=== PATIENT | male | born 1945 | race Caucasian/White ===

== ENCOUNTER 2020-05-21 10:26 | Outpatient (REF) | payer MEDICARE, OTHER, SELFPAY ==
--- NOTE | 2020-05-21 10:34 | US_ITS ---
EXAMINATION: US ABDOMEN COMPLETE CLINICAL INFORMATION: Abdominal pain. Pancreatitis. COMPARISON: None TECHNIQUE: Real-time imaging of the abdominal viscera. FINDINGS: PANCREAS: Normal. ABDOMINAL AORTA: The proximal, mid, and distal segments are normal in caliber. INFERIOR VENA CAVA: Visualized portions are normal. LIVER: Liver echotexture is increased. The liver is normal in size. The liver contour is normal. No focal hepatic lesion. There is no intrahepatic biliary duct dilatation seen. GALLBLADDER: Normal. The gallbladder is physiologically distended without evidence of stones, sludge, polyps, wall thickening or pericholecystic fluid. COMMON BILE DUCT: Normal in caliber measuring 0.24 cm in diameter. RIGHT KIDNEY: Normal. No hydronephrosis. No renal calculi or focal parenchymal lesions. The kidney measures 14.1 cm in maximum dimension. LEFT KIDNEY: Normal. No hydronephrosis. No renal calculi or focal parenchymal lesions. The kidney measures 14.9 cm in maximum dimension. SPLEEN: Normal. The spleen measures 9.8 cm in maximum dimension. FREE FLUID: None. US/US abdomen complete IMPRESSION: Echogenic liver probably representing fatty infiltration.
== END 2020-05-21 10:27 | disposition home or self-care (01) ==
LOC: HO.HMGCX 10:26
PROVIDERS: PCP Internal Medicine; Visit Provider Internal Medicine
DX: R10.9 Unspecified abdominal pain (principal)
CPT/HCPCS: 76700

== ENCOUNTER 2020-05-29 11:00 | Outpatient (RCR) | payer MEDICARE, OTHER, SELFPAY | END 2020-06-28 11:48 | disposition home or self-care (01) | LOC: HO.PTCHIC 11:00 | PROVIDERS: PCP Internal Medicine; Visit Provider Internal Medicine | DX: R53.1 Weakness (principal); R26.81 Unsteadiness on feet | CPT/HCPCS: 97110; 97112 ==

== ENCOUNTER 2020-11-21 11:00 | Outpatient (RCR) | payer MEDICARE, OTHER, SELFPAY | END 2020-12-15 10:50 | disposition home or self-care (01) | LOC: HO.PTCHIC 11:00 | PROVIDERS: PCP Internal Medicine; Visit Provider Internal Medicine | DX: Z47.1 Aftercare following joint replacement surgery (principal); Z96.649 Presence of unspecified artificial hip joint | CPT/HCPCS: 97014; 97110; 97140; 97162 ==

== ENCOUNTER 2021-07-05 11:00 | Outpatient (RCR) | payer MEDICARE, OTHER, SELFPAY | END 2021-07-05 13:11 | disposition home or self-care (01) | LOC: HO.PTCHIC 11:00 | PROVIDERS: PCP Internal Medicine; Visit Provider Internal Medicine | DX: M54.9 Dorsalgia, unspecified (principal); M79.606 Pain in leg, unspecified | CPT/HCPCS: 97110; 97150; 97162 ==

== ENCOUNTER 2022-02-04 11:00 | Outpatient (RCR) | payer MEDICARE, OTHER, SELFPAY | END 2022-04-25 13:47 | disposition home or self-care (01) | LOC: HO.PTCHIC 11:00 | PROVIDERS: PCP Internal Medicine; Visit Provider Internal Medicine | DX: R26.9 Unspecified abnormalities of gait and mobility (principal); R53.1 Weakness | CPT/HCPCS: 97110; 97162 ==

== ENCOUNTER 2022-03-25 08:41 | Outpatient (REF) | payer MEDICARE, OTHER, SELFPAY ==
--- NOTE | ~2022-03-25 | US_ITS ---
EXAMINATION: NONINVASIVE ASSESSMENT OF THE ARTERIES OF BOTH LOWER EXTREMITIES WITH US BILATERAL LOWER EXTREMITY DUPLEX CLINICAL INFORMATION: Absent pulses/claudication. TECHNIQUE: duplex Doppler techniques with wave form analysis and measurement of velocities in the common femoral, profunda femoral, superficial femoral, popliteal and tibial arteries. The study was performed only at rest. COMPARISON: None. FINDINGS: AT REST: RIGHT LEG: There is vessel wall calcification. There is a biphasic waveform seen throughout. * Common femoral artery: 73 cm/s, Diastolic flow reversal: Yes. * Superficial femoral artery (proximal, mid, distal): 80, 90 and 60 cm/s, Diastolic flow reversal: Yes. * Popliteal artery: 53 cm/s, Diastolic flow reversal: Yes. * Posterior tibial artery: 82 cm/s, Diastolic flow reversal: Yes. LEFT LEG: There is vessel wall calcification. There is a biphasic waveform seen throughout. Common femoral artery: 55 cm/s, Diastolic flow reversal: Yes. * Superficial femoral artery (proximal, mid, distal): 68, 64 and 48 cm/s, Diastolic flow reversal: Yes. * Popliteal artery: 48 cm/s, Diastolic flow reversal: Yes. * Posterior tibial artery: 85 cm/s, Diastolic flow reversal: Yes. US/US arterial duplex LE BI IMPRESSION: There is diffuse vessel wall calcification and biphasic waveform seen throughout There is no evidence of any hemodynamically significant lower extremity arterial disease by waveform or duplex Doppler criteria at rest.
== END 2022-03-25 08:42 | disposition home or self-care (01) ==
LOC: HO.US 08:41
PROVIDERS: Visit Provider Internal Medicine
DX: R09.89 Other specified symptoms and signs involving the circulatory and respiratory systems (principal)
CPT/HCPCS: 93925

== ENCOUNTER 2022-08-19 11:00 | Outpatient (RCR) | payer MEDICARE, OTHER, SELFPAY | END 2022-09-12 10:36 | disposition home or self-care (01) | LOC: HO.PTCHIC 11:00 | PROVIDERS: PCP Internal Medicine; Visit Provider Internal Medicine | DX: M62.81 Muscle weakness (generalized) (principal) | CPT/HCPCS: 97110; 97112; 97162; 97530 ==

== ENCOUNTER 2023-01-09 11:15 | Outpatient (REF) | payer MEDICARE, OTHER, SELFPAY ==
[2023-01-09 16:24] LABS: Vitamin D 25-OH Total 21.7 ng/mL (>30)
== END 2023-01-09 11:16 | disposition home or self-care (01) ==
LOC: HO.HMGCLDS 11:15
PROVIDERS: PCP Internal Medicine; Visit Provider Internal Medicine
DX: M81.0 Age-related osteoporosis without current pathological fracture (principal)
CPT/HCPCS: 36415; 82306

== ENCOUNTER 2023-04-22 11:00 | Outpatient (RCR) | payer MEDICARE, OTHER, SELFPAY ==
[2023-01-22 10:02] VITALS: BP 125/78
--- NOTE | 2023-04-22 12:12 | MHC.PT.DC ---
[facility] [place] Office [place] Office [place] Office [address] Flor [place] [address] [phone] F: [phone] F: [phone] F: [phone] F: [phone] Physical Therapy Discharge Report Diagnosis: B hip DJD Date of Surgery: Date of Evaluation: 01/22/23 Date of Discharge: 04/22/23 Treatments to Date: 16 Cancellations to Date: No Shows to Date: Discharge Status: Achieved Goals Improved Function Independent with HEP Discharge Summary: Real has been an active participant in his therapy with good home program compliance. We are in agreement with DC today as he has met most of his therapeutic goals, is improved of his initial impairments, and is independent in his home program for self management. Electronically signed by: Zafar Lynne PT Please sign and return to therapist. Thank you for your referral.
== END 2023-04-22 12:12 | disposition home or self-care (01) ==
LOC: HO.PTCHIC 11:00
PROVIDERS: PCP Internal Medicine; Visit Provider Internal Medicine
DX: M19.90 Unspecified osteoarthritis, unspecified site (principal)
CPT/HCPCS: 97110; 97112; 97162; 97530

== ENCOUNTER 2023-10-20 11:00 | Outpatient (RCR) | payer MEDICARE, OTHER, SELFPAY | END 2024-04-11 15:02 | disposition home or self-care (01) | LOC: HO.PTCHIC 11:00 | PROVIDERS: PCP Internal Medicine; Visit Provider Internal Medicine | DX: M25.551 Pain in right hip (principal); M25.552 Pain in left hip; R26.9 Unspecified abnormalities of gait and mobility | CPT/HCPCS: 97110; 97112; 97162 ==

== ENCOUNTER 2023-12-29 09:58 | Outpatient (REF) | payer MEDICARE, OTHER, SELFPAY ==
--- NOTE | ~2023-12-29 | US_ITS ---
EXAMINATION: US PELVIS LIMITED (BLADDER) CLINICAL INFORMATION: Voiding every hour. COMPARISON: Ultrasound abdomen complete 05/21/2020. TECHNIQUE: Real-time imaging of the bladder. FINDINGS: BLADDER: Well distended. Bilateral ureteral jets are demonstrated. Prevoid bladder volume is 252 mL. Postvoid bladder volume is 72 mL. The bladder hanna are mildly trabeculated. ADDITIONAL FINDINGS: The prostate is enlarged with a volume of 83 mL. US/US bladder IMPRESSION: 1. Large post void residual. 2. The bladder hanna are mildly trabeculated. 3. Enlarged prostate.
== END 2023-12-29 09:59 | disposition home or self-care (01) ==
LOC: HO.HMGCX 09:58
PROVIDERS: PCP Internal Medicine; Visit Provider Internal Medicine
DX: N39.43 Post-void dribbling (principal)
CPT/HCPCS: 76857

== ENCOUNTER 2024-03-08 08:49 | Outpatient (AMB) | payer MEDICARE, OTHER, SELFPAY ==
--- NOTE | 2024-03-08 08:56 | A.OFFVIS_ITS ---
Intake Visit Reasons: Enlarged Prostate/High PVR Intake Note: Patient presents to the office today for a new patient visit for enlarged prostate/High PVR Urology Meds:None Blood Thinners:None PVR:48mL Allergies No Known Allergies [No Known Allergies*] Allergy (Unverified 03/08/24 08:56) HPI Comments Details: Real is a pleasant male. He is a patient of Dr. Wilkinson. He seen for the following urologic conditions - lower urinary tract symptoms Lower urinary tract symptoms Progressive Found to have 80 g prostate on ultrasound with 75 cc PVR PVR in office today 50 cc Minimal nocturia Has frequency during the day Postvoid dribbling with relative weakness of stream Trial finasteride Review of Systems Const Denies chills and Denies fever(s) Card Reports no additional complaints and Denies syncope Resp Denies cough GI Denies abdominal pain and Denies heartburn Reports as per HPI and Denies change in libido Neuro Denies syncope Psych Denies change in libido Endo Denies change in libido Physical Exam Const General: cooperative, healthy appearing, comfortable and no acute distress Orientation/consciousness: patient oriented x3 HEENT Face and sinus: Yes normal facial exam Mouth: moist mucous membranes Neck Neck: Yes normal visual inspection, Yes full ROM and Yes trachea midline Chest Chest palpation & inspection: normal inspection of the chest Resp Effort & Inspection: normal respiratory effort, able to speak in complete sentences and no respiratory distress GI Inspection: Yes normal to inspection Back/Spine/Pelvis Cervical Spine: normal cervical lordosis Thoracic/Lumbar Spine: thoracic and lumbar spine normal to inspection Skin General skin exam: no rashes or lesions noted Neuro General: patient oriented x3, gait normal, tone normal and moves all extremities Extrem General: Yes normal to inspection and Yes capillary refill normal Office Procedures Post Void Residual Post Residual Void Post Void Residual (PVR): 48 32956-Fxqd Void Residual by ultrasound Assessment & Plan Assessment & Plan (1) Incomplete emptying of bladder due to benign prostatic hyperplasia: Code(s): N40.1 - Benign prostatic hyperplasia with lower urinary tract symptoms; R33.9 - Retention of urine, unspecified Category: Medical (2) Bladder outlet obstruction: Code(s): N32.0 - Bladder-neck obstruction Category: Medical (3) Post-void dribbling: Code(s): N39.43 - Post-void dribbling Category: Medical Plan 4 month follow-up PSA and PVR Orders: Orders AMB Urinalysis Automated Today Z13.9 - Encounter for screening, unspecified AMB Post Void Residual by ultrasound Today N40.0 - Benign prostatic hyperplasia without lower urinary tract symptoms PSA,Total (Free>4and<10) 4 Months N40.1 - Benign prostatic hyperplasia with lower urinary tract symptoms, R33.9 - Retention of urine, unspecified Medications: New finasteride 5 mg PO DAILY 90 days 90 tabs 1RF N13.8 - Other obstructive and reflux uropathy, N40.1 - Benign prostatic hyperplasia with lower urinary tract symptoms, R33.9 - Retention of urine, unspecified Patient Instructions: Imaging studies, laboratory and physical exam results were discussed and reviewed in detail. No major barriers to patient understanding were identified. An opportunity to ask questions regarding the treatment plan was provided. All questions were answered. The patient expressed understanding and agreement with the above treatment plan. The patient is aware they should contact our office by phone for worsening of their current condition or the appearance of new urologic symptoms. Compliance is encouraged with any medications and followup testing that is ordered. It is a privilege to participate in the urologic care of your patient. If you have any questions or concerns regarding treatment for the above conditions, or other urologic issues, please do not hesitate to contact me. The office telephone contact is [phone]. This note is constructed using voice recognition software. While every effort has been made to ensure accuracy transport aircrewman errors may have been included. Yours sincerely, Dr Syd Mcqueen MD, [facility] - Urology Providers of Expert, Compassionate Care for the Genitourinary System Coding Level of Care Code New Pt Level 4 (77921) Diagnoses Incomplete emptying of bladder due to benign prostatic hyperplasia N40.1; R33.9 Bladder outlet obstruction N32.0 Post-void dribbling N39.43 CPT Codes Post Residual Void - PVR CPT Code: 94432-Qzou Void Residual by ultrasound ([id number])
== END 2024-03-08 09:43 | disposition home or self-care (01) ==
LOC: HO.HUSH 08:49
PROVIDERS: PCP Internal Medicine; Visit Provider Urology
DX: N40.1 Benign prostatic hyperplasia with lower urinary tract symptoms (principal); R33.9 Retention of urine, unspecified; N32.0 Bladder-neck obstruction; N39.43 Post-void dribbling
CPT/HCPCS: 99204

== ENCOUNTER → 2024-03-08 08:49 | Outpatient (BNVA) | payer MEDICARE, OTHER, SELFPAY | PROVIDERS: PCP Internal Medicine; Visit Provider Urology | DX: N40.1 Benign prostatic hyperplasia with lower urinary tract symptoms (principal); N13.8 Other obstructive and reflux uropathy; N39.43 Post-void dribbling; R35.0 Frequency of micturition; N32.0 Bladder-neck obstruction | CPT/HCPCS: 51798; 99202 ==

== ENCOUNTER 2024-04-07 14:00 | Outpatient (RCR) | payer MEDICARE, OTHER, SELFPAY | END 2024-04-11 15:02 | disposition home or self-care (01) | LOC: HO.PTCHIC 14:00 | PROVIDERS: PCP Internal Medicine; Visit Provider Internal Medicine | DX: M54.9 Dorsalgia, unspecified (principal); R53.1 Weakness; M47.816 Spondylosis without myelopathy or radiculopathy, lumbar region | CPT/HCPCS: 97110; 97112; 97163 ==

== ENCOUNTER 2024-04-22 06:32 | Day surgery (SDC) | payer MEDICARE, OTHER, SELFPAY ==
[2024-04-20 15:07] VITALS: BMI 27.7
[2024-04-20 15:39] VITALS: BMI 27.7
--- NOTE | 2024-04-21 09:59 | HO.ANESPROP2 ---
Documented by User: Stormy Calderon NP 04/21/24 10:00 HPI - Anesthesia Eval Consult details Narrative: 78yo M for Colonoscopy Anesthesia Pre-Procedure Meds Is the patient on any of the following meds?: SGLT2 Inhib PMFSH Active Problems Active Problems: All Active Problems Post-void dribbling (Acute) Incomplete emptying of bladder due to benign prostatic hyperplasia (Acute) Bladder outlet obstruction (Acute) Past Medical History Medical History Nicotine use Ambulates with cane Peripheral neuropathy Internal hemorrhoids Diverticulosis Hiatal hernia Arthritis Left leg weakness Diabetes Hyperlipemia HTN (hypertension) Surgical History Surgical History History of esophagogastroduodenoscopy (EGD) (~2018) Hx of bilateral hip replacements Hx of colonoscopy Social History Social History Are you a primary manager intensive care to a significant other at home: No Do you presently have visiting nurse or other home services: No Patient Tobacco Use Status: Former Tobacco user Tobacco use type: Cigarette Smoked in Last 30 Days: No Use of substances other than those prescribed or required for medical reasons: No Substance Use Type Other:: ZYN nicotine chew Substance Use Frequency: Daily Have you been hit, kicked, punched, or otherwise hurt by someone within the past year? If so, by whom?: No Are you DNR?: No Advance Directives: No Advance Directives Information Provided: Yes Advance Directives on File: No Recently lost weight without trying: No Nutrition Risks: No Nutritional Risk Poor oral hygiene: No Meds Allergies Allergy/AdvReac Type Severity Reaction Status Date / Time No Known Allergies Allergy Verified 04/20/24 15:38 [No Known Allergies*] Home Medications ?Medication ?Instructions ?Recorded ?Confirmed ?Last Taken ?Type atorvastatin 10 mg tablet 10 mg PO DAILY 03/08/24 04/20/24 Unknown History cholecalciferol (vitamin D3) 25 25 mcg PO DAILY 03/08/24 04/20/24 Unknown History mcg (1,000 unit) capsule (Vitamin D3) empagliflozin 10 mg tablet 10 mg PO DAILY 03/08/24 04/20/24 04/18/24 History (Jardiance) gabapentin 100 mg capsule mg PO 03/08/24 Unknown History lisinopril 10 mg tablet 10 mg PO DAILY 03/08/24 04/20/24 Unknown History metformin 500 mg tablet,extended 1,000 mg PO BID 03/08/24 04/20/24 Unknown History release 24 hr nifedipine 30 mg tablet,extended 30 mg PO DAILY 03/08/24 04/20/24 Unknown History release Exam Height,Weight and Vital Signs: Height 6 ft 3.5 in Weight 102.058 kg Assessment and Plan Assessment Anesthesia Assessment: Chart Reviewed Documented by User: Brigida Schuster MD 04/22/24 08:44 PMFSH Past Medical History Medical History Nicotine use Ambulates with cane Peripheral neuropathy Internal hemorrhoids Diverticulosis Hiatal hernia Arthritis Left leg weakness Diabetes Hyperlipemia HTN (hypertension) Family History Family history of problems with anesthesia: No Surgical History Surgical History History of esophagogastroduodenoscopy (EGD) (~2018) Hx of bilateral hip replacements Hx of colonoscopy History of Problems with Anesthesia: No Social History Social History Are you a primary manager intensive care to a significant other at home: No Do you presently have visiting nurse or other home services: No Patient Tobacco Use Status: Former Tobacco user Tobacco use type: Cigarette Smoked in Last 30 Days: No Use of substances other than those prescribed or required for medical reasons: No Substance Use Type Other:: ZYN nicotine chew Substance Use Frequency: Daily Have you been hit, kicked, punched, or otherwise hurt by someone within the past year? If so, by whom?: No Are you DNR?: No Advance Directives: No Advance Directives Information Provided: Yes Advance Directives on File: No Recently lost weight without trying: No Nutrition Risks: No Nutritional Risk Poor oral hygiene: No Meds Allergies Allergy/AdvReac Type Severity Reaction Status Date / Time No Known Allergies Allergy Verified 04/20/24 15:38 [No Known Allergies*] Home Medications ?Medication ?Instructions ?Recorded ?Confirmed ?Last Taken ?Type atorvastatin 10 mg tablet 10 mg PO DAILY 03/08/24 04/20/24 Unknown History cholecalciferol (vitamin D3) 25 25 mcg PO DAILY 03/08/24 04/20/24 Unknown History mcg (1,000 unit) capsule (Vitamin D3) empagliflozin 10 mg tablet 10 mg PO DAILY 03/08/24 04/20/24 04/18/24 History (Jardiance) gabapentin 100 mg capsule mg PO 03/08/24 Unknown History lisinopril 10 mg tablet 10 mg PO DAILY 03/08/24 04/20/24 Unknown History metformin 500 mg tablet,extended 1,000 mg PO BID 03/08/24 04/20/24 Unknown History release 24 hr nifedipine 30 mg tablet,extended 30 mg PO DAILY 03/08/24 04/20/24 Unknown History release Exam Airway Mallampati Class: II TM Dist: >3cm Neck ROM: Full Heart: rrr Lungs: cta Assessment and Plan Assessment Anesthesia Assessment: Anesthesia Plan Discussed Final Anesthetic Review Family History of Problems with Anesthesia: No History of Problems with Anesthesia: No NPO: Yes ASA Class: III Final Preanesthetic Review: No Changes in Pt Med Stat, Meds/Allgs Chart Reviewed, Consent Obtained/Reviewed and Anes Risks/Benef Reviewed Patient Risk: Intermediate Anesthetic Plan Anesthetic Plan: MAC:
[2024-04-22 06:54] VITALS: BP 146/79; PULSE 62; RESP 16; TEMP 36.2; O2SAT 98
[2024-04-22 06:58] VITALS: BMI 27.5
[2024-04-22] MEDS: Lactated Ringers 1,000 ML 100 ML IVCONT (07:10)
[2024-04-22 07:15] LABS: Glucose, Whole Blood 151 mg/dL (60-115)
[2024-04-22 08:50] VITALS: BP 116/70; PULSE 61; RESP 16; TEMP 36.1; O2SAT 97
--- NOTE | 2024-04-22 08:56 | PM.OP ---
Brief Operative Note Date of Service: 04/22/24 Pre-op diagnosis: Dysphagia, Screening Post-op diagnosis: other (Duodenitis, GERD, Colon polyp) Procedure: EGD with biopsies, Colonoscopy to the cecum and TI with cold snare polypectomy x 1 Surgeon: Juan Miguel iTm MD Anesthesia: MAC Was an Automotive Service Cashier used for this Procedure?: No Estimated blood loss (mL): 2.0 Pathology: other (A. Gastric antrum B. EG Junction at 42cm C. Gastric polyp D. Esophagus 20-25cm E. Ascending colon polyp) Condition: stable Disposition: PACU
--- NOTE | 2024-04-22 09:10 | OP_ITS ---
DATE OF SERVICE: 04/22/2024 SURGEON: Juan Miguel Tim MD INDICATIONS: The patient presents for evaluation of intermittent dysphagia, personal history of tubular adenoma of the colon, colorectal cancer screening. Full consent was obtained from him for this, including risks of bleeding and perforation. PREOPERATIVE DIAGNOSIS: POSTOPERATIVE DIAGNOSIS: PROCEDURE PERFORMED: Esophagogastroduodenoscopy with biopsies, and colonoscopy to the cecum and terminal ileum with cold snare polypectomy. ESTIMATED BLOOD LOSS: COMPLICATIONS: ANESTHESIA: Monitored anesthesia care. ASSISTANTS: SPECIMENS: PREOPERATIVE DIAGNOSES: Dysphagia, colorectal cancer screening, personal history of tubular adenomas of the colon. POSTOPERATIVE DIAGNOSES: Dysphagia, colorectal cancer screening, personal history of tubular adenomas of the colon, small hiatal hernia, gastroesophageal reflux, rule out eosinophilic esophagitis, gastritis, duodenitis, colon polyp, diverticulosis, and internal hemorrhoids. DESCRIPTION OF PROCEDURE: The patient was placed in the left lateral decubitus position. The Red-rabbit video gastroscope was passed in the posterior oropharynx and upper esophagus under direct vision. The scope was passed slowly into the distal esophagus. The gastroesophageal junction appeared at 42 cm. There was some very minimal irregularity, consistent with reflux but no evidence of any esophagitis nor any active definitive evidence of Herndon mucosa. The scope entered the stomach, there was a small hiatal hernia. The scope was advanced to pylorus and the duodenum was cannulated to the descending portion. The duodenum including the bulb was carefully inspected. The duodenal bulb had multiple, less than 5 mm erosions. There was no ulceration or mass. The second and third portions of duodenum appeared normal. The scope was withdrawn back to the stomach. The gastric antrum had some areas of erythema and edema, as well as an area of what appeared to be a diverticulum with some surrounding edema. Biopsies were obtained from the antrum as well as from the margins of the area of what appeared to be the diverticulum. The scope was retroflexed visualizing the proximal stomach carefully which appeared normal, without mass or ulceration. The scope was straightened. There was good peristalsis. The scope was withdrawn back in the esophagus. Biopsies were obtained at the EG junction at 42 cm. Proximal to that, there did appear to be some esophageal dissecans, but no other mucosal abnormalities. Biopsies were obtained between 20 and 25 cm to rule out eosinophilic esophagitis. There was no evidence of any proximal esophageal ring, nor stricture. The scope was withdrawn from the patient. He was turned around for the colonoscopy. The digital rectal exam revealed no abnormalities. The Olympus video pediatric colonoscope was entered into the rectum and advanced easily to the cecum. Once in the cecum, I did identify cecal pouch with appendiceal orifice and a normal-appearing ileocecal valve. The terminal ileum was cannulated and appeared normal. The scope was withdrawn back in the colon. There were some diverticula noted in the cecum as well. The cecum otherwise appeared normal. The scope was slowly withdrawn assessing all mucosal surfaces carefully. Preparation was excellent. There was a mild amount of diverticulosis in the ascending colon. There was a moderate amount of diverticulosis in the sigmoid and descending colon. In the ascending colon was an approximately 5 or 6 mm polyp, which was removed by cold snare polypectomy and recovered by suction. The polypectomy site appeared clean, without any sign of residual polyp nor significant bleeding. I did not visualize any other polyps, colitis, nor angiodysplasia. In the rectum, scope was retroflexed visualizing internal hemorrhoids, but no other pathology. The rectal mucosa appeared normal. The scope was straightened and withdrawn from the patient. He tolerated the procedure well and was returned to recovery area in stable condition. IMPRESSION: 1. Erosive duodenitis. 2. Gastritis, rule out Helicobacter pylori. 3. Hiatal hernia, gastroesophageal reflux. 4. Rule out eosinophilic esophagitis. 5. Colon polyp. 6. Diverticulosis. 7. Internal hemorrhoids. PLAN: The results of biopsies will be checked. Given his age and the minimal findings in the colonoscopy, I do not think he will need any further screening colonoscopies. He was advised not to use any aspirin or NSAIDs for 1 week. Given his upper GI complaints of some dysphagia and the upper endoscopy findings, I shall start him on omeprazole 20 mg daily to treat the inflammation as well as to treat any reflux that might be causing some spasm and dysphagia on that basis. He will be seen in followup as well. He does take alendronate and I did advise him that is important to be taking it according to the directions so as to avoid increased esophageal issues. MD SKYLER Hernandez/ESTEFANIA / [phone] HUE
[2024-04-22 09:11] VITALS: BP 147/90; PULSE 64; RESP 18; TEMP 36.1; O2SAT 99
== END 2024-04-22 09:31 | disposition home or self-care (01) ==
PROVIDERS: PCP Internal Medicine; Visit Provider Internal Medicine
PROC: 0DJD8ZZ Inspection of Lower Intestinal Tract, Via Natural or Artificial Opening Endoscopic (ICD-10-PCS; CPT 45378; principal; 2024-04-22 07:30)
PROC: (CPT 43239; 2024-04-22 07:30)
DX: K26.9 Duodenal ulcer, unspecified as acute or chronic, without hemorrhage or perforation (principal); K29.70 Gastritis, unspecified, without bleeding; K44.9 Diaphragmatic hernia without obstruction or gangrene; K31.4 Gastric diverticulum; K21.00 Gastro-esophageal reflux disease with esophagitis, without bleeding; R13.10 Dysphagia, unspecified; Z12.11 Encounter for screening for malignant neoplasm of colon; D12.2 Benign neoplasm of ascending colon; K57.30 Diverticulosis of large intestine without perforation or abscess without bleeding; K64.8 Other hemorrhoids; Z86.010 Personal history of colon polyps; E11.9 Type 2 diabetes mellitus without complications; I10 Essential (primary) hypertension; E78.5 Hyperlipidemia, unspecified; Z79.899 Other long term (current) drug therapy; Z79.02 Long term (current) use of antithrombotics/antiplatelets; Z79.84 Long term (current) use of oral hypoglycemic drugs; Z87.891 Personal history of nicotine dependence
CPT/HCPCS: 43239; 45385; 82947; 88305; 88313; 88342; J1596; J2704

== ENCOUNTER 2024-06-28 09:18 | Outpatient (REF) | payer MEDICARE, OTHER, SELFPAY ==
[2024-06-28 12:03] LABS: PSA,Total (Free>4and<10) 1.03 ng/mL (0.00-4.00)
== END 2024-06-28 09:19 | disposition home or self-care (01) ==
LOC: HO.HMGCLDS 09:18
PROVIDERS: PCP Internal Medicine; Visit Provider Urology
DX: N40.1 Benign prostatic hyperplasia with lower urinary tract symptoms (principal); R33.9 Retention of urine, unspecified; Z12.5 Encounter for screening for malignant neoplasm of prostate
CPT/HCPCS: 36415; 84153

== ENCOUNTER 2024-07-14 08:26 | Outpatient (AMB) | payer MEDICARE, OTHER, SELFPAY ==
--- NOTE | 2024-07-14 08:39 | A.OFFVIS_ITS ---
Intake Visit Reasons: 4m/PSA(set) Intake Note: Patient is present for 4M/PSA Urology Medication:FINASTERIDE Antibiotic Allergy:NONE Blood Thinner:NONE Spiritual Counselor Required: No Allergies No Known Allergies [No Known Allergies*] Allergy (Verified 07/14/24 08:40) HPI Comments Details: Real is a pleasant male. He is a patient of Dr. Wilkinson. He seen for the following urologic conditions - lower urinary tract symptoms Four month follow-up trial finasteride Improved voiding parameters 3+ glucose urine on Jardiance Six-month follow-up check testosterone Lower urinary tract symptoms background diabetes Progressive Found to have 80 g prostate on ultrasound with 75 cc PVR PVR in office today 50 cc Minimal nocturia Has frequency during the day Postvoid dribbling with relative weakness of stream PSA 07/19 1.0 PFSH Medical History Nicotine use Ambulates with cane Peripheral neuropathy Internal hemorrhoids Diverticulosis Hiatal hernia Arthritis Left leg weakness Diabetes Hyperlipemia HTN (hypertension) Surgical History History of esophagogastroduodenoscopy (EGD) (~2018) Hx of bilateral hip replacements Hx of colonoscopy Social History Are you a primary day care aide to a significant other at home: No Do you presently have visiting nurse or other home services: No Patient Tobacco Use Status: Former Tobacco user Tobacco use type: Cigarette Results AMB Urinalysis, Automated UA Leukoctes 0 Kaylan/uL Last Edit by VICENTA Diaz on 07/14/24 09:34 UA Nitrite Negative Last Edit by VICENTA Diaz on 07/14/24 09:34 UA Urobilinogen 0.2 mg/dL Last Edit by VICENTA Diaz on 07/14/24 09:3 4 UA Protein 0 mg/dL Last Edit by VICENTA Diaz on 07/14/24 09:34 UA pH 6.0 Last Edit by VICENTA Diaz on 07/14/24 09:34 UA Blood 0 Chris/uL Last Edit by VICENTA Diaz on 07/14/24 09:34 UA Specific [place] 1.015 Last Edit by VICENTA Diaz on 07/14/24 09: 34 UA Ketone Negative Last Edit by VICENTA Diaz on 07/14/24 09:34 UA Bilirubin 0 mg/dL Last Edit by VICENTA Diaz on 07/14/24 09:34 UA Glucose 1000 mg/dL Last Edit by VICENTA Diaz on 07/14/24 09:34 Results Reviewed Results Reviewed: Laboratory Last Values Urine pH (Auto) 6.0 07/14/24 09:33 Specific [place] (Auto) 1.015 07/14/24 09:33 Urine Protein (Auto) 0 mg/dL 07/14/24 09:33 Glucose (UA)(Auto) 1000 mg/dL 07/14/24 09:33 Urine Ketones (Auto) Negative 07/14/24 09:33 Urine Blood (Auto) 0 Chris/uL 07/14/24 09:33 Urine Nitrite (Auto) Negative 07/14/24 09:33 Urine Bilirubin (Auto) 0 mg/dL 07/14/24 09:33 Urine Urobilinogen (Auto) 0.2 mg/dL 07/14/24 09:33 Leukocyte Esterase (Auto) 0 Kaylan/uL 07/14/24 09:33 Assessment & Plan Assessment & Plan (1) Bladder outlet obstruction: Code(s): N32.0 - Bladder-neck obstruction Category: Medical (2) Incomplete emptying of bladder due to benign prostatic hyperplasia: Code(s): N40.1 - Benign prostatic hyperplasia with lower urinary tract symptoms; R33.9 - Retention of urine, unspecified Category: Medical Plan Six-month follow-up PVR and PSA Orders: Orders AMB Urinalysis Automated Today Z13.9 - Encounter for screening, unspecified Testosterone, Total 6 Months N32.0 - Bladder-neck obstruction Medications: Refilled finasteride 5 mg PO DAILY 90 tabs 1RF 90 days N13.8 - Other obstructive and reflux uropathy, N40.1 - Benign prostatic hyperplasia with lower urinary tract symptoms, R33.9 - Retention of urine, unspecified Patient Instructions: Imaging studies, laboratory and physical exam results were discussed and reviewed in detail. No major barriers to patient understanding were identified. An opportunity to ask questions regarding the treatment plan was provided. All questions were answered. The patient expressed understanding and agreement with the above treatment plan. The patient is aware they should contact our office by phone for worsening of their current condition or the appearance of new urologic symptoms. Compliance is encouraged with any medications and followup testing that is ordered. It is a privilege to participate in the urologic care of your patient. If you have any questions or concerns regarding treatment for the above conditions, or other urologic issues, please do not hesitate to contact me. The office telephone contact is [phone]. This note is constructed using voice recognition software. While every effort has been made to ensure accuracy development associate errors may have been included. Yours sincerely, Dr Syd Mcqueen MD, [facility] - Urology Providers of Expert, Compassionate Care for the Genitourinary System Coding Level of Care Code Est Pt Level 3 (12952) Diagnoses Bladder outlet obstruction N32.0 Incomplete emptying of bladder due to benign prostatic hyperplasia N40.1; R33.9
== END 2024-07-14 09:08 | disposition home or self-care (01) ==
PROVIDERS: PCP Internal Medicine; Visit Provider Urology
DX: N32.0 Bladder-neck obstruction (principal); N40.1 Benign prostatic hyperplasia with lower urinary tract symptoms; R33.9 Retention of urine, unspecified; Z13.9 Encounter for screening, unspecified
CPT/HCPCS: 99213

== ENCOUNTER → 2024-07-14 08:26 | Outpatient (BNVA) | payer MEDICARE, OTHER, SELFPAY | PROVIDERS: PCP Internal Medicine; Visit Provider Urology | DX: N40.1 Benign prostatic hyperplasia with lower urinary tract symptoms (principal); N13.8 Other obstructive and reflux uropathy; R33.9 Retention of urine, unspecified; N32.0 Bladder-neck obstruction | CPT/HCPCS: 81003; 99212 ==

== ENCOUNTER 2024-10-10 10:56 | Outpatient (REF) | payer MEDICARE, OTHER, SELFPAY ==
--- NOTE | ~2024-10-10 | XR_ITS ---
EXAMINATION: XR LUMBOSACRAL SPINE CLINICAL INFORMATION: LOW BACK PAIN COMPARISON: None available. TECHNIQUE: Three views of the lumbosacral spine. FINDINGS: There is maintained lumbar lordosis. There is loss of L3-4 and L5-S1 disc heights. Rest the disc heights, although vertebral heights and alignment is preserved. There is moderate ventral spondylosis at the L2 to-3 and mild spondylosis L3-for L4-5 disc levels. No visible acute fracture, dislocation or lytic process seen. XR/XR lumbar spine 2-3V IMPRESSION: Mild degenerative disc changes and spondylosis as described above. No visible acute fracture or lytic process seen. Electronically signed by: Bronson Colbert MD 10/10/2024 12:17 PM EDT
--- OUTSIDE RECORDS SUMMARY | 2024-10-10 12:40 | XMS_ITS ---
Author Organization [facility] Address [address] [place] [address] Care Team Providers Care Crop Or Grain Farmer Name Role Phone Kaushal Wilkinson MD Primary Care Provider UnavailJuan Miguel López [phone] REASON FOR VISIT cancel appt on 08/31/2024 Encounters Encounter Location Date Provider Diagnosis [facility] 10 [facility] [address] [place] [phone] 07/22/2024 Juan Miguel Tim Plan Of Treatment Next Appt Details Provider Name:Juan Miguel Tim , 10/28/2024 02:40:00 PM, [address] [facility], [address], [place], [address], Progress Notes * YAZMIN ADAMSDOB:1945 (78 yo M)Acc No.[id number]:07/22/2024 Patient:?YAZMIN ADAMS :1945???Age:78 Y???Sex:Male Address:[address] [place] [address], [place] [address] * true * Date:? Generated for Printi ng/Fadaning/eTransmitting on:?10/10/2024 12:40 PM EDT
--- OUTSIDE RECORDS SUMMARY | 2024-10-10 12:40 | XMS_ITS ---
Author Organization [facility] [place] Address [address] [facility] [place] [address] Care Team Providers Care Filenet Architect Name Role Phone Kaushal Wilkinson MD Primary Care Provider Marizol Yi Unavailable [phone] Allergies No Known Allergies REASON FOR VISIT At Risk Footcare, Skin Problem Medications Medication SIG (Take, Route, Frequency, Duration) Notes Start Date End Date Status Lisinopril 10 MG 1 tablet Orally Once a day for 30 day(s) Unknown Crestor 20 MG 1 tablet Orally Once a day for 30 day(s) Unknown Naprosyn 375 MG 1 tablet Orally Twic e a day for 30 day(s) 03/14/2014 Not-Taking CeleBREX 200 MG 1 capsule Orally Onc e a day for 30 day(s) 03/06/2014 Not-Taking Cephalexin 500 MG Orally No t-Taking Amoxicillin Not-Taki ng Augmentin 500-125 MG 1 tablet Orally Twi ce a day for 14 days 03/29/2019 Not-Taking Amoxicillin 500 MG 4 capsules one time Orally One hour prior to procedure for as needed 02/02/2019 Not-Taki ng LORazepam 2 MG 1 tablet at bedtime Orally Once a day PRN Not-Taking Augmentin 875-125 MG 1 tablet Orally sonya ry 12 hrs for 7 days Not-Taking Naproxen 500 MG 1 tablet with food o r milk as needed Orally every 12 hrs Not-Taking predniSONE 10 MG TAKE 1 TABLET BY RISHABH TH EVERY DAY Oral for 21 Not-Taking Fish Oil PRN Not-Taking Vitamin D Not-Taking Jardiance 10 MG Oral for 30 Ac tive Ammonium Lactate 12 % 1 application Exte rnally Twice a day for 30 days Active Lisinopril 10 MG 1 tablet Orally Once a day for 30 day(s) Active NIFEdipine 10 MG 1 capsule Orally Thr ee times a day for 30 day(s) Active metFORMIN HCl 500 MG Orally Twice a day Active Crestor 20 MG 1 tablet Orally Once a day for 30 day(s) Active NIFEdipine 10 MG 1 capsule Orally Thr ee times a day for 30 day(s) Unknow n LORazepam 2 MG 1 tablet at bedtime Orally Once a day Unknown Social History Tobacco Use: Social History Observation Description Date Details (start date - stop date) Never Smoker NA - NA Tobacco use other than smoking: Question Answer Notes Are you an other tobacco user? No Tobacco Control (Standard) Question Answer Notes Tobacco use: Nonsmoker Vital Signs Height 6ft 3in in 08/02/2024 Weight 225 lbs 08/02/2024 BMI 28.12 kg/m2 08/02/2024 Blood pressure systolic 155 mm Hg 08/02/19 25 Blood pressure diastolic 70 mm Hg 025 Encounters Encounter Location Date Provider Diagnosis [facility] [address] [address] 08/02/2024 Marizol Ellington Xerosis of skin L85. 3 ; Ganglion of foot, left M67.472 ; Type 2 diabetes mellitus with diabetic polyneuropathy E11.42 and Tinea unguium B35.1 Assessments Encounter Date Diagnosis (ICD Code) Assessment Notes Treatment Notes Treatment Clinical Notes Section Notes 08/02/2024 Xerosis of skin (ICD-10 - L85.3) 08/02/2024 Ganglion of foot, left (ICD-10 - M67.472) 08/02/2024 Type 2 diabetes mellitus with diabetic polyneuropathy (ICD-10 - E11.42) 08/02/2024 Tinea unguium (ICD-10 - B35.1) Plan Of Treatment Medication Medication Name Sig Start Date Stop Date Notes Ammonium Lactate 12 % 1 application Exte rnally Twice a day for 30 days Next Appt Details Follow Up: 2 Months, Reason: Provider Name:Marizol martinez, 10/12/2024 11:15:00 AM, [address] [place], [address], Procedure Notes * Category Sub-Category Detail Notes Debride Nail 6-10 Nail debridement Due to the cl inical pathology outlined in the exam findings, performance of this nail treatment is medically necessary as its management by an unskilled/untrained nonprofessional would put this patients foot and overall health at risk. Therefore, debridement to affected nail(s), as described in exam (TA, T1, T2, T3, T4, T5, T6, T7, T8, T9, ), was performed exclusively by the physician of record to reduce/remove overall nail length, girth, thickness, subungual debris, and necrotic tissue, by manual and/or electrical means through the use of a nail nipper and/or dremel-type fiberglass grinder, to a more viable healthy nail plate or bed tissue 6-10 nails in total. Silver nitrate was used for any petechial bleeding as necessary. Definitive antifungal treatment options, both pharmaceutical and surgical, have been reviewed and discussed with the patient. The patient solely prefers the use of intermittent/as needed professional debridement services for their nail condition and understands the need for additional periodic treatments to maintain effectiveness in symptomatic relief - 91901 Keratoma Treatment Parring or Cutting o f Benign Hyperkeratotic Lesion(s) (-57) More than 4 Lesions - Due to the at risk nature of the patients medical condition as documented in the exam findings, performance of this keratoderma treatment is medically necessary as its management by an unskilled/untrained nonprofessional would put this patients foot and overall health at risk. Therefore, the benign hyperkeratotic lesions, ( 5 ) in total, locations as stated and described in the exam ( TA, T5 , T1 , T6 , T9 ), were pared, and/or cut utilizing a sterile 15 blade, tissue nippers, and/or power dremel instrumentation by the physician of record - 36889 Progress Notes * Real PRUITTDOB:1945 (78 yo M)Acc No.[id number]:08/02/2024 Progress Note Patient:?Real PRUITT Provider:?Marizol Ellington DPM :1945???Age:78 Y???Sex:Male Juan Diego e:08/02/2024 Address:[address] [place] [address] [id number] Pcp:Kaushal Wilkinson MD Subjective: * Chief Complaints: * ???At Risk FootcareSkin Prob alex * HPI: ???At Risk footcare:?Pt States Last PCP Visit:?Date?06/26/2024 ???Skin problems:?Nature:?Lump , dryness , scaling.?Location:?Top Left 1st Toe(s) , B/L .?Course:?unchanged.?Treatments:?admits intermittent adherence to recommended application.? * ROS:?General/Constitutional:?Nausea?denies, denies.?Vomiting?denies, denies.?Hunger Thirst?denies, denies.?Loss appetite?denies, denies.?Chills?denies, denies.?Fatigue?denies, denies.?Fever?denies, denies.?Night Sweats denies, denies.?Unexplained weight loss?denies, denies.?Ophthalmologic:?Blurred vision?denies, denies.?Red eye?denies, denies.?HEENTM:?Dentures?denies, denies.?Dizziness?denies, denies.?Glasses/contacts?admits, admits.?Retinopathy?denies, denies.?Blurred/double vision?denies, denies.?TMJ?denies, denies.?Discharge/drainage?denies, denies.?Implants?denies, denies.?Hard of hearing ?denies, denies.?Difficulty chewing/swallowing/speaking?denies, denies.?Nose bleeds?denies, denies.?Sore mouth?denies, denies.?Swollen glands?denies, denies.?Respiratory:?On Oxygen?denies, denies.?Pneumonia/pleurisy?denies, denies.?Bronchitis?denies, denies.?Emphysema?denies, denies.?Coughing?denies, denies.?Cough blood?denies, denies.?Shortness of breath?denies, denies.?Wheezing?denies, denies.?Cardiovascular:?Pacemaker?denies, denies.?MVP?denies, denies.?WPW?denies, denies.?CHF?denies, denies.?Heart attack?denies, denies.?Septal defect?denies, denies.?Rapid beat?denies, denies.?Chest pain ?denies, denies.?Atrial Fib.?denies, denies.?Murmur/Palpitations?denies, denies.?Gastrointestinal:?Hemorrhoids?denies, denies.?Stomach/Abdominal pain?denies, denies.?Dark blood stool?denies, denies.?Irritable bowel ?denies, denies.?Constipation?denies, denies.?Diarrhea?denies, denies.?Vomiting?denies, denies.?Hematology:?Swelling?admits, admits.?Bruising?denies, denies.?Bleeding problem?denies, denies.?Genitourinary:?Blood urine?denies, denies.?Frequent/Painfu/urination/bladder control?denies, denies.?Kidney stones?denies, denies.?Infection (UTI)?denies, denies.?Nephropathy?denies, denies.?Musculoskeletal:?Hammertoes?admits, admits.?Bunions?denies, denies.?Scoliosis/kyphosis?denies, denies.?Muscle cramps / walking?denies, denies.?Generalized aches and pains?denies, denies.?Weakness?denies, denies.?Integ.:?Cobian?denies, denies.?Scars?denies, denies.?Corns/calluses?denies, denies.?Ingrown nails?denies, denies.?Painful nails?denies, denies.?Rashes?denies, denies.?Neurologic:?Difficulty sleeping?denies, denies.?Bipolar?denies, denies.?Brain disorder?denies, denies.?Balance trouble?denies, denies.?Confusion?denies, denies.?Fainting/blackouts?denies, denies.?Headache?denies, denies.?Tremors?denies, denies.? * Medical History:? * Surgical History:?right hip replacement 12/08/2011left hip replacement 10/2014colonoscopy 04/2024 * Hospitalization/Major Diagno stic Procedure:?Denies Past Hospitalization * Family History:?Mother: dece ased, diagnosed with Other specified conditions influencing health status.?Father: , diagnosed with Unspecified heart disease.? * Social History:?Tobacco Use:?Tobacco use other than smoking?Are you an other tobacco user??No ?Tobacco Control (Standard)?Tobacco use:?Nonsmoker * Medications:?TakingNIFEdipin e 10 MG Capsule 1 capsule Orally Three times a day Lisinopril 10 MG Tablet 1 tablet Orally Once a day Crestor 20 MG Tablet 1 tablet Orally Once a day metFORMIN HCl 500 MG Tablet Orally Twice a day Jardiance 10 MG Tablet Oral Ammonium Lactate 12 % Cream 1 application Externally Twice a day Taking NIFEdipine 10 MG Capsule 1 capsule Orally Three times a day Taking Lisinopril 10 MG Tablet 1 tablet Orally Once a day Taking Crestor 20 MG Tablet 1 tablet Orally Once a day Taking metFORMIN HCl 500 MG Tablet Orally Twice a day Taking Jardiance 10 MG Tablet Oral Taking Ammonium Lactate 12 % Cream 1 application Externally Twice a day Not-Taking/PRNVitamin D Fish Oil , Notes to Pharmacist: PRNpredniSONE 10 MG Tablet TAKE 1 TABLET BY MOUTH EVERY DAY Oral Naproxen 500 MG Tablet 1 tablet with food or milk as needed Orally every 12 hrs Amoxicillin 500 MG Capsule 4 capsules one time Orally One hour prior to procedure Augmentin 500-125 MG Tablet 1 tablet Orally Twice a day Amoxicillin Augmentin 875-125 MG Tablet 1 tablet Orally every 12 hrs LORazepam 2 MG Tablet 1 tablet at bedtime Orally Once a day , Notes to Pharmacist: PRNCephalexin 500 MG Capsule Orally CeleBREX 200 MG Capsule 1 capsule Orally Once a day Naprosyn 375 MG Tablet 1 tablet Orally Twice a day Not-Taking/PRN Vitamin D Not-Taking/PRN Fish Oil , Notes to Pharmacist: PRNNot-Taking/PRN predniSONE 10 MG Tablet TAKE 1 TABLET BY MOUTH EVERY DAY Oral Not-Taking/PRN Naproxen 500 MG Tablet 1 tablet with food or milk as needed Orally every 12 hrs Not-Taking/PRN Amoxicillin 500 MG Capsule 4 capsules one time Orally One hour prior to procedure Not-Taking/PRN Augmentin 500-125 MG Tablet 1 tablet Orally Twice a day Not-Taking/PRN Amoxicillin Not-Taking/PRN Augmentin 875-125 MG Tablet 1 tablet Orally every 12 hrs Not-Taking/PRN LORazepam 2 MG Tablet 1 tablet at bedtime Orally Once a day , Notes to Pharmacist: PRNNot-Taking/PRN Cephalexin 500 MG Capsule Orally Not-Taking/PRN CeleBREX 200 MG Capsule 1 capsule Orally Once a day Not-Taking/PRN Naprosyn 375 MG Tablet 1 tablet Orally Twice a day UnknownCrestor 20 MG Tablet 1 tablet Orally Once a day Lisinopril 10 MG Tablet 1 tablet Orally Once a day LORazepam 2 MG Tablet 1 tablet at bedtime Orally Once a day NIFEdipine 10 MG Capsule 1 capsule Orally Three times a day Medication List reviewed and reconciled with the patientUnknown Crestor 20 MG Tablet 1 tablet Orally Once a day Unknown Lisinopril 10 MG Tablet 1 tablet Orally Once a day Unknown LORazepam 2 MG Tablet 1 tablet at bedtime Orally Once a day Unknown NIFEdipine 10 MG Capsule 1 capsule Orally Three times a day Medication List reviewed and reconciled with the patient * Allergies:?N.K.D.A.yes[Aller gies Verified] Objective: * Vitals:?Ht: 6ft 3in, Wt: 225 , BMI: 28.12, Shoe size: 12, BP: 155/70 mm Hg, BS: 50, Ht-cm: 190.5 cm, Wt-k.06 kg. * ???Past Orders: ???Lab:HEMOGLOBIN A1C (GLYCO HEMOGLOBIN) (Order Date - 06/26/2024) (Collection Date & Time - 06/26/2024 11:28 AM) ? Value Reference Range ?HEMOGLOBIN A1C % (HH) 6.8 * Examination: ???Ophthalmology Referral: ?DIABETES EYE EXAM?Procedure Performed:?Yes ?Date of Exam Performed?10/26/2023 ?Findings of Diabetic Eye Exam:?no retinopathy?Vascular: ?DP PULSES (B):?3/4, B/L.?PT PULSES (B):?3/4, B/L.?CAPILLARY FILL TIME:?immediate, all digits, B/L.?TEMPERTURE GRADIENT (C):?normal, warm to cool, proximal to distal, B/L, B/L.?ELVIS'S SIGN:?absent, B/L.?PALPABLE CORDS:?absent, B/L.?Neurological: ?SENSORY:?(DM/Neuro) Neurological exam demonstrates reduced sharp/dull pin prick discrimination reduced light touch sensation reduced vibration sensation reduced proprioception sensation in a stocking fashion 5.07 monofilament test performed at plantar aspects of 5 varied sites per foot shows sensation plantar aspects absent at Forefoot B/L.?Nails: ?NAILS are:?Elongated, overgrown, dystrophic, lytic, greater than 3mm thick, discolored and friable with crumbly malodorous subungual debris , with dull to no pain on palpation due to neuropathy, TA, T1, T2, T3, T4, T5, T6, T7, T8, T9.?Dermatologic: ?SKIN FINDINGS:?Skin exam reveals Keratotic lesion(s) located at, Medial plantar, TA, T5 , T1 , T6 , T9 , Skin shows sign(s) of, a semi-firm, painful, non-translucent, non-pulsatile, nonmobile Sub Q tumor rosetta. 5x 5x 5mm dorsal IPJ TA , Skin shows sign(s) of, dryness, scaling, in a stocking fashion, no fissure(s) present, B/L.?General Examination: ?FOOT EXAM:?Lower Extremity Neurological Exam performed:?Yes ?Visual exam of foot performed:?Yes ?Date?08/02/2024 ?Sensory testing performed:?sensations diminished ?Footwear Evaluation?Footwear Evaluation performed:?Yes??? Assessment: * Assessment: 1.?Ganglion of foot, left - M67.472???Specify :Acute problem, Uncomplicated (3)???2.?Xerosis of skin - L85.3 (Primary)???Specify :Acute problem, Uncomplicated (3)???3.?Type 2 diabetes mellitus with diabetic polyneuropathy - E11.42???4.?Tinea unguium - B35.1??? Plan: * Treatment: * Procedures:?Debride Nail 6-10:?Nail debridement?Due to the clinical pathology outlined in the exam findings, performance of this nail treatment is medically necessary as its management by an unskilled/untrained nonprofessional would put this patients foot and overall health at risk. Therefore, debridement to affected nail(s), as described in exam (TA, T1, T2, T3, T4, T5, T6, T7, T8, T9, ), was performed exclusively by the physician of record to reduce/remove overall nail length, girth, thickness, subungual debris, and necrotic tissue, by manual and/or electrical means through the use of a nail nipper and/or dremel-type fiberglass grinder, to a more viable healthy nail plate or bed tissue 6- 10 nails in total. Silver nitrate was used for any petechial bleeding as necessary. Definitive antifungal treatment options, both pharmaceutical and surgical, have been reviewed and discussed with the patient. The patient solely prefers the use of intermittent/as needed professional debridement services for their nail condition and understands the need for additional periodic treatments to maintain effectiveness in symptomatic relief - 48819.?Keratoma Treatment:?Parring or Cutting of Benign Hyperkeratotic Lesion(s)?(-57) More than 4 Lesions - Due to the at risk nature of the patients medical condition as documented in the exam findings, performance of this keratoderma treatment is medically necessary as its management by an unskilled/untrained nonprofessional would put this patients foot and overall health at risk. Therefore, the benign hyperkeratotic lesions, ( 5 ) in total, locations as stated and described in the exam (?TA,?T5?,?T1?,?T6?,?T9??), were pared, and/or cut utilizing a sterile 15 blade, tissue nippers, and/or power dremel instrumentation by the physician of record - [id number].? * Procedure Codes:?99321 DEBRI DE NAIL, 6 OR MORE, Modifiers: XS 91486 TRIM SKIN LESIONS, OVER 4, Modifiers: XS * Preventive Medicine:? ??Counseling:?Tobacco use:?Type of Tobacco Use Cessation Counseling provided?Smoking effects education ?Patient counseled on the dangers of smoking and urged to quit:?08/02/2024 ?Discussion:?-12: Office or other outpatient visit for the evaluation and management of an established patient, which required a medically appropriate history and/or examination and STRAIGHTFORWARD level of MEDICAL DECISION MAKING, 1 SELF-LIMITED OR MINOR PROBLEM, MINIMAL- NO AMOUNT/COMPLEXITY OF DATA TO BE REVIEWED/ANALYZED, AND MINIMAL RISK OF COMPLICATION/MORBIDITY. The visit on the day of the encounter encompassed interpreting the data and educating the patient as to the nature of their condition, treatment options available according to their individual PMH, meds, allergies, and overall health/living conditions, as well as any potential risks or complications that may occur from a failure to adhere to, and participate in, the recommended course of therapy. The discussion included a complete verbal, and/or written explanation of the examination results, any x-rays taken, the proposed diagnosis, and outline of the treatment plan. A schedule for future care needs was also explained. The patient verbalized an understanding of the instructions at this time and agreed to be an active participant in their treatment. If the patient should think of any questions or concerns after the visit, I have encouraged the patient to call the office.?Ganglions:?The patient was counseled on the diagnosis, potential etiologies, and treatment options for their Ganglion condition. We discussed the risks and benefits of each option from performing no treatment, accomidative padding, aspiration, cortisone injection therapy, and surgical excision. We discussed the advantages and disadvantages of each possible treatment and importance for adherence to all the recommended therapies for optimum success and avoid potential complications such as open sore/infection/possible hospitalization. We discussed the potential effectiveness of each treatment as well as the potential complications including: pain, infection, and recurrence, and in the case of excision surgery: scarring, chronic pain, nerve damage resulting in permanent numbness, and recurrence. Patient questions re: successful outcomes for each treatment option, and the patient verbalized that all answers were clearly understood.?Xerosis:?Discussed with the Patient the issues that may arise if he/she does not treat their condition : Pain, fissues, infection and further break down of skin.? ??Screening/Special Tests:?Fall Risk?Assessment:?Performed ?Screening:?No falls in the past year ?FALLS: Screening for Future Fall Risk?Have you had two or more falls in the past year??No ?Have you had any falls with injury in the past year??No * Follow Up:?2 Months * Images: * Sign off status: Completed true * Provider:?Marizol Ellington DPM Date:?01/2025 Generated for Diomedes mckinney/Chely/Clare on:?10/10/2024 12:40 PM EDT History and Physical Notes * HPI (History of Present Illness) Category Sub-Category Detail Notes Category Not es Skin problems Nature: Lump , dryness , scaling Location: Top Left 1st Toe(s) , B/L Course: unchanged Treatments: admits intermittent adherence to recommended application At Risk footcare Pt States Last PCP Visit: Date: 4 Examination Category Sub-Category Detail Notes Category Not es Neurological SENSORY: (DM/Neuro) Neuro logical exam demonstrates reduced sharp/dull pin prick discrimination reduced light touch sensation reduced vibration sensation reduced proprioception sensation in a stocking fashion 5.07 monofilament test performed at plantar aspects of 5 varied sites per foot shows sensation plantar aspects absent at Forefoot B/L Dermatologic SKIN FINDINGS: Skin exam reveal s Keratotic lesion(s) located at, Medial plantar, TA, T5 , T1 , T6 , T9 , Skin shows sign(s) of, a semi-firm, painful, non-translucent, non-pulsatile, nonmobile Sub Q tumor rosetta. 5x 5x 5mm dorsal IPJ TA , Skin shows sign(s) of, dryness, scaling, in a stocking fashion, no fissure(s) present, B/L General Examination FOOT EXAM: Lower Extrem ity Neurological Exam performed:: Yes Visual exam of foot performed:: Yes Date: 08/02/2024 Sensory testing performed:: sensations d iminished Footwear Evaluation Footwear Evaluation performe d:: Yes Ophthalmology Referral DIABETES EYE EXAM Procedure Perform ed:: Yes ?Date of Exam Performed: 10/26/2023 Findings of Diabetic Eye Exam:: no retin opathy Vascular DP PULSES (B): 3/4, B/L PT PULSES (B): 3/4, B/L CAPILLARY FILL TIME: immediate, all digi ts, B/L TEMPERTURE GRADIENT (C): normal, warm to cool, proximal to distal, B/L, B/L ELVIS'S SIGN: absent, B/L PALPABLE CORDS: absent, B/L Nails NAILS are: Elongated, overg rown, dystrophic, lytic, greater than 3mm thick, discolored and friable with crumbly malodorous subungual debris , with dull to no pain on palpation due to neuropathy, TA, T1, T2, T3, T4, T5, T6, T7, T8, T9
--- OUTSIDE RECORDS SUMMARY | 2024-10-10 12:40 | XMS_ITS ---
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 Generated for Flacai hank/Chely/eTransmitting on:?10/10/2024 12:40 PM EDT
--- OUTSIDE RECORDS SUMMARY | 2024-10-10 12:40 | XMS_ITS ---
Author Organization [facility] [place] Address [address] [facility] [place] [address] Care Team Providers Care Dope Maintenance Worker Name Role Phone Kaushal Wilkinson MD Primary Care Provider Marizol Yi Unavailable [phone] Allergies No Known Allergies REASON FOR VISIT At Risk Footcare, Skin Problem Medications Medication SIG (Take, Route, Frequency, Duration) Notes Start Date End Date Status CeleBREX 200 MG 1 capsule Orally Onc e a day for 30 day(s) 03/06/2014 Not-Taking Naprosyn 375 MG 1 tablet Orally Twic e a day for 30 day(s) 03/14/2014 Not-Taking LORazepam 2 MG 1 tablet at bedtime Orally Once a day PRN Not-Taking Cephalexin 500 MG Orally No t-Taking Ammonium Lactate 12 % 1 application Exte rnally Twice a day for 30 days Active Augmentin 875-125 MG 1 tablet Orally sonya ry 12 hrs for 7 days Not-Taking Naproxen 500 MG 1 tablet with food o r milk as needed Orally every 12 hrs Not-Taking Amoxicillin 500 MG 4 capsules one time Orally One hour prior to procedure for as needed 02/02/2019 Not-Taki ng Augmentin 500-125 MG 1 tablet Orally Twi ce a day for 14 days 03/29/2019 Not-Taking Amoxicillin Not-Taki ng Vitamin D Not-Taking Fish Oil PRN Not-Taking predniSONE 10 MG TAKE 1 TABLET BY RISHABH TH EVERY DAY Oral for 21 Not-Taking Jardiance 10 MG Oral for 30 Ac tive metFORMIN HCl 500 MG Orally Twice a day Active Crestor 20 MG 1 tablet Orally Once a day for 30 day(s) Active NIFEdipine 10 MG 1 capsule Orally Thr ee times a day for 30 day(s) Active Lisinopril 10 MG 1 tablet Orally Once a day for 30 day(s) Active Social History Tobacco Use: Social History Observation Description Date Details (start date - stop date) Former Smoker NA - NA Tobacco Use/Smoking Question Answer Notes Are you a: former smoker Additional Findings: Tobacco Non-User Current no n-smoker Alcohol Screen Question Answer Notes Did you have a drink contain ing alcohol in the past year? Yes How often did you have a dri nk containing alcohol in the past year? 2 to 3 times a week (3 points) How often did you have 6 or more drinks on one occasion in the past year? Weekly (3 points) Points 6 Interpretation Positive Tobacco use other than smoking: Question Answer Notes Are you an other tobacco user? Yes z yn Vital Signs Height 6ft 3in in 05/03/2024 Weight 225 lbs 05/03/2024 BMI 28.12 kg/m2 05/03/2024 Blood pressure systolic 120 mm Hg 05/03/20 24 Blood pressure diastolic 80 mm Hg 024 Encounters Encounter Location Date Provider Diagnosis [facility] [address] [address] 05/03/2024 Marizol Ellington Xerosis of skin L85. 3 ; Ganglion of foot, left M67.472 ; Type 2 diabetes mellitus with diabetic polyneuropathy E11.42 and Tinea unguium B35.1 Assessments Encounter Date Diagnosis (ICD Code) Assessment Notes Treatment Notes Treatment Clinical Notes Section Notes 05/03/2024 Xerosis of skin (ICD-10 - L85.3) 05/03/2024 Ganglion of foot, left (ICD-10 - M67.472) 05/03/2024 Type 2 diabetes mellitus with diabetic polyneuropathy (ICD-10 - E11.42) 05/03/2024 Tinea unguium (ICD-10 - B35.1) Plan Of Treatment Medication Medication Name Sig Start Date Stop Date Notes Ammonium Lactate 12 % 1 application Exte rnally Twice a day for 30 days Next Appt Details Follow Up: 2 Months, Reason: Provider Name:Marizol martinez, 10/12/2024 11:15:00 AM, [address] [place] [address], [phone], Procedure Notes * Category Sub-Category Detail Notes Debride Nail 6-10 Nail debridement Nail debridem ent performed extensively to reduce/remove overall nail length and girth, subungual debris, and necrotic tissue, by manual and electrical means with use of a nail nipper and/or dremel, to more viable healthy nail plate or bed tissue 6-10. Silver nitrate used for any petechial bleeding as necessary. Patient chooses, no pharmaceutical tx (74306) Keratoma Treatment Parring or Cutting o f Benign Hyperkeratotic Lesion(s) 72000 ( More than 4 Lesions ) - The Benign hyperkeratotic lesions, as described above were pared, and/or cut utilizing a sterile 15 blade, tissue nippers, and/or dremel Progress Notes * Real PRUITTDOB:1945 (78 yo M)Acc No.[id number]:05/03/2024 Progress Note Patient:?Real PRUITT Provider:?Marizol Ellington DPM :1945???Age:78 Y???Sex:Male Juan Diego e:05/03/2024 Address:[address] [place] [address], [facility] Pcp:Kaushal Wilkinson MD Subjective: * Chief Complaints: * ???At Risk FootcareSkin Prob alex * HPI: ???At Risk footcare:?Pt States Last PCP Visit:?Date?04/26/2024 ???Skin problems:?Nature:?Lump , dryness , scaling.?Location:?Top Left 1st Toe(s) , B/L .?Course:?unchanged.? * ROS:?General/Constitutional:?Nausea?denies.?Vomiting?denies.?Hunger Thirst?denies.?Loss appetite?denies.?Chills?denies.?Fatigue?denies.?Fever?denies.?Night Sweats?denies.?Unexplained weight loss?denies.?Ophthalmologic:?Blurred vision?denies.?Red eye?denies.?HEENTM:?Dentures?denies.?Dizziness?denies.?Glasses/contacts?admits.?Retinopathy?den ies.?Blurred/double vision?denies.?TMJ?denies.?Discharge/drainage?denies.?Implants?denies.?Hard of hearing denies.?Difficulty chewing/swallowing/speaking?denies.?Nose bleeds?denies.?Sore mouth?denies.?Swollen glands?denies.?Respiratory:?On O xygen?denies.?Pneumonia/pleurisy?denies.?Bronchitis?denies.?Emphysema?denies.?Co ughing?denies.?Cough blood?denies.?Shortness of breath?denies.?Wheezing?denies.?Cardiovascular:?Pacemaker?denies.?MVP?denies.?WPW?denies.?CHF?denies.?Heart attack?denies.?Septal defect?denies.?Rapid beat?denies.?Chest pain ?denies.?Atrial Fib.?denies.?Murmur/Palpitations?denies.?Gastrointestinal:?Hemorrhoids?denies.?Stomach/Abdominal pain?denies.?Dark blood stool?denies.?Irritable bowel ?denies.?Constipation?denies.?Diarrhea?denies.?Vomiting?denies.?Hematology:?Swelling?admits.?Bruising?denies.?Bleeding problem?denies.?Genitourinary:?Blood urine?denies.?Frequent/Painfu/urination/bladder control?denies.?Kidney stones?denies.?Infection (UTI)?denies.?Nephropathy?denies.?Musculoskeletal:?Hammertoes?admits.?Bunions?denies.?Scoliosis/kyphosis?denies.?Muscle cramps / walking?denies.?Generalized aches and pains?denies.?Weakness?denies.?Integ.:?Cobian?denies.?Scars?denies.?Corns/calluses?denies.?Ingrown nails?denies.?Painful nails?denies.?Rashes?denies.?Neurologic:?Difficulty sleeping?denies.?Bipolar?denies.?Brain disorder?denies.?Balance t rouble?denies.?Confusion?denies.?Fainting/blackouts?denies.?Headache?denies.?Amilcar mors?denies.? * Medical History:? * Surgical History:?right hip replacement 12/08/2011left hip replacement 10/2014colonoscopy 04/2024 * Hospitalization/Major Diagno stic Procedure:?Denies Past Hospitalization * Family History:?Mother: dece ased, diagnosed with Other specified conditions influencing health status.?Father: , diagnosed with Unspecified heart disease.? * Social History:?Tobacco Use:?Tobacco Use/Smoking?Are you a:?former smoker ?Additional Findings: Tobacco Non-User?Current non-smoker ?Tobacco use other than smoking?Are you an other tobacco user??Yes zyn ???Drugs/Alcohol:?Drugs?Have you used drugs other than those for medical reasons in the past 12 months??No ?Alcohol Screen?Did you have a drink containing alcohol in the past year??Yes ?How often did you have a drink containing alcohol in the past year??2 to 3 times a week (3 points) ?How often did you have 6 or more drinks on one occasion in the past year??Weekly (3 points) ?Points?6 ?Interpretation?Positive ???Miscellaneous:?Caffeine: no, decaff tea. ?Children: no. ?Exercise: yes, walking. ?Marital status: . 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 * Medications:?TakingNIFEdipin e 10 MG Capsule 1 [...] Tablet 1 tablet Orally Twice a day Medication List reviewed and reconciled with the patientNot-Taking/PRN Vitamin D Not-Taking/PRN Fish Oil , Notes [...] Tablet 1 tablet Orally Twice a day Medication List reviewed and reconciled with the patient * Allergies:?N.K.D.A.yes[Aller gies Verified] Objective: * Vitals:?Ht: 6ft 3in, Wt: 225 , BMI: 28.12, Shoe size: 12, BP: 120/80 mm Hg, BS: not taken, Ht-cm: 190.5 cm, Wt-k.06 kg. * ???Past Orders: ???Lab:HEMOGLOBIN A1C (GLYCO HEMOGLOBIN) (Order Date - 06/26/2023) (Collection Date & Time - 06/26/2023 10:51 AM) ? Value Reference Range ?HEMOGLOBIN A1C % (HH) 5.7 * Examination: ???Ophthalmology Referral: ?DIABETES EYE EXAM?Procedure Performed:?Yes ?Date of Exam Performed?12/28/2023 ?Diabetic Retinopathy Screening:?Yes ?Findings of Diabetic Eye Exam:?no retinopathy?Vascular: ?DP PULSES (B):?3/4, B/L.?PT PULSES (B):?3/4, B/L.?CAPILLARY FILL TIME:?immediate, all digits, B/L.?TEMPERTURE GRADIENT (C):?normal, warm to cool, proximal to distal, B/L, B/L.?ELVIS'S SIGN:?absent, B/L.?PALPABLE CORDS:?absent, B/L.?Neurological: ?SENSORY:?Neurological exam demonstrates , reduced light touch sensation , reduced sharp/dull pin prick discrimination , reduced vibration sensation , reduced proprioception sensation , in a stocking fashion , plantar aspects , 5.07 monofilament test performed at plantar aspects of 5 varied sites per foot shows sensation , reduced , Pt relates , anesthesia , pins and needles sensation , B/L.?Nails: ?NAILS are:?Elongated, overgrown, dystrophic, lytic, greater than 3mm thick, discolored and friable with crumbly malodorous subungual debris , with dull to no pain on palpation due to neuropathy , 1-5 B/L.?Dermatologic: ?SKIN FINDINGS:?Skin exam reveals Keratotic lesion(s) located [...] Exam performed:?Yes ?Visual exam of foot performed:?Yes ?Date?05/03/2024 ?Footwear Evaluation?Footwear Evaluation performed:?No??? Assessment: * Assessment: 1.?Xerosis of skin - L85.3?? ?Specify :Acute problem, Uncomplicated (3)???2.?Ganglion of foot, left - M67.472 (Primary)???Specify :Acute problem, Uncomplicated (3)???3.?Type 2 diabetes mellitus with diabetic polyneuropathy - E11.42???4.?Tinea unguium - B35.1??? Plan: * Treatment: * Procedures:?Debride Nail 6-10:?Nail debridement?Nail debridement performed extensively to reduce/remove overall nail length and girth, subungual debris, and necrotic tissue, by manual and electrical means with use of a nail nipper and/or dremel, to more viable healthy nail plate or bed tissue 6-10. Silver nitrate used for any petechial bleeding as necessary. Patient chooses, no pharmaceutical tx (27653).?Keratoma Treatment:?Parring or Cutting of Benign Hyperkeratotic Lesion(s)?89906 ( More than 4 Lesions ) - The Benign hyperkeratotic lesions, as described above were pared, and/or cut utilizing a sterile 15 blade, tissue nippers, and/or dremel.? * Procedure Codes:?87470 DEBRI DE NAIL, 6 OR MORE, Modifiers: XS 39292 TRIM SKIN LESIONS, OVER 4, Modifiers: XS * Preventive Medicine:? ??Counseling:?Tobacco use:?Type of Tobacco Use Cessation Counseling provided?Smoking effects education ?Patient counseled on the dangers of smoking and urged to quit:?05/03/2024 ?Discussion:?-13: Office or other outpatient visit for the evaluation and management of an established patient, which required a medically appropriate history and/or examination and LOW level of DECISION MAKING for: 1 STABLE ACUTE UNCOMPLICATED PROBLEM, 2 OR MORE MINOR PROBLEMS, OR 1 STABLE CHRONIC PROBLEM, THAT POSE(S) A LOW RISK FOR MORBIDITY/MORTALITY. The visit on the day of the [...] have encouraged the patient to call the office, -13: Office or other outpatient visit for the evaluation and management of an established patient, which required a medically appropriate history and/or examination and LOW level of DECISION MAKING for: 1 STABLE ACUTE UNCOMPLICATED PROBLEM, 2 OR MORE MINOR PROBLEMS, OR 1 STABLE CHRONIC PROBLEM, THAT POSE(S) A LOW RISK FOR MORBIDITY/MORTALITY. The visit on the day of the [...] patient verbalized that all answers were clearly understood.?Xerosis:?The patient was counseled on the diagnosis, potential etiologies, and treatment options for their skin condition. We discussed the risks and benefits of each option from performing no treatment, to utilizing OTC topical skin creams/ointments, to utilizing prescription topical creams/ointments, to utilizing customized compounded topical medications and use of nocturnal occlusion with any/all previously detailed therapies. We discussed the advantages and disadvantages of each possible treatment and importance for adherence to all the recommended therapies for optimum success and avoid potential complications such as open sore/infection/possible hospitalization. We discussed the potential effectiveness of each topical preparation as well as each ones possible side effects and/or patient medication interactions. Patient questions re: use, dosage, successful outcomes, and application consistency were reviewed and the patient verbalized that all answers were clearly understood. The patient has decided to apply Rx skin creams to their feet save the interspaces while paying special attention to the heels. Such was sent to their pharmacy at the time of visit.? ??Screening/Special Tests:?Fall Risk?Assessment:?Performed ?Screening:?No falls in the past year ?FALLS: Screening for Future Fall Risk?Have you had two or more falls in the past year??No * Follow Up:?2 Months * Images: * Sign off status: Completed true * Provider:?Marizol Ellington DPM Date:?02/2024 Generated for Diomedes mckinney/Chely/Clare on:?10/10/2024 12:40 PM EDT History and Physical Notes * HPI (History of Present Illness) Category Sub-Category Detail Notes Category Not es Skin problems Nature: Lump , dryness , scaling Location: Top Left 1st Toe(s) , B/L Course: unchanged At Risk footcare Pt States Last PCP Visit: Date: 4 Examination Category Sub-Category Detail Notes Category Not es Neurological SENSORY: Neurological exa m demonstrates , reduced light touch sensation , reduced sharp/dull pin prick discrimination , reduced vibration sensation , reduced proprioception sensation , in a stocking fashion , plantar aspects , 5.07 monofilament test performed at plantar aspects of 5 varied sites per foot shows sensation , reduced , Pt relates , anesthesia , pins and needles sensation , B/L Dermatologic SKIN FINDINGS: Skin exam reveal [...] Visual exam of foot performed:: Yes Date: 05/03/2024 Footwear Evaluation Footwear Evaluation performe d:: No Ophthalmology Referral DIABETES EYE EXAM Procedure Perform ed:: Yes ?Date of Exam Performed: 12/28/2023 Diabetic Retinopathy Screening:: Yes Findings of Diabetic Eye Exam:: no retin [...] to no pain on palpation due to neuropathy , 1-5 B/L
--- OUTSIDE RECORDS SUMMARY | 2024-10-10 12:40 | XMS_ITS | Patient Health Record ---
Author Organization [facility] Address [address] [facility] [place] [address] Care Team Providers Care Fruit Distributor Name Role Phone Kaushal Wilkinson MD Primary Care Provider Unavailab ruth HeinjuanMarizol Unavailable [phone] Allergies No Known Allergies Results Component Value Reference Range Notes HEMOGLOBIN A1C (GLYCOHEMOGLO BIN) Reviewed date:08/02/2024 11:28:59 AM Interpretation: Performing Lab: Notes/Report: HEMOGLOBIN A1C % (HH) 6.8 Reason For Referral No Information Medications Medication SIG (Take, Route, Frequency, Duration) Notes Start Date End Date Status Lisinopril 10 MG 1 tablet Orally Once a day for 30 day(s) Active Amoxicillin Not-Taki ng NIFEdipine 10 MG 1 capsule Orally Thr ee times a day for 30 day(s) Active Augmentin 500-125 MG 1 tablet Orally Twi ce a day for 14 days 03/29/2019 Not-Taking Amoxicillin 500 MG 4 capsules one time Orally One hour prior to procedure for as needed 02/02/2019 Not-Taki ng NIFEdipine 10 MG 1 capsule Orally Thr ee times a day for 30 day(s) Unknow n LORazepam 2 MG 1 tablet at bedtime Orally Once a day Unknown CeleBREX 200 MG 1 capsule Orally Onc e a day for 30 day(s) 03/06/2014 Not-Taking Jardiance 10 MG Oral for 30 Ac tive Cephalexin 500 MG Orally No t-Taking metFORMIN HCl 500 MG Orally Twice a day Active LORazepam 2 MG 1 tablet at bedtime Orally Once a day PRN Not-Taking Crestor 20 MG 1 tablet Orally Once a day for 30 day(s) Active Augmentin 875-125 MG 1 tablet Orally sonya ry 12 hrs for 7 days Not-Taking Naproxen 500 MG 1 tablet with food o r milk as needed Orally every 12 hrs Not-Taking predniSONE 10 MG TAKE 1 TABLET BY RISHABH TH EVERY DAY Oral for 21 Not-Taking Lisinopril 10 MG 1 tablet Orally Once a day for 30 day(s) Unknown Fish Oil PRN Not-Taking Crestor 20 MG 1 tablet Orally Once a day for 30 day(s) Unknown Vitamin D Not-Taking Naprosyn 375 MG 1 tablet Orally Twic e a day for 30 day(s) 03/14/2014 Not-Taking Ammonium Lactate 12 % 1 application Exte rnally Twice a day for 30 days Active Immunizations Vaccine Route Administration Date Status Comme nts COVID-19 Moderna Vaccine Unknown 05/27/2021 Administered First Dose: 10/01/20 Second Dose: 10/22/2020 Influenza Unknown 05/07/2017 Administered Influenza Unknown 07/06/2018 Administered Influenza Unknown 03/28/2019 Administered Influenza Unknown 04/26/2020 Administered Influenza Unknown 05/27/2021 Administered Influenza Unknown 03/27/2023 Administered Social History Tobacco Use: Social History Observation Description Date Details (start date - stop date) Never Smoker NA - NA Alcohol Screen Question Answer Notes Did you [...] (Standard) Question Answer Notes Tobacco use: Nonsmoker Problems Problem Type SNOMED Code ICD Code Onset Dates Problem Status W/U Status Risk Notes Problem Polyneuropathy due to type 2 diabetes mellitus (114164314) Type 2 diabetes mellitus with diabetic polyneuropathy (E11.42) Active confirmed Problem 229144856 Hammer toe of right foot (M20.41) Active confirmed Problem 310660529 Neuropathy (G62.9) Active confirmed Vital Signs Blood pressure diastolic 70 mm Hg 08/02/2024 Height 6ft 3in in 08/02/2024 Blood pressure systolic 155 mm Hg 08/02/2024 Weight 225 lbs 08/02/2024 BMI 28.12 kg/m2 08/02/2024 Encounters Encounter Location Date Provider Diagnosis [address] [address] 12/09/2023 Marizol Perica Xerosis of skin L85. 3 ; Ganglion of foot, left M67.472 ; Type 2 diabetes mellitus with diabetic polyneuropathy E11.42 and Tinea unguium B35.[address] [address] 03/04/2024 Marizol Perica Xerosis of skin L85. 3 ; Ganglion of foot, left M67.472 ; Type 2 diabetes mellitus with diabetic polyneuropathy E11.42 and Tinea unguium B35.[address] [address] 05/03/2024 Marizol Perica Xerosis of skin L85. 3 ; Ganglion of foot, left M67.472 ; Type 2 diabetes mellitus with diabetic polyneuropathy E11.42 and Tinea unguium B35.[address] [address] 08/02/2024 Marizol Perica Xerosis of skin L85. 3 ; Ganglion of foot, left M67.472 ; Type 2 diabetes mellitus with diabetic polyneuropathy E11.42 and Tinea unguium B35.[address] [address] 02/23/2024 Marizol Perica [address] [address] 03/03/2024 Marizol Perica [address] [address] 06/08/2024 Marizol Pericjuan Assessments Encounter Date Diagnosis (ICD Code) Assessment Notes Treatment Notes Treatment Clinical Notes Section Notes 12/09/2023 Ganglion of foot, left (ICD-10 - M67.472) 12/09/2023 Xerosis of skin (ICD-10 - L85.3) 03/04/2024 Xerosis of skin (ICD-10 - L85.3) 05/03/2024 Xerosis of skin (ICD-10 - L85.3) 08/02/2024 Ganglion of foot, left (ICD-10 - M67.472) 08/02/2024 Xerosis of skin (ICD-10 - L85.3) 05/03/2024 Ganglion of foot, left (ICD-10 - M67.472) 03/04/2024 Ganglion of foot, left (ICD-10 - M67.472) 12/09/2023 Type 2 diabetes mellitus with diabetic polyneuropathy (ICD-10 - E11.42) 08/02/2024 Type 2 diabetes mellitus with diabetic polyneuropathy (ICD-10 - E11.42) 12/09/2023 Tinea unguium (ICD-10 - B35.1) 03/04/2024 Type 2 diabetes mellitus with diabetic polyneuropathy (ICD-10 - E11.42) 05/03/2024 Type 2 diabetes mellitus with diabetic polyneuropathy (ICD-10 - E11.42) 08/02/2024 Tinea unguium (ICD-10 - B35.1) 05/03/2024 Tinea unguium (ICD-10 - B35.1) 03/04/2024 Tinea unguium (ICD-10 - B35.1) Plan Of Treatment Pending Test Test Name Order Date X ray : Foot, right 3V 04/14/2012 X ray : Foot, right 3V 05/16/2013 24428-Clzujdec Plate 09/29/2017 90775-Asxpxxwn Plate 11/11/2017 99911-Qwucuhjo Plate 07/02/2017 17357-Rfzkzlww Plate 12/11/2017 39454-Kthbwpyc Plate 02/02/2018 65148-Pgsuktkk Plate 07/16/2018 37697-Gqzkfcoh Plate Each Additional 01/2017 37177-Lllgmpnf Plate Each Additional 04968- Debride <25 sq cm 07/16/2017 63195 I&D ABSCESS- SIMPLE,SINGLE 018 13955 I&D ABSCESS- SIMPLE,SINGLE 018 94516 I&D ABSCESS- SIMPLE,SINGLE 017 30521 I&D ABSCESS- SIMPLE,SINGLE 019 45972, J0702- INJECT or DRAIN, JOINT/BUR SA 05/26/2012, A9515-BNDIR/INJECT, JOINT/BURSA 1 08/24/2011, Y6228-ODPMS/INJECT, JOINT/BURSA 1 V5765-GNRLRIWB DYSTROPHIC NAILS ANY # ,Z7109-WMD TENDON SHEATH/LIGAMENT 0 12/21/201331166,G8833-TYY TENDON SHEATH/LIGAMENT 0 03/06/2014 K9731-Mxdijqlce 3mg 06/24/2012 T6083-Arxqbhxsz 3mg 05/26/2012 Next Appt Details Provider Name:Marizol martinez, 10/12/2024 11:15:00 AM, [address] [facility], [place], [address], Insurance Providers Payer Name Payer Address Payer Phone Subscriber Number Group Number Insured Name Patient Relationship to Insured Coverage Start Date Coverage End Date Medicare National [employer]t [employer] [address] [facility] [place] [address] [id number] Grammati teodora Real Self - patient is the insured [employer] ([facility]) [address] [place] [address] [phone] [id number] Grammati teodora, Real Self - patient is the insured Medical (General) History Medical History History ICD Code sciatica Diabetic Arthritis Cataracts Surgical History Surgery Date(Month/Year) right hip replacement 12/08/2011 left hip replacement 10/2014 colonoscopy 04/2024
--- OUTSIDE RECORDS SUMMARY | 2024-10-10 12:40 | XMS_ITS ---
Author Organization [facility] Address [address] [place] [address] Care Team Providers Care Sponge Maker Name Role Phone Minh LEIGH, Kaushal Primary Care Provider Unavailab Juan Miguel Peterson [phone] REASON FOR VISIT gerd Encounters Encounter Location Date Provider Diagnosis [facility] [address] [facility] [address] [place] [address] 09/01/2024 Juan Miguel Tim Plan Of Treatment Next Appt Details Provider Name:Juan Miguel Tim , 10/28/2024 02:40:00 PM, [address], [address], [place], [address], Progress Notes * YAZMIN ADAMSDOB:1945 (79 yo M)Acc No.[id number]:09/01/2024 Progress Notes Patient:?YAZMIN ADAMS Provider:?Juan Miguel Tim MD :1945???Age:78 Y???Sex:Male Juan Diego e:09/01/2024 Address:[address] [place], [place] [id number] Pcp:Kaushal Wilkinson MD Subjective: * Chief Complaints: * ???1. Gerd. * Medical History:? Objective: * Vitals:? Assessment: Plan: * Treatment: * * The named appointment provid er may or may not be the originator of this progress note, and it is not deemed complete until electronically signed by the appointment provider. Sign off status: Pending * Provider:?Juan Miguel Tim MD Date:? 025 Generated for Diomedes mckinney/Chely/Clare on:?10/10/2024 12:39 PM EDT
--- OUTSIDE RECORDS SUMMARY | 2024-10-10 12:41 | XMS_ITS ---
Author Organization [facility] Address [address] [place] [address] Care Team Providers Care Machine Design Engineer Name Role Phone Minh LEIGH, Kaushal Primary Care Provider UnavailJuan Miguel López [phone] REASON FOR VISIT Abdominal pain Encounters Encounter Location Date Provider Diagnosis [facility] [address] [place] [address] 04/26/2024 Juan Miguel Tim Plan Of Treatment Next Appt Details Provider Name:Juan Miguel Tim , 10/28/2024 02:40:00 PM, [address], [address], [place], [address], Progress Notes * YAZMIN ADAMSDOB:1945 (78 yo M)Acc No.[id number]:04/26/2024 Patient:?YAZMIN ADAMS :1945???Age:78 Y???Sex:Male Address:[address] [place] [address], [place] [address] * true * Date:? Generated for Printi ng/Faxing/eTransmitting on:?10/10/2024 12:40 PM EDT
--- OUTSIDE RECORDS SUMMARY | 2024-10-10 12:41 | XMS_ITS | Patient Health Record ---
Author Organization [facility] Address [address] [place] [address] Care Team Providers Care Hard Candy Spinner Name Role Phone Minh LEIGH, Kasuhal Primary Care Provider Juan Miguel Fraire Unavailable [phone] Allergies No Known Allergies Results Component Value Reference Range Notes Glucose, Whole Blood Reviewed date:04/22/2024 01:38:25 PM Interpretation: Performing Lab:[facility], [address] [place] [phone] Notes/Report: Glucose, Whole Blood 151 60-115 mg/dL METER # : [id number] Pathology (Not yet reviewed by provider) Interpretation: Performing Lab:[facility], [address] [place] [phone] Notes/Report: ------ Name: Joyce Pruitt Age/Sex: 78/M : 1945 Unit#: [id number] Attend Dr: Juan Miguel Tim MD Re04/22/24 Status : [facility] Location: [facility] Disch: ------ SPEC : [id number] RECD : 04/22/24 STATUS: KAREN OSBORNE NUM: [id number] LUPE: 04/22/[address] [facility] [address]: Juan Miguel Tim MD ENTERED: 04/22/24-04 21 SP TYPE: Surgical OTHR DR: Kaushal Wilkinson MD ORDERED: HE Stain/15 , Gross Micro L4/5, IHC/2, Special st. 2, H. pylori/2, AB/PAS Addendum Addendum 1 Entered: 04/27/24 Immunostains for H. pylori on A and C are negative. AB/PAS on B is negative for intestinal metaplasia. Controls stain appropriately. Addendum Signed (signature on file) [place]ira [place] 04/27/24 1045 ------ Diagnosis A. Gastric antrum, b iopsy: Gastric antral mucosa with minimal chronic gastritis with rare neutrophils; ne gative for intestinal metaplasia and dysplasia. B. Esophagogastric junction, at 42 cm, biopsy: Squamous mucosa with hyperplasia, mild spongiosis, and rare neutrophils, and columnar mucosa with mild chronic active inflammation, consis tent with reflux esophagitis; no intestinal metaplasia identified on initial levels; nega tive for dysplasia. C. Gastric antrum, p olyp: Gastric antral mucosa with minimal chronic inactive gastritis; negative for intestinal metaplasia and dysplasia. D. Esophagus, 20-25 cm, biopsy: Squamous mucosa with no specific change; no columnar mucosa present. E. Colon, ascending, polyp: Tubular adenoma; negative for high-grade dysplasia and carcinoma. Comment: (A and C): Immunosta ins for H. pylori pending; addendum to follow. (B): Additional junie l with AB/PAS stain pending; addendum to follow. Clinical History Pre-Op Dx: Dysphagia , screening Post-Op Dx: Duodenit is, hiatal hernia, reflux, diverticulosis, colon polyp, hemorrhoids CONTINUED ON NEXT PAGE ------ Name: Joyce Pruitt Age/Sex: 78/M : 1945 Unit#: [id number] Attend Dr: Juan Miguel Tim MD Re04/22/24 Status : [facility] Location: [facility] Disch: ------ SPEC : [id number] RECD : 04/22/24 STATUS: KAREN OSBORNE NUM: [id number] LUPE: 04/22/[address] [facility] [address]: Juan Miguel Tim MD ENTERED: 04/22/24-04 21 SP TYPE: Surgical OTHR DR: Kaushal Wilkinson MD ORDERED: HE Stain/15 , Gross Micro L4/5, IHC/2, Special st. 2, H. pylori/2, AB/PAS Microscopic Description Microscopic sections reviewed. Material Received A. Gastric antrum B. EG junction at 42 C. Antral polyp D. Esophagus 20-25cm E. Ascending colon polyp Gross Description Received in five parts. Part A: Received in formalin labeled ?gastric antrum? are 3 gold irregular and rectangular tissue fragments ran ging from 0.25-0.4 cm, submitted in toto in a cassette labeled A. Part B: Received in formalin labeled ?EG junction at 42? are 3 gold and gold-pink irregular tissue fragments ran ging from 0.2-0.35 cm, submitted in toto in a cassette labeled B. Part C: Received in formalin labeled ?antral polyp? are 2 gold-pink irregular tissue fragments each measu ring 0.25 cm, submitted in toto in a cassette labeled C. Part D: Received in formalin labeled ?esophagus 20-25 cm, rule out EOE? are 4 johnson-white irregular and rectan gular tissue fragments ranging from 0.15 to 0.5 cm, submitted in toto in a cassette labeled D. Part E: Received in formalin labeled ?ascending colon polyp? is a 0.25 cm rubbery, gold papular tissue fragm ent, submitted in toto in a cassette labeled E. CEDS Special studies orde red and performed: Immunostain for H. pylori on A1 and C1; AB/PAS stains on B1. Copies To: Kaushal Wilkinson MD [facility] [address] [place] [address] CONTINUED ON NEXT PAGE ------ Name: Joyce Pruitt Age/Sex: 78/M : 1945 Unit#: [id number] Attend Dr: Juan Miguel Tim MD Re04/22/24 Status : [facility] Location: [facility] Disch: ------ SPEC : [id number] RECD : 04/22/24 STATUS: KAREN OSBORNE NUM: [id number] LUPE: 04/22/24-[address] [facility] [address]: Juan Miguel Tim MD ENTERED: 04/22/24-04 21 SP TYPE: Surgical OTHR DR: Kaushal Wilkinson MD ORDERED: HE Stain/15 , Gross Micro L4/5, IHC/2, Special st. 2, H. pylori/2, AB/PAS Copies To: (Continued) Juan Miguel Tim MD [facility] [address] [place] [address] [address] [place] [address] ------ Signed (signature on file) [place]ira [place] 04/25/24 1156 ------ END OF REPORT Reason For Referral No Information Medications Medication SIG (Take, Route, Frequency, Duration) Notes Start Date End Date Status metFORMIN HCl 500 MG 1 tablet with meals Orally Twice a day Active Rosuvastatin Calcium 5 MG 1 tablet Orall y Once a day Active Jardiance 10 MG Oral for 30 Ac tive Alendronate Sodium 70 MG Oral for 84 Weekly Active Atorvastatin Calcium 10 MG Oral for 90 Active Aspir-81 81 MG 1 tablet Orally thre e x a week Not-Taking Omeprazole 20 MG 1 Orally Once a day every morning for 30 day(s) 04/22/2024 Active Lisinopril 20 MG 1 tablet Orally BID Active NIFEdipine ER 60 MG 1 tablet on an empty stomach Orally Once a day Active Immunizations Vaccine Route Administration Date Status Comme nts Flu vaccine no Preserv 3 and > Unknown 08/10/2017 Admin istered Influenza Unknown 04/29/2023 Administered Social History Tobacco Use: Social History Observation Description Date Details (start date - stop date) Former Smoker NA - NA Tobacco Use/Smoking Question Answer Notes Patient is a former smoker How long has it been since you last smoked? > 10 years Additional Findings: Tobacco User Chews tobacco Alcohol Screen Question Answer Notes Did you have a drink contain ing alcohol in the past year? Yes How often did you have a dri nk containing alcohol in the past year? 4 or more times a week (4 points) How many drinks did you have on a typical day when you were drinking in the past year? 1 or 2 drinks (0 point) How often did you have 6 or more drinks on one occasion in the past year? Never (0 point) Points 4 Interpretation Positive Section Notes: Nonsmoker; occasional alcoho l Nonsmoker; occasional alcoho l Nonsmoker; occasional alcoho l Problems Problem Type SNOMED Code ICD Code Onset Dates Problem Status W/U Status Risk Notes Problem 695927721 Colon cancer screening (Z12.11) Active confirmed Problem 439275194 History of adenomatous polyp of colon (Z86.010) Active confirmed Problem Diverticular disease of colon (442796220) Diverticulosis of large intestine without perforation or abscess without bleeding (K57.30) Active confirmed Problem Dysphagia (31332603) Dysphagia (R13.10) Active confirmed Problem Duodenitis (35812661) Duodenitis (K29.80) Active confirmed Problem Gastroesophageal reflux disease (173027745) Gastroesophageal reflux disease (K21.9) Active confirmed Problem 442209333 Gastroesophageal reflux disease, esophagitis presence not specified (K21.9) Active confirmed Problem Gastroesophageal reflux disease (disorder) (267690194) Chronic GERD (K21.9) Active confirmed Encounters Encounter Location Date Provider Diagnosis [facility] Outpatient [address] [place] [phone] 04/22/2024 Juan Miguel Tim Colon cancer screeni Z12.11 ; Colon polyps K63.5 ; Diverticulosis of large intestine without perforation or abscess without bleeding K57.30 ; Other hemorrhoids K64.8 ; Gastroesophageal reflux disease K21.9 ; Hiatal hernia K44.9 ; Duodenitis K29.80 and Dysphagia R13.10 [facility] [address] [place] [address] 04/18/2024 Juan Miguel Tim [facility] [address] [place] [address] 04/20/2024 Juan Miguel Tim Chronic GERD K21.9 a nd Dysphagia R13.10 [facility] [address] [place] [address] 04/22/2024 Juan Miguel Tim [facility] [address] [place] [address] 04/26/2024 Juan Miguel Tim [facility] [address] [place] [address] 07/22/2024 Juan Miguel Tim Assessments Encounter Date Diagnosis (ICD Code) Assessment Notes Treatment Notes Treatment Clinical Notes Section Notes 04/22/2024 Colon cancer screening (ICD-10 - Z12.11) 04/22/2024 Colon polyps (ICD-10 - K63.5) 04/20/2024 Dysphagia (ICD-10 - R13.10) 04/20/2024 Chronic GERD (ICD-10 - K21.9) 04/22/2024 Diverticulosis of large intestine without perforation or abscess without bleeding (ICD-10 - K57.30) 04/22/2024 Other hemorrhoids (ICD-10 - K64.8) 04/22/2024 Gastroesophageal reflux disease (ICD-10 - K21.9) 04/22/2024 Hiatal hernia (ICD-10 - K44.9) 04/22/2024 Duodenitis (ICD-10 - K29.80) 04/22/2024 Dysphagia (ICD-10 - R13.10) Plan Of Treatment Pending Test Test Name Order Date Pathology 04/22/2024 Future Test Test Name Order Date COLONOSCOPY 03/09/2012 UPPER GI ENDOSCOPY 09/04/2017 COLONOSCOPY 09/04/2017 COLONOSCOPY 05/21/2023 UPPER GI ENDOSCOPY BALLOOON DILATION OF ESOPH 04/20/2024 Next Appt Details Provider Name:Juan Miguel Tim , 10/28/2024 02:40:00 PM, [address] [facility], [address], [place], [address], Insurance Providers Payer Name Payer Address Payer Phone Subscriber Number Group Number Insured Name Patient Relationship to Insured Coverage Start Date Coverage End Date [place]IC[place] OF [place] [address] [place] [id number] [employer] [employer]ARD[employer] Self - patient is the insured [employer] ([employer]) [address] [place] [id number] [place] GUARD[place] Self - patient is the insured Medical (General) History Medical History History ICD Code History of tubular adenomas of the colon removed in 2002--colonoscopies in 2006 and 2011 revealed only hyperplastic polyps, as well as diffuse diverticulosis and internal hemorrhoids Hypertension Hyperlipidemia NIDDM Denies CT,CVA,Lung disease,renal disease Left lower leg injury after his hip replacement causing him to have some weakness in the left lower leg 2 hip replacements Arthritis Colonoscopy 10/2017 with a small tubular adenoma EGD 10/2017 with a minimal hi atal hernia, minimal duodenitis, and minimal gastritis but no H.pylori Surgical History Surgery Date(Month/Year) Right hip replacement in 11/2011 Left hip replacement 2016
== END 2024-10-10 10:57 | disposition home or self-care (01) ==
LOC: HO.HMGCX 10:56
PROVIDERS: PCP Internal Medicine; Visit Provider Internal Medicine
DX: M54.50 Low back pain, unspecified (principal)
CPT/HCPCS: 72100

== ENCOUNTER → 2024-10-10 11:02 | Outpatient (BNV) | payer MEDICARE, OTHER, SELFPAY | PROVIDERS: PCP Internal Medicine; Visit Provider Radiology Diagnostic Radiology | DX: M54.50 Low back pain, unspecified (principal) | CPT/HCPCS: 72100 ==

== ENCOUNTER 2024-10-14 11:00 | Outpatient (RCR) | payer MEDICARE, OTHER, SELFPAY | END 2024-10-19 11:05 | disposition home or self-care (01) | LOC: HO.PTCHIC 11:00 | PROVIDERS: PCP Internal Medicine; Visit Provider Internal Medicine | DX: M79.605 Pain in left leg (principal); R53.1 Weakness | CPT/HCPCS: 97110; 97163 ==

== ENCOUNTER 2024-12-09 10:33 | Outpatient (REF) | payer MEDICARE, OTHER, SELFPAY ==
--- NOTE | ~2024-12-09 | XR_ITS ---
EXAMINATION: XR KNEE, LEFT CLINICAL INFORMATION: LEFT KNEE PAIN, R/O FX COMPARISON: None available. TECHNIQUE: Four views of the left knee. FINDINGS: No fracture, dislocation, or suspicious bone lesion. Normal alignment. Mild tricompartmental joint space narrowing with minimal marginal osteophytic spurs. Mild spurring of the tibial spines. There is a superior patellar enthesophyte present. There is no joint effusion. Soft tissues demonstrate diffuse vascular calcifications. XR/XR knee LT 4V IMPRESSION: 1. No acute bony abnormalities of the left knee. 2. Mild tricompartmental osteoarthritis. 3. No evidence of joint effusion. Electronically signed by: Mahesh Manzanares MD 12/09/2024 12:31 PM EDT
--- OUTSIDE RECORDS SUMMARY | 2024-12-09 10:59 | XMS_ITS ---
Author Organization [facility] [place] Address [address] [facility] [address] Care Team Providers Care Learning Analyst Name Role Phone Kaushal Wilkinson MD Primary Care Provider Marizol Yi Unavailable [phone] Allergies No Known Allergies REASON FOR VISIT [...] 025 Encounters Encounter Location Date Provider Diagnosis [facility] [place] [address] [place] [address] 08/02/2024 Marizol Ellington Xerosis of skin L85. [...] Up: 2 Months, Reason: Provider Name:Marizol martinez, 12/28/2024 10:00:00 AM, [address] [place] [address], [address], Procedure Notes * Category Sub-Category Detail Notes [...] use of a nail nipper and/or dremel-type tool and cutter grinder, to a more viable healthy nail [...] to maintain effectiveness in symptomatic relief - 64248 Keratoma Treatment Parring or Cutting o f [...] instrumentation by the physician of record - 94855 Progress Notes * Real PRUITTDOB:1945 (78 yo M)Acc No.[id number]:08/02/2024 Progress Note Patient:?Real PRUITT Provider:?Marizol Ellington DPM :1945???Age:78 Y???Sex:Male [place] e:08/02/2024 Address:[address] [place] [address] [facility] Pcp:Kaushal Wilkinson MD Subjective: * Chief Complaints: [...] use of a nail nipper and/or dremel-type tool and cutter grinder, to a more viable healthy nail [...] to maintain effectiveness in symptomatic relief - 39270.?Keratoma Treatment:?Parring or Cutting of Benign Hyperkeratotic Lesion(s)?(-57) [...] instrumentation by the physician of record - 54945.? * Procedure Codes:?86942 DEBRI DE NAIL, 6 OR MORE, Modifiers: XS 39416 TRIM SKIN LESIONS, OVER 4, Modifiers: XS [...] Ellington DPM Date:?01/2025 Generated for Diomedes mckinney/Chely/Clare on:?12/09/2024 10:58 AM EDT History and Physical Notes * HPI [...]
--- OUTSIDE RECORDS SUMMARY | 2024-12-09 10:59 | XMS_ITS | Patient Health Record ---
Author Organization [facility] [place] Address [address] [facility] [place] [address] Care Team Providers Care Specimen Processor Name Role Phone Kaushal Wilkinson MD Primary Care Provider Unavailab ruth HeinjuanMarizol Unavailable [phone] Allergies No Known Allergies Results Component Value Reference Range Notes HEMOGLOBIN A1C (GLYCOHEMOGLO BIN) Reviewed date:08/02/2024 11:28:59 AM Interpretation: Performing Lab: Notes/Report: HEMOGLOBIN A1C % (HH) 6.8 Reason For Referral No Information Medications Medication SIG (Take, Route, Frequency, Duration) Notes Start Date End Date Status Amoxicillin Not-Taki ng Crestor 20 MG 1 tablet Orally Once a day for 30 day(s) Active LORazepam 2 MG 1 tablet at bedtime Orally Once a day PRN Not-Taking Lisinopril 10 MG 1 tablet Orally Once a day for 30 day(s) Active Augmentin 875-125 MG 1 tablet Orally sonya ry 12 hrs for 7 days Not-Taking Jardiance 10 MG Oral for 30 Ac tive CeleBREX 200 MG 1 capsule Orally Onc e a day for 30 day(s) 03/06/2014 Not-Taking metFORMIN HCl 500 MG Orally Twice a day Active Cephalexin 500 MG Orally No t-Taking Fish Oil PRN Not-Taking Crestor 20 MG 1 tablet Orally Once a day for 30 day(s) Unknown Vitamin D Not-Taking Naprosyn 375 MG 1 tablet Orally Twic e a day for 30 day(s) 03/14/2014 Not-Taking Naproxen 500 MG 1 tablet with food o r milk as needed Orally every 12 hrs Not-Taking LORazepam 2 MG 1 tablet at bedtime Orally Once a day Unknown predniSONE 10 MG TAKE 1 TABLET BY RISHABH TH EVERY DAY Oral for 21 Not-Taking Lisinopril 10 MG 1 tablet Orally Once a day for 30 day(s) Unknown Ammonium Lactate 12 % 1 application Exte rnally Twice a day for 30 days Active Augmentin 500-125 MG 1 tablet Orally Twi ce a day for 14 days 03/29/2019 Not-Taking Amoxicillin 500 MG 4 capsules one time Orally One hour prior to procedure for as needed 02/02/2019 Not-Taki ng NIFEdipine 10 MG 1 capsule Orally Thr ee times a day for 30 day(s) Unknow n NIFEdipine 10 MG 1 capsule Orally Thr ee times a day for 30 day(s) Active Immunizations Vaccine Route Administration Date Status [...] (Standard) Question Answer Notes Tobacco use: Nonsmoker AUDIT-C (Standard) Question Answer Notes Did you have a drink contain ing alcohol in the past year? Yes How often did you have a dri nk containing alcohol in the past year? 2 to 4 times a month (2 points) How many drinks did you have on a typical day when you were drinking in the past year? 3 or 4 drinks (1 point) How often did you have six o r more drinks on one occasion in the past year? 2 to 4 times a month (2 points) Points 5 Interpretation Positive Problems Problem Type SNOMED Code ICD Code Onset Dates Problem Status W/U Status Risk Notes Problem Polyneuropathy due to type 2 diabetes mellitus (322582700) Type 2 diabetes mellitus with diabetic polyneuropathy (E11.42) Active confirmed Problem 133362514 Hammer toe of right foot (M20.41) Active confirmed Problem 969391031 Neuropathy (G62.9) Active confirmed Vital Signs Blood pressure diastolic 70 mm Hg 10/12/2024 Height 6ft 3in in 10/12/2024 Blood pressure systolic 145 mm Hg 10/12/2024 Weight 225 lbs 10/12/2024 BMI 28.12 kg/m2 10/12/2024 Encounters Encounter Location Date Provider Diagnosis [address] [address] 03/04/2024 Marizol Perica Xerosis of skin L85. 3 ; Ganglion of foot, left M67.472 ; Type 2 diabetes mellitus with diabetic polyneuropathy E11.42 and Tinea unguium B35.[address] [address] 05/03/2024 Marizol Perica Xerosis of skin L85. 3 ; Ganglion of foot, left M67.472 ; Type 2 diabetes mellitus with diabetic polyneuropathy E11.42 and Tinea unguium B35.[address] [address] 08/02/2024 Marizol Perica Xerosis of skin L85. 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 ; Type 2 diabetes mellitus with diabetic polyneuropathy E11.42 ; Tinea unguium B35.1 and Abscess of toe, left L02.[address] [address] 02/23/2024 Marizol Perica [address] [address] 03/03/2024 Marizol Pericjuan [address] [address] 06/08/2024 Marizol Ellington Assessments Encounter Date Diagnosis (ICD Code) Assessment Notes Treatment Notes Treatment Clinical Notes Section Notes 03/04/2024 Xerosis of skin (ICD-10 - L85.3) 05/03/2024 Xerosis of skin (ICD-10 - L85.3) 08/02/2024 Ganglion of foot, left (ICD-10 - M67.472) 08/02/2024 Xerosis of skin (ICD-10 - L85.3) 10/12/2024 Ganglion of foot, left (ICD-10 - M67.472) 10/12/2024 Hyperhidrosis of feet (ICD-10 - L74.513) 10/12/2024 Type 2 diabetes mellitus with diabetic polyneuropathy (ICD-10 - E11.42) 08/02/2024 Type 2 diabetes mellitus with diabetic polyneuropathy (ICD-10 - E11.42) 05/03/2024 Ganglion of foot, left (ICD-10 - M67.472) 03/04/2024 Ganglion of foot, left (ICD-10 - M67.472) 03/04/2024 Type 2 diabetes mellitus with diabetic polyneuropathy (ICD-10 - E11.42) 05/03/2024 Type 2 diabetes mellitus with diabetic polyneuropathy (ICD-10 - E11.42) 10/12/2024 Tinea unguium (ICD-10 - B35.1) 08/02/2024 Tinea unguium (ICD-10 - B35.1) 05/03/2024 Tinea unguium (ICD-10 - B35.1) 03/04/2024 Tinea unguium (ICD-10 - B35.1) 10/12/2024 Abscess of toe, left (ICD-10 - L02.612) Plan Of Treatment Pending Test Test Name Order Date X ray : Foot, right 3V 04/14/2012 X ray : Foot, right 3V 05/16/2013 09924-Hvvhjsvt Plate 09/29/2017 20326-Zjmnnrzz Plate 11/11/2017 13742-Uznqaepg Plate 07/02/2017 79810-Ncolnkoj Plate 12/11/2017 38055-Xmcgayoc Plate 02/02/2018 62130-Sezxoqkv Plate 07/16/2018 12110-Ogeygbrz Plate Each Additional 01/2017 16969-Ihhyuvmy Plate Each Additional 57531- Debride <25 sq cm 07/16/2017 71747 I&D ABSCESS- SIMPLE,SINGLE 018 03853 I&D ABSCESS- SIMPLE,SINGLE 018 07847 I&D ABSCESS- SIMPLE,SINGLE 017 75032 I&D ABSCESS- SIMPLE,SINGLE 019 85975, J0702- INJECT or DRAIN, JOINT/BUR SA 05/26/201288249, Q4509-AJAOF/INJECT, JOINT/BURSA 1 08/24/201183479, Z5098-FWXPY/INJECT, JOINT/BURSA 1 V1613-LMVEAJCI DYSTROPHIC NAILS ANY # 50,T6706-ASD TENDON SHEATH/LIGAMENT 0 12/21/201326015,I7364-IGT TENDON SHEATH/LIGAMENT 0 03/06/2014 S1707-Grldioqfm 3mg 06/24/2012 M4347-Mrsohjoyv 3mg 05/26/2012 Next Appt Details Provider Name:Marizol martinez, 12/28/2024 10:00:00 AM, [address] [place], [address], Insurance Providers Payer Name Payer Address Payer Phone Subscriber Number Group Number Insured Name Patient Relationship to Insured Coverage Start Date Coverage End Date Medicare National [employer] [address] [place] [address] [id number] Grammati teodora, Real Self - patient is the insured [facility] ([facility] [address] [place] [address] [phone] [id number] Grammati teodora, Real Self - patient is the insured Medical (General) History Medical History History ICD Code sciatica Diabetic Arthritis Cataracts Surgical History Surgery Date(Month/Year) right hip replacement 12/08/2011 left hip replacement 10/2014 colonoscopy 04/2024
--- OUTSIDE RECORDS SUMMARY | 2024-12-09 10:59 | XMS_ITS ---
Author Organization [facility] Address [address] [place] [address] Care Team Providers Care Software Security Architect Name Role Phone Minh LEIGH, Kaushal Primary Care Provider Unavailab Juan Miguel Peterson [phone] REASON FOR VISIT gerd Encounters Encounter Location Date Provider Diagnosis [facility] [address] [facility] [address] [place] [address] 09/01/2024 Juan Miguel Tim Plan Of Treatment No Information Progress Notes * YAZMIN ADAMSDOB:1945 (79 yo M)Acc No.[id number]:09/01/2024 Progress Notes Patient:?YAZMIN ADAMS Provider:?Juan Miguel Tim MD :1945???Age:78 Y???Sex:Male Juan Diego e:09/01/2024 Address:[address] [place], [place] [id number] Pcp:Kaushal Wilkinson MD Subjective: * Chief Complaints: [...] Miguel Tim MD Date:? 025 Generated for Printi ng/Faxing/eTransmitting on:?12/09/2024 10:58 AM EDT
--- OUTSIDE RECORDS SUMMARY | 2024-12-09 10:59 | XMS_ITS ---
Author Organization [facility] Address [address] [place] [address] Care Team Providers Care Drafter Commercial Name Role Phone Minh LEIGH, Kaushal Primary Care Provider Unavailab Juan Miguel Peterson [phone] REASON FOR VISIT cancel appt Encounters Encounter Location Date Provider Diagnosis [facility] [address] [place] [address] 10/26/2024 Juan Miguel Tim Plan Of Treatment No Information Progress Notes * YAZMIN ADAMSDOB:1945 (79 yo M)Acc No.[id number]:10/26/2024 Patient:?ANGIE YAZMIN :1945???Age:79 Y???Sex:Male Address:[address] [place] [address] * true * Date:? Generated for Diomedes mckinney/Chely/eTransmitting on:?12/09/2024 10:59 AM EDT
--- OUTSIDE RECORDS SUMMARY | 2024-12-09 11:00 | XMS_ITS ---
Author Organization [facility] Edvin sarah Newcomb Address [address] [place] [address] Care Team Providers Care Acid Changer Name Role Phone Kaushal Wilkinson MD Primary Care Provider UnavailMarizol Vidales [phone] REASON FOR VISIT 60 Days Encounters Encounter Location Date Provider Diagnosis [address] [address] 06/08/2024 Marizol Ellington Plan Of Treatment Next Appt Details Provider Name:Marizol martinez, 12/28/2024 10:00:00 AM, [address] [place] [address], [phone], Progress Notes * Real PRUITTDOB:1945 (78 yo M)Acc No.[id number]:06/08/2024 Patient:?Real PRUITT :1945???Age:78 Y???Sex:Male Address:[address] [place] [address] [place] [address] * true * Date:? Generated for Flacai hank/Chely/eTransmitting on:?12/09/2024 10:59 AM EDT
--- OUTSIDE RECORDS SUMMARY | 2024-12-09 11:00 | XMS_ITS | Patient Health Record ---
Author Organization [facility] Address [address] [place] [address] Care Team Providers Care Donor Processor Name Role Phone Minh LEIGH, Kaushal Primary Care Provider Juan Miguel Fraire Unavailable [phone] Allergies No Known Allergies Results Component Value Reference Range Notes Glucose, Whole Blood Reviewed date:04/22/2024 01:38:25 PM Interpretation: Performing Lab:[facility], [address] [place] [address] Notes/Report: Glucose, Whole Blood 151 60-115 mg/dL METER # : [id number] Pathology Reviewed date:10/27/2024 01:21:58 PM Interpretation: Performing Lab:[facility], [address] [place] [address] Notes/Report: ------ Name: Joyce Pruitt Age/Sex: 78/M : 1945 Unit#: [id number] Attend Dr: Juan Miguel Tim MD Re04/22/24 Status : [facility] Location: [facility] Disch: ------ SPEC : [id number] RECD : 04/22/24 STATUS: KAREN OSBORNE NUM: [id number] LUPE: 04/22/[address] [facility] [address]: Juan Miguel Tim MD ENTERED: 04/22/24-04 21 SP TYPE: Surgical OTHR DR: Kaushal Wilkinson MD ORDERED: HE Stain/15 , Gross Micro L4/5, IHC/2, Special st. 2, H. pylori/2, AB/PAS Addendum Addendum 1 Entered: 04/27/24 Immunostains for H. pylori on A and C are negative. AB/PAS on B is negative for intestinal metaplasia. Controls stain appropriately. Addendum Signed (signature on file) Nadira [place] 04/27/24 1045 ------ Diagnosis A. Gastric antrum, [...] pylori pending; addendum to follow. (B): Additional donale l with AB/PAS stain pending; addendum to follow. Clinical History Pre-Op Dx: Dysphagia , screening Post-Op Dx: Duodenit is, hiatal hernia, reflux, diverticulosis, colon polyp, hemorrhoids CONTINUED ON NEXT PAGE ------ Name: Joyce Pruitt Age/Sex: 78/M : 1945 Unit#: [id number] Attend Dr: Juan Miguel Tim MD Re04/22/24 Status : [facility] Location: [facility] Disch: ------ SPEC : [id number] RECD : 04/22/24 STATUS: KAREN OSBORNE NUM: [id number] LUPE: 04/22/24-[address] [facility] [address]: Juan Miguel Tim MD ENTERED: [...] To: Kaushal Wilkinson MD [facility] [address] [place] [address] [phone] CONTINUED ON NEXT PAGE ------ Name: Joyce Pruitt Age/Sex: 78/M : 1945 Unit#: [id number] Attend Dr: Juan Miguel Tim MD Re04/22/24 Status : [facility] Location: [facility] Disch: ------ SPEC : [id number] RECD : 04/22/24 STATUS: KAREN OSBORNE NUM: [id number] LUPE: 04/22/[address] [facility] [address]: Juan Miguel Tim MD ENTERED: 04/22/24-04 21 SP TYPE: Surgical OTHR DR: Kaushal Wilkinson MD ORDERED: HE Stain/15 , Gross Micro L4/5, IHC/2, Special st. 2, H. pylori/2, AB/PAS Copies To: (Continued) Juan Miguel Tim MD [facility] [address] [place] [address] [address] [place] [address] ------ Signed (signature on file) Nadira [place] 04/25/24 1156 ------ END OF REPORT Reason [...] Problem Status W/U Status Risk Notes Problem 889428450 Colon cancer screening (Z12.11) Active confirmed Problem 940094853 History of adenomatous polyp of colon (Z86.010) Active confirmed Problem Diverticular disease of colon (697696070) Diverticulosis of large intestine without perforation or abscess without bleeding (K57.30) Active confirmed Problem Dysphagia (99143884) Dysphagia (R13.10) Active confirmed Problem Duodenitis (59658531) Duodenitis (K29.80) Active confirmed Problem Gastroesophageal reflux disease (182324329) Gastroesophageal reflux disease (K21.9) Active confirmed Problem 917579483 Gastroesophageal reflux disease, esophagitis presence not specified (K21.9) Active confirmed Problem Gastroesophageal reflux disease (disorder) (594994426) Chronic GERD (K21.9) Active confirmed Encounters Encounter Location Date Provider Diagnosis [facility] Outpatient [address] [place] [phone] 04/22/2024 Juan Miguel Tim Colon cancer screeni ng Z12.11 ; Colon polyps K63.5 ; Diverticulosis of large intestine without perforation or abscess without bleeding K57.30 ; Other hemorrhoids K64.8 ; Gastroesophageal reflux disease K21.9 ; Hiatal hernia K44.9 ; Duodenitis K29.80 and Dysphagia R13.10 [facility] [address] [place] [phone] 04/18/2024 Juan Miguel Tim [facility] [address] [place] [address] 04/20/2024 Juan Miguel Tim Chronic GERD K21.9 a nd Dysphagia R13.10 [facility] [address] [place] [address] 04/22/2024 Juan Miguel Tim [facility] [address] [place] [phone] 04/26/2024 Juan Miguel Tim [facility] [address] [place] [address] 07/22/2024 Juan Miguel Tim [facility] [address] [place] [phone] 10/26/2024 Juan Miguel Tim Assessments Encounter Date Diagnosis [...] Dysphagia (ICD-10 - R13.10) Plan Of Treatment Future Test Test Name Order Date COLONOSCOPY 03/09/2012 UPPER GI ENDOSCOPY 09/04/2017 COLONOSCOPY 09/04/2017 COLONOSCOPY 05/21/2023 UPPER GI ENDOSCOPY [place] DILATION OF ESOPH 04/20/2024 Insurance Providers Payer Name Payer Address Payer Phone Subscriber Number Group Number Insured Name Patient Relationship to Insured Coverage Start Date Coverage End Date [place] OF [place] [address] [place] [id number] [phone] [id number] YAZMIN ALEJANDRE CAS Self - patient is the insured [employer] ([employer]) [address] [place] [id number] HILL GUARDADOYAZMIN Self - patient is the insured Medical (General) History Medical History History ICD Code History of tubular adenomas of the colon removed in 2002--colonoscopies in 2006 and 2011 revealed only hyperplastic polyps, as well as diffuse diverticulosis and internal hemorrhoids Hypertension Hyperlipidemia NIDDM Denies [place],CVA,Lung disease,renal disease Left lower leg injury after [...]
--- OUTSIDE RECORDS SUMMARY | 2024-12-09 11:00 | XMS_ITS ---
Author Organization [facility] Address [address] [facility] [address] [place] [address] Care Team Providers Care Director Home Name Role Phone Minh LEIGH, Kaushal Primary Care Provider UnavailJuan Miguel López [phone] REASON FOR VISIT Patient presents today for gerd Encounters Encounter Location Date Provider Diagnosis [facility] [address] [facility] [address] [place] [address] 10/28/2024 Juan Miguel Tim Plan Of Treatment No Information Progress Notes * EDNAPALLAVIYAZMINDOB:1945 (79 yo M)Acc No.[id number]:10/28/2024 Progress Notes Patient:?YAZMIN ADAMS Provider:?Juan Miguel Tim MD :1945???Age:79 Y???Sex:Male Juan Diego e:10/28/2024 Address:[address] [place], [place] [phone] Pcp:Kaushal Wilkinson MD Subjective: * Chief Complaints: * ???1. Patient presents today for gerd. * Medical History:? Objective: * Vitals:? Assessment: Plan: * Treatment: * * The named appointment provid er may or may not be the originator of this progress note, and it is not deemed complete until electronically signed by the appointment provider. Sign off status: Pending * Provider:?Juan Miguel Tim MD Date:? 025 Generated for Printi ng/Faxing/eTransmitting on:?12/09/2024 10:59 AM EDT
--- OUTSIDE RECORDS SUMMARY | 2024-12-09 11:00 | XMS_ITS ---
Author Organization [facility] [place] Address [address] [place] [address] Care Team Providers Care Campus Monitor Name Role Phone Kaushal Wilkinson MD Primary Care Provider Marizol Yi Unavailable [phone] Allergies No Known Allergies REASON FOR VISIT At Risk Footcare, Skin problem(s), Possible Infection Medications Medication SIG (Take, Route, Frequency, Duration) Notes Start Date End Date Status LORazepam 2 MG 1 tablet at bedtime Orally Once a day PRN Not-Taking Augmentin 875-125 MG 1 tablet Orally sonya ry 12 hrs for 7 days Not-Taking CeleBREX 200 MG 1 capsule Orally Onc e a day for 30 day(s) 03/06/2014 Not-Taking Cephalexin 500 MG Orally No t-Taking Naprosyn 375 MG 1 tablet Orally Twic e a day for 30 day(s) 03/14/2014 Not-Taking Amoxicillin Not-Taki ng Naproxen 500 MG 1 tablet with food o r milk as needed Orally every 12 hrs Not-Taking predniSONE 10 MG TAKE 1 TABLET BY RISHABH TH EVERY DAY Oral for 21 Not-Taking Augmentin 500-125 MG 1 tablet Orally Twi ce a day for 14 days 03/29/2019 Not-Taking Amoxicillin 500 MG 4 capsules one time Orally One hour prior to procedure for as needed 02/02/2019 Not-Taki ng Crestor 20 MG 1 tablet Orally Once a day for 30 day(s) Active Jardiance 10 MG Oral for 30 Ac tive metFORMIN HCl 500 MG Orally Twice a day Active Fish Oil PRN Not-Taking Vitamin D Not-Taking Lisinopril 10 MG 1 tablet Orally Once a day for 30 day(s) Active LORazepam 2 MG 1 tablet at bedtime Orally Once a day Unknown Ammonium Lactate 12 % 1 application Exte rnally Twice a day for 30 days Active NIFEdipine 10 MG 1 capsule Orally Thr ee times a day for 30 day(s) Unknow n NIFEdipine 10 MG 1 capsule Orally Thr ee times a day for 30 day(s) Active Crestor 20 MG 1 tablet Orally Once a day for 30 day(s) Unknown Lisinopril 10 MG 1 tablet Orally Once a day for 30 day(s) Unknown Social History Tobacco Use: Social History [...] month (2 points) Points 5 Interpretation Positive Vital Signs Height 6ft 3in in 10/12/2024 Weight 225 lbs 10/12/2024 BMI 28.12 kg/m2 10/12/2024 Blood pressure systolic 145 mm Hg 10/13/19 25 Blood pressure diastolic 70 mm Hg 025 Encounters Encounter Location Date Provider Diagnosis [facility] [address] [place] [address] 10/12/2024 Marizol Ellington Ganglion of foot, le ft M67.472 ; Hyperhidrosis of feet 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 ; Type 2 diabetes mellitus with diabetic polyneuropathy E11.42 ; Tinea unguium B35.1 and Abscess of toe, left L02.612 Assessments Encounter Date Diagnosis (ICD Code) Assessment Notes Treatment Notes Treatment Clinical Notes Section Notes 10/12/2024 Ganglion of foot, left (ICD-10 - M67.472) 10/12/2024 Hyperhidrosis of feet (ICD-10 - L74.513) 10/12/2024 Type 2 diabetes mellitus with diabetic polyneuropathy (ICD-10 - E11.42) 10/12/2024 Tinea unguium (ICD-10 - B35.1) 10/12/2024 Abscess of toe, left (ICD-10 - L02.612) Plan Of Treatment Next Appt Details Follow Up: 2 Months, Reason: Provider Name:Marizol Jorge martinez, 12/28/2024 10:00:00 AM, [address] [place] [address], [id number], Procedure Notes * Category Sub-Category Detail Notes Debride Nail 6-10 Nail debridement Due to the cl inical pathology outlined in the exam findings, performance of this nail treatment is medically necessary as its management by an unskilled/untrained nonprofessional would put this patients foot and overall health at risk. Therefore, debridement to affected nail(s), as described in exam (T1, T2, T3, T4, T6, T7, T8, T9, ), was performed exclusively by the physician of record to reduce/remove overall nail length, girth, thickness, subungual debris, and necrotic tissue, by manual and/or electrical means through the use of a nail nipper and/or dremel-type plate grinder, to a more viable healthy nail [...] to maintain effectiveness in symptomatic relief - 58900 I&D nail abscess Location Medial nail bor davonte, T4 Procedure Performed incision a nd drainage of Single Nail Abscess with use of sterile nail nipper/316 blade. Approximately ( 0.1 ) cc purulent fluid material was drained. The infected devitalized soft tissue was curettaged to healthy bleeding bed. Any affected nail portion was removed to the eponychium . Any evidence of granuloma was also removed at this time. No underlying bone was visualized. There was minimal bleeding as hemostasis was achieved through the temporary use of either a digital tournaquet or the aforementioned local with epinephrine. An application of sterile Bacitracin dressing was performed. Local wound care instructions were discussed and dispensed. Recommended Tylenol or Motrin for pain/discomfort (40713) Type Single, Abscess Anesthesia was deferred - NEURO ESTEBAN: patient has medically documented neuropathic condition affecting sensation Keratoma Treatment Parring or Cutting o f Benign Hyperkeratotic Lesion(s) (-56) 2-4 Lesions - Due to the at risk nature of the patients medical condition as documented in the exam findings, performance of this keratoderma treatment is medically necessary as its management by an unskilled/untrained nonprofessional would put this patients foot and overall health at risk. Therefore, the benign hyperkeratotic lesions, ( 2 ) in total, locations as stated and described in the exam ( TA, T5 ), were pared, and/or cut utilizing a sterile 15 blade, tissue nippers, and/or power dremel instrumentation by the physician of record - 04750 Progress Notes * Real PRUITTDOB:1945 (79 yo M)Acc No.[id number]:10/12/2024 Progress Note Patient:?Real PRUITT Provider:?Marizol Ellington DPM :1945???Age:79 Y???Sex:Male Juan Diego e:10/12/2024 Address:[address] [place] [address], [facility] Pcp:Kaushal Wilkinson MD Subjective: * Chief Complaints: * ???At Risk FootcareSkin prob alex(s)Possible Infection * HPI: ???At Risk footcare:?Pt States Last PCP Visit:?Date?10/05/2024 ???Skin problems:?Nature:?Lump.?Location:?Top Left 1st Toe(s).?Course:?unchanged?.? * ROS:?General/Constitutional:?Nausea?denies.?Vomiting?denies.?Hunger Thirst?denies.?Loss appetite?denies.?Chills?denies.?Fatigue?denies.?Fever?denies.?Night Sweats?denies.?Unexplained weight loss?denies.?Ophthalmologic:?Blurred [...] other tobacco user??No ?Tobacco Control (Standard)?Tobacco use:?Nonsmoker ???Drugs/Alcohol:?Drugs?Have you used drugs other than those for medical reasons in the past 12 months??No ???Miscellaneous:?Caffeine: no, decaff tea. ?Children: no. ?Exercise: yes, walking. ?Marital status: . 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 ???Drug/Alcohol:?AUDIT-C (Standard)?Did you have a drink containing alcohol in the past year??Yes ?How often did you have a drink containing alcohol in the past year??2 to 4 times a month (2 points) ?How many drinks did you have on a typical day when you were drinking in the past year??3 or 4 drinks (1 point) ?How often did you have six or more drinks on one occasion in the past year??2 to 4 times a month (2 points) ?Points?5 ?Interpretation?Positive * Medications:?TakingAmmonium Lactate 12 % Cream 1 application Externally Twice a day NIFEdipine 10 MG Capsule 1 capsule Orally Three times a day Lisinopril 10 MG Tablet 1 tablet Orally Once a day Crestor 20 MG Tablet 1 tablet Orally Once a day metFORMIN HCl 500 MG Tablet Orally Twice a day Jardiance 10 MG Tablet Oral Taking Ammonium [...] day Taking Jardiance 10 MG Tablet Oral Not-Taking/PRNVitamin D Fish Oil , Notes to [...] gies Verified] Objective: * Vitals:?Ht: 6ft 3in, Wt:225, BMI: 28.12, Shoe size:12, BP:145/70mm Hg, BS:not taken, Ht-cm: 190.5 cm, Wt-k.06 kg. * ???Past Orders: ???Lab:HEMOGLOBIN A1C (GLYCO HEMOGLOBIN) (Order Date - 06/26/2024) (Collection Date & Time - 06/26/2024 11:28 AM) ? Value Reference Range ?HEMOGLOBIN A1C % (HH) 6.8 * Examination: ???Ophthalmology Referral: ?DIABETES EYE EXAM?Procedure Performed:?Yes ?Date of Exam Performed?06/27/2024 ?Diabetic Retinopathy Screening:?Yes ?Retinal Screening Performed:?Yes ?Findings of Diabetic Eye Exam:?no retinopathy?Vascular: ?DP PULSES (B):?3/4, B/L.?PT PULSES (B):?3/4, B/L.?CAPILLARY FILL TIME:?immediate, all digits, B/L.?TEMPERTURE GRADIENT (C):?normal, warm to cool, proximal to distal, B/L, B/L.?EDEMA (C):?07/30, Ankle(s), B/L.?ELVIS'S SIGN:?absent, B/L.?PALPABLE CORDS:?absent, B/L.?Neurological: ?SENSORY:?(DM/Neuro) Neurological [...] to no pain on palpation due to neuropathy,??T1, T2, T3, T4, T6, T7, T8, T9.?Dermatologic: ?SKIN FINDINGS:?Skin exam reveals Keratotic lesion(s) located at, Medial plantar, TA, T5 ?, Skin shows sign(s) of, a semi-firm, painful, non-translucent, non-pulsatile, nonmobile Sub Q tumor rosetta. 5x 5x 5mm dorsal IPJ TA , Skin shows sign(s) of, hyperhidrosis,? odor B/L.?General Examination: ?GENERAL APPEARANCE:?Reveals a pleasant, alert, well nourished, well- developed, well hydrated individual, who demonstrates proper attention to hygiene/body habitus, and is in no acute distress, Pt serves as own historian for office visit today.?ORIENTED:?person, place, and time.?FOOT EXAM:?Lower Extremity Neurological Exam performed:?Yes ?Visual exam of foot performed:?Yes ?Date?10/12/2024 ?Sensory testing performed:?sensations diminished ?Footwear Evaluation?Footwear Evaluation performed:?Yes?Abscess/infected nail: ?INSPECTION?Reveals nail incurvation, pain on palpation, groove laceration, inflammation, malodor, localized cellulitis, and purulent abscess with pre- operative size of approximately ( 1 ) mm square without exposed bone, Medial nail border, T4.? Assessment: * Assessment: 1.?Ganglion of foot, left - M67.472???Specify :Acute problem, Uncomplicated (3)???2.?Hyperhidrosis of feet - L74.513 (Primary)???Specify :Acute problem, Uncomplicated (3)???3.?Type 2 diabetes mellitus with diabetic polyneuropathy - E11.42???4.?Tinea unguium - B35.1???5.?Abscess of toe, left - L02.612??? Plan: * Treatment: * Procedures:?Debride Nail 6-10:?Nail debridement?Due to the clinical pathology outlined in the exam findings, performance of this nail treatment is medically necessary as its management by an unskilled/untrained nonprofessional would put this patients foot and overall health at risk. Therefore, debridement to affected nail(s), as described in exam (T1, T2, T3, T4, T6, T7, T8, T9, ), was performed exclusively by the physician of record to reduce/remove overall nail length, girth, thickness, subungual debris, and necrotic tissue, by manual and/or electrical means through the use of a nail nipper and/or dremel-type plate grinder, to a more viable healthy nail [...] to maintain effectiveness in symptomatic relief - 47168.?I&D nail abscess:?Type?Single, Abscess.?Anesthesia?was deferred - NEUROPATHY: patient has medically documented neuropathic condition affecting sensation.?Location?Medial nail border, T4.?Procedure?Performed incision and drainage of Single Nail Abscess with use of sterile nail nipper/316 blade. Approximately ( 0.1 ) cc purulent fluid material was drained. The infected devitalized soft tissue was curettaged to healthy bleeding bed. Any affected nail portion was removed to the eponychium . Any evidence of granuloma was also removed at this time. No underlying bone was visualized. There was minimal bleeding as hemostasis was achieved through the temporary use of either a digital tournaquet or the aforementioned local with epinephrine. An application of sterile Bacitracin dressing was performed. Local wound care instructions were discussed and dispensed. Recommended Tylenol or Motrin for pain/discomfort (73131).?Keratoma Treatment:?Parring or Cutting of Benign Hyperkeratotic Lesion(s)?(-56) 2-4 Lesions - Due to the at risk nature of the patients medical condition as documented in the exam findings, performance of this keratoderma treatment is medically necessary as its management by an unskilled/untrained nonprofessional would put this patients foot and overall health at risk. Therefore, the benign hyperkeratotic lesions, ( 2 ) in total, locations as stated and described in the exam ( TA, T5 ), were pared, and/or cut utilizing a sterile 15 blade, tissue nippers, and/or power dremel instrumentation by the physician of record - 33439.? * Procedure Codes:?93755 DEBRI DE NAIL, 6 OR MORE, Modifiers: XS 43331 DRAINAGE OF SKIN ABSCESS, Modifiers: XS 46794 TRIM SKIN LESIONS, 2 TO 4, Modifiers: XS * Preventive Medicine:? ??Counseling:?Discussion:?-13: Office or other outpatient visit for the [...] patient verbalized that all answers were clearly understood.?Hyperhydrosis:?The patient was counseled on the diagnosis, potential etiologies, and treatment options for their Hyperhydrosis skin condition. We discussed the risks and benefits of each option from performing no treatment, to utilizing OTC topical antiperspirant skin creams/lotions/powders/sprays, to prescription topical preparations, as well as customized compounded topical medications. We discussed personal hygene modifications including changing socks/shoes BID, using Dr Rhina Meraz Eater innersoles to absorb and wick away foot moisture from the skin. We discussed the use of a Dermatology or Neurology consult for Botox injections if needed. We discussed the advantages and disadvantages of each possible treatment and importance for adherence to all the recommended therapies for optimum success and avoid potential complications such as open sore/infection/possible hopitalization. We discussed the potential effectiveness of each topical preparation as well as each ones possible side effects and/or patient medication interactions. Patient questions re: use, dosage, successful outcomes, and application consistency were reviewed and the patient verbalized that all answers were clearly understood, Carpe antiperspirant lotion.? ??Screening/Special Tests:?Fall Risk?Assessment:?Performed ?Screening:?No falls in the past year ?FALLS: Screening for Future Fall Risk?Have you had two or more falls in the past year??No ?Have you had any falls with injury in the past year??No * Follow Up:?2 Months * Images: * Sign off status: Completed true * Provider:?Marizol Ellington DPM Date:? Generated for Diomedes mckinney/Chely/Clare on:?12/09/2024 10:59 AM EDT History and Physical Notes * HPI (History of Present Illness) Category Sub-Category Detail Notes Category Not es Skin problems Nature: Lump Location: Top Left 1st Toe(s) Course: unchanged At Risk footcare Pt States Last PCP Visit: Date: Examination Category Sub-Category Detail Notes Category Not [...] located at, Medial plantar, TA, T5 , Skin shows sign(s) of, a semi-firm, painful, non-translucent, non-pulsatile, nonmobile Sub Q tumor rosetta. 5x 5x 5mm dorsal IPJ TA , Skin shows sign(s) of, hyperhidrosis, odor B/L General Examination GENERAL APPEARANCE: Reveals a pleasant, alert, well nourished, well-developed, well hydrated individual, who demonstrates proper attention to hygiene/body habitus, and is in no acute distress, Pt serves as own historian for office visit today FOOT EXAM: Lower Extremity Neurological Exa m performed:: Yes Visual exam of foot performed:: Yes Date: 10/12/2024 Sensory testing performed:: sensations d iminished ORIENTED: person, place, and t sravani Footwear Evaluation Footwear Evaluation performe d:: Yes Ophthalmology Referral DIABETES EYE EXAM Procedure Perform ed:: Yes ?Date of Exam Performed: 06/27/2024 Diabetic Retinopathy Screening:: Yes Retinal Screening Performed:: Yes Findings of Diabetic Eye Exam:: no retin opathy Vascular DP PULSES (B): 3/4, B/L PT PULSES (B): 3/4, B/L CAPILLARY FILL TIME: immediate, all digi ts, B/L TEMPERTURE GRADIENT (C): normal, warm to cool, proximal to distal, B/L, B/L EDEMA (C): 1/4, Ankle(s), B/L ELVIS'S SIGN: absent, B/L PALPABLE CORDS: absent, B/L Nails NAILS are: Elongated, overg rown, dystrophic, lytic, greater than 3mm thick, discolored and friable with crumbly malodorous subungual debris , with dull to no pain on palpation due to neuropathy, T1, T2, T3, T4, T6, T7, T8, T9 Abscess/infected nail INSPECTION Reveals na il incurvation, pain on palpation, groove laceration, inflammation, malodor, localized cellulitis, and purulent abscess with pre-operative size of approximately ( 1 ) mm square without exposed bone, Medial nail border, T4
== END 2024-12-09 10:34 | disposition home or self-care (01) ==
LOC: HO.HMGCX 10:33
PROVIDERS: PCP Internal Medicine; Visit Provider Internal Medicine
DX: M25.562 Pain in left knee (principal)
CPT/HCPCS: 73564

== ENCOUNTER → 2024-12-09 10:39 | Outpatient (BNV) | payer MEDICARE, OTHER, SELFPAY | PROVIDERS: PCP Internal Medicine; Visit Provider Radiology Diagnostic Radiology | DX: M17.12 Unilateral primary osteoarthritis, left knee (principal) | CPT/HCPCS: 73564 ==

== ENCOUNTER 2024-12-14 11:00 | Outpatient (RCR) | payer MEDICARE, OTHER, SELFPAY | END 2025-02-03 09:37 | disposition home or self-care (01) | LOC: HO.PTCHIC 11:00 | PROVIDERS: PCP Internal Medicine; Visit Provider Internal Medicine | DX: M54.6 Pain in thoracic spine (principal); M54.50 Low back pain, unspecified | CPT/HCPCS: 97014; 97110; 97162 ==

== ENCOUNTER 2024-12-26 10:50 | Outpatient (REF) | payer MEDICARE, OTHER, SELFPAY ==
--- NOTE | ~2024-12-26 | XR_ITS ---
EXAMINATION: XR CHEST 2 VIEWS HISTORY: COUGH, R/O PNA COMPARISON: There are no prior studies available for comparison. FINDINGS: PA and lateral views of the chest are submitted. The lungs are expanded and clear. There is no pleural effusion, pneumothorax, or pulmonary vascular congestion. The heart is normal in size. There is degenerative disc disease of the spine. XR/XR chest 2V IMPRESSION: Clear lungs. Electronically signed by: Juan Miguel Acevedo MD 12/26/2024 02:41 PM EDT
--- OUTSIDE RECORDS SUMMARY | 2024-12-26 12:00 | XMS_ITS ---
Author Organization [facility] Address [address] [place] [address] Care Team Providers Care [employer] Admissions Representative Name Role Phone Minh LEIGH, Kaushal Primary Care Provider Unavailab Juan Miguel Peterson [phone] REASON FOR VISIT gerd Encounters Encounter Location Date Provider Diagnosis [facility] [address] [facility] [address] [place] [id number] 09/01/2024 Juan Miguel Tim Plan Of Treatment No Information Progress Notes * YAZMIN ADAMSDOB:1945 (79 yo M)Acc No.[id number]:09/01/2024 Progress Notes Patient:?YAZMIN ADAMS Provider:?Juan Miguel Tim MD :1945???Age:78 Y???Sex:Male Juan Diego e:09/01/2024 Address:[address] [place], [place] [id number] Pcp:Kaushal Wilkinson MD Subjective: * Chief Complaints: [...] MD Date:? 025 Generated for Printi ng/Faxing/eTransmitting on:?12/26/2024 12:00 PM EDT
== END 2024-12-26 10:51 | disposition home or self-care (01) ==
LOC: HO.HMGCX 10:50
PROVIDERS: PCP Internal Medicine; Visit Provider Internal Medicine
DX: R05.9 Cough, unspecified (principal)
CPT/HCPCS: 71046

== ENCOUNTER → 2024-12-26 11:05 | Outpatient (BNV) | payer MEDICARE, OTHER, SELFPAY | PROVIDERS: PCP Internal Medicine; Visit Provider Radiology Diagnostic Radiology | DX: R05.9 Cough, unspecified (principal) | CPT/HCPCS: 71046 ==

== ENCOUNTER 2024-12-28 14:43 | Outpatient (REF) | payer MEDICARE, OTHER, SELFPAY ==
--- OUTSIDE RECORDS SUMMARY | 2024-12-28 14:47 | XMS_ITS ---
Author Organization [facility] Address [address] [place] [address] Care Team Providers Care Byproducts Pump Operator Name Role Phone Minh LEIGH, Kaushal Primary Care Provider Unavailab Juan Miguel Peterson [phone] REASON FOR VISIT gerd Encounters Encounter Location Date Provider Diagnosis [facility] [address] [facility] [address] [place] [phone] 09/01/2024 Juan Miguel Tim Plan Of Treatment No Information Progress Notes * YAZMIN ADAMSDOB:1945 (79 yo M)Acc No.[id number]:09/01/2024 Progress Notes Patient:?YAZMIN ADAMS Provider:?Juan Miguel Tim MD :1945???Age:78 Y???Sex:Male Juan Diego e:09/01/2024 Address:[address] [place], [place] [id number] Pcp:Kaushal Wilkinson MD Subjective: * Chief Complaints: [...] MD Date:? 025 Generated for Printi ng/Faxing/eTransmitting on:?12/28/2024 02:47 PM EDT
[2025-01-03 14:38] LABS: Testosterone, Total 266 ng/dL (250-1100)
== END 2024-12-28 14:44 | disposition home or self-care (01) ==
LOC: HO.HMGCLDS 14:43
PROVIDERS: PCP Internal Medicine; Visit Provider Urology
DX: N32.0 Bladder-neck obstruction (principal)
CPT/HCPCS: 36415; 84403

== ENCOUNTER 2025-01-13 08:38 | Outpatient (AMB) | payer MEDICARE, OTHER, SELFPAY ==
--- OUTSIDE RECORDS SUMMARY | 2024-09-01 06:00 | XMS_ITS ---
Author Organization [facility] Address [address] [place] [phone] Care Team Providers Care Steel Construction Worker Name Role Phone Minh LEIGH, Kaushal Primary Care Provider Juan Miguel Fraire [phone] REASON FOR VISIT gerd Encounters Encounter Location Date Provider Diagnosis [facility] 10 [facility] [address] [place] [phone] 09/01/2024 Juan Miguel Tim Plan Of Treatment No Information Progress Notes * YAZMIN ADAMSDOB:1945 (79 yo M)Acc No.[id number]:09/01/2024 Progress Notes Patient: YAZMIN HARDY Provider: Jose Tim MD :1945 A ge:78 Y S ex:Male Date:09/01/2024 Address:[address] [place], [place] [phone] Pcp:Kaushal Wilkinson MD Subjective: * Chief Complaints: [...] 09/01/2024 Generated for Printi ng/Faxing/eTransmitting on: 0 01/13/2025 08:42 AM EDT
--- NOTE | 2025-01-13 08:42 | A.OFFVIS_ITS ---
Intake Visit Reasons: 6M T Intake Note: Patient is present for 6M/TESTO Urology Medication:FINASTERIDE Antibiotic Allergy:NONE Blood Thinner:NONE Medical Terminologist Required: No Allergies No Known Allergies (No Known Allergies*) Allergy (Verified 01/13/25 08:43) HPI Comments Details: Real is a pleasant male. He is a patient of Dr. Wilkinson. He seen for the following urologic conditions - lower urinary tract symptoms Six-month follow-up Diabetic remains on Jardiance Low testosterone Repeat testosterone and start testosterone gel 2 month follow-up lab work tele Urinating every 2 hours UA 3+ glucose indicative of SGLT2 - recommend lower dose Lower urinary tract symptoms background diabetes Progressive Found to have 80 g prostate on ultrasound with 75 cc PVR PVR in office today 50 cc Minimal nocturia Has frequency during the day Postvoid dribbling with relative weakness of stream PSA 07/19 1.0 T 01/18 266 Hypogonadism Previously had been on gel and injectables PFSH Medical History Nicotine use Ambulates with cane Peripheral neuropathy Internal hemorrhoids Diverticulosis Hiatal hernia Arthritis Left leg weakness Diabetes Hyperlipemia HTN (hypertension) Surgical History History of esophagogastroduodenoscopy (EGD) (~2017) Hx of bilateral hip replacements Hx of colonoscopy Social History Are you a primary resident care coordinator to a significant other at home: No Do you presently have visiting nurse or other home services: No Patient Tobacco Use Status: Former Tobacco user Tobacco use type: Cigarette Review of Systems Const Denies chills and Denies fever(s) Card Reports no additional complaints and Denies syncope Resp Denies cough GI Denies abdominal pain and Denies heartburn Reports as per HPI and Denies change in libido Neuro Denies syncope Psych Denies change in libido Endo Denies change in libido Physical Exam Const General: cooperative, healthy appearing, comfortable and no acute distress Orientation/consciousness: patient oriented x3 HEENT Face and sinus: Yes normal facial exam Mouth: moist mucous membranes Neck Neck: Yes normal visual inspection, Yes full ROM and Yes trachea midline Chest Chest palpation & inspection: normal inspection of the chest Resp Effort & Inspection: normal respiratory effort, able to speak in complete sentences and no respiratory distress GI Inspection: Yes normal to inspection Back/Spine/Pelvis Cervical Spine: normal cervical lordosis Thoracic/Lumbar Spine: thoracic and lumbar spine normal to inspection Skin General skin exam: no rashes or lesions noted Neuro General: patient oriented x3, gait normal, tone normal and moves all extremities Extrem General: Yes normal to inspection and Yes capillary refill normal Results AMB Urinalysis, Automated UA Leukoctes 0 Kaylan/uL Last Edit by VICENTA Diaz on 01/13/25 08:54 UA Nitrite Negative Last Edit by VICENTA Diaz on 01/13/25 08:54 UA Urobilinogen 0.2 mg/dL Last Edit by VICENTA Diaz on 01/13/25 08:5 4 UA Protein 0 mg/dL Last Edit by VICENTA Diaz on 01/13/25 08:54 UA pH 6.0 Last Edit by VICENTA Diaz on 01/13/25 08:54 UA Blood 0 Chris/uL Last Edit by VICENTA Diaz on 01/13/25 08:54 UA Specific Eagle 1.015 Last Edit by VICENTA Diaz on 01/13/25 08: 54 UA Ketone Negative Last Edit by VICENTA Diaz on 01/13/25 08:54 UA Bilirubin 0 mg/dL Last Edit by VICENTA Diaz on 01/13/25 08:54 UA Glucose 1000 mg/dL Last Edit by Zhen Ansari CCM on 01/13/25 08:54 Results Reviewed Results Reviewed: Laboratory Last Values Urine pH (Auto) 6.0 01/13/25 08:53 Specific Eagle (Auto) 1.015 01/13/25 08:53 Urine Protein (Auto) 0 mg/dL 01/13/25 08:53 Glucose (UA)(Auto) 1000 mg/dL 01/13/25 08:53 Urine Ketones (Auto) Negative 01/13/25 08:53 Urine Blood (Auto) 0 Chris/uL 01/13/25 08:53 Urine Nitrite (Auto) Negative 01/13/25 08:53 Urine Bilirubin (Auto) 0 mg/dL 01/13/25 08:53 Urine Urobilinogen (Auto) 0.2 mg/dL 01/13/25 08:53 Leukocyte Esterase (Auto) 0 Kaylan/uL 01/13/25 08:53 Assessment & Plan Assessment & Plan (1) Hypogonadism in male: Code(s): E29.1 - Testicular hypofunction Category: Medical Plan Initiate testosterone gel Repeat testosterone today Three-month follow-up repeat testosterone levels Orders: Orders AMB Urinalysis Automated Today Z13.9 - Encounter for screening, unspecified Testosterone, Free/Total Today E29.1 - Testicular hypofunction Testosterone, Total 2 Months E29.1 - Testicular hypofunction Medications: New testosterone apply 1 packet daily 50 mg transdermal DAILY 150 grams 2RF 30 days E29.1 - Testicular hypofunction Patient Instructions: This note is constructed using voice recognition software. While every effort has been made to ensure accuracy brace maker errors may have been included. Imaging studies, laboratory and physical exam results were discussed and reviewed in detail. No major barriers to patient understanding were identified. An opportunity to ask questions regarding the treatment plan was provided. All questions were answered. The patient expressed understanding and agreement with the above treatment plan. The patient is aware they should contact our office by phone for worsening of their current condition or the appearance of new urologic symptoms. Compliance is encouraged with any medications and followup testing that is ordered. It is a privilege to participate in the urologic care of your patient. If you have any questions or concerns regarding treatment for the above conditions, or other urologic issues, please do not hesitate to contact me. The office telephone contact is [phone]. Sincerely, Dr Syd Mcqueen MD, [facility] - Urology Compassionate Specialist Care for the Genitourinary System Coding Level of Care Code Est Pt Level 4 (52801) Complex EM visit Add On G2211 Diagnoses Hypogonadism in male E29.1
== END 2025-01-13 09:14 | disposition home or self-care (01) ==
LOC: HO.HUSH 08:39
PROVIDERS: PCP Internal Medicine; Visit Provider Urology
DX: E29.1 Testicular hypofunction (principal); Z13.9 Encounter for screening, unspecified
CPT/HCPCS: 99214; G2211

== ENCOUNTER → 2025-01-13 08:38 | Outpatient (BNVA) | payer MEDICARE, OTHER, SELFPAY | PROVIDERS: PCP Internal Medicine; Visit Provider Urology | DX: E29.1 Testicular hypofunction (principal) | CPT/HCPCS: 81003; 99212 ==

== ENCOUNTER 2025-01-13 09:26 | Outpatient (REF) | payer MEDICARE, OTHER, SELFPAY ==
[2025-01-19 16:04] LABS: Testosterone, Free 47.2 pg/mL (30.0-135.0); Testosterone, Total 390 ng/dL (250-1100)
== END 2025-01-13 09:27 | disposition home or self-care (01) ==
LOC: HO.10HDL 09:26
PROVIDERS: Visit Provider Urology
DX: E29.1 Testicular hypofunction (principal)
CPT/HCPCS: 36415; 84402; 84403

== ENCOUNTER 2025-01-30 13:29 | Outpatient (AMB) | payer MEDICARE, OTHER, SELFPAY ==
--- OUTSIDE RECORDS SUMMARY | 2024-09-01 06:00 | XMS_ITS ---
Author Organization [facility] Address [address] [place] [address] Care Team Providers Care Group Fitness Instructor Name Role Phone Minh LEIGH, Kaushal Primary Care Provider Juan Miguel Fraire [phone] REASON FOR VISIT gerd Encounters Encounter Location Date Provider Diagnosis [facility] 10 [facility] [address] [place] [phone] 09/01/2024 Juan Miguel Tim Plan Of Treatment No Information Progress Notes * YAZMIN ADAMSDOB:1945 (79 yo M)Acc No.[id number]:09/01/2024 Progress Notes Patient: YAZMIN HARDY Provider: Jose Tim MD :1945 A ge:78 Y S ex:Male Date:09/01/2024 Address:[address] [place], [place] [phone] Pcp:Kaushal Wilkinson MD Subjective: * Chief Complaints: * 1 . Gerd. * Medical History: Objective: * Vitals: Assessment: Plan: * Treatment: * * The named appointment provid er may or may not be the originator of this progress note, and it is not deemed complete until electronically signed by the appointment provider. Sign off status: Pending * Provider: Jose Tim MD Date: 09/01/2024 Generated for Printi ng/Faxing/eTransmitting on: 0 01/30/2025 01:53 PM EDT
--- NOTE | 2025-01-30 13:39 | MHC.PC.OV ---
Vital Signs 01/30/25 14:05 Height 6 ft 2.96 in Weight 221 lb 6 oz BMI 27.7 BP 106/55 L Blood Pressure Location Rt brachial Position Sitting Respiration 20 Pulse 86 Pulse Source Pulse Oximeter Temp 97.5 F Temp Source Temporal Artery Scan Pulse Oximetry (%) 98 Oxygen Delivery Method Room Air Intake Visit Reasons: Establish Care Desktop Support Specialist Required: No Accompanied by: Self / Same As Patient Allergies No Known Allergies (No Known Allergies*) Allergy (Verified 01/30/25 14:21) Medication List - Last Reconciled 01/30/25 by Daniela Mcfadden PA-C atorvastatin 10 mg PO DAILY empagliflozin (Jardiance) 10 mg PO DAILY finasteride 5 mg PO DAILY 90 days gabapentin mg PO lisinopril 10 mg PO DAILY metformin ER 1,000 mg PO BID naproxen 500 mg PO BID nifedipine ER 30 mg PO DAILY testosterone 50 mg transdermal DAILY 30 days Tobacco use date assessed: 01/30/25 Fall risk assessment: No Falls in past year Last assessed Fall Risk: 01/30/25 Dental Screening Dental Screen Date: 01/30/25 Did you have a dental visit in the last 12 months?: Yes Did you have a dental problem in the last 6 months where you did not have access to dental care?: No Was dental information given to patient?: Patient has dentist HPI Establish Care HPI Details The patient is a 79-year-old male presenting for the establishment of primary care. The patient has a history of osteoarthritis, having undergone bilateral hip replacements. He attends physical therapy for his left knee and ankle, which occasionally swell. The patient has diabetes mellitus and is currently on metformin and Jardiance. He reports no gastrointestinal side effects from metformin. The patient has a history of hypertension, which is managed with nifedipine. His blood pressure was initially elevated but later normalized during the visit. The patient underwent a colonoscopy in 2023, which revealed duodenitis, hiatal hernia, gastroesophageal reflux disease, diverticulosis, colonic polyp, and hemorrhoids. He was negative for H. pylori and intestinal metaplasia. The patient reports a sty on his eye and plans to see an decal maker. The patient has a history of nicotine dependence, using nicotine products such as Zyn and chewing tobacco. Social History - The patient is a and lives alone. - He uses nicotine products such as Zyn and chewing tobacco. - He attends physical therapy twice a week for his knee and ankle. [facility] Medical History (Updated 01/30/25 @ 14:52 by Daniela Mcfadden PA-C) Nicotine dependence Sty Type 2 diabetes mellitus with hemoglobin A1c goal of less than 7.0% Osteoarthritis Establishing care with new doctor, encounter for Lower back pain Nicotine use Ambulates with cane Peripheral neuropathy Internal hemorrhoids Diverticulosis Hiatal hernia Arthritis Left leg weakness Diabetes Hyperlipemia HTN (hypertension) Surgical History History of esophagogastroduodenoscopy (EGD) (~2018) Hx of bilateral hip replacements Hx of colonoscopy Family History Father History of heart surgery Mother Arthritis Social History Housing: House Are you a primary cna caregiver to a significant other at home: No Do you presently have visiting nurse or other home services: No Alcohol intake: current Alcohol intake frequency: 3 or more drinks per day Alcohol type: beer Patient Tobacco Use Status: Former Tobacco user Tobacco use type: Cigarette service: No Current occupational status: retired Cognitive needs: Yes (cane) Hearing needs: No Vision needs: Yes (rx glasses) Questionnaire PHQ-9 Over the last 2 weeks, how often have you been bothered by any of the following problems? 1. Little interest or pleasure in doing things: not at all 2. Feeling down, depressed, or hopeless: not at all 3. Trouble falling or staying asleep, or sleeping too much: not at all 4. Feeling tired or having little energy: not at all 5. Poor appetite or overeating: not at all 6. Feeling bad about yourself - or that you are a failure or have let yourself or your family down: not at all 7. Trouble concentrating on things, such as reading the newspaper or watching television: not at all 8. Moving or speaking so slowly that other people could have noticed. Or the opposite - being so fidgety or restless that you have been moving around a lot more than usual: not at all 9. Thoughts that you would be better off or of hurting yourself in some way: not at all Total score: 0 Depression Screening Interpretation: Negative Depression Screening Done: Yes 74863 - PHQ-9 Billing: Yes Source: Developed by Drs. Juan Miguel Klein, Joyce Jiménez, Mark Beaver and colleagues, with an educational evelia from [employer]. Thrive Questionnaire Date Thrive assessed: 01/30/25 I am a: Patient What is your living situation today?: I have a steady place to live Within the past 12 months, did the food you bought not last and you didn't have the money to get more?: Never true Within the past 12 months, did you worry whether your food would run out before you got money to buy more?: Never true Do you have trouble paying for medicines?: No Do you have trouble getting transportation to medical appointments?: No Do you have trouble paying your heating and electricity bill?: No Do you have trouble taking care of your child, family member or friend?: No Do you have trouble with day-to-day activities such as bathing, preparing meals, shopping, managing finances, etc.?: No Are you currently unemployed and looking for a job?: No Are you interested in more education?: No Please select the resources that you would like help with: None Currently or been in a relationship where the following occur: No concerns reported THRIVE Score: 0 AUDIT C Alcohol Use Questionnaire (AUDIT-C) 1. How often do you have a drink containing alcohol?: 4 or more times a week 2. How many drinks containing alcohol do you have on a typical day when you are drinking?: 3 or 4 3. How often do you have six or more drinks on one occasion?: Never Total Score: 5 Score Reviewed/Action Taken: No SHARLENE-7 AMB Questionnaire SHARLENE-7 Date SHARLENE - 7 assessed: 01/30/25 Feeling nervous, anxious, or on edge: 0 = Not at all Not being able to stop or control worryin = Not at all Worrying too much about different things: 0 = Not at all Trouble relaxin = Not at all Being so restless that it is hard to sit still: 0 = Not at all Becoming easily annoyed or irritable: 0 = Not at all Feeling afraid as if something awful might happen: 0 = Not at all Total SHARLENE-7 score (0-4 normal; 5-9 mild; 10-14 moderate; 15-21 severe): 0 Source: Developed by Drs. Juan Miguel Klein, Joyce Jiménez, Mark Beaver and colleagues, with an educational evelia from [employer]. SHARLENE-7 Assessment Billing SHARLENE-7 Assessment Tool: SHARLENE-7 Assessment 88491 Review of Systems Const Details: - Cardiovascular: Denies chest pain, orthopnea, or syncope. - Respiratory: Denies dyspnea or wheezing. - Gastrointestinal: Denies diarrhea, constipation, or abdominal pain. - Musculoskeletal: Reports occasional swelling in the left knee and ankle. - Neurological: Reports lightheadedness. Physical exam (Primary Care) Vital Signs: Last Vital Signs Temp 97.5 F 01/30/25 14:05 Pulse 101 H 01/30/25 14:05 Resp 20 01/30/25 14:05 BP 144/48 H 01/30/25 14:05 Pulse Ox 98 01/30/25 14:05 Oxygen Delivery Method Room Air 01/30/25 14:05 Care Plan Goal for BP management: <140/90 at Goal BMI result Body Mass Index 27.7 BMI Assessment/Plan discussion: High BMI High, discussed plan: lifestyle, weight reduction, dietary, physical activity and alcohol moderation Tobacco/Smoking Status: Tobacco use Status Tobacco use date assessed 01/30/25 01/30/25 13:50 Patient Tobacco Use Status Former Tobacco user 01/30/25 14:13 Tobacco use type Cigarette 01/30/25 14:13 PHQ-9: PHQ-9 Score PHQ-9: Total score 0 01/30/25 14:14 Depression Screening Interpretation: Negative Thrive Assessment: Date of Thrive Assessment Date Thrive assessed 01/30/25 01/30/25 13:50 Currently or been in a relationship where the following occur: No concerns reported Const Other: Appearance: Alert. Oriented X3. No acute distress. Head: Normal external exam. Normocephalic. Atraumatic. Eyes: Pupils are equal, round, and reactive to light. Extraocular movements intact. Conjunctiva and sclera normal. Eyelids normal. Noted sty on the eye. Ears: External auditory canal normal. Tympanic membranes normal. Throat: Pharynx normal. Uvula midline. Moist mucous membranes. Neck: Normal inspection. Neck supple. Full range of motion. No adenopathy. Thyroid Normal. No meningeal signs. No neck mass noted. Cardiovascular: Normal heart rate and rhythm. Heart sound normal. No murmurs noted. Pulses normal throughout. Blood pressure was a tad bit elevated initially but improved to 106/55. Pulse 86. Respiratory: No respiratory distress. Painless inspiration. Breath sounds normal. No wheezes/rales/rhonchi noted. Chest nontender. No accessory muscle usage noted or decreased air movement noted. Abdomen: Soft and nontender. Bowel sounds normal in all 4 quadrants. No distention noted. No organomegaly noted. No visible injury noted. Back: Chronic lower back pain. No costovertebral angle tenderness. Full range of motion noted. Skin: Skin warm and dry. Normal skin color. Normal skin turgor. No rashes/lesions/lacerations noted. Extremities: Occasional swelling noted in the left ankle. Chronic pain to left knee and left ankle at baseline. Otherwise all other extremities exhibit normal range of motion nontender. Neuro: Oriented X 3. No motor deficit. No sensory deficit. Reflexes normal. Noted lightheadedness when walking up stairs. Normal steady gait. Normal neuro exam. Results Reviewed Results Reviewed: - Colonoscopy (2023): Negative for H. pylori and intestinal metaplasia; findings include duodenitis, hiatal hernia, gastroesophageal reflux disease, diverticulosis, colonic polyp, and hemorrhoids. Coding Level of Care Code New Pt Level 4 (63920) Complex EM visit Add On G2211 Diagnoses Establishing care with new doctor, encounter for Z76.89 Osteoarthritis M19.90 Type 2 diabetes mellitus with hemoglobin A1c goal of less than 7.0% E11.9 HTN (hypertension) I10 Sty H00.019 Nicotine dependence F17.200 Additional Codes PHQ-9 - 46162 - PHQ-9 Billing: Yes ([id number]) SHARLENE-7 Assessment Billing - SHARLENE-7 Assessment Tool: SHARLENE-7 Assessment 11964 ([id number]) Assessment & Plan Assessment & Plan (1) Establishing care with new doctor, encounter for: Code(s): Z76.89 - Persons encountering health services in other specified circumstances Category: Medical (2) Osteoarthritis: Code(s): M19.90 - Unspecified osteoarthritis, unspecified site Category: Medical Plan: The patient has a history of osteoarthritis with bilateral hip replacements and attends physical therapy for his left knee and ankle. A referral for continued physical therapy was discussed to manage symptoms and improve mobility. Condition is chronic and stable will continue to monitor. (3) Type 2 diabetes mellitus with hemoglobin A1c goal of less than 7.0%: Code(s): E11.9 - Type 2 diabetes mellitus without complications Category: Medical Plan: The patient is on metformin and Jardiance for diabetes management. A follow-up for A1c levels was planned to ensure adequate glycemic control. Condition is chronic and stable will continue to monitor. (4) HTN (hypertension): Code(s): I10 - Essential (primary) hypertension Category: Medical Plan: The patient's hypertension is managed with nifedipine. Blood pressure was monitored during the visit and showed improvement. Condition is chronic and stable continue to monitor. (5) Sty: Code(s): H00.019 - Hordeolum externum unspecified eye, unspecified eyelid Category: Medical Plan: The patient has a sty on his eye and plans to consult an decal maker for further management. (6) Nicotine dependence: Code(s): F17.200 - Nicotine dependence, unspecified, uncomplicated Category: Medical Plan: The patient uses nicotine products such as Zyn and chewing tobacco. Discussion about alternative nicotine replacement therapies was initiated. Condition is chronic and stable will continue to monitor. Plan Plan Patient was informed and verbally consented to the use of an ambient scribe for clinic note documentation during this visit. 1. Osteoarthritis The patient has a history of osteoarthritis with bilateral hip replacements and attends physical therapy for his left knee and ankle. A referral for continued physical therapy was discussed to manage symptoms and improve mobility. 2. Diabetes Mellitus The patient is on metformin and Jardiance for diabetes management. A follow-up for A1c levels was planned to ensure adequate glycemic control. 3. Hypertension The patient's hypertension is managed with nifedipine. Blood pressure was monitored during the visit and showed improvement. 4. Sty The patient has a sty on his eye and plans to consult an decal maker for further management. 5. Nicotine Dependence The patient uses nicotine products such as Zyn and chewing tobacco. Discussion about alternative nicotine replacement therapies was initiated. During the visit, we discussed the patient's current management of osteoarthritis, diabetes, and hypertension. We reviewed the need for continued physical therapy for his knee and ankle. The importance of monitoring A1c levels for diabetes control was emphasized. We also addressed the patient's sty and planned for an ophthalmology consultation. Nicotine dependence was discussed, and alternative therapies were considered. Follow-up was scheduled for two and a half months to reassess his conditions and adjust treatment as necessary. Orders: Orders PT Evaluation and Treatment Today M54.50 - Low back pain, unspecified Patient Instructions: - Continue physical therapy for knee and ankle as scheduled. - Monitor blood sugar levels and report any significant changes. - Schedule an appointment with an decal maker for the sty. - Consider alternative nicotine replacement therapies if current methods are ineffective. - Return for follow-up in two and a half months for A1c check and reassessment of conditions.
--- OUTSIDE RECORDS SUMMARY | 2025-01-30 13:53 | XMS_ITS | Patient Health Record ---
Author Organization [facility] Address [address] [place] [address] Care Team Providers Care Arborist Climber Name Role Phone Kaushal Wilkinson MD Primary Care Provider Unavailab ruth HeinMarizol martinez Unavailable [phone] Allergies No Known Allergies Results Component Value Reference Range Notes HEMOGLOBIN A1C (GLYCOHEMOGLO BIN) Reviewed date:08/02/2024 11:28:59 AM Interpretation: Performing Lab: Notes/Report: HEMOGLOBIN A1C % (HH) 6.8 Reason For Referral No Information Medications Medication SIG (Take, Route, Frequency, Duration) Notes Start Date End Date Status Augmentin 875-125 MG 1 tablet Orally sonya ry 12 hrs; Duration: 7 days Not-Taking metFORMIN HCl 500 MG Orally Twice a day Active Cephalexin 500 MG Orally No t-Taking Crestor 20 MG 1 tablet Orally Once a day; Duration: 30 day(s) Not-Scot ing LORazepam 2 MG 1 tablet at bedtime Orally Once a day PRN Not-Taking Lisinopril 10 MG 1 tablet Orally Once a day; Duration: 30 day(s) Active Amoxicillin 500 MG 4 capsules one time Orally One hour prior to procedure; Duration: as needed 02/02/2019 Not-Taking NIFEdipine 10 MG 1 capsule Orally Thr ee times a day; Duration: 30 day(s) Unknown Naproxen 500 MG 1 tablet with food o r milk as needed Orally every 12 hrs Not-Taking LORazepam 2 MG 1 tablet at bedtime Orally Once a day Unknown NIFEdipine 10 MG 1 capsule Orally Thr ee times a day; Duration: 30 day(s) Active Amoxicillin Not-Taki ng Ammonium Lactate 12 % 1 application Exte rnally Twice a day; Duration: 30 days Active Augmentin 500-125 MG 1 tablet Orally Twi ce a day; Duration: 14 days 03/29/2019 Not-Takin g Vitamin D Not-Taking Naprosyn 375 MG 1 tablet Orally Twic e a day; Duration: 30 day(s) 03/14/2014 Not-Scot ing Jardiance 10 MG Oral; Duration: 30 Active CeleBREX 200 MG 1 capsule Orally Onc e a day; Duration: 30 day(s) 03/06/2014 Not-Scot ing predniSONE 10 MG TAKE 1 TABLET BY RISHABH TH EVERY DAY Oral; Duration: 21 Not-Taking Lisinopril 10 MG 1 tablet Orally Once a day; Duration: 30 day(s) Unknown Fish Oil PRN Not-Taking Crestor 20 MG 1 tablet Orally Once a day; Duration: 30 day(s) Unknown Immunizations Vaccine Route Administration Date Status Comme [...] Polyneuropathy due to type 2 diabetes mellitus (545864017) Type 2 diabetes mellitus with diabetic polyneuropathy (E11.42) Active confirmed Problem Acquired hammer toe of right foot (1798821342899133 ) Hammer toe of right foot (M20.41) Active confirmed Problem Neuropathy (809504354) Neuropathy (G62.9) Active confirmed Vital Signs Blood pressure diastolic 70 mm Hg 12/28/2024 Height 6ft 3in in 12/28/2024 Blood pressure systolic 145 mm Hg 12/28/2024 Weight 225 lbs 12/28/2024 BMI 28.12 kg/m2 12/28/2024 Encounters Encounter Location Date Provider Diagnosis [address] [address] 03/04/2024 Marizol Perica Xerosis of skin L85. 3 ; Ganglion of foot, left M67.472 ; Type 2 diabetes mellitus with diabetic polyneuropathy E11.42 and Tinea unguium B35.[address] [address] 05/03/2024 Marizol Perica Xerosis of skin L85. 3 ; Ganglion of foot, left M67.472 ; Type 2 diabetes mellitus with diabetic polyneuropathy E11.42 and Tinea unguium B35.[address] [address] 08/02/2024 Marizol Perica Xerosis of skin L85. 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 ; Type 2 diabetes mellitus with diabetic polyneuropathy E11.42 ; Tinea unguium B35.1 and Abscess of toe, left L02.[address] [address] 12/28/2024 Marizol Perica Type 2 diabetes mellitus with diabetic polyneuropathy E11.42 and Tinea unguium B35.[address] [address] 02/23/2024 Marizol Perica [facility] [address] [address] 03/03/2024 Marizol Ellington [facility] [address] [address] 06/08/2024 Marizol [place] Assessments Encounter Date Diagnosis (ICD Code) Assessment Notes Treatment Notes Treatment Clinical Notes Section Notes 03/04/2024 Xerosis of skin (ICD-10 - L85.3) 05/03/2024 Xerosis of skin (ICD-10 - L85.3) 08/02/2024 Ganglion of foot, left (ICD-10 - M67.472) 08/02/2024 Xerosis of skin (ICD-10 - L85.3) 10/12/2024 Ganglion of foot, left (ICD-10 - M67.472) 10/12/2024 Hyperhidrosis of feet (ICD-10 - L74.513) 12/28/2024 Tinea unguium (ICD-10 - B35.1) 12/28/2024 Type 2 diabetes mellitus with diabetic polyneuropathy (ICD-10 - E11.42) 10/12/2024 Type 2 diabetes mellitus with diabetic [...] X ray : Foot, right 3V 05/16/2013 26005-Gyoxsutu Plate 09/29/2017 27075-Dopiyvcm Plate 11/11/2017 60579-Itibgaku Plate 07/02/2017 02905-Pybvkvgc Plate 12/11/2017 38561-Xbfrphqi Plate 02/02/2018 83004-Wuauzmmh Plate 07/16/2018 32393-Lupblkfm Plate Each Additional 01/2017 20866-Fdqtphuf Plate Each Additional 08182- Debride <25 sq cm 07/16/2017 29237 I&D ABSCESS- SIMPLE,SINGLE 018 88369 I&D ABSCESS- SIMPLE,SINGLE 018 23375 I&D ABSCESS- SIMPLE,SINGLE 017 38792 I&D ABSCESS- SIMPLE,SINGLE 019 93612, J0702- INJECT or DRAIN, JOINT/BUR SA 05/26/2012, O3781-JFEQP/INJECT, JOINT/BURSA 1 08/24/201151649, H7330-ADGCL/INJECT, JOINT/BURSA 1 H5137-VOGMHBNP DYSTROPHIC NAILS ANY # 50,I7409-RYF TENDON SHEATH/LIGAMENT 0 12/21/201350914,J3196-BQW TENDON SHEATH/LIGAMENT 0 03/06/2014 B3039-Siouhaxyc 3mg 06/24/2012 Q7599-Lhosqjgxl 3mg 05/26/2012 Next Appt Details Provider Name:Marizol martinez, 03/28/2025 10:00:00 AM, [address] [place], [address], Insurance Providers Payer Name Payer Address Payer Phone Subscriber Number Group Number Insured Name Patient Relationship to Insured Coverage Start Date Coverage End Date Medicare [facility] [address] [place] [address] [id number] Grammati teodora, Real Self - patient is the insured [facility] [address] ROZ GOYAL [id number] [phone] [id number] Real Mckeon cas Self - patient is the insured Medical (General) History Medical History History ICD Code sciatica Diabetic Arthritis Cataracts Surgical History Surgery Date(Month/Year) right hip replacement 12/08/2011 left hip replacement 10/2014 colonoscopy 04/2024
[2025-01-30 14:05] VITALS: BP 106/55; PULSE 86; RESP 20; TEMP 36.4; O2SAT 98; BMI 27.7
== END 2025-01-30 14:33 | disposition home or self-care (01) ==
LOC: HO.HMCSH 13:29
PROVIDERS: PCP Internal Medicine; Visit Provider Physician Assistant Medical
DX: Z76.89 Persons encountering health services in other specified circumstances (principal); M19.90 Unspecified osteoarthritis, unspecified site; E11.9 Type 2 diabetes mellitus without complications; I10 Essential (primary) hypertension; H00.019 Hordeolum externum unspecified eye, unspecified eyelid; F17.200 Nicotine dependence, unspecified, uncomplicated

== ENCOUNTER → 2025-01-30 13:29 | Outpatient (BNVA) | payer MEDICARE, OTHER, SELFPAY | PROVIDERS: PCP Internal Medicine; Visit Provider Physician Assistant Medical | DX: Z76.89 Persons encountering health services in other specified circumstances (principal); M19.90 Unspecified osteoarthritis, unspecified site; E11.9 Type 2 diabetes mellitus without complications; I10 Essential (primary) hypertension; Z87.891 Personal history of nicotine dependence; H00.019 Hordeolum externum unspecified eye, unspecified eyelid | CPT/HCPCS: 96127; 99202 ==

== ENCOUNTER 2025-03-02 08:52 | Outpatient (REF) | payer MEDICARE, OTHER, SELFPAY ==
--- OUTSIDE RECORDS SUMMARY | 2024-04-22 03:30 | XMS_ITS ---
Author Organization [facility] Address [address] [place] [phone] Care Team Providers Care Captain Fishing Vessel Name Role Phone Minh (RETIRED) Kaushal LEIGH Primary Care Provider Unavailable Juan Miguel Tim Unavailable [phone] REASON FOR VISIT colon screening Problems Problem Type SNOMED Code ICD Code Onset Dates Problem Status W/U Status Risk Notes Problem Diverticular disease of colon (038026459) Diverticulosis of large intestine without perforation or abscess without bleeding (K57.30) Active confirmed Problem Gastroesophageal reflux disease (K21.9) Active confirmed Problem Duodenitis (25138347) Duodenitis (K29.80) Active confirmed Encounters Encounter Location Date Provider Diagnosis [facility] [place] [address] [place] [phone] 04/22/2024 Juan Miguel Tim Colon cancer screeni [...] Notes * YAZMIN ADAMSDOB:1945 (79 yo M)Acc No.[id number]:04/22/2024 EGD and COL/MAC Patient: YAZMIN HARDY Provider: Jose Tim MD :1945 A ge:78 Y S ex:Male Date:04/22/2024 Address:[address] [place], [place] [phone] Pcp:Kaushal Wilkinson (RETIRED) MD Subjective: * Chief [...] FLW-UP 10 YRS DOCD, Modifiers: 1P , 50825 UPPER GI ENDOSCOPY, BIOPSY * * The named appointment provid er may or may not be the originator of this progress note, and it is not deemed complete until electronically signed by the appointment provider. Sign off status: Pending * Provider: Jose Tim MD Date: 0 04/22/2024 Generated for Flacai hank/Chely/eTransmitting on: 0 03/02/2025 09:13 AM EDT
--- OUTSIDE RECORDS SUMMARY | 2025-03-02 09:13 | XMS_ITS | Clinical Summary ---
Author Organization [facility] Address [address] [place] [address] Phone Care Team Providers Care Director Supplier Quality Name Role Phone Kaushal Wilkinson MD Primary Care Provider [phone] Allergies No known active allergies Medications lisinopril (PRINIVIL,ZESTR IL) 10 MG tablet Take by mouth 2 (two) times a day. Active NIFEdipine (PROCARDIA) 10 MG capsule Take by mouth daily. Active rosuvastatin (CRESTOR) 10 MG tablet Take by mouth daily. Active omega 4-hvb-ivu-fish oil 1,000 mg (120 mg-180 mg) Cap Take by mouth daily. Active naproxen sodium (ALEVE) 220 MG tablet Take 220 mg by mouth 2 (two) times a day as needed for pain (specific location in comments). Active traMADol (ULTRAM) 50 mg tablet Take 50 mg by mouth every 4 (four) hours as needed for pain (specific location in comments). Active acetaminophen (TYLENOL) 325 mg tablet Take 2 tablets (650 mg total) by mouth every 6 (six) hours as needed for mild pain. 0 6 Active oxyCODONE 5 MG immediate release tablet Take 1-3 tablets (5-15 mg total) by mouth every 4 (four) hours as needed for moderate pain (5mg for mild pain, 10mg for moderate pain, 15mg for severe pain.). 18 tablet 0 6 Active docusate sodium (COLACE) 100 MG capsule Take 1 capsule (100 mg total) by mouth 2 (two) times a day. 6 Active polyethylene glycol (GLYCOLAX) 17 gram packet Take 17 g by mouth daily as needed (severe constipation). 6 Active amoxicillin (AMOXIL) 500 MG tablet Take 1 tablet by mouth as directed. take 4 pills 30-60 min prior to dental procedure 4 Active Active Problems Problem Noted Date Diagnosed Date Primary osteoarthritis of left hip 11/19/2015 Hip pain 03/16/2012 Overview (09/16/2014): Hip pain Osteoarthritis of hip 09/18/2011 Overview (09/16/2014): Osteoarthritis of hip Resolved Problems Problem Noted Date Diagnosed Date Resolved Date Acute urinary retention 11/21/201510/26 Social History Tobacco Use Types Packs/Day Years Used Date Smoking Tobacco: Never Smokeless Tobacco: Current Tobacco Cessation:Ready to Q uit: Yes Alcohol Use Standard Drinks/Week Comments Yes 8 (1 standard drink = 0.6 oz pur e alcohol) Education Answer Date Recorded Are you interested in more education? Not on aj e 11/22/2022 Are you concerned about learning? Not on file 11/22/2022 No 11/22/2022 No 11/22/2022 Digital Access Answer Date Recorded No 12/21/2022 No 12/21/2022 No 12/21/2022 Reliable internet access at home? Not on file 12/21/2022 Device with a working camera? Not on file Sex and Gender Information Value Date Recorded Sex Assigned at Not on file Legal Sex Male 6:31 PM EST Gender Identity Not on file Sexual Orientation Not on file Last Filed Vital Signs Vital Sign Reading Time Taken Comments Blood Pressure 126/82 11/22/2015 8:08 AM EDT Pulse 93 11/22/2015 8:08 AM EDT Temperature 37 C (98.6 F) 11/22/2015 8:08 AM EDT Respiratory Rate 15 11/22/2015 12:43 AM EDT Oxygen Saturation 95% 11/22/2015 8:08 AM EDT Inhaled Oxygen Concentration - - Weight 108 kg (238 lb) 11/19/2015 5:47 PM EDT Height 193 cm (6' 3.98 ) 11/19/2015 5:47 PM EDT Body Mass Index 28.98 11/19/2015 5:47 PM EDT Plan of Treatment Health Maintenance Due Date Last Done Comments Adult Td,Tdap Booster 1945 LIPID PANEL 1945 DEPRESSION SCREENING 1959 HEPATITIS C SCREENING 10/02/1965 PNEUMOCOCCAL VACCINES (50+ years) (1 of 1 - PCV) 10/02/1997 ZOSTER VACCINES (1 of 2) 10/02/1997 CREATININE LEVEL 10/25/2016 10/26/2015, 12/12/2011 POTASSIUM LEVEL 10/25/2016 10/26/2015, 12/12/2011 RSV VACCINE (1 - 1-dose 75+ series) 10/02/2022 COVID-19 VACCINE (2 - 2023-2 5 season) 2024 10/04/2020 SMOKING STATUS SCREENING (On ce After 26 Yrs) Completed 02/07/2016 HEPATITIS A VACCINES Aged Out No long er eligible based on patient's age to complete this topic HIB VACCINES Aged Out No longer eligi ble based on patient's age to complete this topic MENINGOCOCCAL VACCINES (ACWY) Aged Out No longer eligible based on patient's age to complete this topic MENINGOCOCCAL VACCINES (B) Aged Out N o longer eligible based on patient's age to complete this topic Medical Devices Implanted Type Area Oyster Sorter Device Identifier Shelf Expiration Date Model / Serial / Lot Right Hip Brenna Taper Size 3 Hip [id number] Implanted:Qty: 1 on 11/19/2015 by Mac Henley MD at [facility] Left: Hip [employer] 03/27/2018 [id number] / / [id number] Liner Ecima Brenna 36mm - [id number] Implanted:Qty: 1 on 11/19/2015 by Mac Henley MD at [facility] Left: Hip [employer] 04/26/2018 [id number] / / [id number] Minihip Short Stem Size 8 Standard 07/09 130ccd Hip [id number] Implanted:Qty: 1 on 11/19/2015 by Mac Henley MD at [facility] Left: Hip [employer] 07/03/2020 580.0008 / / [id number] Biolox Delta Mod Head 36mm X 4mm Hip 568 Implanted:Qty: 1 on 11/19/2015 by Mac Henley MD at [facility] Left: Hip [employer] 05/29/2021 [id number] / / [id number] Procedures Procedure Name Priority Date/Time Associated Diagnosis Comments BASIC METABOLIC PANEL Routine 10/26/2015 11:05 AM EDT from Last 3 Months or Most Recently Relevant to Health Maintenance Results * (ABNORMAL) Basic metabolic panel (10/26/2015 11:05 AM EDT) SODIUM 137 136 - 145 mmol/L [facility] POTASSIUM 4.7 3.5 - 5.2 mmol/L [facility] CHLORIDE 100 99 - 109 mmol/L [facility] CARBON DIOXIDE 24 20 - 31 mmol/L [facility] ANION GAP 13 3 - 17 [facility] CALCIUM 9.5 8.7 - 10.4 mg/dL [facility] GLUCOSE 141(Abnorm ally H) 74 - 106 mg/dL [facility] UREA NITROGEN (BUN) 19 9 - 23 mg/dl [facility] CREATININE 1.03 0.5 - 1.3 mg/dl [facility] EST GLOM FILT RATE NON- A 76.3 [facility] Comment:Units: ml/min/1.73ms q EST GLOM FILT RATE AMERI 92.4 [facility] Comment: Units: ml/min/1.73msq Reference Table for Population Mean GFRs AGE AVERAGE GFR 20-29 116 ml/min/1.73msq 30-39 107 ml/min/1.73msq 40-49 99 ml/min/1.73msq 50-59 93 ml/min/1.73msq 60-69 85 ml/min/1.73msq 70+ 75 ml/min/1.73msq STAGE GFR* DESCRIPTION 1 90+ NORMAL KIDNEY FUNCTION 2 60-89 MILDLY REDUCED KIDNEY FUNCTION 3A 45-59 MODERATELY REDUCED KIDNEY 3B 30-44 FUNCTION 4 15-29 SEVERELY REDUCED KIDNEY FUNCTION 5 <15 OR ON VERY SEVERE, OR ENDSTAGE KIDNEY DIALYSIS FAILURE 10/26/2015 11:0 5 AM EDT 10/26/2015 12:14 PM EDT Narrative [facility] - 10/26/2015 12:44 PM EDT [facility], [address] [facility] [address], Transportation Economics Teacher: Shawn Medina M.D. us Mac Henley MD LAB BLOOD ORDERABLES Final Re sult [facility] [address] [place] [address] from Last 3 Months or Most Recently Relevant to Health Maintenance Insurance [employer] TOTAL CHOICE INDEMNITY [employer] TOTAL CHOICE INDEMNITY [facility] TOTAL CHOICE INDEMNITY [facility] TOTAL CHOICE INDEMNITY [facility] TOTAL CHOICE INDEMNITY [facility] TOTAL CHOICE INDEMNITY [facility] TOTAL CHOICE INDEMNITY [facility] TOTAL CHOICE INDEMNITY [facility]23[facility]Me [facility] TOTAL CHOICE INDEMNITY [facility] TOTAL CHOICE INDEMNITY Advance Directives For more information, please contact: [phone] (9AM - 5PM [facility], Thursday-Thursday) Documents on File Type Date Recorded Patient Information Coordinator Expl anation Healthcare Proxy 11/28/2015 1:01 PM * Full Code (Presumed) (Latest Code Status on File) Date Activated Date Inactivated Comments 11/19/2015 5:33 PM 11/22/2015 1:56 PM * Full Code (Presumed) Date Activated Date Inactivated Comments 11/19/2015 10:21 AM 11/19/2015 5:33 PM Care Teams Director Supplier Quality Relationship Specialty Start Date End Date Kaushal Wilkinson MD [address] [place] [address] PCP - General 01/24/14 Additional Source Comments The information contained in this document represents components of the legal health record. It is not the complete legal health record.[facility]
--- OUTSIDE RECORDS SUMMARY | 2025-03-02 09:13 | XMS_ITS | Patient Health Record ---
Author Organization [facility] Address [address] [place] [address] Care Team Providers Care Wall Man Name Role Phone Kaushal Wilkinson MD Primary Care Provider Unavailab ruth HeinMarizol martinez Unavailable [phone] Allergies No Known Allergies Results Component Value [...] Vaccine Route Administration Date Status Comme nts Influenza Unknown 05/07/2017 Administered Influenza Unknown 07/06/2018 Administered Influenza Unknown 03/28/2019 Administered Influenza Unknown 04/26/2020 Administered Influenza Unknown 05/27/2021 Administered Influenza Unknown 03/27/2023 Administered COVID-19 Moderna Vaccine Unknown 05/27/2021 Administered First Dose: 10/01/20 Second Dose: 10/22/2020 Social History Tobacco Use: Social History Observation [...] Polyneuropathy due to type 2 diabetes mellitus (810532373) Type 2 diabetes mellitus with diabetic polyneuropathy (E11.42) Active confirmed Problem Acquired hammer toe of right foot (8595625442401291 ) Hammer toe of right foot (M20.41) Active confirmed Problem Neuropathy (134992418) Neuropathy (G62.9) Active confirmed Vital Signs Blood pressure diastolic 70 mm Hg 12/28/2024 Height 6ft 3in in 12/28/2024 Blood pressure systolic 145 mm Hg 12/28/2024 Weight 225 lbs 12/28/2024 BMI 28.12 kg/m2 12/28/2024 Encounters Encounter Location Date Provider Diagnosis [address] [address] 03/04/2024 Marizol Perica Xerosis of skin L85. 3 ; Ganglion of foot, left M67.472 ; Type 2 diabetes mellitus with diabetic polyneuropathy E11.42 and Tinea unguium B35.[address] [address] 05/03/2024 Marizol Perica Xerosis of skin L85. 3 ; Ganglion of foot, left M67.472 ; Type 2 diabetes mellitus with diabetic polyneuropathy E11.42 and Tinea unguium B35.[address] [address] 08/02/2024 Marizol Perica Xerosis of skin L85. 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 ; Type 2 diabetes mellitus with diabetic polyneuropathy E11.42 ; Tinea unguium B35.1 and Abscess of toe, left L02.[address] [address] 12/28/2024 Marizol Perica Type 2 diabetes mellitus with diabetic polyneuropathy E11.42 and Tinea unguium B35.[address] [address] 03/03/2024 Marizol Perica [address] [place] [address] 06/08/2024 Marizol [place]ington Assessments Encounter Date Diagnosis [...] X ray : Foot, right 3V 05/16/2013 42738-Jmniinqw Plate 09/29/2017 69582-Sjbzogmc Plate 11/11/2017 06172-Rjodqwfo Plate 07/02/2017 90252-Tfrrymjc Plate 12/11/2017 35881-Yweeiqop Plate 02/02/2018 29151-Fazlpqiy Plate 07/16/2018 13044-Ykrkxmoj Plate Each Additional 01/2017 60713-Petdedcd Plate Each Additional 98709- Debride <25 sq cm 07/16/2017 94703 I&D ABSCESS- SIMPLE,SINGLE 018 07231 I&D ABSCESS- SIMPLE,SINGLE 018 73046 I&D ABSCESS- SIMPLE,SINGLE 017 44184 I&D ABSCESS- SIMPLE,SINGLE 019 80523, J0702- INJECT or DRAIN, JOINT/BUR SA 05/26/2012, P3178-OLWSD/INJECT, JOINT/BURSA 1 08/24/2011, E5029-UFHIX/INJECT, JOINT/BURSA 1 D9379-QTDTJEGE DYSTROPHIC NAILS ANY # 50,K3809-AQH TENDON SHEATH/LIGAMENT 0 12/21/201330632,Q4688-RMW TENDON SHEATH/LIGAMENT 0 03/06/2014 G4993-Mhpegyjte 3mg 06/24/2012 P8650-Urxsdonnn 3mg 05/26/2012 Next Appt Details Provider Name:Marizol martinez, 03/28/2025 10:00:00 AM, [address] [facility], [place], [address], Insurance Providers Payer Name Payer Address Payer Phone Subscriber Number Group Number Insured Name Patient Relationship to Insured Coverage Start Date Coverage End Date Medicare [facility] [address] [place] [address] [id number] Grammati teodora Real Self - patient is the insured [employer] [address] [place] [address] [id number] Grammati teodora, Real Self - patient is the insured Medical (General) History Medical History History ICD Code sciatica Diabetic Arthritis Cataracts Surgical History Surgery Date(Month/Year) right hip replacement 12/08/2011 left hip replacement 10/2014 colonoscopy 04/2024
[2025-03-02 10:24] LABS: Appearance Urine Clear; Glucose Urine UA >=1000 mg/dL (Negative); PH 6.5 (5.0-9.0); Specific Gravity - Urine 1.025 (1.005-1.025); UMIC TRIGGER UA YES
== END 2025-03-02 08:53 | disposition home or self-care (01) ==
LOC: HO.HMGCLDS 08:52
PROVIDERS: PCP Internal Medicine; Visit Provider Urology
DX: N32.0 Bladder-neck obstruction (principal); N40.1 Benign prostatic hyperplasia with lower urinary tract symptoms; R33.8 Other retention of urine
CPT/HCPCS: 81001; 87086

== ENCOUNTER 2025-03-03 07:53 | Outpatient (REF) | payer MEDICARE, OTHER, SELFPAY ==
--- OUTSIDE RECORDS SUMMARY | 2024-04-22 03:30 | XMS_ITS ---
Author Organization [facility] Address [address] [place] [address] Care Team Providers Care Telephone Collector Name Role Phone Minh (RETIRED) Kaushal LEIGH Primary Care Provider Unavailable Juan Miguel Tim Unavailable [phone] REASON FOR VISIT colon screening Problems Problem Type SNOMED Code ICD Code Onset Dates Problem Status W/U Status Risk Notes Problem Diverticular disease of colon (437049268) Diverticulosis of large intestine without perforation or abscess without bleeding (K57.30) Active confirmed Problem Gastroesophageal reflux disease (K21.9) Active confirmed Problem Duodenitis (19774149) Duodenitis (K29.80) Active confirmed Encounters Encounter Location Date Provider Diagnosis [facility] [place] [address] [place] [phone] 04/22/2024 Juan Miguel Tim Colon cancer screeni [...] Notes * YAZMIN ADAMSDOB:1945 (79 yo M)Acc No.[id number]:04/22/2024 EGD and COL/MAC Patient: YAZMIN HARDY Provider: Jose Tim MD :1945 A ge:78 Y S ex:Male Date:04/22/2024 Address:[address] [place], [place] [phone] Pcp:Kaushal Wilkinson (RETIRED) MD Subjective: * Chief [...] FLW-UP 10 YRS DOCD, Modifiers: 1P , 36360 UPPER GI ENDOSCOPY, BIOPSY * * The named appointment provid er may or may not be the originator of this progress note, and it is not deemed complete until electronically signed by the appointment provider. Sign off status: Pending * Provider: Jose Tim MD Date: 0 04/22/2024 Generated for Flacai hank/Chely/eTransmitting on: 0 03/03/2025 07:55 AM EDT
--- NOTE | ~2025-03-03 | XR_ITS ---
EXAMINATION: XR ABDOMEN KUB CLINICAL INDICATION: R31.9 - Hematuria, unspecified COMPARISON: None available. TECHNIQUE: AP view of the abdomen. FINDINGS: There is no overt calcification overlapping the kidney shadow or the bladder. Abundant stool. No intestinal dilatation. No gross air-fluid levels. Multilevel syndesmophyte formation and marginal osteophyte formation with endplate sclerosis throughout the axial skeleton. Metallic prosthesis both coxofemoral joints. Sclerosis and the sacroiliac joints. XR/XR KUB IMPRESSION: No overt/obvious x-ray renal or bladder calculus. Abundant stool. No intestinal obstruction pattern. Multilevel spondylosis. Bilateral hip arthroplasty prosthesis. Electronically signed by: Hector Bradley MD 03/03/2025 08:47 AM EDT
--- OUTSIDE RECORDS SUMMARY | 2025-03-03 07:56 | XMS_ITS | Patient Health Record ---
Author Organization [facility] Address [address] [place] [address] Care Team Providers Care Terrazzo Grinder Name Role Phone Kaushal Wilkinson MD Primary Care Provider Unavailab ruth HeinMarizol martinez Unavailable [phone] Allergies No Known Allergies Results Component Value [...] Polyneuropathy due to type 2 diabetes mellitus (902342806) Type 2 diabetes mellitus with diabetic polyneuropathy (E11.42) Active confirmed Problem Acquired hammer toe of right foot (1875941979255466 ) Hammer toe of right foot (M20.41) Active confirmed Problem Neuropathy (163161347) Neuropathy (G62.9) Active confirmed Vital Signs Blood pressure diastolic 70 mm Hg 12/28/2024 Height 6ft 3in in 12/28/2024 Blood pressure systolic 145 mm Hg 12/28/2024 Weight 225 lbs 12/28/2024 BMI 28.12 kg/m2 12/28/2024 Encounters Encounter Location Date Provider Diagnosis [address] [address] 03/04/2024 Marizol Perica Xerosis of skin L85. 3 ; Ganglion of foot, left M67.472 ; Type 2 diabetes mellitus with diabetic polyneuropathy E11.42 and Tinea unguium B35.[address] [address] 05/03/2024 Marizol Perica Xerosis of skin L85. 3 ; Ganglion of foot, left M67.472 ; Type 2 diabetes mellitus with diabetic polyneuropathy E11.42 and Tinea unguium B35.[address] [address] 08/02/2024 Marizol Perica Xerosis of skin L85. 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 ; Type 2 diabetes mellitus with diabetic polyneuropathy E11.42 ; Tinea unguium B35.1 and Abscess of toe, left L02.[address] [address] 12/28/2024 Marizol Perica Type 2 diabetes mellitus with diabetic polyneuropathy E11.42 and Tinea unguium B35.[address] [address] 03/03/2024 Marizol Perica [address] [place] [address] 06/08/2024 Marizol [place] Assessments Encounter Date Diagnosis [...] X ray : Foot, right 3V 05/16/2013 28007-Hbwwrkfv Plate 09/29/2017 42225-Quzrlxao Plate 11/11/2017 79618-Czkblfxo Plate 07/02/2017 73322-Bnzooeuq Plate 12/11/2017 54999-Kuugsdvs Plate 02/02/2018 72242-Htqbepgf Plate 07/16/2018 70877-Hzusyudo Plate Each Additional 01/2017 59431-Rbcsewft Plate Each Additional 70417- Debride <25 sq cm 07/16/2017 60699 I&D ABSCESS- SIMPLE,SINGLE 018 38406 I&D ABSCESS- SIMPLE,SINGLE 018 45538 I&D ABSCESS- SIMPLE,SINGLE 017 31883 I&D ABSCESS- SIMPLE,SINGLE 019 13704, J0702- INJECT or DRAIN, JOINT/BUR SA 05/26/2012, Y3771-TPQJX/INJECT, JOINT/BURSA 1 08/24/2011, X6001-XDJYH/INJECT, JOINT/BURSA 1 H8376-CVWIRDCG DYSTROPHIC NAILS ANY # 50,K8950-GSI TENDON SHEATH/LIGAMENT 0 12/21/201336211,Q6459-SRG TENDON SHEATH/LIGAMENT 0 03/06/2014 K2276-Uqtuytxls 3mg 06/24/2012 H3060-Xbwgzwwej 3mg 05/26/2012 Next Appt Details Provider Name:Marizol martinez, 03/28/2025 10:00:00 AM, [address] [facility], [place], [address], Insurance Providers Payer Name Payer Address Payer Phone Subscriber Number Group Number Insured Name Patient Relationship to Insured Coverage Start Date Coverage End Date Medicare National [facility] [address] [place] [address] [id number] Grammati teodora Real Self - patient is the insured [employer] [address] [place] [address] [id number] Grammati teodora, Real Self - patient is the insured Medical (General) History Medical History History ICD Code sciatica Diabetic Arthritis Cataracts Surgical History Surgery Date(Month/Year) right hip replacement 12/08/2011 left hip replacement 10/2014 colonoscopy 04/2024
--- OUTSIDE RECORDS SUMMARY | 2025-03-03 07:56 | XMS_ITS | Clinical Summary ---
Author Organization [facility] Address [address] [place] [address] Phone Care Team Providers Care Auto Mechanic Apprentice Name Role Phone Kaushal Wilkinson MD Primary Care Provider [phone]- [phone] Allergies No known active allergies Medications lisinopril (PRINIVIL,ZESTR IL) 10 MG tablet Take by mouth 2 (two) times a day. Active NIFEdipine (PROCARDIA) 10 MG capsule Take by mouth daily. Active rosuvastatin (CRESTOR) 10 MG tablet Take by mouth daily. Active omega 8-ovc-qpv-fish oil 1,000 mg (120 mg-180 mg) Cap [...] this topic Medical Devices Implanted Type Area Rn Placement Device Identifier Shelf Expiration Date Model / Serial / Lot Right Hip Brenna Taper Size 3 Hip [id number] Implanted:Qty: 1 on 11/19/2015 by Mac Henley MD at [facility] Left: Hip [employer] 03/27/2018 [id number] / / [id number] Liner Ecima Brenna 36mm - [id number] Implanted:Qty: 1 on 11/19/2015 by Mac Henley MD at [facility] Left: Hip [employer] 04/26/2018 [id number] / / [id number] Minihip Short Stem Size 8 Standard 07/09 130ccd Hip [id number] Implanted:Qty: 1 on 11/19/2015 by Mac Henley MD at [facility] Left: Hip [employer] 07/03/2020 [id number] / / [id number] Biolox Delta Mod Head 36mm X 4mm Hip 568 Implanted:Qty: 1 on 11/19/2015 by Mac Henley MD at [facility] Left: Hip [employer] 05/29/2021 [id number] / / [id number] Procedures Procedure Name Priority Date/Time Associated Diagnosis Comments BASIC METABOLIC PANEL Routine 10/26/2015 11:05 AM EDT from Last 3 Months or Most Recently Relevant to Health Maintenance Results * (ABNORMAL) Basic metabolic panel (10/26/2015 11:05 AM EDT) SODIUM 137 136 - 145 mmol/L [facility] POTASSIUM 4.7 3.5 - 5.2 mmol/L [facility] CHLORIDE 100 99 - 109 mmol/L [facility] CARBON DIOXIDE 24 20 - 31 mmol/L [facility] ANION GAP 13 3 - 17 [facility] CALCIUM 9.5 8.7 - 10.4 mg/dL [facility] GLUCOSE 141(Abnorm ally H) 74 - 106 mg/dL [facility] UREA NITROGEN (BUN) 19 9 - 23 mg/dl [facility] CREATININE 1.03 0.5 - 1.3 mg/dl [facility] EST GLOM FILT RATE NON- A 76.3 [facility] Comment:Units: ml/min/1.73ms q EST GLOM FILT RATE AMERI 92.4 [facility] Comment: Units: ml/min/1.73msq Reference Table for [...] AM EDT 10/26/2015 12:14 PM EDT Narrative [facility] - 10/26/2015 12:44 PM EDT [facility], [address] [address], Flying Teacher: Shawn Medina M.D. us Mac Henley MD LAB BLOOD ORDERABLES Final Re sult [facility] [address] [place] [address] from Last 3 Months or Most Recently Relevant to Health Maintenance Insurance eOriginal TOTAL CHOICE INDEMNITY eOriginal TOTAL CHOICE INDEMNITY [facility] TOTAL CHOICE INDEMNITY [facility] TOTAL CHOICE INDEMNITY [facility] TOTAL CHOICE INDEMNITY [facility] TOTAL CHOICE INDEMNITY [facility] TOTAL CHOICE INDEMNITY [facility] TOTAL CHOICE [facility]MNITY [facility] TOTAL CHOICE [facility]DEMNITY [facility] TOTAL CHOICE INDEMNITY Advance Directives For more information, please contact: [phone] (9AM - 5PM [facility], Thursday-Thursday) Documents on File Type Date Recorded Patient Fourdrinier Tender Expl anation Healthcare Proxy 11/28/2015 1:01 PM * Full Code (Presumed) (Latest Code Status on File) Date Activated Date Inactivated Comments 11/19/2015 5:33 PM 11/22/2015 1:56 PM * Full Code (Presumed) Date Activated Date Inactivated Comments 11/19/2015 10:21 AM 11/19/2015 5:33 PM Care Teams Auto Mechanic Apprentice Relationship Specialty Start Date End Date Kaushal Wilkinson MD [address] [place] [id number] PCP - General 01/24/14 Additional Source Comments The information contained in this document represents components of the legal health record. It is not the complete legal health record.[facility]
== END 2025-03-03 07:54 | disposition home or self-care (01) ==
LOC: HO.HMGCX 07:53
PROVIDERS: PCP Internal Medicine; Visit Provider Urology
DX: E29.1 Testicular hypofunction (principal); R31.9 Hematuria, unspecified
CPT/HCPCS: 36415; 74018; 84403

== ENCOUNTER → 2025-03-03 08:35 | Outpatient (BNV) | payer MEDICARE, OTHER, SELFPAY | PROVIDERS: PCP Internal Medicine; Visit Provider Radiology Diagnostic Radiology | DX: R31.9 Hematuria, unspecified (principal) | CPT/HCPCS: 74018 ==

== ENCOUNTER 2025-04-03 13:55 | Outpatient (AMB) | payer MEDICARE, OTHER, SELFPAY ==
--- OUTSIDE RECORDS SUMMARY | 2024-04-22 03:30 | XMS_ITS ---
Author Organization [facility] Address [address] [place] [phone] Care Team Providers Care Customer Marketing Intern Name Role Phone Minh (RETIRED) Kaushal LEIGH Primary Care Provider Unavailable Juan Miguel Tim Unavailable [phone] REASON FOR VISIT colon screening Problems Problem Type SNOMED Code ICD Code Onset Dates Problem Status W/U Status Risk Notes Problem Diverticular disease of colon (400477314) Diverticulosis of large intestine without perforation or abscess without bleeding (K57.30) Active confirmed Problem Gastroesophageal reflux disease (460370301) Gastroesophageal reflux disease (K21.9) Active confirmed Problem Duodenitis (80098193) Duodenitis (K29.80) Active confirmed Encounters Encounter Location Date Provider Diagnosis [facility] [place] [address] [place] [phone] 04/22/2024 Juan Miguel Tim Colon cancer screeni [...] Notes * YAZMIN ADAMSDOB:1945 (79 yo M)Acc No.[id number]:04/22/2024 EGD and COL/MAC Patient: YAZMIN HARDY Provider: Jose Tim MD :1945 A ge:78 Y S ex:Male Date:04/22/2024 Address:[address] [place], [place] [phone] Pcp:Kaushal Wilkinson (RETIRED) MD Subjective: * Chief [...] FLW-UP 10 YRS DOCD, Modifiers: 1P , 43933 UPPER GI ENDOSCOPY, BIOPSY * * The named appointment provid er may or may not be the originator of this progress note, and it is not deemed complete until electronically signed by the appointment provider. Sign off status: Pending * Provider: Jose Tim MD Date: 0 04/22/2024 Generated for Flacai ng/Zulyg/eTransmitting on: 0 04/03/2025 04:17 PM EDT
--- OUTSIDE RECORDS SUMMARY | 2024-09-01 06:00 | XMS_ITS ---
Author Organization [facility] Address [address] [place] [address] Care Team Providers Care Admissions Coordinator Name Role Phone Minh (RETIRED) Kaushal LEIGH Primary Care Provider Juan Miguel Damon [phone] REASON FOR VISIT gerd Encounters Encounter Location Date Provider Diagnosis [facility] 10 [facility] [address] [place] [phone] 09/01/2024 Juan Miguel Tim Plan Of Treatment No Information Progress Notes * YAZMIN ADAMSDOB:1945 (79 yo M)Acc No.[id number]:09/01/2024 Progress Notes Patient: YAZMIN HARDY Provider: Jose Tim MD :1945 A ge:78 Y S ex:Male Date:09/01/2024 Address:[address] [place], [place] [phone] Pcp:Kaushal Wilkinson (RETIRED) MD Subjective: * Chief [...] 09/01/2024 Generated for Printi ng/Faxing/eTransmitting on: 0 04/03/2025 04:17 PM EDT
--- OUTSIDE RECORDS SUMMARY | 2024-10-28 10:40 | XMS_ITS ---
Author Organization [facility] Address 10 [facility] [address] [place] [address] Care Team Providers Care Roller Maker Name Role Phone Minh (RETIRED) Kaushal LEIGH Primary Care Provider Unavailable Juan Miguel Tim [phone] REASON FOR VISIT Patient presents today for gerd Encounters Encounter Location Date Provider Diagnosis [facility] [address] [address] 10/28/2024 Juan Miguel Tim Plan Of Treatment No Information Progress Notes * YAZMIN ADAMSDOB:1945 (79 yo M)Acc No.[id number]:10/28/2024 Progress Notes Patient: YAZMIN HARDY Provider: Jose Tim MD :1945 A ge:79 Y S ex:Male Date:10/28/2024 Address:[address] [place], [place] [phone] Pcp:Kaushal Wilkinson (RETIRED) MD Subjective: * Chief [...] 10/28/2024 Generated for Printi ng/Faxing/eTransmitting on: 0 04/03/2025 04:17 PM EDT
--- OUTSIDE RECORDS SUMMARY | 2025-03-28 06:00 | XMS_ITS ---
Author Organization [facility] Edvin sarah [place] Address [address] [facility] [place] [address] Care Team Providers Care Multimedia Services Manager Name Role Phone Tremaine Guillen Primary Care Provider Marizol Al Unavailable [phone] REASON FOR VISIT Seen Sooner Medications Medication [...] Not-Taking Encounters Encounter Location Date Provider Diagnosis [facility] [address] [address] 03/28/2025 Marizol Ellington Plan Of Treatment Next Appt Details Provider Name:Marizol martinez, 05/31/2025 01:00:00 PM, [address] [place] [address], [phone], Progress Notes * Real PRUITTDOB:1945 (79 yo M)Acc No.[id number]:03/28/2025 Progress Note Patient: Real HARDY Provider: Phuong Ellington DPM :1945 A ge:79 Y S ex:Male Date:03/28/2025 Address:[address] [place], [place] [id number] Pcp:Tremaine Guillen Subjective: * Chief Complaints: * [...] Date: 03/28/2025 Generated for Diomedes mckinney/Chely/Clare on: 04/03/2025 04:16 PM EDT
[2025-04-03 13:56] VITALS: BP 144/84; PULSE 84; RESP 14; TEMP 36.8; O2SAT 98; BMI 28.0
--- NOTE | 2025-04-03 13:56 | A.OFFPC_ITS ---
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 Required: No Accompanied by: Self / Same As Patient Allergies No Known Allergies (No Known Allergies*) Allergy (Verified 04/03/25 14:11) Medication List - Last Reconciled 04/03/25 by Daniela Mcfadden PA-C atorvastatin 10 mg PO DAILY empagliflozin (Jardiance) 10 mg PO DAILY finasteride 5 mg PO DAILY 90 days gabapentin mg PO lisinopril 10 mg PO DAILY metformin ER 1,000 mg PO BID naproxen 500 mg PO BID nifedipine ER 30 mg PO DAILY testosterone 50 mg transdermal DAILY 30 days Tobacco use date assessed: 04/03/25 Dental Screening Dental Screen Date: 01/30/25 HPI follow up HPI Details The patient is a 79-year-old male presenting with a follow-up for diabetes management and evaluation of left knee swelling. The patient has a history of diabetes mellitus, which has been managed with medications including metformin and Jardiance. He has not had recent blood work to monitor his hemoglobin A1c levels, but his home glucose monitoring shows variable results, sometimes under 100 mg/dL and sometimes slightly over. His last recorded hemoglobin A1c was 6.1%, indicating good control of his diabetes. The patient reports an episode of hematuria two months ago, which resolved spontaneously. He has been advised to undergo further testing to rule out any underlying pathology, such as bladder cancer, despite the absence of visible blood currently. The patient experiences swelling in his left knee, particularly in the medial aspect, which is accompanied by numbness rather than pain. He has completed physical therapy and continues exercises at home. He has a history of receiving cortisone injections for knee pain, which have not provided significant relief. The patient has symptoms of neuropathy, including numbness in his feet, which is likely related to his diabetes. He has not been taking gabapentin recently but will start on a regimen of 100 mg twice daily to manage these symptoms. The patient has a history of hypertension, with recent blood pressure readings being slightly elevated. His lisinopril dosage has been increased to 20 mg to better control his blood pressure. The patient reports symptoms consistent with rosacea, which may be exacerbated by alcohol consumption. He uses a topical ointment for management and has a network engineer administrator for ongoing care. Social History - Substance Use: Reports daily alcohol c onsumption, including beer and scotch, which may contribute to rosacea. - Exercise: Engages in home exercises fo [facility] physical therapy for knee management. - Functional Status: Uses a First Alert system at home due to balance concerns. [facility] Medical History (Updated 04/03/25 @ 16:24 by Daniela Mcfadden PA-C) Rosacea Neuropathy Hematuria Left knee pain Swelling of left knee Balance problem Bilateral hip pain Bilateral knee pain Nicotine dependence Sty Type 2 diabetes mellitus with hemoglobin A1c goal of less than 7.0% Osteoarthritis Establishing care with new doctor, encounter for Lower back pain Nicotine use Ambulates with cane Peripheral neuropathy Internal hemorrhoids Diverticulosis Hiatal hernia Arthritis Left leg weakness Diabetes Hyperlipemia HTN (hypertension) Surgical History History of esophagogastroduodenoscopy (EGD) (~2017) Hx of bilateral hip replacements Hx of colonoscopy (~04/22/24) Family History Father History of heart surgery Mother Arthritis Social History Housing: House Are you a primary wound care specialist to a significant other at home: No Do you presently have visiting nurse or other home services: No Alcohol intake: current Alcohol intake frequency: 3 or more drinks per day Alcohol type: beer Patient Tobacco Use Status: Former Tobacco user Tobacco use type: Cigarette service: No Current occupational status: retired Cognitive needs: Yes (cane) Hearing needs: No Vision needs: Yes (rx glasses) Questionnaire PHQ-9 Over the last 2 weeks, how often have you been bothered by any of the following problems? 1. Little interest or pleasure in doing things: not at all 2. Feeling down, depressed, or hopeless: not at all 3. Trouble falling or staying asleep, or sleeping too much: not at all 4. Feeling tired or having little energy: not at all 5. Poor appetite or overeating: not at all 6. Feeling bad about yourself - or that you are a failure or have let yourself or your family down: not at all 7. Trouble concentrating on things, such as reading the newspaper or watching television: not at all 8. Moving or speaking so slowly that other people could have noticed. Or the opposite - being so fidgety or restless that you have been moving around a lot more than usual: not at all 9. Thoughts that you would be better off or of hurting yourself in some way: not at all Total score: 0 Depression Screening Interpretation: Negative Depression Screening Done: Yes 67894 - PHQ-9 Billing: Yes Source: Developed by Drs. Juan Miguel Klein, Joyce Jiménez, Mark Beaver and colleagues, with an educational evelia from [employer]. Thrive Questionnaire Date Thrive assessed: 01/30/25 I am a: Patient What is your living situation today?: I have a steady place to live Within the past 12 months, did the food you bought not last and you didn't have the money to get more?: Never true Within the past 12 months, did you worry whether your food would run out before you got money to buy more?: Never true Do you have trouble paying for medicines?: No Do you have trouble getting transportation to medical appointments?: No Do you have trouble paying your heating and electricity bill?: No Do you have trouble taking care of your child, family member or friend?: No Do you have trouble with day-to-day activities such as bathing, preparing meals, shopping, managing finances, etc.?: No Are you currently unemployed and looking for a job?: No Are you interested in more education?: No Please select the resources that you would like help with: None Currently or been in a relationship where the following occur: No concerns reported THRIVE Score: 0 AUDIT C Alcohol Use Questionnaire (AUDIT-C) 1. How often do you have a drink containing alcohol?: 4 or more times a week 2. How many drinks containing alcohol do you have on a typical day when you are drinking?: 3 or 4 3. How often do you have six or more drinks on one occasion?: Never Total Score: 5 Score Reviewed/Action Taken: No SHARLENE-7 AMB Questionnaire SHARLENE-7 Date SHARLENE - 7 assessed: 07/07/25 Feeling nervous, anxious, or on edge: 0 = Not at all Not being able to stop or control worryin = Not at all Worrying too much about different things: 0 = Not at all Trouble relaxin = Not at all Being so restless that it is hard to sit still: 0 = Not at all Becoming easily annoyed or irritable: 0 = Not at all Feeling afraid as if something awful might happen: 0 = Not at all Total SHARLENE-7 score (0-4 normal; 5-9 mild; 10-14 moderate; 15-21 severe): 0 Source: Developed by Drs. Juan Miguel Klein, Joyce Jiménez, Mark Beaver and colleagues, with an educational evelia from [employer]. SHARLENE-7 Assessment Billing SHARLENE-7 Assessment Tool: SHARLENE-7 Assessment 75765 Review of Systems Const Details: - Genitourinary: Reports hematuria two months ago, now resolved. - Musculoskeletal: Reports swelling and numbness in the left knee, no pain. - Neurological: Reports numbness in feet, likely due to neuropathy. - Dermatological: Reports symptoms consistent with rosacea. All systems reviewed & are unremarkable except as noted in HPI and below Physical exam (Primary Care) Vital Signs: Last Vital Signs Temp 98.3 F 04/03/25 13:56 Pulse 84 04/03/25 13:56 Resp 14 04/03/25 13:56 BP 144/84 H 04/03/25 13:56 Pulse Ox 98 04/03/25 13:56 Oxygen Delivery Method Room Air 04/03/25 13:56 Care Plan Goal for BP management: <140/90 at Goal patient's lisinopril will be increased from 10 mg to 20 mg BMI result Body Mass Index 28.0 BMI Assessment/Plan discussion: High BMI High, discussed plan: lifestyle, weight reduction, dietary, physical activity, alcohol moderation and other Tobacco/Smoking Status: Tobacco use Status Tobacco use date assessed 04/03/25 04/03/25 13:57 Patient Tobacco Use Status Former Tobacco user 04/03/25 13:57 Tobacco use type Cigarette 04/03/25 13:57 PHQ-9: PHQ-9 Score PHQ-9: Total score 0 04/03/25 14:37 Depression Screening Interpretation: Negative Thrive Assessment: Date of Thrive Assessment Date Thrive assessed 01/30/25 04/03/25 13:57 Currently or been in a relationship where the following occur: No concerns reported Const Other: Appearance: Alert. Oriented X3. No acute distress. Head: Normal external exam. Normocephalic. Atraumatic. Eyes: Pupils are equal, round, and reactive to light. Extraocular movements intact. Conjunctiva and sclera normal. Eyelids normal. Patient reports a history of a sty in the eye, treated with erythromycin ointment. Ears: External auditory canal normal. Tympanic membranes normal. Throat: Pharynx normal. Uvula midline. Moist mucous membranes. Neck: Normal inspection. Neck supple. Full range of motion. No adenopathy. Thyroid Normal. No meningeal signs. No neck mass noted. Cardiovascular: Normal heart rate and rhythm. Heart sound normal. No murmurs noted. Pulses normal throughout. Respiratory: No respiratory distress. Painless inspiration. Breath sounds normal. No wheezes/rales/rhonchi noted. Chest nontender. No accessory muscle usage noted or decreased air movement noted. Back: Full range of motion noted. Skin: Skin warm and dry. Normal skin color. Normal skin turgor. No rashes/lesions/lacerations noted. Patient reports rosacea. Extremities: Patient reports intermittent left ankle swelling none noted at this time. Patient reports mild swelling and pain to the left medial aspect of the knee. He has good range of motion of the left knee and ankle joint. No obvious joint effusion. No lower extremity edema or calf tenderness. All other extremities exhibit normal range of motion nontender. Neuro: Oriented X 3. No motor deficit. Reflexes normal. Reports numbness in left knee and ankle, suggestive of neuropathy. Balance is slightly shaky. Results AMB Hemoglobin A1c AMB Hemoglobin A1c 6.1 % Last Edit by JEANETTE Mcgowan on 04/03/25 14:38 Results Reviewed Results Reviewed: Laboratory Last Values Hgb A1c (Clinic) 6.1 % (4.0-6.0) H 04/03/25 14:27 - Labs: Hemoglobin A1c 6.1%, indicating good diabetes control. Coding Level of Care Code Est Pt Level 4 (99308) Complex EM visit Add On G2211 Diagnoses Type 2 diabetes mellitus with hemoglobin A1c goal of less than 7.0% E11.9 Hematuria R31.9 Left knee pain M25.562 Neuropathy G62.9 HTN (hypertension) I10 Rosacea L71.9 Additional Codes SHARLENE-7 Assessment Billing - SHARLENE-7 Assessment Tool: SHARLENE-7 Assessment 06280 ([id number]) PHQ-9 - 80881 - PHQ-9 Billing: Yes ([id number]) Time Spent (min) 50 Assessment & Plan Assessment & Plan (1) Type 2 diabetes mellitus with hemoglobin A1c goal of less than 7.0%: Code(s): E11.9 - Type 2 diabetes mellitus without complications Category: Medical Plan: The patient's diabetes mellitus is currently well-controlled with a hemoglobin A1c of 6.1%. He is advised to continue his current medications, including metformin and Jardiance, and to perform regular blood glucose monitoring at home. (2) Hematuria: Code(s): R31.9 - Hematuria, unspecified Category: Medical Plan: The patient experienced hematuria two months ago, which resolved spontaneously. Further testing is recommended to rule out any underlying pathology, such as bladder cancer. (3) Left knee pain: Code(s): M25.562 - Pain in left knee Category: Medical Plan: The patient reports swelling in the left knee, with numbness but no pain. He has completed physical therapy and continues exercises at home. Referral to an orthopedist is considered for further evaluation and management. (4) Neuropathy: Code(s): G62.9 - Polyneuropathy, unspecified Category: Medical Plan: The patient has symptoms of neuropathy, including numbness in his feet, likely related to diabetes. Gabapentin 100 mg twice daily has been prescribed to manage these symptoms. (5) HTN (hypertension): Code(s): I10 - Essential (primary) hypertension Category: Medical Plan: The patient's blood pressure readings have been slightly elevated. The lisinopril dosage has been increased to 20 mg to improve blood pressure control. (6) Rosacea: Code(s): L71.9 - Rosacea, unspecified Category: Medical Plan: The patient reports symptoms consistent with rosacea, potentially exacerbated by alcohol consumption. He uses a topical ointment for management and has a network engineer administrator for ongoing care. Plan Plan Patient was informed and verbally consented to the use of an ambient scribe for clinic note documentation during this visit. 1. Diabetes Mellitus The patient's diabetes mellitus is currently well-controlled with a hemoglobin A1c of 6.1%. He is advised to continue his current medications, including metformin and Jardiance, and to perform regular blood glucose monitoring at home. 2. Hematuria The patient experienced hematuria two months ago, which resolved spontaneously. Further testing is recommended to rule out any underlying pathology, such as bladder cancer. 3. Knee Swelling The patient reports swelling in the left knee, with numbness but no pain. He has completed physical therapy and continues exercises at home. Referral to an orthopedist is considered for further evaluation and management. 4. Neuropathy The patient has symptoms of neuropathy, including numbness in his feet, likely related to diabetes. Gabapentin 100 mg twice daily has been prescribed to manage these symptoms. 5. Hypertension The patient's blood pressure readings have been slightly elevated. The lisinopril dosage has been increased to 20 mg to improve blood pressure control. 6. Rosacea The patient reports symptoms consistent with rosacea, potentially exacerbated by alcohol consumption. He uses a topical ointment for management and has a network engineer administrator for ongoing care. During the visit, I discussed with the patient the importance of continuing his current diabetes medications, as his hemoglobin A1c is well-controlled at 6.1%. I recommended further testing for hematuria to rule out any serious conditions, such as bladder cancer, despite the resolution of visible blood. For his knee swelling, I suggested a referral to an orthopedist for further evaluation and possible management options. We discussed starting gabapentin for his neuropathy symptoms, and I increased his lisinopril dosage to better manage his hypertension. I also advised him on managing his rosacea, potentially exacerbated by alcohol consumption, and to continue using his topical ointment. Orders: Orders Magnesium Today Z00.00 - Encounter for general adult medical examination without abnormal findings TSH reflex Free T4 Today Z00.00 - Encounter for general adult medical examination without abnormal findings C Reactive Protein Today Z00.00 - Encounter for general adult medical examination without abnormal findings Complete Blood Count Auto Diff Today Z00.00 - Encounter for general adult medical examination without abnormal findings Comprehensive [place]. Panel Fast Today Z00.00 - Encounter for general adult medical examination without abnormal findings Lipid Panel Today Z00.00 - Encounter for general adult medical examination without abnormal findings Liver Panel Today Z00.00 - Encounter for general adult medical examination without abnormal findings PSA,Total (Free>4and<10) Today Z00.00 - Encounter for general adult medical examination without abnormal findings Vitamin B12 and Folate Today Z00.00 - Encounter for general adult medical examination without abnormal findings Vitamin D 25-OH Total Today Z00.00 - Encounter for general adult medical examination without abnormal findings AMB Hemoglobin A1c Today E11.9 - Type 2 diabetes mellitus without complications Referrals Orthopedics Referral M25.462 - Effusion, left knee, M25.562 - Pain in left knee Medications: New erythromycin 0.5 inches ophthalmic (eye) QID 3.5 grams 1RF nifedipine ER 30 mg PO DAILY 90 tabs 3RF Changed From lisinopril 10 mg PO DAILY To lisinopril 20 mg PO DAILY 90 tabs 3RF From gabapentin PO To gabapentin 100 mg PO BID 180 caps 0RF 90 days Patient Instructions: - Continue taking diabetes medications as prescribed and monitor blood glucose levels regularly. - Schedule and complete further testing for hematuria as advised. - Follow up with an orthopedist for knee evaluation and management. - Start gabapentin 100 mg twice daily for neuropathy symptoms. - Monitor blood pressure regularly and follow up in two weeks for a nurse visit. - Continue using topical ointment for rosacea and consider reducing alcohol consumption.
--- OUTSIDE RECORDS SUMMARY | 2025-04-03 16:17 | XMS_ITS | Patient Health Record ---
Author Organization [facility] Address [address] [place] [address] Care Team Providers Care Section Hand Helper Name Role Phone Tremaine Guillen Primary Care Provider Marizol Al Unavailable [phone] Allergies No Known Allergies Results Component Value Reference Range Notes HEMOGLOBIN A1C (GLYCOHEMOGLO BIN) Reviewed date:08/02/2024 11:28:59 AM Interpretation: Performing Lab: Notes/Report: HEMOGLOBIN A1C % (HH) 6.8 Reason For Referral No Information Medications Medication SIG (Take, Route, Frequency, Duration) Notes Start Date End Date Status Amoxicillin 500 MG 4 capsules one time Orally One hour prior to procedure; Duration: as needed 02/02/2019 Not-Taking NIFEdipine 10 MG 1 capsule Orally Thr ee times a day; Duration: 30 day(s) Not-Taking Naproxen 500 MG 1 tablet with food o r milk as needed Orally every 12 hrs Not-Taking LORazepam 2 MG 1 tablet at bedtime Orally Once a day Not-Taking predniSONE 10 MG TAKE 1 TABLET BY RISHABH TH EVERY DAY Oral; Duration: 21 Not-Taking Lisinopril 10 MG 1 tablet Orally Once a day; Duration: 30 day(s) Not-Scot ing Fish Oil PRN Not-Taking Crestor 20 MG 1 tablet Orally Once a day; Duration: 30 day(s) Not-Scot ing Vitamin D Not-Taking Naprosyn 375 MG 1 tablet Orally Twic e a day; Duration: 30 day(s) 03/14/2014 Not-Scot ing Crestor 20 MG 1 tablet Orally Once a day; Duration: 30 day(s) Not-Scot ing CeleBREX 200 MG 1 capsule Orally Onc e a day; Duration: 30 day(s) 03/06/2014 Not-Scot ing Jardiance 10 MG Oral; Duration: 30 Active Cephalexin 500 MG Orally No t-Taking metFORMIN HCl 500 MG Orally Twice a day Active LORazepam 2 MG 1 tablet at bedtime Orally Once a day PRN Not-Taking Augmentin 875-125 MG 1 tablet Orally sonya ry 12 hrs; Duration: 7 days Not-Taking Lisinopril 10 MG 1 tablet Orally Once a day; Duration: 30 day(s) Active NIFEdipine 10 MG 1 capsule Orally Thr ee times a day; Duration: 30 day(s) Active Amoxicillin Not-Taki ng Ammonium Lactate 12 % 1 application Exte rnally Twice a day; Duration: 30 days Active Augmentin 500-125 MG 1 tablet Orally Twi ce a day; Duration: 14 days 03/29/2019 Not-Takin g Immunizations Vaccine Route Administration Date Status Comme nts Influenza Unknown 05/07/2017 Administered Influenza Unknown 07/06/2018 Administered Influenza Unknown 03/28/2019 Administered Influenza Unknown 04/26/2020 Administered Influenza Unknown 05/27/2021 Administered Influenza Unknown 03/27/2023 Administered Influenza Unknown 03/27/2024 Administered COVID-19 Moderna Vaccine Unknown 05/27/2021 Administered [...] Polyneuropathy due to type 2 diabetes mellitus ([id number]) Type 2 diabetes mellitus with diabetic polyneuropathy (E11.42) Active confirmed Problem Acquired hammer toe of right foot ([id number] ) Hammer toe of right foot (M20.41) Active confirmed Problem Neuropathy (983906941) Neuropathy (G62.9) Active confirmed Vital Signs Blood pressure diastolic 70 mm Hg 03/22/2025 Height 6ft 3in in 03/22/2025 Blood pressure systolic 132 mm Hg 03/22/2025 Weight 215 lbs 03/22/2025 BMI 26.87 kg/m2 03/22/2025 Encounters Encounter Location Date Provider Diagnosis [address] [address] 05/03/2024 Marizol Ellington Xerosis of skin L85. 3 ; Ganglion of foot, left M67.472 ; Type 2 diabetes mellitus with diabetic polyneuropathy E11.42 and Tinea unguium B35.[address] [address] 08/02/2024 Marizol Ellington Xerosis of skin L85. 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 ; Type 2 diabetes mellitus with diabetic polyneuropathy E11.42 ; Tinea unguium B35.1 and Abscess of toe, left L02.[address] [address] 12/28/2024 Marizol Ellington Type 2 diabetes mellitus with diabetic polyneuropathy E11.42 and Tinea unguium B35.[address] [address] 03/22/2025 Marizol Ellington Type 2 diabetes mellitus with diabetic polyneuropathy E11.42 and Tinea unguium B35.[address] [address] 06/08/2024 Marizol Ellington [facility] [address] [place] [address] 03/08/2025 Marizol Ellington Assessments Encounter Date Diagnosis (ICD [...] mellitus with diabetic polyneuropathy (ICD-10 - E11.42) 03/22/2025 Type 2 diabetes mellitus with diabetic polyneuropathy (ICD-10 - E11.42) 08/02/2024 Type 2 diabetes mellitus with diabetic polyneuropathy (ICD-10 - E11.42) 10/12/2024 Type 2 diabetes mellitus with diabetic polyneuropathy (ICD-10 - E11.42) 03/22/2025 Tinea unguium (ICD-10 - B35.1) 05/03/2024 Ganglion of foot, left (ICD-10 - M67.472) 05/03/2024 Type 2 diabetes mellitus with diabetic polyneuropathy (ICD-10 - E11.42) 10/12/2024 Tinea unguium (ICD-10 - B35.1) 08/02/2024 Tinea unguium (ICD-10 - B35.1) 05/03/2024 Tinea unguium (ICD-10 - B35.1) 10/12/2024 Abscess of toe, left (ICD-10 - L02.612) Plan Of Treatment Pending Test Test Name Order Date X ray : Foot, right 3V 04/14/2012 X ray : Foot, right 3V 05/16/2013 09430-Dgbvrmzn Plate 09/29/2017 12055-Pzthvmxf Plate 11/11/2017 72852-Ounthfjy Plate 07/02/2017 65891-Msehtrqg Plate 12/11/2017 46381-Ectqwehn Plate 02/02/2018 94227-Lnboexjv Plate 07/16/2018 23702-Qqzloecj Plate Each Additional 01/2017 37192-Jvvrazse Plate Each Additional 09422- Debride <25 sq cm 07/16/2017 92940 I&D ABSCESS- SIMPLE,SINGLE 018 40794 I&D ABSCESS- SIMPLE,SINGLE 018 23939 I&D ABSCESS- SIMPLE,SINGLE 017 63931 I&D ABSCESS- SIMPLE,SINGLE 019 06689, J0702- INJECT or DRAIN, JOINT/BUR SA 05/26/2012, U7499-NQBCQ/INJECT, JOINT/BURSA 1 08/24/2011, L4026-UQCPW/INJECT, JOINT/BURSA 1 R1943-FWWYERNO DYSTROPHIC NAILS ANY # ,U3234-VRT TENDON SHEATH/LIGAMENT 0 12/21/2013,C8353-KKI TENDON SHEATH/LIGAMENT 0 03/06/2014 K8385-Ydonocluc 3mg 06/24/2012 R7788-Azhltuuhy 3mg 05/26/2012 Next Appt Details Provider Name:Marizol martinez, 05/31/2025 01:00:00 PM, [address] [place], [address], Insurance Providers Payer Name Payer Address Payer Phone Subscriber Number Group Number Insured Name Patient Relationship to Insured Coverage Start Date Coverage End Date Medicare National Govt [facility] [address] [place] [address] [id number] Grammati teodora, Real Self - patient is the insured [facility] [address] [place] [address] [phone] [id number] Grammati teodora, Real Self - patient is the insured Medical (General) History Medical History History ICD Code sciatica Diabetic Arthritis Cataracts Surgical History Surgery Date(Month/Year) right hip replacement 12/08/2011 left hip replacement 10/2014 colonoscopy 04/2024
--- OUTSIDE RECORDS SUMMARY | 2025-04-03 16:17 | XMS_ITS | Patient Health Record ---
Author Organization [facility] Address [address] [place] [address] Care Team Providers Care Color Room Attendant Name Role Phone Minh (RETIRED) Kaushal LEIGH Primary Care Provider Unavailable Juan Miguel Tim Unavailable [phone] Allergies No Known Allergies Results Component Value Reference Range Notes Glucose, Whole Blood Reviewed date:04/22/2024 01:38:25 PM Interpretation: Performing Lab:[facility], [address] [place] [phone] Notes/Report: Glucose, Whole Blood 151 60-115 mg/dL METER # : [id number] Pathology Reviewed date:10/27/2024 01:21:58 PM Interpretation: Performing Lab:[facility], [address] [place] [phone] Notes/Report: Reason For Referral No Information Medications Medication [...] Problem Status W/U Status Risk Notes Problem 460031482 Colon cancer screening (Z12.11) Active confirmed Problem 684711827 History of adenomatous polyp of colon (Z86.010) Active confirmed Problem Diverticular disease of colon (790097077) Diverticulosis of large intestine without perforation or abscess without bleeding (K57.30) Active confirmed Problem Dysphagia (26219462) Dysphagia (R13.10) Active confirmed Problem Duodenitis (00563644) Duodenitis (K29.80) Active confirmed Problem Gastroesophageal reflux disease (260432598) Gastroesophageal reflux disease (K21.9) Active confirmed Problem 473471010 Gastroesophageal reflux disease, esophagitis presence not specified (K21.9) Active confirmed Problem Gastroesophageal reflux disease (disorder) (735096502) Chronic GERD (K21.9) Active confirmed Encounters Encounter Location Date Provider Diagnosis [facility] Outpatient [address] [place], [place] [id number] 04/22/2024 Juan Miguel Tim Colon cancer screeni ng Z12.11 ; Colon polyps K63.5 ; Diverticulosis of large intestine without perforation or abscess without bleeding K57.30 ; Other hemorrhoids K64.8 ; Gastroesophageal reflux disease K21.9 ; Hiatal hernia K44.9 ; Duodenitis K29.80 and Dysphagia R13.10 [facility] [address] [place] [address] 04/18/2024 Juan Miguel Tim [facility] [address] [place] [address] 04/20/2024 Juan Miguel Tim Chronic GERD K21.9 a nd Dysphagia R13.10 [facility] [address] [place] [address] 04/22/2024 Juan Miguel Tim [facility] [address] [place] [address] 04/26/2024 Juan Miguel Meeta [facility] [address] [place] [address] 07/22/2024 Juan Miguel Meeta [facility] [address] [place] [address] 10/26/2024 Juan Miguel Tim Assessments Encounter Date [...] End Date MEDICARE OF [place] [address] [place] [address] [id number] YAZMIN ALEJANDRE CAS Self - patient is the insured [employer] ([facility]) [address] [place] [address] [id number] YAZMIN ALEJANDRE CAS Self - patient is the insured Medical (General) History Medical History History ICD Code History of tubular adenomas of the colon removed in 2002--colonoscopies in 2006 and 2011 revealed only hyperplastic polyps, as well as diffuse diverticulosis and internal hemorrhoids Hypertension Hyperlipidemia NIDDM Denies [place],CVA,Lung disease,renal disease Left lower leg injury after his hip replacement causing him to have some weakness in the left lower leg 2 hip replacements Arthritis Colonoscopy 10/2017 with a small tubular adenoma EGD 10/2017 with a minimal hi atal hernia, minimal duodenitis, and minimal gastritis but no H.pylori Surgical History Surgery Date(Month/Year) Right hip replacement in 11/2011 Left hip replacement 2015
--- OUTSIDE RECORDS SUMMARY | 2025-04-03 16:17 | XMS_ITS | Clinical Summary ---
Author Organization [facility] Address [address] [place] [phone] Phone Care Team Providers Care Photoengraving Helper Name Role Phone Kaushal Wilkinson MD Primary Care Provider [phone] Allergies No known active allergies Medications lisinopril (PRINIVIL,ZESTR IL) 10 MG tablet Take by mouth 2 (two) times a day. Active NIFEdipine (PROCARDIA) 10 MG capsule Take by mouth daily. Active rosuvastatin (CRESTOR) 10 MG tablet Take by mouth daily. Active omega 4-dmz-hmk-fish oil 1,000 mg (120 mg-180 mg) Cap [...] this topic Medical Devices Implanted Type Area Folder Stitcher Operator Device Identifier Shelf Expiration Date Model / Serial / Lot Right Hip Brenna Taper Size 3 Hip [id number] Implanted:Qty: 1 on 11/19/2015 by Mac Henley MD at [facility] Left: Hip [employer] 03/27/2018 [id number] / / [id number] Liner Ecima Brenna 36mm - [id number] Implanted:Qty: 1 on 11/19/2015 by Mac Henley MD at [facility] Left: Hip [employer] 04/26/2018 [id number] / / [id number] Minihip Short Stem Size 8 Standard 07/09 130ccd Hip [id number] Implanted:Qty: 1 on 11/19/2015 by Mac Henley MD at [facility] Left: Hip [employer] 07/03/2020 [id number] / / [id number] Biolox Delta Mod Head 36mm X 4mm Hip 568 Implanted:Qty: 1 on 11/19/2015 by Mac Henley MD at [facility] Left: Hip [employer] 05/29/2021 104.5991 / / [id number] Procedures Procedure Name Priority Date/Time Associated Diagnosis Comments BASIC METABOLIC PANEL Routine 10/26/2015 11:05 AM EDT from Last 3 Months or Most Recently Relevant to Health Maintenance Results * (ABNORMAL) Basic metabolic panel (10/26/2015 11:05 AM EDT) SODIUM 137 136 - 145 mmol/L [facility] POTASSIUM 4.7 3.5 - 5.2 mmol/L [facility] CHLORIDE 100 99 - 109 mmol/L [facility] CARBON DIOXIDE 24 20 - 31 mmol/L [facility] ANION GAP 13 3 - 17 [facility] CALCIUM 9.5 8.7 - 10.4 mg/dL [facility] GLUCOSE 141(Abnorm ally H) 74 - 106 mg/dL [facility] UREA NITROGEN (BUN) 19 9 - 23 mg/dl [facility] CREATININE 1.03 0.5 - 1.3 mg/dl [facility] EST GLOM FILT RATE NON- A 76.3 [facility] Comment:Units: ml/min/1.73ms q EST GLOM FILT RATE AMERI 92.4 [facility] Comment: Units: ml/min/1.73msq Reference Table for [...] AM EDT 10/26/2015 12:14 PM EDT Narrative [facility] - 10/26/2015 12:44 PM EDT [facility], [address] [facility] [address] [address], Life Insurance Agent: Shawn Medina M.D. us Mac Henley MD LAB BLOOD ORDERABLES Final Re sult [facility] [address] [place] [address] from Last 3 Months or Most Recently Relevant to Health Maintenance Insurance [employer] TOTAL CHOICE INDEMNITY [employer] TOTAL CHOICE INDEMNITY [facility] TOTAL CHOICE INDEMNITY [facility] TOTAL CHOICE INDEMNITY [facility] TOTAL CHOICE INDEMNITY [facility] TOTAL CHOICE INDEMNITY [facility] TOTAL CHOICE INDEMNITY [facility]OTAL CHOICE [facility] TOTAL CHOICE INDEMNITY [facility] TOTAL CHOICE INDEMNITY Advance Directives For more information, please contact: [phone] (9AM - 5PM [facility], Thursday-Thursday) Documents on File Type Date Recorded Patient Convention Services Manager Expl anation Healthcare Proxy 11/28/2015 1:01 PM * Full Code (Presumed) (Latest Code Status on File) Date Activated Date Inactivated Comments 11/19/2015 5:33 PM 11/22/2015 1:56 PM * Full Code (Presumed) Date Activated Date Inactivated Comments 11/19/2015 10:21 AM 11/19/2015 5:33 PM Care Teams Photoengraving Helper Relationship Specialty Start Date End Date Kaushal Wilkinson MD [address] [place] [id number] PCP - General 01/24/14 Additional Source Comments The information contained in this document represents components of the legal health record. It is not the complete legal health record.[facility]
== END 2025-04-03 14:42 | disposition home or self-care (01) ==
LOC: HO.HMCSH 13:55
PROVIDERS: PCP Internal Medicine; Visit Provider Physician Assistant Medical
DX: E11.9 Type 2 diabetes mellitus without complications (principal); R31.9 Hematuria, unspecified; M25.562 Pain in left knee; G62.9 Polyneuropathy, unspecified; I10 Essential (primary) hypertension; L71.9 Rosacea, unspecified

== ENCOUNTER → 2025-04-03 13:55 | Outpatient (BNVA) | payer MEDICARE, OTHER, SELFPAY | PROVIDERS: PCP Internal Medicine; Visit Provider Physician Assistant Medical | DX: E11.9 Type 2 diabetes mellitus without complications (principal); M25.562 Pain in left knee; M25.462 Effusion, left knee; E11.40 Type 2 diabetes mellitus with diabetic neuropathy, unspecified; I10 Essential (primary) hypertension; L71.9 Rosacea, unspecified | CPT/HCPCS: 83036; 96127; 99212 ==

== ENCOUNTER 2025-04-18 12:52 | Outpatient (AMB) | payer MEDICARE, OTHER, SELFPAY ==
--- OUTSIDE RECORDS SUMMARY | 2024-04-22 03:30 | XMS_ITS ---
Author Organization [facility] Address [address] [place] [phone] Care Team Providers Care Wool Supplier Name Role Phone Minh (RETIRED) Kaushal LEIGH Primary Care Provider Unavailable Juan Miguel Tim Unavailable [phone] REASON FOR VISIT colon screening Problems Problem Type SNOMED Code ICD Code Onset Dates Problem Status W/U Status Risk Notes Problem Diverticular disease of colon (095003738) Diverticulosis of large intestine without perforation or abscess without bleeding (K57.30) Active confirmed Problem Gastroesophageal reflux disease (488591902) Gastroesophageal reflux disease (K21.9) Active confirmed Problem Duodenitis (63094407) Duodenitis (K29.80) Active confirmed Encounters Encounter Location Date Provider Diagnosis [facility] Outpatient [address] [place] [phone] 04/22/2024 Juan Miguel Tim Colon cancer screeni [...] Notes * YAZMIN ADAMSDOB:1945 (79 yo M)Acc No.[id number]:04/22/2024 EGD and COL/MAC Patient: YAZMIN HARDY Provider: Jose Tim MD :1945 A ge:78 Y S ex:Male Date:04/22/2024 Address:[address] [place], [place] [phone] Pcp:Kaushal Wilkinson (RETIRED) MD Subjective: * Chief [...] FLW-UP 10 YRS DOCD, Modifiers: 1P , 79035 UPPER GI ENDOSCOPY, BIOPSY * * The named appointment provid er may or may not be the originator of this progress note, and it is not deemed complete until electronically signed by the appointment provider. Sign off status: Pending * Provider: Jose Tim MD Date: 0 04/22/2024 Generated for Flacai ng/Zulyg/eTransmitting on: 0 04/18/2025 03:44 PM EDT
--- OUTSIDE RECORDS SUMMARY | 2024-09-01 06:00 | XMS_ITS ---
Author Organization [facility] Address [address] [place] [address] Care Team Providers Care Elevator Service Technician Name Role Phone Minh (RETIRED) Kaushal LEIGH Primary Care Provider Juan Miguel Damon [phone] REASON FOR VISIT gerd Encounters Encounter Location Date Provider Diagnosis [facility] 10 [facility] [address] [place] [address] 09/01/2024 Juan Miguel Tim Plan Of Treatment No Information Progress Notes * YAZMIN ADAMSDOB:1945 (79 yo M)Acc No.[id number]:09/01/2024 Progress Notes Patient: YAZMIN HARDY Provider: Jose Tim MD :1945 A ge:78 Y S ex:Male Date:09/01/2024 Address:[address] [place], [place] [phone] Pcp:Kaushal Wilkinson (RETIRED) MD Subjective: * Chief [...] 0 09/01/2024 Generated for Printi ng/Faxing/eTransmitting on: 0 04/18/2025 03:44 PM EDT
--- OUTSIDE RECORDS SUMMARY | 2024-10-28 10:40 | XMS_ITS ---
Author Organization [facility] Address [address] [facility] [address] [place] [address] Care Team Providers Care Baling Machine Operator Name Role Phone Minh (RETIRED) Kaushal LEIGH Primary Care Provider Unavailable Juan Miguel Tim [phone] REASON FOR VISIT Patient presents today for gerd Encounters Encounter Location Date Provider Diagnosis [facility] [address] [address] 10/28/2024 Juan Miguel Tim Plan Of Treatment No Information Progress Notes * YAZMIN ADAMSDOB:1945 (79 yo M)Acc No.[id number]:10/28/2024 Progress Notes Patient: YAZMIN HARDY Provider: Jose Tim MD :1945 A ge:79 Y S ex:Male Date:10/28/2024 Address:[address] [place], [place] [id number] Pcp:Kaushal Wilkinson (RETIRED) MD Subjective: * Chief [...] Tim MD Date: 0 10/28/2024 Generated for Printi ng/Faxing/eTransmitting on: 0 04/18/2025 03:44 PM EDT
--- OUTSIDE RECORDS SUMMARY | 2025-03-28 06:00 | XMS_ITS ---
Author Organization [facility] Edvin sarah Alexys Address [address] [facility] [place] [address] Care Team Providers Care Air Bag Curer Name Role Phone Tremaine Guillen Primary Care Provider Marizol Al Unavailable [phone] REASON FOR VISIT Seen Sooner Medications Medication [...] Encounters Encounter Location Date Provider Diagnosis [facility] [address] [address] 03/28/2025 Marizol Ellington Plan Of Treatment Next Appt Details Provider Name:Marizol martinez, 05/31/2025 01:00:00 PM, [address] [place] [address], [phone], Progress Notes * Real PRUITTDOB:1945 (79 yo M)Acc No.[id number]:03/28/2025 Progress Note Patient: Real HARDY Provider: Phuong Ellington DPM :1945 A ge:79 Y S ex:Male Date:03/28/2025 Address:[address] [place], [place] [address] Pcp:Tremaine Guillen Subjective: * Chief Complaints: * [...] Pending * Provider: Phuong Ellington DPM Date: 03/28/2025 Generated for Diomedes mckinney/Chely/Clare on: 04/18/2025 03:43 PM EDT
--- NOTE | 2025-04-18 12:55 | A.OFFVIS_ITS ---
Intake Visit Reasons: cysto Intake Note: Patient is present for Cystoscopy Labs done : 03/03/25 Total testosterone :255 Urology Medication:FINASTERIDE Antibiotic Allergy:NONE Blood Thinner:NONE cystoscopy disposable scope : Lot# [id number] exp:01/03/2025 Flour Blender Helper Required: No Accompanied by: Self / Same As Patient Allergies No Known Allergies (No Known Allergies*) Allergy (Verified 04/03/25 14:11) HPI Comments Details: Real is a pleasant male. He is a patient of Dr. Wilkinson. He seen for the following urologic conditions - lower urinary tract symptoms Here for cystoscopy Trilobar hypertrophy GreenLight laser recommended Continue with testosterone gel needs to massage into skin until dry Lower urinary tract symptoms background diabetes Progressive Found to have 80 g prostate on ultrasound with 75 cc PVR PVR in office today 50 cc Minimal nocturia Has frequency during the day Postvoid dribbling with relative weakness of stream PSA 07/19 1.0 T 01/18 266 FT 47, 03/20 255 Hypogonadism Previously had been on gel and injectables PFS Medical History (Updated 04/03/25 @ 16:24 by Daniela Mcfadden PA-C) Rosacea Neuropathy Hematuria Left knee pain Swelling of left knee Balance problem Bilateral hip pain Bilateral knee pain Nicotine dependence Sty Type 2 diabetes mellitus with hemoglobin A1c goal of less than 7.0% Osteoarthritis Establishing care with new doctor, encounter for Lower back pain Nicotine use Ambulates with cane Peripheral neuropathy Internal hemorrhoids Diverticulosis Hiatal hernia Arthritis Left leg weakness Diabetes Hyperlipemia HTN (hypertension) Surgical History History of esophagogastroduodenoscopy (EGD) (~2017) Hx of bilateral hip replacements Hx of colonoscopy (~04/22/24) Family History Father History of heart surgery Mother Arthritis Social History Housing: House Are you a primary animal daycare provider to a significant other at home: No Do you presently have visiting nurse or other home services: No Alcohol intake: current Alcohol intake frequency: 3 or more drinks per day Alcohol type: beer Patient Tobacco Use Status: Former Tobacco user Tobacco use type: Cigarette service: No Current occupational status: retired Cognitive needs: Yes (cane) Hearing needs: No Vision needs: Yes (rx glasses) Review of Systems Const Denies chills and Denies fever(s) Card Reports no additional complaints and Denies syncope Resp Denies cough GI Denies abdominal pain and Denies heartburn Reports as per HPI and Denies change in libido Neuro Denies syncope Psych Denies change in libido Endo Denies change in libido Physical Exam Const General: cooperative, healthy appearing, comfortable and no acute distress Orientation/consciousness: patient oriented x3 HEENT Face and sinus: Yes normal facial exam Mouth: moist mucous membranes Neck Neck: Yes normal visual inspection, Yes full ROM and Yes trachea midline Chest Chest palpation & inspection: normal inspection of the chest Resp Effort & Inspection: normal respiratory effort, able to speak in complete sentences and no respiratory distress GI Inspection: Yes normal to inspection Back/Spine/Pelvis Cervical Spine: normal cervical lordosis Thoracic/Lumbar Spine: thoracic and lumbar spine normal to inspection Skin General skin exam: no rashes or lesions noted Neuro General: patient oriented x3, gait normal, tone normal and moves all extremities Extrem General: Yes normal to inspection and Yes capillary refill normal Office Procedures Cystoscopy Consent Discussed risk and benefit or proposed procedure with the patient. Information consent for procedure given to the patient. Discussed technical aspects, risks, benefits and alternatives in full. Addressed all of the patient's questions and concerns regarding the procedure. The patient demonstrated knowledge and understanding. They wish to proceed with this procedure. Preparation The patient was prepped in the usual manner. A track production engineer was present and in the room. Genitalia was prepped with betadine solution in a sterile manner. Lidocaine Jelly 2% was placed into the urethra and 16Fr flexible Olympus cystoscope was inserted into the meatus after adequate lubrication. Procedure Cystoscopy performed using a disposable Urovue digital 16 Namibian cystoscope. Meatus circumcised Urethra anterior and posterior urethra normal Prostatic Urethra trilobar hyperplasia Bladder examination with retroflexion of cystoscope Bladder Orifices normal shape and position Bladder Capacity Normal Trabeculations grade 1/2 Cellule Formation None Diverticulum Formation None Mucosal Erythema None Bladder Tumor None 87260-[id number] DISPOSABLE SCOPE URO-G FLEXIBLE SCOPE Procedure code (CPT) selection complete Office Meds lidocaine HCl 2 % mucosal jelly in applicator Performing Provider: Syd Mcqueen MD Performing Location: [facility] Administered by: Kimberlyn Wade RN on 04/18/25 13:13 Dose Route Admin Location Dispensed Lot Number Expiration Date NDC Pharmacy Resident 10 mL intra-urethral 10 mL nitrofurantoin monohydrate/macrocrystals 100 mg capsule Performing Provider: Syd Mcqueen MD Performing Location: [facility] Administered by: Kimberlyn Wade RN on 04/18/25 13:13 Dose Route Admin Location Dispensed Lot Number Expiration Date NDC Pharmacy Resident 100 mg PO 1 cap Assessment & Plan Assessment & Plan (1) Bladder outlet obstruction: Code(s): N32.0 - Bladder-neck obstruction Category: Medical (2) Incomplete emptying of bladder due to benign prostatic hyperplasia: Code(s): N40.1 - Benign prostatic hyperplasia with lower urinary tract symptoms; R33.9 - Retention of urine, unspecified Category: Medical Plan We discussed the nature of the decision and reasonable options for performing a prostate intervention. Interventions include TURP, GreenLight laser enucleation of the prostate, GreenLight laser ablation of the prostate, transurethral incision of the prostate, and I-Tend prostate procedure. Options such as medical therapy were discussed. The relative uncertainties and benefits related to each alternate procedure were adequately discussed. General surgical risks including, but not limited to, pain, bleeding, infection, myocardial infarction, pulmonary embolus, deep vein thrombosis and cerebrovascular accident which may result in further hospitalization were discussed. Full disclosure of the procedure as well as all major risks, benefits and complications were discussed including but not limited to damage to the urethra or bladder neck, recurrent BPH, retrograde ejaculation, bladder infection, urge, de tulio frequency, incomplete emptying, dysuria, remote chance of erectile dysfunction, epididymitis, and meatal stenosis. The success rate of the procedure was discussed. Success of the procedure in the short-term does not necessarily guarantee that long-term success will be maintained. Suitable follow up will need to be maintained. The patient showed understanding of discussion. An opportunity was provided for questions to be answered and wishes to proceed with the following procedure. - GreenLight laser Orders: Orders AMB Cystoscopy Today R31.9 - Hematuria, unspecified Patient Instructions: This note is constructed using voice recognition software. While every effort has been made to ensure accuracy victorian literature professor errors may have been included. Imaging studies, laboratory and physical exam results were discussed and reviewed in detail. No major barriers to patient understanding were identified. An opportunity to ask questions regarding the treatment plan was provided. All questions were answered. The patient expressed understanding and agreement with the above treatment plan. The patient is aware they should contact our office by phone for worsening of their current condition or the appearance of new urologic symptoms. Compliance is encouraged with any medications and followup testing that is ordered. It is a privilege to participate in the urologic care of your patient. If you have any questions or concerns regarding treatment for the above conditions, or other urologic issues, please do not hesitate to contact me. The office telephone contact is [phone]. Sincerely, Dr Syd Mcqueen MD, [facility] - Urology Compassionate Specialist Care for the Genitourinary System Coding Level of Care Code Est Pt Level 4 (16084) Complex EM visit Add On G2211 Diagnoses Bladder outlet obstruction N32.0 Incomplete emptying of bladder due to benign prostatic hyperplasia N40.1; R33.9 CPT Codes Cystoscopy - CPT: 70047-Gytugsdljr ([id number])
--- OUTSIDE RECORDS SUMMARY | 2025-04-18 15:44 | XMS_ITS | Patient Health Record ---
Author Organization [facility] Address [address] [place] [address] Care Team Providers Care Pressure Controller Name Role Phone Minh (RETIRED) Kaushal LEIGH Primary Care Provider Unavailable Juan Miguel Tim Unavailable [phone] Allergies No Known Allergies Results Component Value Reference Range Notes Glucose, Whole Blood Reviewed date:04/22/2024 01:38:25 PM Interpretation: Performing Lab:[facility], [address] [place] [phone] Notes/Report: Glucose, Whole Blood 151 60-115 mg/dL METER # : [id number] Pathology Reviewed date:10/27/2024 01:21:58 PM Interpretation: Performing Lab:[facility], [address] [place] [phone] Notes/Report: Reason For Referral No Information Medications [...] Problem Status W/U Status Risk Notes Problem 560332847 Colon cancer screening (Z12.11) Active confirmed Problem 073920103 History of adenomatous polyp of colon (Z86.010) Active confirmed Problem Diverticular disease of colon (770987390) Diverticulosis of large intestine without perforation or abscess without bleeding (K57.30) Active confirmed Problem Dysphagia (93940196) Dysphagia (R13.10) Active confirmed Problem Duodenitis (37581711) Duodenitis (K29.80) Active confirmed Problem Gastroesophageal reflux disease (836713650) Gastroesophageal reflux disease (K21.9) Active confirmed Problem 906166591 Gastroesophageal reflux disease, esophagitis presence not specified (K21.9) Active confirmed Problem Gastroesophageal reflux disease (disorder) (912053725) Chronic GERD (K21.9) Active confirmed Encounters Encounter Location Date Provider Diagnosis [facility] Outpatient [address] [place], [place] [phone] 04/22/2024 Juan Miguel Tim Colon cancer screeni ng Z12.11 ; Colon polyps K63.5 ; Diverticulosis of large intestine without perforation or abscess without bleeding K57.30 ; Other hemorrhoids K64.8 ; Gastroesophageal reflux disease K21.9 ; Hiatal hernia K44.9 ; Duodenitis K29.80 and Dysphagia R13.10 [facility] [address] [place] [address] 04/18/2024 Juan Miguel Tim [facility] [address] [place] [address] 04/20/2024 Juan Miguel Tim Chronic GERD K21.9 a nd Dysphagia R13.10 [facility] [address] [place] [address] 04/22/2024 Juan Miguel Tim [facility] [address] [place] [address] 04/26/2024 Juan Miguel Meeta [facility] [address] [place] [address] 07/22/2024 Juan Miguel Meeta [facility] [address] [place] [address] 10/26/2024 Juan Miguel Tim Assessments Encounter Date [...] End Date MEDICARE OF [place] [address] [place] [address] [phone] [id number] YAZMIN ALEJANDRE CAS Self - patient is the insured [employer] ([facility]) [address] [place] [address] [id number] YAZMIN ALEJANDRE CAS Self - patient is the insured Medical (General) History Medical History History ICD Code History of tubular adenomas of the colon removed in 2002--colonoscopies in 2006 and 2011 revealed only hyperplastic polyps, as well as diffuse diverticulosis and internal hemorrhoids Hypertension Hyperlipidemia NIDDM Denies [place],CVA,Lung disease,renal disease Left lower leg injury after [...]
--- OUTSIDE RECORDS SUMMARY | 2025-04-18 15:44 | XMS_ITS | Patient Health Record ---
Author Organization [facility] Address [address] [facility] [place] [address] Care Team Providers Care Freight Broker Name Role Phone Tremaine Guillen Primary Care Provider Marizol Al Unavailable [phone] Allergies No Known Allergies Results Component Value [...] Polyneuropathy due to type 2 diabetes mellitus (380627318) Type 2 diabetes mellitus with diabetic polyneuropathy (E11.42) Active confirmed Problem Acquired hammer toe of right foot (7768098258455317 ) Hammer toe of right foot (M20.41) Active confirmed Problem Neuropathy (886468584) Neuropathy (G62.9) Active confirmed Vital Signs Blood pressure diastolic 70 mm Hg 03/22/2025 Height 6ft 3in in 03/22/2025 Blood pressure systolic 132 mm Hg 03/22/2025 Weight 215 lbs 03/22/2025 BMI 26.87 kg/m2 03/22/2025 Encounters Encounter Location Date Provider Diagnosis [address] [address] 05/03/2024 Marizol Ellington Xerosis of skin L85. 3 ; Ganglion of foot, left M67.472 ; Type 2 diabetes mellitus with diabetic polyneuropathy E11.42 and Tinea unguium B35.[address] [address] 08/02/2024 Marizol Ellington Xerosis of skin L85. 3 ; Ganglion of foot, left M67.472 ; Type 2 diabetes mellitus with diabetic polyneuropathy E11.42 and Tinea unguium B35.[address] [address] 10/12/2024 Marizol Ellington Ganglion of foot, le ft M67.472 ; Hyperhidrosis of feet L74.513 ; Type 2 diabetes mellitus with diabetic polyneuropathy E11.42 ; Tinea unguium B35.1 and Abscess of toe, left L02.[address] [address] 12/28/2024 Marizol Ellington Type 2 diabetes mellitus with diabetic polyneuropathy E11.42 and Tinea unguium B35.[address] [address] 03/22/2025 Marizol Ellington Type 2 diabetes mellitus with diabetic polyneuropathy E11.42 and Tinea unguium B35.[address] [address] 06/08/2024 Marizol Ellington [facility] [address] [place] [address] 03/08/2025 Marizol Ellington Assessments Encounter Date Diagnosis [...] X ray : Foot, right 3V 05/16/2013 23542-Ojnduwgt Plate 09/29/2017 79186-Prmswfei Plate 11/11/2017 08594-Uitbcequ Plate 07/02/2017 39662-Ycwmzqac Plate 12/11/2017 28655-Zxkafshe Plate 02/02/2018 52675-Bsrawpdx Plate 07/16/2018 41878-Cltvflmu Plate Each Additional 01/2017 55349-Rxllxryl Plate Each Additional 52342- Debride <25 sq cm 07/16/2017 09076 I&D ABSCESS- SIMPLE,SINGLE 018 55020 I&D ABSCESS- SIMPLE,SINGLE 018 56534 I&D ABSCESS- SIMPLE,SINGLE 017 35157 I&D ABSCESS- SIMPLE,SINGLE 019 48816, J0702- INJECT or DRAIN, JOINT/BUR SA 05/26/2012, N3283-CVZDV/INJECT, JOINT/BURSA 1 08/24/2011, W0798-SDTWK/INJECT, JOINT/BURSA 1 J4119-IDNDRVWU DYSTROPHIC NAILS ANY # ,H8462-SXM TENDON SHEATH/LIGAMENT 0 12/21/2013,Y8126-QBY TENDON SHEATH/LIGAMENT 0 03/06/2014 O8598-Zqdbirtwy 3mg 06/24/2012 W6581-Gfbwbcizk 3mg 05/26/2012 Next Appt Details Provider Name:Marizol martinez, 05/31/2025 01:00:00 PM, [address] [place], [address], Insurance Providers Payer Name Payer Address Payer Phone Subscriber Number Group Number Insured Name Patient Relationship to Insured Coverage Start Date Coverage End Date Medicare National Govt [facility] [address] [place] [address] [id number] Grammati teodora, Real Self - patient is the insured [facility] ([facility] [address] [place] [address] [phone] [id number] Grammati teodora, Real Self - patient is the insured Medical (General) History Medical History History ICD Code sciatica Diabetic Arthritis Cataracts Surgical History Surgery Date(Month/Year) right hip replacement 12/08/2011 left hip replacement 10/2014 colonoscopy 04/2024
--- OUTSIDE RECORDS SUMMARY | 2025-04-18 15:45 | XMS_ITS | Clinical Summary ---
Author Organization [facility] Address [address] [place] [address] Phone Care Team Providers Care Photolithographer Name Role Phone Kaushal Wilkinson MD Primary Care Provider +1- [phone] Allergies No known active allergies Medications lisinopril (PRINIVIL,ZESTR IL) 10 MG tablet Take by mouth 2 (two) times a day. Active NIFEdipine (PROCARDIA) 10 MG capsule Take by mouth daily. Active rosuvastatin (CRESTOR) 10 MG tablet Take by mouth daily. Active omega 8-ssm-apz-fish oil 1,000 mg (120 mg-180 mg) Cap [...] VACCINE (1 - 1-dose 75+ series) 10/02/2022 INFLUENZA VACCINE (#1) 2025 , 03/31/2019, 06/03/2018, Additional history exists COVID-19 VACCINE (2 - 2024- season) 2025 10/04/2020 SMOKING STATUS SCREENING (Once After 26 Yrs) Completed 02/07/2016 HEPATITIS A [...] this topic Medical Devices Implanted Type Area Mortar Mixer Device Identifier Shelf Expiration Date Model / Serial / Lot Right Hip Brenna Taper Size 3 Hip - [id number] Implanted:Qty: 1 on 11/19/2015 by Mac Henley MD at [facility] Left: Hip [employer] 03/27/2018 [id number] / / [id number] Liner Ecima Brenna 36mm - [id number] Implanted:Qty: 1 on 11/19/2015 by Mac Henley MD at [facility] Left: Hip [employer] 04/26/2018 322.03.636 / / [id number] Minihip Short Stem Size 8 Standard 07/09 130ccd Hip - [id number] Implanted:Qty: 1 on 11/19/2015 by Mac Henley MD at [facility] Left: Hip [employer] 07/03/2020 580.0008 / / [id number] Biolox Delta Mod Head 36mm X 4mm Hip 04 - [id number] Implanted:Qty: 1 on 11/19/2015 by Mac Henley MD at [facility] Left: Hip [employer] 05/29/2021 104.3600 / / [id number] Procedures Procedure Name Priority Date/Time Associated Diagnosis Comments BASIC METABOLIC PANEL Routine 10/26/2015 11:05 AM EDT from Last 3 Months or Most Recently Relevant to Health Maintenance Results * (ABNORMAL) Basic metabolic panel (10/26/2015 11:05 AM EDT) SODIUM 137 136 - 145 mmol/L [facility] POTASSIUM 4.7 3.5 - 5.2 mmol/L [facility] CHLORIDE 100 99 - 109 mmol/L [facility] CARBON DIOXIDE 24 20 - 31 mmol/L [facility] ANION GAP 13 3 - 17 [facility] CALCIUM 9.5 8.7 - 10.4 mg/dL [facility] GLUCOSE 141(Abnorm ally H) 74 - 106 mg/dL [facility] UREA NITROGEN (BUN) 19 9 - 23 mg/dl [facility] CREATININE 1.03 0.5 - 1.3 mg/dl [facility] EST GLOM FILT RATE NON- A 76.3 [facility] Comment:Units: ml/min/1.73ms q EST GLOM FILT RATE AMERI 92.4 [facility] Comment: Units: ml/min/1.73msq Reference Table for [...] 5 AM EDT 10/26/2015 12:14 PM EDT [facility] - 10/26/2015 12:44 PM EDT [facility], [address] [facility] [address], Training And Development Assistant: Shawn Medina M.D. us Mac Henley MD LAB BLOOD ORDERABLES Final Re sult [facility] [address] [place] [address] from Last 3 Months or Most Recently Relevant to Health Maintenance Insurance Source Audio TOTAL CHOICE INDEMNITY Source Audio TOTAL CHOICE INDEMNITY [facility] TOTAL CHOICE INDEMNITY [facility] TOTAL CHOICE INDEMNITY [facility] TOTAL CHOICE INDEMNITY [facility] TOTAL CHOICE INDEMNITY [facility] TOTAL CHOICE INDEMNITY [facility] TOTAL CHOICE INDEMNITY [facility] TOTAL CHOICE [facility] TOTAL CHOICE INDEMNITY Advance Directives For more information, please contact: [phone] (9AM - 5PM [facility], Thursday-Thursday) Documents on File Type Date Recorded Patient Manager Flight Operations Expl anation Healthcare Proxy 11/28/2015 1:01 PM * Full Code (Presumed) (Latest Code Status on File) Date Activated Date Inactivated Comments 11/19/2015 5:33 PM 11/22/2015 1:56 PM * Full Code (Presumed) Date Activated Date Inactivated Comments 11/19/2015 10:21 AM 11/19/2015 5:33 PM Care Teams Photolithographer Relationship Specialty Start Date End Date Mugg, Kaushal Willie, MD [address] [place] [address] PCP - General 01/24/14 Additional Source Comments The information contained in this document represents components of the legal health record. It is not the complete legal health record.[facility]
== END 2025-04-18 13:52 | disposition home or self-care (01) ==
LOC: HO.HUSH 12:52
PROVIDERS: PCP Internal Medicine; Visit Provider Urology
DX: N40.1 Benign prostatic hyperplasia with lower urinary tract symptoms (principal); N32.0 Bladder-neck obstruction; R33.9 Retention of urine, unspecified; R31.9 Hematuria, unspecified; Z13.9 Encounter for screening, unspecified
CPT/HCPCS: 52000; 99214

== ENCOUNTER → 2025-04-18 12:52 | Outpatient (BNVA) | payer MEDICARE, OTHER, SELFPAY | PROVIDERS: PCP Internal Medicine; Visit Provider Urology | DX: R31.9 Hematuria, unspecified (principal); N40.1 Benign prostatic hyperplasia with lower urinary tract symptoms; R33.9 Retention of urine, unspecified; N32.0 Bladder-neck obstruction | CPT/HCPCS: 52000; 81003; 99212 ==

== ENCOUNTER 2025-04-27 06:59 | Outpatient (REF) | payer MEDICARE, OTHER, SELFPAY ==
--- OUTSIDE RECORDS SUMMARY | 2024-04-22 03:30 | XMS_ITS ---
Author Organization [facility] Address [address] [place] [phone] Care Team Providers Care Roller Printing Supervisor Name Role Phone Minh (RETIRED) Kaushal LEIGH Primary Care Provider Unavailable Juan Miguel Tim Unavailable [phone] REASON FOR VISIT colon screening Problems Problem Type SNOMED Code ICD Code Onset Dates Problem Status W/U Status Risk Notes Problem Diverticular disease of colon (391383448) Diverticulosis of large intestine without perforation or abscess without bleeding (K57.30) Active confirmed Problem Gastroesophageal reflux disease (494079678) Gastroesophageal reflux disease (K21.9) Active confirmed Problem Duodenitis (56404757) Duodenitis (K29.80) Active confirmed Encounters Encounter Location Date Provider Diagnosis [facility] [place] [address] [place] [phone] 04/22/2024 Juan Miguel Tim Colon cancer screeni [...] Notes * YAZMIN ADAMSDOB:1945 (79 yo M)Acc No.[id number]:04/22/2024 EGD and COL/MAC Patient: YAZMIN HARDY Provider: Jose Tim MD :1945 A ge:78 Y S ex:Male Date:04/22/2024 Address:[address] [place], [place] [phone] Pcp:Kaushal Wilkinson (RETIRED) MD Subjective: * Chief [...] FLW-UP 10 YRS DOCD, Modifiers: 1P , 40594 UPPER GI ENDOSCOPY, BIOPSY * * The named appointment provid er may or may not be the originator of this progress note, and it is not deemed complete until electronically signed by the appointment provider. Sign off status: Pending * Provider: Jose Tim MD Date: 0 04/22/2024 Generated for Flacai hank/Chely/eTransmitting on: 1 07:02 AM EDT
--- OUTSIDE RECORDS SUMMARY | 2024-09-01 06:00 | XMS_ITS ---
Author Organization [facility] Address [address] [place] [address] Care Team Providers Care Business Reporter Name Role Phone Minh (RETIRED) Kaushal LEIGH Primary Care Provider Juan Miguel Damon [phone] REASON FOR VISIT gerd Encounters Encounter Location Date Provider Diagnosis [facility] 10 [facility] [address] [place] [phone] 09/01/2024 Juan Miguel Tim Plan Of Treatment No Information Progress Notes * YAZMIN ADAMSDOB:1945 (79 yo M)Acc No.[id number]:09/01/2024 Progress Notes Patient: YAZMIN HARDY Provider: Jose Tim MD :1945 A ge:78 Y S ex:Male Date:09/01/2024 Address:[address] [place], [place] [phone] Pcp:Kaushal Wilkinson (RETIRED) MD Subjective: * Chief [...] 09/01/2024 Generated for Flacai ng/Faxing/eTransmitting on: 1 07:02 AM EDT
--- OUTSIDE RECORDS SUMMARY | 2024-10-28 10:40 | XMS_ITS ---
Author Organization [facility] Address 10 [facility] [address] [place] [address] Care Team Providers Care Corporate Associate Attorney Name Role Phone Minh (RETIRED) Kaushal LEIGH Primary Care Provider Unavailable Juan Miguel Tim [phone] REASON FOR VISIT Patient presents today for gerd Encounters Encounter Location Date Provider Diagnosis [facility] [address] [address] 10/28/2024 Juan Miguel Tim Plan Of Treatment No Information Progress Notes * YAZMIN ADAMSDOB:1945 (79 yo M)Acc No.[id number]:10/28/2024 Progress Notes Patient: YAZMIN HARDY Provider: Jose Tim MD :1945 A ge:79 Y S ex:Male Date:10/28/2024 Address:[address] [place], [place] [phone] Pcp:Kaushal Wilkinson (RETIRED) MD Subjective: * Chief [...] 10/28/2024 Generated for Flacai ng/Fadannig/eTransmitting on: 1 07:02 AM EDT
--- OUTSIDE RECORDS SUMMARY | 2025-03-28 06:00 | XMS_ITS ---
Author Organization [facility] Edvin sarah [place] Address [address] [facility] [place] [address] Care Team Providers Care Paper Mill Manager Name Role Phone Tremaine Guillen Primary Care Provider Marizol Al Unavailable [phone] REASON FOR VISIT Seen Sooner Medications Medication [...] Not-Taking Encounters Encounter Location Date Provider Diagnosis [facility] [address] [address] 03/28/2025 Marizol Ellington Plan Of Treatment Next Appt Details Provider Name:Marizol martinez, 05/31/2025 01:00:00 PM, [address] [place] [address], [address], Progress Notes * Real PRUITTDOB:1945 (79 yo M)Acc No.[id number]:03/28/2025 Progress Note Patient: Real HARDY Provider: Phuong Ellington DPM :1945 A ge:79 Y S ex:Male Date:03/28/2025 Address:[address] [place], [place] [id number] Pcp:Tremaine Guillen Subjective: * Chief Complaints: * [...] 0 03/28/2025 Generated for Diomedes mckinney/Chely/Clare on: 07:01 AM EDT
--- OUTSIDE RECORDS SUMMARY | 2025-04-27 07:02 | XMS_ITS | Patient Health Record ---
Author Organization [facility] Address [address] [place] [address] Care Team Providers Care Hospice Care Consultant Name Role Phone Minh (RETIRED) Kaushal LEIGH Primary Care Provider Unavailable Juan Miguel Tim Unavailable [phone] Allergies No Known Allergies Reason For Referral No Information Medications Medication [...] Problem Status W/U Status Risk Notes Problem 708288823 Colon cancer screening (Z12.11) Active confirmed Problem 666504980 History of adenomatous polyp of colon (Z86.010) Active confirmed Problem Diverticular disease of colon (879574267) Diverticulosis of large intestine without perforation or abscess without bleeding (K57.30) Active confirmed Problem Dysphagia (39212062) Dysphagia (R13.10) Active confirmed Problem Duodenitis (03296051) Duodenitis (K29.80) Active confirmed Problem Gastroesophageal reflux disease (001738030) Gastroesophageal reflux disease (K21.9) Active confirmed Problem 554006006 Gastroesophageal reflux disease, esophagitis presence not specified (K21.9) Active confirmed Problem Gastroesophageal reflux disease (disorder) (984890560) Chronic GERD (K21.9) Active confirmed Encounters Encounter Location Date Provider Diagnosis [facility] [address] [place] [address] 07/22/2024 Juan Miguel Tim [facility] [address] [place] [address] 10/26/2024 Juan Miguel Tim Plan Of Treatment Future Test Test Name Order Date COLONOSCOPY 03/09/2012 UPPER GI ENDOSCOPY 09/04/2017 COLONOSCOPY 09/04/2017 COLONOSCOPY 05/21/2023 UPPER GI ENDOSCOPY [place] DILATION OF ESOPH 04/20/2024 Insurance Providers Payer Name Payer Address Payer Phone Subscriber Number Group Number Insured Name Patient Relationship to Insured Coverage Start Date Coverage End Date MEDICARE OF [place] [address] [place] [id number] [phone] [id number] YAZMIN ALEJANDRE CAS Self - patient is the insured [employer] ([facility]ly [facility], Later [facility]) [address] [place] [address] [id number] YAZMIN ALEJANDRE CAS Self - patient is the insured Medical (General) History Medical History History ICD Code History of tubular adenomas of the colon removed in 2002--colonoscopies in 2006 and 2011 revealed only hyperplastic polyps, as well as diffuse diverticulosis and internal hemorrhoids Hypertension Hyperlipidemia NIDDM Denies [place],CVA,Lung disease,renal disease Left lower leg injury after [...]
--- OUTSIDE RECORDS SUMMARY | 2025-04-27 07:03 | XMS_ITS | Patient Health Record ---
Author Organization [facility] Address [address] [facility] [address] Care Team Providers Care Photo Engraver Name Role Phone Tremaine Guillen Primary Care Provider Marizol Al Unavailable [phone] Allergies No Known Allergies Results Component Value [...] a day; Duration: 30 day(s) Not-Soct ing Vitamin D Not-Taking Naprosyn 375 MG 1 tablet Orally Twic e a day; Duration: 30 day(s) 03/14/2014 Not-Scot ing Crestor 20 MG 1 tablet Orally Once a day; Duration: 30 day(s) Not-Scot ing CeleBREX 200 MG 1 capsule Orally Onc e a day; Duration: 30 day(s) 03/06/2014 Not-Csot ing Jardiance 10 MG Oral; Duration: 30 [...] Polyneuropathy due to type 2 diabetes mellitus (778792904) Type 2 diabetes mellitus with diabetic polyneuropathy (E11.42) Active confirmed Problem Acquired hammer toe of right foot (9673232571237254 ) Hammer toe of right foot (M20.41) Active confirmed Problem Neuropathy (940030169) Neuropathy (G62.9) Active confirmed Vital Signs Blood pressure diastolic 70 mm Hg 03/22/2025 Height 6ft 3in in 03/22/2025 Blood pressure systolic 132 mm Hg 03/22/2025 Weight 215 lbs 03/22/2025 BMI 26.87 kg/m2 03/22/2025 Encounters Encounter Location Date Provider Diagnosis [address] [address] 05/03/2024 Marizol Ellington Xerosis of skin L85. 3 ; Ganglion of foot, left M67.472 ; Type 2 diabetes mellitus with diabetic polyneuropathy E11.42 and Tinea unguium B35.[address] [address] 08/02/2024 Marizol Ellington Xerosis of skin L85. 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 ; Type 2 diabetes mellitus with diabetic polyneuropathy E11.42 ; Tinea unguium B35.1 and Abscess of toe, left L02.[address] [address] 12/28/2024 Marizol Ellington Type 2 diabetes mellitus with diabetic polyneuropathy E11.42 and Tinea unguium B35.[address] [address] 03/22/2025 Marizol Ellington Type 2 diabetes mellitus with diabetic polyneuropathy E11.42 and Tinea unguium B35.[address] [address] 06/08/2024 Marizol Ellington [facility] [address] [place] [address] 03/08/2025 Marizol Ellington Assessments Encounter Date Diagnosis [...] X ray : Foot, right 3V 05/16/2013 32185-Agmlbxxl Plate 09/29/2017 74958-Kcvlnxtl Plate 11/11/2017 44391-Csitocvq Plate 07/02/2017 04794-Gzmzijci Plate 12/11/2017 83478-Ogahqfxi Plate 02/02/2018 71560-Kbuqpknl Plate 07/16/2018 36682-Vhtfdlvh Plate Each Additional 01/2017 16295-Tgfoaqnw Plate Each Additional 88322- Debride <25 sq cm 07/16/2017 11191 I&D ABSCESS- SIMPLE,SINGLE 018 23150 I&D ABSCESS- SIMPLE,SINGLE 018 21120 I&D ABSCESS- SIMPLE,SINGLE 017 09731 I&D ABSCESS- SIMPLE,SINGLE 019 13182, J0702- INJECT or DRAIN, JOINT/BUR SA 05/26/2012, R4432-DZVBJ/INJECT, JOINT/BURSA 1 08/24/2011, Z8834-GIMQI/INJECT, JOINT/BURSA 1 E4865-HUEQYHHQ DYSTROPHIC NAILS ANY # ,M1455-GUX TENDON SHEATH/LIGAMENT 0 12/21/2013,O9841-DOQ TENDON SHEATH/LIGAMENT 0 03/06/2014 U1087-Rptfxxeik 3mg 06/24/2012 S9855-Kmqmzpwrp 3mg 05/26/2012 Next Appt Details Provider Name:Marizol martinez, 05/31/2025 01:00:00 PM, [address] [place], [address], Insurance Providers Payer Name Payer Address Payer Phone Subscriber Number Group Number Insured Name Patient Relationship to Insured Coverage Start Date Coverage End Date Medicare National Govt [facility] [address] [place] [place] [address] [id number] Grammati teodora, Real Self - patient is the insured [facility] ([facility]) [address] [place] [address] [id number] Grammati teodora, Real Self - patient is the insured Medical (General) History Medical History History ICD Code sciatica Diabetic Arthritis Cataracts Surgical History Surgery Date(Month/Year) right hip replacement 12/08/2011 left hip replacement 10/2014 colonoscopy 04/2024
--- OUTSIDE RECORDS SUMMARY | 2025-04-27 07:03 | XMS_ITS | Clinical Summary ---
Author Organization [facility] Address [address] [place] [address] Phone Care Team Providers Care Brush Clearing Laborer Name Role Phone Kaushal Wilkinson MD Primary Care Provider +1- [phone] Allergies No known active allergies Medications lisinopril (PRINIVIL,ZESTR IL) 10 MG tablet Take by mouth 2 (two) times a day. Active NIFEdipine (PROCARDIA) 10 MG capsule Take by mouth daily. Active rosuvastatin (CRESTOR) 10 MG tablet Take by mouth daily. Active omega 5-lon-nfz-fish oil 1,000 mg (120 mg-180 mg) Cap [...] this topic Medical Devices Implanted Type Area Sharepoint Manager Device Identifier Shelf Expiration Date Model / Serial / Lot Right Hip Brenna Taper Size 3 Hip - [id number] Implanted:Qty: 1 on 11/19/2015 by Mac Henley MD at [facility] Left: Hip [employer] 03/27/2018 321.03.354 / / [id number] Liner Ecima Brenna 36mm - [id number] Implanted:Qty: 1 on 11/19/2015 by Mac Henley MD at [facility] Left: Hip [employer] 04/26/2018 322.03.636 / / [id number] Minihip Short Stem Size 8 Standard 07/09 130ccd Hip - [id number] Implanted:Qty: 1 on 11/19/2015 by Mac Henley MD at [facility] Left: Hip [employer] 07/03/2020 580.0008 / / [id number] Biolox Delta Mod Head 36mm X 4mm Hip 04 - [id number] Implanted:Qty: 1 on 11/19/2015 by Mac Henley MD at [facility] Left: Hip [employer] 05/29/2021 104.3600 / / [id number] Procedures Procedure Name Priority Date/Time Associated Diagnosis Comments BASIC METABOLIC PANEL Routine 10/26/2015 11:05 AM EDT from Last 3 Months or Most Recently Relevant to Health Maintenance Results * (ABNORMAL) Basic metabolic panel (10/26/2015 11:05 AM EDT) SODIUM 137 136 - 145 mmol/L [facility] POTASSIUM 4.7 3.5 - 5.2 mmol/L [facility] CHLORIDE 100 99 - 109 mmol/L [facility] CARBON DIOXIDE 24 20 - 31 mmol/L [facility] ANION GAP 13 3 - 17 [facility] CALCIUM 9.5 8.7 - 10.4 mg/dL [facility] GLUCOSE 141(Abnorm ally H) 74 - 106 mg/dL [facility] UREA NITROGEN (BUN) 19 9 - 23 mg/dl [facility] CREATININE 1.03 0.5 - 1.3 mg/dl [facility] EST GLOM FILT RATE NON- A 76.3 [facility] Comment:Units: ml/min/1.73ms q EST GLOM FILT RATE AMERI 92.4 [facility] Comment: Units: ml/min/1.73msq Reference Table for [...] 5 AM EDT 10/26/2015 12:14 PM EDT [facility] - 10/26/2015 12:44 PM EDT [facility], [address] [address], Costing Analyst: Shawn Medina M.D. us Mac Henley MD LAB BLOOD ORDERABLES Final Re sult [facility] [address] [place] [address] from Last 3 Months or Most Recently Relevant to Health Maintenance Insurance [employer] TOTAL CHOICE INDEMNITY [employer] TOTAL CHOICE INDEMNITY [facility] TOTAL CHOICE INDEMNITY [facility] TOTAL CHOICE INDEMNITY [facility] TOTAL CHOICE INDEMNITY [facility] TOTAL CHOICE INDEMNITY [facility] TOTAL CHOICE INDEMNITY [facility] TOTAL CHOICE INDEMNITY [facility]ICE [facility] TOTAL CHOICE INDEMNITY Advance Directives For more information, please contact: [phone] (9AM - 5PM [facility], Thursday-Thursday) Documents on File Type Date Recorded Patient Carbon Blocks Press Operator Expl anation Healthcare Proxy 11/28/2015 1:01 PM * Full Code (Presumed) (Latest Code Status on File) Date Activated Date Inactivated Comments 11/19/2015 5:33 PM 11/22/2015 1:56 PM * Full Code (Presumed) Date Activated Date Inactivated Comments 11/19/2015 10:21 AM 11/19/2015 5:33 PM Care Teams Brush Clearing Laborer Relationship Specialty Start Date End Date Mugg, Kaushal Willie, MD [address] [place] [address] PCP - General 01/24/14 Additional Source Comments The information contained in this document represents components of the legal health record. It is not the complete legal health record[facility]
[2025-04-27 10:23] LABS: Appearance Urine Clear; Glucose Urine UA >=1000 mg/dL (Negative); PH 6.0 (5.0-9.0); Specific Gravity - Urine 1.015 (1.005-1.025); UMIC TRIGGER UACC YES
[2025-04-27 10:30] LABS: MANUAL DIFF FLAG NO
[2025-04-27 10:44] LABS: Hematocrit 47.8 % (42.0-52.0); Hemoglobin 16.2 g/dl (14.0-18.0); Imm Gran Abs Auto 0.04 X10*3/uL (0.00-0.03); Imm Gran Pct Auto 0.6 % (0.0-0.4); Lymphocytes Absolute Auto 2.2 X10*3/uL (1.2-4.9); Mean Corpuscular HGB Conc 33.9 g/dl (31.0-36.0); Mean Corpuscular Hemoglobin 33.5 pg (27.0-33.0); Mean Corpuscular Volume 98.8 fL (80.0-98.0); NRBC Abs Auto 0.000 X10*3/uL (0.0-0.012); NRBC Pct Auto 0.0 /100WBC (0.0-0.2); Platelet Count 209 X10*3/uL (160-400); Red Blood Count 4.84 X10*6/uL (4.60-5.80); White Blood Count 6.7 X10*3/uL (4.8-10.8)
[2025-04-27 10:52] LABS: UACC Culture Trigger YES
[2025-04-27 11:14] LABS: PSA,Total (Free>4and<10) 1.36 ng/mL (0.00-4.00)
[2025-04-27 11:18] LABS: Alanine Aminotransferase 30 U/L (0-40); Albumin Level 4.7 g/dL (3.5-5.0); Alkaline Phosphatase 65 U/L (39-117); Anion Gap 14 (12-20); Aspartate Amino Transferase 38 U/L (5-37); Blood Urea Nitrogen 9 mg/dL (9-16); Calcium 9.8 mg/dL (8.4-10.2); Carbon Dioxide 26 mmol/L (22-29); Chloride 102 mmol/L (96-108); Cholesterol 154 mg/dL (<200); Estimated Glomerular Filt Rate > 60; HDL Cholesterol 68 mg/dL (>40); Magnesium 2.0 mg/dL (1.6-2.6); Potassium 4.5 mmol/L (3.3-5.1); Sodium 137 mmol/L (135-145); Total Protein 8.1 g/dL (6.5-8.0); Triglycerides 83 mg/dL (<150)
[2025-04-27 11:47] LABS: Folate 7.6 ng/mL (> or = 4.0); Vitamin B12 233 pg/mL (200-900)
[2025-04-27 12:44] LABS: Microalbum/Creatinine Ratio Ur 104.9 ug/mg cr (<30)
[2025-05-01 23:04] LABS: Immunoglobulin A 401 mg/dL (70-320); Transglutaminase Ab IgG <1.0 U/mL
[2025-05-04 07:08] LABS: Insulin Auto Antibody <0.4 U/mL (<0.4)
== END 2025-04-27 07:00 | disposition home or self-care (01) ==
LOC: HO.HMGCLDS 06:59
PROVIDERS: Visit Provider Physician Assistant Medical
DX: Z00.00 Encounter for general adult medical examination without abnormal findings (principal); Z23 Encounter for immunization; Z12.5 Encounter for screening for malignant neoplasm of prostate; E11.9 Type 2 diabetes mellitus without complications; I10 Essential (primary) hypertension; E78.5 Hyperlipidemia, unspecified; R10.9 Unspecified abdominal pain; R14.0 Abdominal distension (gaseous); N40.1 Benign prostatic hyperplasia with lower urinary tract symptoms; R33.9 Retention of urine, unspecified; N39.0 Urinary tract infection, site not specified; B37.9 Candidiasis, unspecified; R60.0 Localized edema; F10.90 Alcohol use, unspecified, uncomplicated; F17.200 Nicotine dependence, unspecified, uncomplicated; Z71.6 Tobacco abuse counseling; Z79.899 Other long term (current) drug therapy
CPT/HCPCS: 36415; 80053; 80061; 80076; 81001; 82043; 82248; 82306; 82570; 82607; 82746; 82784; 83735; 84153; 84443; 85025; 86140; 86337; 86341; 86364; 87086; 87088; 90471; 90656; 93005; 96127; 99212; 99397

== ENCOUNTER 2025-04-27 10:20 | Outpatient (AMB) | payer MEDICARE, OTHER, SELFPAY ==
[2025-04-27 10:23] VITALS: BP 144/90; PULSE 80; RESP 16; TEMP 35.8; O2SAT 99; BMI 28.3
--- NOTE | 2025-04-27 10:23 | A.OFFPC_ITS ---
Vital Signs 04/27/25 10:23 04/27/25 13:14 04/27/25 13:14 Height 6 ft 2.96 in Weight 226 lb 4 oz BMI 28.3 BP 144/90 H 133/79 134/70 Blood Pressure Location Lt brachial Lt brachial Rt brachial Position Sitting Respiration 16 Pulse 80 Pulse Source Pulse Oximeter Temp 96.4 F L Temp Source Temporal Artery Scan Pulse Oximetry (%) 99 Oxygen Delivery Method Room Air Intake Visit Reasons: f/u labs/BP Salon Coordinator Required: No Allergies No Known Allergies (No Known Allergies*) Allergy (Verified 04/27/25 13:14) Medication List - Last Reconciled 04/27/25 by Daniela Mcfadden PA-C atorvastatin 10 mg PO DAILY empagliflozin (Jardiance) 10 mg PO DAILY finasteride 5 mg PO DAILY 90 days gabapentin 100 mg PO BID lisinopril 20 mg PO DAILY metformin ER 500 mg PO DAILY naproxen 500 mg PO BID nifedipine ER 30 mg PO DAILY testosterone 50 mg transdermal DAILY 30 days Tobacco use date assessed: 04/27/25 Dental Screening Dental Screen Date: 04/27/25 Did you have a dental visit in the last 12 months?: No HPI f/u labs/BP HPI Details The patient is a 79-year-old male presenting for a routine physical examination and management of chronic conditions. The patient has a history of hypertension, with current readings of 133/79 mmHg and 134/70 mmHg, which are consistent with home measurements. He is currently on lisinopril 20 mg daily and nifedipine extended release 30 mg daily for blood pressure management. The patient reports a red eye, diagnosed as conjunctivitis, with no associated pain. A topical antibiotic and warm compresses were recommended for treatment. The patient has type 2 diabetes mellitus, managed with metformin and Jardiance. His hemoglobin A1c was 6.1% last month, indicating good control. He reports taking metformin 1000 mg once daily, but plans to reduce to 500 mg once daily due to concerns about side effects. The patient has benign prostatic hyperplasia, with a history of increased urinary frequency and an enlarged prostate noted on examination. He has undergone a procedure involving TURP and green laser, which has increased his urinary frequency. The patient was found to have a urinary tract infection, with bacteria and sugar present in the urine. He is also diagnosed with candidiasis and prescribed Diflucan for treatment. The patient reports peripheral edema, particularly in the left ankle, which swells more than the right. He has not sustained any recent injuries to the area. The patient admits to alcohol use, consuming beer regularly, and expresses concern about potential alcohol use disorder. He also uses nicotine pouches, indicating nicotine dependence. Social History - Living Situation: The patient is a wid ower and lives alone. - Substance Use: Regular alcohol consump tion and use of nicotine pouches. - Mobility: Uses a walker and cane for s upport due to balance issues. - Daily Activities: Engages in grocery s hopping and other activities independently. [facility] Medical History (Updated 04/27/25 @ 13:19 by Daniela Mcfadden PA-C) Alcohol use disorder Candidiasis UTI (urinary tract infection) Annual physical exam Pedal edema Rosacea Neuropathy Hematuria Left knee pain Swelling of left knee Balance problem Bilateral hip pain Bilateral knee pain Nicotine dependence Sty Type 2 diabetes mellitus with hemoglobin A1c goal of less than 7.0% Osteoarthritis Establishing care with new doctor, encounter for Lower back pain Nicotine use Ambulates with cane Peripheral neuropathy Internal hemorrhoids Diverticulosis Hiatal hernia Arthritis Left leg weakness Diabetes Hyperlipemia HTN (hypertension) Surgical History History of esophagogastroduodenoscopy (EGD) (~2017) Hx of bilateral hip replacements Hx of colonoscopy (~04/22/24) Family History Father History of heart surgery Mother Arthritis Social History Housing: House Are you a primary day care attendant to a significant other at home: No Do you presently have visiting nurse or other home services: No Alcohol intake: current Alcohol intake frequency: 3 or more drinks per day Alcohol type: beer Patient Tobacco Use Status: Former Tobacco user Tobacco use type: Cigarette service: No Current occupational status: retired Cognitive needs: Yes (cane) Hearing needs: No Vision needs: Yes (rx glasses) Questionnaire PHQ-9 Over the last 2 weeks, how often have you been bothered by any of the following problems? 1. Little interest or pleasure in doing things: not at all 2. Feeling down, depressed, or hopeless: not at all 3. Trouble falling or staying asleep, or sleeping too much: not at all 4. Feeling tired or having little energy: not at all 5. Poor appetite or overeating: not at all 6. Feeling bad about yourself - or that you are a failure or have let yourself or your family down: not at all 7. Trouble concentrating on things, such as reading the newspaper or watching television: not at all 8. Moving or speaking so slowly that other people could have noticed. Or the opposite - being so fidgety or restless that you have been moving around a lot more than usual: not at all 9. Thoughts that you would be better off or of hurting yourself in some way: not at all Total score: 0 Depression Screening Interpretation: Negative Depression Screening Done: Yes 03252 - PHQ-9 Billing: Yes Source: Developed by Drs. Juan Miguel Klein, Joyce Jiménez, Mark Beaver and colleagues, with an educational evelia from [employer] Thrive Questionnaire Date Thrive assessed: 04/27/25 I am a: Patient What is your living situation today?: I have a steady place to live Within the past 12 months, did the food you bought not last and you didn't have the money to get more?: Never true Within the past 12 months, did you worry whether your food would run out before you got money to buy more?: Never true Do you have trouble paying for medicines?: No Do you have trouble getting transportation to medical appointments?: No Do you have trouble paying your heating and electricity bill?: No Do you have trouble taking care of your child, family member or friend?: Yes Do you have trouble with day-to-day activities such as bathing, preparing meals, shopping, managing finances, etc.?: No Are you currently unemployed and looking for a job?: No Are you interested in more education?: No Please select the resources that you would like help with: None Currently or been in a relationship where the following occur: No concerns reported THRIVE Score: 0 AUDIT C Alcohol Use Questionnaire (AUDIT-C) 1. How often do you have a drink containing alcohol?: 4 or more times a week 2. How many drinks containing alcohol do you have on a typical day when you are drinking?: 3 or 4 3. How often do you have six or more drinks on one occasion?: Never Total Score: 5 Score Reviewed/Action Taken: No SHARLENE-7 AMB Questionnaire SHARLENE-7 Date SHARLENE - 7 assessed: 01/30/25 Feeling nervous, anxious, or on edge: 0 = Not at all Not being able to stop or control worryin = Not at all Worrying too much about different things: 0 = Not at all Trouble relaxin = Not at all Being so restless that it is hard to sit still: 0 = Not at all Becoming easily annoyed or irritable: 0 = Not at all Feeling afraid as if something awful might happen: 0 = Not at all Total SHARLENE-7 score (0-4 normal; 5-9 mild; 10-14 moderate; 15-21 severe): 0 Source: Developed by Drs. Juan Miguel Klein, Joyce Jiménez, Mark Beaver and colleagues, with an educational evelia from [employer] SHARLENE-7 Assessment Billing SHARLENE-7 Assessment Tool: SHARLENE-7 Assessment 73441 Review of Systems Const Details: - Cardiovascular: Denies chest pain or palpitations. - Respiratory: Denies cough or dyspnea. - Ophthalmic: Reports redness in the eye without pain. - Genitourinary: Reports increased urinary frequency and previous hematuria. - Neurological: Reports balance issues and lightheadedness. - Musculoskeletal: Reports swelling in the left ankle, denies recent injury. All systems reviewed & are unremarkable except as noted in HPI and below Physical exam (Primary Care) Vital Signs: Last Vital Signs Temp 96.4 F L 04/27/25 10:23 Pulse 80 04/27/25 10:23 Resp 16 04/27/25 10:23 BP 144/90 H 04/27/25 10:23 Pulse Ox 99 04/27/25 10:23 Oxygen Delivery Method Room Air 04/27/25 10:23 Care Plan Goal for BP management: <140/90 at Goal BMI result Body Mass Index 28.3 BMI Assessment/Plan discussion: High BMI High, discussed plan: lifestyle, weight reduction, dietary, physical activity, alcohol moderation and other Tobacco/Smoking Status: Tobacco use Status Tobacco use date assessed 04/27/25 04/27/25 10:27 Patient Tobacco Use Status Former Tobacco user 10/02/25 10:27 Tobacco use type Cigarette 04/27/25 10:27 PHQ-9: PHQ-9 Score PHQ-9: Total score 0 04/27/25 10:47 Depression Screening Interpretation: Negative Thrive Assessment: Date of Thrive Assessment Date Thrive assessed 04/27/25 04/27/25 10:27 Currently or been in a relationship where the following occur: No concerns reported Const Other: Appearance: Alert. Oriented X3. No acute distress. Head: Normal external exam. Normocephalic. Atraumatic. Eyes: Pupils are equal, round, and reactive to light. Extraocular movements intact. Conjunctiva and sclera normal. Eyelids normal. The left eye is slightly red, possibly due to a sty. Ears: External auditory canal normal. Tympanic membranes normal. Some wax present in both ears. Throat: Pharynx normal. Uvula midline. Moist mucous membranes. Neck: Normal inspection. Neck supple. Full range of motion. No adenopathy. Thyroid Normal. No meningeal signs. No neck mass noted. Cardiovascular: Normal heart rate and rhythm. Heart sound normal. No murmurs noted. Pulses normal throughout. Respiratory: No respiratory distress. Painless inspiration. Breath sounds normal. No wheezes/rales/rhonchi noted. Chest nontender. No accessory muscle usage noted or decreased air movement noted. Abdomen: Soft and nontender. Bowel sounds normal in all 4 quadrants. No distention noted. No organomegaly noted. No visible injury noted. Back: No costovertebral angle tenderness. Full range of motion noted. Skin: Skin warm and dry. Normal skin color. Normal skin turgor. No rashes/lesions/lacerations noted. : Normal prostate exam. Normal rectal exam. Negative stool occult. Normal penile exam. Extremities: No lower extremity edema. Extremities exhibit normal range of motion. Extremities nontender. Left ankle shows swelling. Neuro: Oriented X 3. No motor deficit. No sensory deficit. Reflexes normal. Balance issues noted, patient uses a walker at home. Office Procedures Flu Questionnaire Does the patient have a severe egg allergy?: No Does the patient have severe life threatening allergies?: No Does the patient have a fever or illness today?: No Has the patient ever had Guillain-Valier Syndrome?: No Has the patient ever had any past reaction to a flu shot?: No Comment: Stool occult negative performed in office Immunizations Fluarix [id number] (PF) 45 mcg (15 mcg x 3)/0.5 mL IM syringe Performing Provider: Daniela Mcfadden PA-C Performing Location: [facility] [place] [facility] Administered by: Kylah Savage CMA on 04/27/25 10:46 Dose Route Admin Location Dispensed Lot Number Expiration Date NDC Commissions Manager 0.5 mL IM Right Deltoid 0.5 mL [id number] 01/23/26 [id number] [employer] VIS Given Date VIS Provided VIS Publication Date 04/27/25 Single Vaccine 24 Eligibility Eligibility Date Funding Source Not [facility] Eligible 04/27/25 Private Results Reviewed Results Reviewed: - Labs: CBC normal, no anemia, normal platelet and white blood cell counts. - Labs: Hemoglobin A1c at 6.1% last month. - Labs: Urinalysis showed bacteria and glucose, indicating infection and glycosuria. Coding Level of Care Code Est Pt Level 4 (96010) Est Pt Prev Care >65y(34057) Diagnoses Annual physical exam Z00.00 HTN (hypertension) I10 Sty H00.019 Type 2 diabetes mellitus with hemoglobin A1c goal of less than 7.0% E11.9 Incomplete emptying of bladder due to benign prostatic hyperplasia N40.1; R33.9 UTI (urinary tract infection) N39.0 Candidiasis B37.9 Pedal edema R60.0 Alcohol use disorder F10.90 Nicotine dependence F17.200 Additional Codes SHARLENE-7 Assessment Billing - SHARLENE-7 Assessment Tool: SHARLENE-7 Assessment 37867 ([id number]) PHQ-9 - 36673 - PHQ-9 Billing: Yes ([id number]) Time Spent (min) 60 Assessment & Plan Assessment & Plan (1) Annual physical exam: Code(s): Z00.00 - Encounter for general adult medical examination without abnormal findings Category: Medical (2) HTN (hypertension): Code(s): I10 - Essential (primary) hypertension Category: Medical Plan: The patient's blood pressure readings were 133/79 mmHg and 134/70 mmHg, consistent with home measurements. He is currently on lisinopril 20 mg daily and nifedipine extended release 30 mg daily for management. (3) Sty: Code(s): H00.019 - Hordeolum externum unspecified eye, unspecified eyelid Category: Medical Plan: The patient presents with conjunctivitis, characterized by redness without pain. A topical antibiotic and warm compresses were recommended for treatment. (4) Type 2 diabetes mellitus with hemoglobin A1c goal of less than 7.0%: Code(s): E11.9 - Type 2 diabetes mellitus without complications Category: Medical Plan: The patient's diabetes is managed with metformin and Jardiance, with a recent hemoglobin A1c of 6.1%. He plans to reduce metformin to 500 mg once daily due to concerns about side effects. (5) Incomplete emptying of bladder due to benign prostatic hyperplasia: Code(s): N40.1 - Benign prostatic hyperplasia with lower urinary tract symptoms; R33.9 - Retention of urine, unspecified Category: Medical Plan: The patient has benign prostatic hyperplasia with increased urinary frequency and an enlarged prostate noted on examination. He has undergone TURP and green laser procedures, which have increased urinary frequency. (6) UTI (urinary tract infection): Code(s): N39.0 - Urinary tract infection, site not specified Category: Medical Plan: The patient was diagnosed with a urinary tract infection, with bacteria and glucose present in the urine. Treatment with antibiotics was discussed, and follow-up urinalysis was planned to ensure resolution. (7) Candidiasis: Code(s): B37.9 - Candidiasis, unspecified Category: Medical Plan: The patient was diagnosed with candidiasis and prescribed Diflucan for treatment. He was instructed to take two doses, three days apart. (8) Pedal edema: Code(s): R60.0 - Localized edema Category: Medical Plan: The patient reports swelling in the left ankle, more than the right, with no recent injuries. Referral to a vascular surgeon was suggested for further evaluation of venous insufficiency. (9) Alcohol use disorder: Code(s): F10.90 - Alcohol use, unspecified, uncomplicated Category: Medical Plan: The patient admits to regular alcohol consumption and expresses concern about potential alcohol use disorder. Discussion about the impact of alcohol on health and potential need for intervention was initiated. (10) Nicotine dependence: Code(s): F17.200 - Nicotine dependence, unspecified, uncomplicated Category: Medical Plan: The patient uses nicotine pouches, indicating nicotine dependence. Counseling on cessation and potential health impacts was discussed. Plan Plan Patient was informed and verbally consented to the use of an ambient scribe for clinic note documentation during this visit. 1. Hypertension The patient's blood pressure readings were 133/79 mmHg and 134/70 mmHg, consistent with home measurements. He is currently on lisinopril 20 mg daily and nifedipine extended release 30 mg daily for management. 2. Conjunctivitis The patient presents with conjunctivitis, characterized by redness without pain. A topical antibiotic and warm compresses were recommended for treatment. 3. Type 2 Diabetes Mellitus The patient's diabetes is managed with metformin and Jardiance, with a recent hemoglobin A1c of 6.1%. He plans to reduce metformin to 500 mg once daily due to concerns about side effects. 4. Benign Prostatic Hyperplasia The patient has benign prostatic hyperplasia with increased urinary frequency and an enlarged prostate noted on examination. He has undergone TURP and green laser procedures, which have increased urinary frequency. 5. Urinary Tract Infection The patient was diagnosed with a urinary tract infection, with bacteria and glucose present in the urine. Treatment with antibiotics was discussed, and follow-up urinalysis was planned to ensure resolution. 6. Candidiasis The patient was diagnosed with candidiasis and prescribed Diflucan for treatment. He was instructed to take two doses, three days apart. 7. Peripheral Edema The patient reports swelling in the left ankle, more than the right, with no recent injuries. Referral to a vascular surgeon was suggested for further evaluation of venous insufficiency. 8. Alcohol Use Disorder The patient admits to regular alcohol consumption and expresses concern about potential alcohol use disorder. Discussion about the impact of alcohol on health and potential need for intervention was initiated. 9. Nicotine Dependence The patient uses nicotine pouches, indicating nicotine dependence. Counseling on cessation and potential health impacts was discussed. During the visit, we discussed the management of hypertension with current medications, including lisinopril and nifedipine. For conjunctivitis, a topical antibiotic and warm compresses were recommended. We reviewed the patient's diabetes management, noting a recent hemoglobin A1c of 6.1%, and discussed reducing metformin dosage due to side effects. The patient was informed about the urinary tract infection and candidiasis, with plans for antibiotic treatment and Diflucan prescription. We also addressed the patient's peripheral edema, suggesting a referral to a vascular surgeon for further evaluation. The patient expressed concerns about alcohol use, and we discussed potential impacts on health and the possibility of intervention. Nicotine dependence was acknowledged, and counseling on cessation was provided. Orders: Orders Influenza [id number] Immunization Today Z23 - Encounter for immunization Microalbumin, Random (w Creat) Today E11.9 - Type 2 diabetes mellitus without complications Glutamic acid decarboxylase Ab Today E11.9 - Type 2 diabetes mellitus without complications Transglutaminase IgA Today R14.0 - Abdominal distension (gaseous) Insulin Auto Antibody Today E11.9 - Type 2 diabetes mellitus without complications Celiac Disease Panel Today R10.9 - Unspecified abdominal pain Transglutaminase Ab IgG Today R14.0 - Abdominal distension (gaseous) Referrals Home Health Referral E11.9 - Type 2 diabetes mellitus without complications, G62.9 - Polyneuropathy, unspecified, I10 - Essential (primary) hypertension, M19.90 - Unspecified osteoarthritis, unspecified site, M25.462 - Effusion, left knee, M25.551 - Pain in right hip, M25.552 - Pain in left hip, M25.561 - Pain in right knee, M25.562 - Pain in left knee, M54.50 - Low back pain, unspecified, R26.89 - Other abnormalities of gait and mobility Vascular Surgery Referral I10 - Essential (primary) hypertension, R60.0 - Localized edema Medications: New walker (Ultra-Light Rollator misc) for ambulating daily 1 ea 0RF erythromycin 0.5 inches ophthalmic (eye) QID 3.5 grams 0RF cane use daily while ambulating 1 ea 0RF M19.90 - Unspecified osteoarthritis, unspecified site, M25.462 - Effusion, left knee, M25.551 - Pain in right hip, M25.552 - Pain in left hip, M25.561 - Pain in right knee, M25.562 - Pain in left knee, M54.50 - Low back pain, unspecified, R26.89 - Other abnormalities of gait and mobility, R60.0 - Localized edema cane use daily while ambulating 1 ea 0RF M19.90 - Unspecified osteoarthritis, unspecified site, M25.462 - Effusion, left knee, M25.551 - Pain in right hip, M25.552 - Pain in left hip, M25.561 - Pain in right knee, M25.562 - Pain in left knee, M54.50 - Low back pain, unspecified, R26.89 - Other abnormalities of gait and mobility, R60.0 - Localized edema walker (Ultra-Light Rollator mis) for ambulating daily 1 ea 0RF fluconazole 150 mg PO Q3D 2 tabs 2RF 6 days Refilled gabapentin 100 mg PO BID 180 caps 3RF Patient Instructions: - Continue taking lisinopril and nifedipine as prescribed for blood pressure management. - Apply warm compresses and use the prescribed topical antibiotic for conju nctivitis. - Adjust metformin dosage to 500 mg once daily and monitor blood sugar levels. - Take Diflucan as prescribed for candidiasis, with doses three days apart. - Follow up with a vascular surgeon for evaluation of peripheral edema. - Consider reducing alcohol consumption and seek support if needed. - Explore options for nicotine cessation and consider counseling.
[2025-04-27 13:14] VITALS: BP 133/79; BP 134/70
== END 2025-04-27 11:49 | disposition home or self-care (01) ==
PROVIDERS: PCP Internal Medicine; Visit Provider Physician Assistant Medical
DX: Z00.00 Encounter for general adult medical examination without abnormal findings (principal); E11.9 Type 2 diabetes mellitus without complications; B37.9 Candidiasis, unspecified; I10 Essential (primary) hypertension; H00.016 Hordeolum externum left eye, unspecified eyelid; N40.1 Benign prostatic hyperplasia with lower urinary tract symptoms; R33.9 Retention of urine, unspecified; N39.0 Urinary tract infection, site not specified; R60.0 Localized edema; F10.90 Alcohol use, unspecified, uncomplicated; F17.200 Nicotine dependence, unspecified, uncomplicated; Z23 Encounter for immunization

== ENCOUNTER 2025-05-11 08:35 | Outpatient (REF) | payer MEDICARE, OTHER, SELFPAY ==
--- OUTSIDE RECORDS SUMMARY | 2024-02-24 06:00 | XMS_ITS ---
Author Organization [facility] [place] Address [address] [place] [address] Care Team Providers Care Assistant Baseball Coach Name Role Phone Tremaine Guillen Primary Care Provider Marizol Al [phone] Encounters Encounter Location Date Provider Diagnosis [address] [address] 02/24/2024 Marizol Ellington Plan Of Treatment Next Appt Details Provider Name:Marizol martinez, 05/31/2025 01:00:00 PM, [address] [place] [address], [phone], Progress Notes * Real ADAMSDOB:1945 (79 yo M)Acc No.[id number]:02/24/2024 Progress Note Patient: Real HARDY Provider: Phuong Ellington DPM :1945 A ge:78 Y S ex:Male Date:02/24/2024 Address:[address] [place] [address] [id number] Pcp:Tremaine Guillen Subjective: * Chief Complaints: * [...] 02/24/2024 Generated for Diomedes mckinney/Chely/Clare on: 1 09:07 AM EDT
--- OUTSIDE RECORDS SUMMARY | 2024-04-08 08:00 | XMS_ITS ---
Author Organization [facility] keara [place] Address [address] [place] [phone] Care Team Providers Care Director Of Direct Marketing Name Role Phone Tremaine Guillen Primary Care Provider Marizol Al [phone] REASON FOR VISIT seen sooner Encounters Encounter Location Date Provider Diagnosis [address] [address] 04/08/2024 Marizol Ellington Plan Of Treatment Next Appt Details Provider Name:Marizol martinez, 05/31/2025 01:00:00 PM, [address] [place] [address], [phone], Progress Notes * Real ADAMSDOB:1945 (79 yo M)Acc No.[id number]:04/08/2024 Progress Note Patient: Real HARDY Provider: Phuong Ellington DPM :1945 A ge:78 Y S ex:Male Date:04/08/2024 Address:[address] [place] [address] [place] Pcp:Tremaine Guillen Subjective: * Chief Complaints: * [...] 0 04/08/2024 Generated for Diomedes Sommers/Clare on: 1 09:06 AM EDT
--- OUTSIDE RECORDS SUMMARY | 2024-04-22 03:30 | XMS_ITS ---
Author Organization [facility] Address [address] [place] [phone] Care Team Providers Care Landcare Officer Name Role Phone Minh (RETIRED) Kaushal LEIGH Primary Care Provider Unavailable Juan Miguel Tim Unavailable [phone] REASON FOR VISIT colon screening Problems Problem Type SNOMED Code ICD Code Onset Dates Problem Status W/U Status Risk Notes Problem Diverticular disease of colon (360776109) Diverticulosis of large intestine without perforation or abscess without bleeding (K57.30) Active confirmed Problem Gastroesophageal reflux disease (451382244) Gastroesophageal reflux disease (K21.9) Active confirmed Problem Duodenitis (29757525) Duodenitis (K29.80) Active confirmed Encounters Encounter Location Date Provider Diagnosis [facility] Out[place] [address] [place] [phone] 04/22/2024 Juan Miguel iTm Colon cancer screeni ng Z12.11 ; Colon [...] Notes * YAZMIN ADAMSDOB:1945 (79 yo M)Acc No.[id number]:04/22/2024 EGD and COL/MAC Patient: YAZMIN HARDY Provider: Jose Tim MD :1945 A ge:78 Y S ex:Male Date:04/22/2024 Address:[address] [place], [place] [phone] Pcp:Kaushal Wilkinson (RETIRED) MD Subjective: * Chief [...] FLW-UP 10 YRS DOCD, Modifiers: 1P , 93229 UPPER GI ENDOSCOPY, BIOPSY * * The named appointment provid er may or may not be the originator of this progress note, and it is not deemed complete until electronically signed by the appointment provider. Sign off status: Pending * Provider: Jose Tim MD Date: 0 04/22/2024 Generated for Flacai hank/Chely/eTransmitting on: 1 09:07 AM EDT
--- OUTSIDE RECORDS SUMMARY | 2024-09-01 06:00 | XMS_ITS ---
Author Organization [facility] Address [address] [place] [address] Care Team Providers Care Regional Climate Change Analyst Name Role Phone Minh (RETIRED) Kaushal LEIGH Primary Care Provider Juan Miguel Damon [phone] REASON FOR VISIT gerd Encounters Encounter Location Date Provider Diagnosis [facility] 10 [facility] [address] [place] [phone] 09/01/2024 Juan Miguel Tim Plan Of Treatment No Information Progress Notes * YAZMIN ADAMSDOB:1945 (79 yo M)Acc No.[id number]:09/01/2024 Progress Notes Patient: YAZMIN HARDY Provider: Jose Tim MD :1945 A ge:78 Y S ex:Male Date:09/01/2024 Address:[address] [place], [place] [phone] Pcp:Kaushal Wilkinson (RETIRED) MD Subjective: * Chief [...] Tim MD Date: 0 09/01/2024 Generated for Printi ng/Faxing/eTransmitting on: 1 09:06 AM EDT
--- OUTSIDE RECORDS SUMMARY | 2024-10-28 10:40 | XMS_ITS ---
Author Organization [facility] Address 10 [facility] [address] [place] [address] Care Team Providers Care Dust Sampler Name Role Phone Minh (RETIRED) Kaushal LEIGH Primary Care Provider Unavailable Juan Miguel Tim [phone] REASON FOR VISIT Patient presents today for gerd Encounters Encounter Location Date Provider Diagnosis [facility] [address] [address] 10/28/2024 Juan Miguel Tim Plan Of Treatment No Information Progress Notes * YAZMIN ADAMSDOB:1945 (79 yo M)Acc No.[id number]:10/28/2024 Progress Notes Patient: YAZMIN HARDY Provider: Jose Tim MD :1945 A ge:79 Y S ex:Male Date:10/28/2024 Address:[address] [place], [place] [phone] Pcp:Kaushal Wilkinson (RETIRED) MD Subjective: * Chief [...] 10/28/2024 Generated for Flacai ng/Fadannig/eTransmitting on: 1 09:07 AM EDT
--- OUTSIDE RECORDS SUMMARY | 2025-03-28 06:00 | XMS_ITS ---
Author Organization [facility] Edvin sarah Alexys Address [address] [facility] [place] [address] Care Team Providers Care Proof Carrier Name Role Phone Tremaine Guillen Primary Care Provider Marizol Al Unavailable [phone] REASON FOR VISIT Seen Sooner Medications Medication [...] Not-Taking Encounters Encounter Location Date Provider Diagnosis [facility] [address] [address] 03/28/2025 Marizol Ellington Plan Of Treatment Next Appt Details Provider Name:Marizol martinez, 05/31/2025 01:00:00 PM, [address] [place] [address], [address], Progress Notes * Real PRUITTDOB:1945 (79 yo M)Acc No.[id number]:03/28/2025 Progress Note Patient: Real HARDY Provider: Phuong Ellington DPM :1945 A ge:79 Y S ex:Male Date:03/28/2025 Address:[address] [place], [place] [address] Pcp:Tremaine Guillen Subjective: * Chief Complaints: * [...] 0 03/28/2025 Generated for Diomedes mckinney/Chely/Clare on: 09:06 AM EDT
--- NOTE | ~2025-05-11 | XR_ITS ---
EXAMINATION: XR ANKLE, LEFT CLINICAL INFORMATION: M25.572 - Pain in left ankle and joints of left foot COMPARISON: None available. TECHNIQUE: AP, lateral, and mortise views of the left ankle. FINDINGS: Somewhat heterogeneous appearance of the distal fibula and contour irregularity of the posterior aspect of the distal tibia appear to be sequela from prior trauma. Ankle mortise is maintained. Joint spaces are preserved. No dislocation. Prominent vascular calcifications. XR/XR ankle LT min 3V IMPRESSION: Findings suggestive of sequela of prior trauma in the distal fibula and tibia. Electronically signed by: Adalgisa Waters MD 05/11/2025 09:16 AM EDT
--- OUTSIDE RECORDS SUMMARY | 2025-05-11 09:07 | XMS_ITS | Clinical Summary ---
Author Organization [facility] Address [address] [place] [address] Phone Care Team Providers Care Absorption Plant Operator Name Role Phone Kaushal Wilkinson MD Primary Care Provider [phone] Allergies No known active allergies Medications lisinopril (PRINIVIL,ZESTR IL) 10 MG tablet Take by mouth 2 (two) times a day. Active NIFEdipine (PROCARDIA) 10 MG capsule Take by mouth daily. Active rosuvastatin (CRESTOR) 10 MG tablet Take by mouth daily. Active omega 8-abf-kpx-fish oil 1,000 mg (120 mg-180 mg) Cap [...] this topic Medical Devices Implanted Type Area Voltage Regulator Assembler Device Identifier Shelf Expiration Date Model / Serial / Lot Right Hip Brenna Taper Size 3 Hip - [id number] Implanted:Qty: 1 on 11/19/2015 by Mac Henley MD at [facility] Left: Hip [employer] 03/27/2018 [id number] / / [id number] Liner Ecima Brenna 36mm - [id number] Implanted:Qty: 1 on 11/19/2015 by Mac Henley MD at [facility] Left: Hip [employer] 04/26/2018 [id number] / / [id number] Minihip Short Stem Size 8 Standard 07/09 130ccd Hip - [id number] Implanted:Qty: 1 on 11/19/2015 by Mac Henley MD at [facility] Left: Hip [employer] 07/03/2020 [id number] / / [id number] Biolox Delta Mod Head 36mm X 4mm Hip 04 - [id number] Implanted:Qty: 1 on 11/19/2015 by Mac Henley MD at [facility] Left: Hip [employer] 05/29/2021 [id number] / / [id number] Procedures Procedure Name Priority Date/Time Associated Diagnosis Comments BASIC METABOLIC PANEL Routine 10/26/2015 11:05 AM EDT from Last 3 Months or Most Recently Relevant to Health Maintenance Results * (ABNORMAL) Basic metabolic panel (10/26/2015 11:05 AM EDT) SODIUM 137 136 - 145 mmol/L [facility] POTASSIUM 4.7 3.5 - 5.2 mmol/L [facility] CHLORIDE 100 99 - 109 mmol/L [facility] CARBON DIOXIDE 24 20 - 31 mmol/L [facility] ANION GAP 13 3 - 17 [facility] CALCIUM 9.5 8.7 - 10.4 mg/dL [facility] GLUCOSE 141(Abnorm ally H) 74 - 106 mg/dL [facility] UREA NITROGEN (BUN) 19 9 - 23 mg/dl [facility] CREATININE 1.03 0.5 - 1.3 mg/dl [facility] EST GLOM FILT RATE NON- A 76.3 [facility] Comment:Units: ml/min/1.73ms q EST GLOM FILT RATE AMERI 92.4 [facility] Comment: Units: ml/min/1.73msq Reference Table for [...] 5 AM EDT 10/26/2015 12:14 PM EDT [facility] - 10/26/2015 12:44 PM EDT [facility], [address] [facility] [address], Accounts Receivable Clerk: Shawn Medina M.D. us Mac Henley MD LAB BLOOD ORDERABLES Final Re sult [facility] [address] [place] [address] from Last 3 Months or Most Recently Relevant to Health Maintenance Insurance [employer] TOTAL CHOICE INDEMNITY [employer] TOTAL CHOICE INDEMNITY [facility] TOTAL CHOICE INDEMNITY [facility] TOTAL CHOICE INDEMNITY [facility] TOTAL CHOICE INDEMNITY [facility] TOTAL CHOICE INDEMNITY [facility] TOTAL CHOICE INDEMNITY [facility] TOTAL CHOICE INDEMNITY [facility] TOTAL CHOICE [facility]MNITY [facility] TOTAL CHOICE INDEMNITY Advance Directives For more information, please contact: [phone] (9AM - 5PM [facility], Thursday-Thursday) Documents on File Type Date Recorded Patient 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 It is not the complete legal health record.[facility]
--- OUTSIDE RECORDS SUMMARY | 2025-05-11 09:07 | XMS_ITS | Patient Health Record ---
Author Organization [facility] Address [address] [place] [address] Care Team Providers Care Occupational Safety Specialist Name Role Phone Minh (RETIRED) Kaushal LEIGH Primary Care Provider Unavailable Juan Miguel Tim Unavailable [phone] Allergies No Known Allergies Reason For Referral No Information Medications Medication SIG (Take, Route, Frequency, Duration) Notes Start Date End Date Status metFORMIN HCl 500 MG 1 tablet with meals Orally Twice a day Active Rosuvastatin Calcium 5 MG 1 tablet Orall y Once a day Active Jardiance 10 MG Oral; Duration: 30 Active Alendronate Sodium 70 MG Oral; Duration: 84 Weekly Active Atorvastatin Calcium 10 MG Oral; Duration: 90 Active Aspir-81 81 MG 1 tablet Orally thre e x a week Not-Taking Omeprazole 20 MG 1 Orally Once a day every morning; Duration: 30 day(s) 04/22/2024 Active Lisinopril 20 MG [...] Problem Status W/U Status Risk Notes Problem Colon cancer screening (410319044) Colon cancer screening (Z12.11) Active confirmed Problem History of adenomatous polyp of colon (057993350) History of adenomatous polyp of colon (Z86.010) Active confirmed Problem Diverticular disease of colon (373942554) Diverticulosis of large intestine without perforation or abscess without bleeding (K57.30) Active confirmed Problem Dysphagia (52486608) Dysphagia (R13.10) Active confirmed Problem Duodenitis (18944323) Duodenitis (K29.80) Active confirmed Problem Gastroesophageal reflux disease (310421660) Gastroesophageal reflux disease (K21.9) Active confirmed Problem Gastroesophageal reflux disease (756767247) Gastroesophageal reflux disease, esophagitis presence not specified (K21.9) Active confirmed Problem Gastroesophageal reflux disease (disorder) (502557291) Chronic GERD (K21.9) Active confirmed Encounters Encounter Location Date Provider Diagnosis [facility] [address] [place] [address] 07/22/2024 Juan Miguel Tim [facility] [address] [place] [address] 10/26/2024 Juan Miguel Tim Plan Of Treatment Future Test Test Name Order Date COLONOSCOPY 03/09/2012 UPPER GI ENDOSCOPY 09/04/2017 COLONOSCOPY 09/04/2017 COLONOSCOPY 05/21/2023 UPPER GI ENDOSCOPY [place] DILATION OF ESOPH 04/20/2024 Insurance Providers Payer Name Payer Address Payer Phone Subscriber Number Group Number Insured Name Patient Relationship to Insured Coverage Start Date Coverage End Date MEDICARE OF [place] [address] SAPNA LOVE [id number] [phone] [id number] YAZMIN ALEJANDRE CAS Self - patient is the insured [employer] ([facility]) [address] [place] [id number] YAZMIN ALEJANDRE CAS Self - patient is the insured Medical (General) History Medical History History ICD Code History of tubular adenomas of the colon removed in 2002--colonoscopies in 2006 and 2011 revealed only hyperplastic polyps, as well as diffuse diverticulosis and internal hemorrhoids Hypertension Hyperlipidemia NIDDM Denies AR,CVA,Lung disease,renal disease Left lower leg injury after [...]
--- OUTSIDE RECORDS SUMMARY | 2025-05-11 09:07 | XMS_ITS | Patient Health Record ---
Author Organization [facility] Edvin Fisk Address [address] [facility] [place] [address] Care Team Providers Care Acrobatic Dancer Name Role Phone Tremaine Guillen Primary Care Provider Marizol Al Unavailable [phone] Allergies No Known Allergies Results Component Value [...] predniSONE 10 MG TAKE 1 TABLET BY RISAHBH TH EVERY DAY Oral; Duration: 21 Not-Taking [...] Polyneuropathy due to type 2 diabetes mellitus (866554499) Type 2 diabetes mellitus with diabetic polyneuropathy (E11.42) Active confirmed Problem Acquired hammer toe of right foot (7687254980867025 ) Hammer toe of right foot (M20.41) Active confirmed Problem Neuropathy (075389220) Neuropathy (G62.9) Active confirmed Vital Signs Blood pressure diastolic 70 mm Hg 03/22/2025 Height 6ft 3in in 03/22/2025 Blood pressure systolic 132 mm Hg 03/22/2025 Weight 215 lbs 03/22/2025 BMI 26.87 kg/m2 03/22/2025 Encounters Encounter Location Date Provider Diagnosis [address] [address] 08/02/2024 Marizol Ellington Xerosis of skin L85. 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 ; Type 2 diabetes mellitus with diabetic polyneuropathy E11.42 ; Tinea unguium B35.1 and Abscess of toe, left L02.[address] [address] 12/28/2024 Marizol Ellington Type 2 diabetes mellitus with diabetic polyneuropathy E11.42 and Tinea unguium B35.[address] [address] 03/22/2025 Marizol Ellington Type 2 diabetes mellitus with diabetic polyneuropathy E11.42 and Tinea unguium B35.[address] [address] 06/08/2024 Marizol Ellington [address] [address] 03/08/2025 Marizol Ellington Assessments Encounter Date Diagnosis (ICD Code) Assessment Notes Treatment Notes Treatment Clinical Notes Section Notes 08/02/2024 Ganglion of foot, left (ICD-10 - [...] E11.42) 03/22/2025 Tinea unguium (ICD-10 - B35.1) 10/12/2024 Tinea unguium (ICD-10 - B35.1) 08/02/2024 Tinea unguium (ICD-10 - B35.1) 10/12/2024 Abscess of toe, left (ICD-10 - L02.612) Plan Of Treatment Pending Test Test Name Order Date X ray : Foot, right 3V 04/14/2012 X ray : Foot, right 3V 05/16/2013 15041-Mpfswdlx Plate 09/29/2017 19883-Ibduoceg Plate 11/11/2017 21093-Myqzydsx Plate 07/02/2017 56031-Kxpzivkx Plate 12/11/2017 01856-Uglqvzuh Plate 02/02/2018 76167-Visgwlzu Plate 07/16/2018 18920-Qklmkykm Plate Each Additional 01/2017 40309-Njnlodky Plate Each Additional 73986- Debride <25 sq cm 07/16/2017 25733 I&D ABSCESS- SIMPLE,SINGLE 018 74231 I&D ABSCESS- SIMPLE,SINGLE 018 90375 I&D ABSCESS- SIMPLE,SINGLE 017 53969 I&D ABSCESS- SIMPLE,SINGLE 019 , J0702- INJECT or DRAIN, JOINT/BUR SA 05/26/2012, H1386-DZRGS/INJECT, JOINT/BURSA 1 08/24/201126836, W3682-VAHCM/INJECT, JOINT/BURSA 1 N6184-FPDBHRZH DYSTROPHIC NAILS ANY # ,G8491-SZD TENDON SHEATH/LIGAMENT 0 12/21/201352585,X1630-BUA TENDON SHEATH/LIGAMENT 0 03/06/2014 X3918-Debwabbmh 3mg 06/24/2012 Z5302-Zqbmlhmzp 3mg 05/26/2012 Next Appt Details Provider Name:Marizol Jorge martinez, 05/31/2025 01:00:00 PM, [address] [place], [address], Insurance Providers Payer Name Payer Address Payer Phone Subscriber Number Group Number Insured Name Patient Relationship to Insured Coverage Start Date Coverage End Date Medicare National [employer] [address] [facility] [place] [address] [id number] Grammati teodora Real Self - patient is the insured [employer] ([employer]) [address] [place] [address] [phone] [id number] Grammati teodora, Real Self - patient is the insured Medical (General) History Medical History History ICD Code sciatica Diabetic Arthritis Cataracts Surgical History Surgery Date(Month/Year) right hip replacement 12/08/2011 left hip replacement 10/2014 colonoscopy 04/2024
== END 2025-05-11 08:36 | disposition home or self-care (01) ==
LOC: HO.HMGCX 08:35
PROVIDERS: PCP Physician Assistant Medical; Visit Provider Physician Assistant Medical
DX: M25.572 Pain in left ankle and joints of left foot (principal)
CPT/HCPCS: 73610

== ENCOUNTER → 2025-05-11 08:46 | Outpatient (BNV) | payer MEDICARE, OTHER, SELFPAY | PROVIDERS: PCP Physician Assistant Medical; Visit Provider Radiology Body Imaging | DX: M25.572 Pain in left ankle and joints of left foot (principal) | CPT/HCPCS: 73610 ==

== ENCOUNTER 2025-05-12 15:21 | Outpatient (AMB) | payer MEDICARE, OTHER, SELFPAY ==
--- OUTSIDE RECORDS SUMMARY | 2024-02-24 06:00 | XMS_ITS ---
Author Organization [facility] [place] Address [address] [place] [address] Care Team Providers Care Personal Care Aide Name Role Phone Tremaine Guillen Primary Care Provider Marizol Al [phone] Encounters Encounter Location Date Provider Diagnosis [address] [address] 02/24/2024 Marizol Ellington Plan Of Treatment Next Appt Details Provider Name:Marizol martinez, 05/31/2025 01:00:00 PM, [address] [place] [address], [phone], Progress Notes * Real ADAMSDOB:1945 (79 yo M)Acc No.[id number]:02/24/2024 Progress Note Patient: Real HARDY Provider: Phuong Ellington DPM :1945 A ge:78 Y S ex:Male Date:02/24/2024 Address:[address] [place] [address] [id number] Pcp:Tremaine Guillen Subjective: * Chief Complaints: * [...] 02/24/2024 Generated for Diomedes mckinney/Chely/Clare on: 1 05:54 PM EDT
--- OUTSIDE RECORDS SUMMARY | 2024-04-08 08:00 | XMS_ITS ---
Author Organization [facility] [place]ara [place] Address [address] [place] [phone] Care Team Providers Care Senior Recruitment Consultant Name Role Phone Tremaine Guillen Primary Care Provider Marizol Al [phone] REASON FOR VISIT seen sooner Encounters Encounter Location Date Provider Diagnosis [address] [address] 04/08/2024 Marizol Ellington Plan Of Treatment Next Appt Details Provider Name:Marizol martinez, 05/31/2025 01:00:00 PM, [address] [place] [address], [phone], Progress Notes * Real ADAMSDOB:1945 (79 yo M)Acc No.[id number]:04/08/2024 Progress Note Patient: Real HARDY Provider: Phuong Ellington DPM :1945 A ge:78 Y S ex:Male Date:04/08/2024 Address:[address] [place] [address] [id number] Pcp:Tremaine Guillen Subjective: * Chief Complaints: * [...] 04/08/2024 Generated for Diomedes Sommers/Clare on: 1 05:54 PM EDT
--- OUTSIDE RECORDS SUMMARY | 2024-04-22 03:30 | XMS_ITS ---
Author Organization [facility] Address [address] [place] [address] Care Team Providers Care Pipelaying Fitter Name Role Phone Minh (RETIRED) Kaushal LEIGH Primary Care Provider Unavailable Juan Miguel Tim Unavailable [phone] REASON FOR VISIT colon screening Problems Problem Type SNOMED Code ICD Code Onset Dates Problem Status W/U Status Risk Notes Problem Diverticular disease of colon (588194131) Diverticulosis of large intestine without perforation or abscess without bleeding (K57.30) Active confirmed Problem Gastroesophageal reflux disease (321102121) Gastroesophageal reflux disease (K21.9) Active confirmed Problem Duodenitis (62130033) Duodenitis (K29.80) Active confirmed Encounters Encounter Location Date Provider Diagnosis [facility] [place] [address] [place] [phone] 04/22/2024 Juan Miguel Tim Colon cancer screeni [...] Notes * YAZMIN ADAMSDOB:1945 (79 yo M)Acc No.[id number]:04/22/2024 EGD and COL/MAC Patient: YAZMIN HARDY Provider: Jose Tim MD :1945 A ge:78 Y S ex:Male Date:04/22/2024 Address:[address] [place], [place] [phone] Pcp:Kaushal Wilkinson (RETIRED) MD Subjective: * Chief [...] FLW-UP 10 YRS DOCD, Modifiers: 1P , 35191 UPPER GI ENDOSCOPY, BIOPSY * * The named appointment provid er may or may not be the originator of this progress note, and it is not deemed complete until electronically signed by the appointment provider. Sign off status: Pending * Provider: Jose Tim MD Date: 0 04/22/2024 Generated for Flacai hank/Chely/eTransmitting on: 1 05:54 PM EDT
--- OUTSIDE RECORDS SUMMARY | 2024-09-01 06:00 | XMS_ITS ---
Author Organization [facility] Address [address] [place] [phone] Care Team Providers Care Dental Office Receptionist Name Role Phone Minh (RETIRED) Kaushal LEIGH Primary Care Provider Juan Miguel Damon [phone] REASON FOR VISIT gerd Encounters Encounter Location Date Provider Diagnosis [facility] 10 [facility] [address] [place] [phone] 09/01/2024 Juan Miguel Tim Plan Of Treatment No Information Progress Notes * YAZMIN ADAMSDOB:1945 (79 yo M)Acc No.[id number]:09/01/2024 Progress Notes Patient: YAZMIN HARDY Provider: Jose Tim MD :1945 A ge:78 Y S ex:Male Date:09/01/2024 Address:[address] [place], [place] [phone] Pcp:Kaushal Wilkinson (RETIRED) MD Subjective: * Chief [...] 09/01/2024 Generated for Printi ng/Faxing/eTransmitting on: 1 05:54 PM EDT
--- OUTSIDE RECORDS SUMMARY | 2024-10-28 10:40 | XMS_ITS ---
Author Organization [facility] Address 10 [facility] [address] [place] [address] Care Team Providers Care Tar Boiler Name Role Phone Minh (RETIRED) Kaushal LEIGH Primary Care Provider Unavailable Juan Miguel Tim [phone] REASON FOR VISIT Patient presents today for gerd Encounters Encounter Location Date Provider Diagnosis [facility] [address] [address] 10/28/2024 Juan Miguel Tim Plan Of Treatment No Information Progress Notes * YAZMIN ADAMSDOB:1945 (79 yo M)Acc No.[id number]:10/28/2024 Progress Notes Patient: YAZMIN HARDY Provider: Jose Tim MD :1945 A ge:79 Y S ex:Male Date:10/28/2024 Address:[address] [place], [place] [phone] Pcp:Kaushal Wilkinson (RETIRED) MD Subjective: * Chief [...] 10/28/2024 Generated for Printi ng/Fadannig/eTransmitting on: 1 05:54 PM EDT
--- OUTSIDE RECORDS SUMMARY | 2025-03-28 06:00 | XMS_ITS ---
Author Organization [facility] Edvin sarah Alexys Address [address] [facility] [place] [address] Care Team Providers Care Catalogue Illustrator Name Role Phone Tremaine Guillen Primary Care Provider Marizol Al Unavailable [phone] REASON FOR VISIT Seen Sooner Medications Medication [...] Not-Taking Encounters Encounter Location Date Provider Diagnosis [facility] [address] [address] 03/28/2025 Marizol Ellington Plan Of Treatment Next Appt Details Provider Name:Marizol martinez, 05/31/2025 01:00:00 PM, [address] [place] [address], [phone], Progress Notes * Real PRUITTDOB:1945 (79 yo M)Acc No.[id number]:03/28/2025 Progress Note Patient: Real HARDY Provider: Phuong Ellington DPM :1945 A ge:79 Y S ex:Male Date:03/28/2025 Address:[address] [place], [place] [id number] Pcp:Tremaine Guillen Subjective: * Chief Complaints: * [...] 0 03/28/2025 Generated for Diomedes mckinney/Chely/Clare on: 05:53 PM EDT
--- NOTE | 2025-05-12 15:41 | MHC.PC.OV ---
Vital Signs 05/12/25 15:45 Height 6 ft 2 in Weight 225 lb BMI 28.9 BP 105/53 L Blood Pressure Location Rt brachial Position Sitting Pulse 76 Pulse Source Pulse Oximeter Temp 97.1 F Temp Source Temporal Artery Scan Pulse Oximetry (%) 97 Oxygen Delivery Method Room Air Intake Visit Reasons: Left swollen ankel Intake Note: Left ankle swelling, usually during the day. 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 Footwear Required: No Accompanied by: Self / Same As Patient Allergies No Known Allergies (No Known Allergies*) Allergy (Verified 05/12/25 17:01) Medication List - Last Reconciled 05/12/25 by Daniela Mcfadden PA-C atorvastatin 10 mg PO DAILY cane USE DAILY WHILE AMBULATING empagliflozin (Jardiance) 10 mg PO DAILY erythromycin 0.5 inches ophthalmic (eye) QID finasteride 5 mg PO DAILY 90 days fluconazole 200 mg PO DAILY 12 days gabapentin 100 mg PO BID lisinopril 20 mg PO DAILY metformin ER 500 mg PO DAILY naproxen 500 mg PO BID PRN nifedipine ER 30 mg PO DAILY testosterone 50 mg transdermal DAILY 30 days walker (Ultra-Light Rollator misc) for ambulating daily Tobacco use date assessed: 05/12/25 Fall risk assessment: No Falls in past year Last assessed Fall Risk: 05/12/25 Dental Screening Dental Screen Date: 05/12/25 Did you have a dental visit in the last 12 months?: No HPI Left swollen ankel HPI Details The patient is a 79-year-old male presenting with ankle swelling. The swelling has been present for quite some time, worsening during the day and improving by morning. An x-ray revealed an irregularity of the distal fibula, likely a sequel from a prior trauma during a football game in 1967, where he landed on his side and required a cast. The patient also reports back pain, which has been an issue since age 23, exacerbated by activities such as football, skating, and skiing. He has undergone bilateral hip replacements and occasionally experiences morning discomfort. The patient admits to alcohol use, expressing concern about liver health, although liver enzymes are mostly normal except for a slightly elevated AST. He denies needing a program to stop drinking, believing he can manage it independently. The patient reports constipation over the past four to five days, which he attributes to his medications, although he has been on them for a long time. He uses milk of magnesia and other laxatives to manage this issue. The patient notes fatigue after eating, which is not severe but may cause him to close his eyes after lunch. He has observed orange urine in the morning, which comes and goes, and is scheduled for a TURP procedure on July 03. A urine sample will be ordered to rule out a urinary tract infection. The patient had a sty in his eye, which has resolved but left a scab. He continues to apply warm compresses as advised by his councillor [employer] land [employer]. Social History - Alcohol use: Patient admits to drinking more than he should but believes he can manage without a program. - Physical activity: History of playing football, skating, and skiing. [facility] Medical History (Updated 05/12/25 @ 17:04 by Daniela Mcfadden PA-C) Abnormal urine Fatigue Elevated AST (SGOT) Constipation Left ankle swelling Left ankle pain Alcohol use disorder Candidiasis UTI (urinary tract infection) Annual physical exam Pedal edema Rosacea Neuropathy Hematuria Left knee pain Swelling of left knee Balance problem Bilateral hip pain Bilateral knee pain Nicotine dependence Sty Type 2 diabetes mellitus with hemoglobin A1c goal of less than 7.0% Osteoarthritis Establishing care with new doctor, encounter for Lower back pain Nicotine use Ambulates with cane Peripheral neuropathy Internal hemorrhoids Diverticulosis Hiatal hernia Arthritis Left leg weakness Diabetes Hyperlipemia HTN (hypertension) Surgical History History of esophagogastroduodenoscopy (EGD) (~2017) Hx of bilateral hip replacements Hx of colonoscopy (~04/22/24) Family History Father History of heart surgery Mother Arthritis Social History Housing: House Are you a primary assurance services manager health care to a significant other at home: No Do you presently have visiting nurse or other home services: No Alcohol intake: current Alcohol intake frequency: 3 or more drinks per day Alcohol type: beer Patient Tobacco Use Status: Former Tobacco user Tobacco use type: Cigarette service: No Current occupational status: retired Cognitive needs: Yes (cane) Hearing needs: No Vision needs: Yes (rx glasses) Questionnaire PHQ-9 Over the last 2 weeks, how often have you been bothered by any of the following problems? 1. Little interest or pleasure in doing things: not at all 2. Feeling down, depressed, or hopeless: not at all 3. Trouble falling or staying asleep, or sleeping too much: not at all 4. Feeling tired or having little energy: not at all 5. Poor appetite or overeating: not at all 6. Feeling bad about yourself - or that you are a failure or have let yourself or your family down: not at all 7. Trouble concentrating on things, such as reading the newspaper or watching television: not at all 8. Moving or speaking so slowly that other people could have noticed. Or the opposite - being so fidgety or restless that you have been moving around a lot more than usual: not at all 9. Thoughts that you would be better off or of hurting yourself in some way: not at all Total score: 0 Depression Screening Interpretation: Negative Depression Screening Done: Yes 28547 - PHQ-9 Billing: Yes Source: Developed by Drs. Juan Miguel Klein, Joyce Jiménez, Mark Beaver and colleagues, with an educational evelia from [employer]. Thrive Questionnaire Date Thrive assessed: 05/12/25 I am a: Patient What is your living situation today?: I have a steady place to live Within the past 12 months, did the food you bought not last and you didn't have the money to get more?: Never true Within the past 12 months, did you worry whether your food would run out before you got money to buy more?: Never true Do you have trouble paying for medicines?: No Do you have trouble getting transportation to medical appointments?: No Do you have trouble paying your heating and electricity bill?: No Do you have trouble taking care of your child, family member or friend?: Yes Do you have trouble with day-to-day activities such as bathing, preparing meals, shopping, managing finances, etc.?: No Are you currently unemployed and looking for a job?: No Are you interested in more education?: No Please select the resources that you would like help with: None Currently or been in a relationship where the following occur: No concerns reported THRIVE Score: 0 AUDIT C Alcohol Use Questionnaire (AUDIT-C) 1. How often do you have a drink containing alcohol?: 4 or more times a week 2. How many drinks containing alcohol do you have on a typical day when you are drinking?: 3 or 4 3. How often do you have six or more drinks on one occasion?: Never Total Score: 5 Score Reviewed/Action Taken: No SHARLENE-7 AMB Questionnaire SHARLENE-7 Date SHARLENE - 7 assessed: 05/12/25 Feeling nervous, anxious, or on edge: 0 = Not at all Not being able to stop or control worryin = Not at all Worrying too much about different things: 0 = Not at all Trouble relaxin = Not at all Being so restless that it is hard to sit still: 0 = Not at all Becoming easily annoyed or irritable: 0 = Not at all Feeling afraid as if something awful might happen: 0 = Not at all Total SHARLENE-7 score (0-4 normal; 5-9 mild; 10-14 moderate; 15-21 severe): 0 Source: Developed by Drs. Juan Miguel Klein, Joyce Jiménez, Mark Beaver and colleagues, with an educational evelia from [employer]. SHARLENE-7 Assessment Billing SHARLENE-7 Assessment Tool: SHARLENE-7 Assessment 78480 Review of Systems Const Details: - Musculoskeletal: Reports ankle swelling, back pain, and morning discomfort post-hip replacements. - Gastrointestinal: Reports constipation for the past four to five days. - Neurological: Reports fatigue after eating, not severe. - Genitourinary: Reports orange urine in the morning, scheduled for TURP procedure. - Ophthalmologic: Reports resolved eye sty with remaining scab. All systems reviewed & are unremarkable except as noted in HPI and below Physical exam (Primary Care) Vital Signs: Last Vital Signs Temp 97.1 F 05/12/25 15:45 Pulse 76 05/12/25 15:45 BP 105/53 L 05/12/25 15:45 Pulse Ox 97 05/12/25 15:45 Oxygen Delivery Method Room Air 05/12/25 15:45 Care Plan Goal for BP management: <140/90 at Goal BMI result Body Mass Index 28.9 BMI Assessment/Plan discussion: High BMI High, discussed plan: lifestyle, weight reduction, dietary, physical activity, alcohol moderation and other Tobacco/Smoking Status: Tobacco use Status Tobacco use date assessed 05/12/25 05/12/25 15:47 Patient Tobacco Use Status Former Tobacco user 05/12/25 15:47 Tobacco use type Cigarette 05/12/25 15:47 PHQ-9: PHQ-9 Score PHQ-9: Total score 0 05/12/25 15:47 Depression Screening Interpretation: Negative Thrive Assessment: Date of Thrive Assessment Date Thrive assessed 05/12/25 05/12/25 15:47 Currently or been in a relationship where the following occur: No concerns reported Const Other: Appearance: Alert. Oriented X3. No acute distress. Head: Normal external exam. Normocephalic. Atraumatic. Eyes: Pupils are equal, round, and reactive to light. Extraocular movements intact. Conjunctiva and sclera normal. Eyelids normal. The sty is gone, but there's still a scab. Throat: Pharynx normal. Uvula midline. Moist mucous membranes. Neck: Normal inspection. Neck supple. Full range of motion. Cardiovascular: Normal heart rate and rhythm. Respiratory: No respiratory distress. Painless inspiration. Back: Full range of motion noted. Patient reports a history of back pain since age 23. Skin: Skin warm and dry. Normal skin color. Normal skin turgor. No rashes/lesions/lacerations noted. Extremities: Swelling noted in the ankle, particularly during the day, with improvement overnight. No lower extremity edema. Patient has good range of motion of all extremities and he is nontender to all extremities at this time. There is no calf tenderness noted. Normal capillary refill. Normal pulses. No cyanosis is noted. Neuro: Oriented X 3. No motor deficit. No sensory deficit. Reflexes normal. Office Procedures Flu Questionnaire Does the patient have a severe egg allergy?: No Does the patient have severe life threatening allergies?: No Does the patient have a fever or illness today?: No Has the patient ever had Guillain-Alba Syndrome?: No Has the patient ever had any past reaction to a flu shot?: No Immunizations Fluarix [id number] (PF) 45 mcg (15 mcg x 3)/0.5 mL IM syringe Performing Provider: Daniela Mcfadden PA-C Performing Location: [facility] [place] [facility] Documented (not given) by: Kylah Savage CMA on 05/12/25 15:50 Reason Not Given: Received Previously Results Reviewed Results Reviewed: - Imaging: X-ray shows irregularity of the distal fibula, likely from prior trauma. - Labs: Liver enzymes mostly normal, AST slightly elevated at 38. Coding Level of Care Code Est Pt Level 4 (79020) Complex EM visit Add On G2211 Diagnoses Left ankle pain M25.572 Lower back pain M54.50 Alcohol use disorder F10.90 Constipation K59.00 Elevated AST (SGOT) R74.01 Sty H00.019 Fatigue R53.83 Abnormal urine R82.90 Additional Codes SHARLENE-7 Assessment Billing - SHARLENE-7 Assessment Tool: SHARLENE-7 Assessment 69824 ([id number]) PHQ-9 - 64502 - PHQ-9 Billing: Yes ([id number]) Time Spent (min) 60 Assessment & Plan Assessment & Plan (1) Left ankle pain: Code(s): M25.572 - Pain in left ankle and joints of left foot Category: Medical Plan: The patient presents with ankle swelling, which worsens during the day and improves by morning. An x-ray revealed an irregularity of the distal fibula, likely due to a previous trauma from a football injury in 1967. A vascular calcification was noted, and an ultrasound of the leg will be ordered to rule out a blood clot. (2) Lower back pain: Code(s): M54.50 - Low back pain, unspecified Category: Medical Plan: The patient reports chronic back pain since age 23, exacerbated by physical activities such as football, skating, and skiing. He has undergone bilateral hip replacements and experiences occasional morning discomfort. (3) Alcohol use disorder: Code(s): F10.90 - Alcohol use, unspecified, uncomplicated Category: Medical Plan: The patient admits to consuming alcohol more than he should but does not feel the need for a program to stop. Liver enzymes are mostly normal, with a slightly elevated AST, indicating no significant liver damage at this time. (4) Constipation: Code(s): K59.00 - Constipation, unspecified Category: Medical Plan: The patient reports constipation for the past four to five days, possibly related to his medications. He is managing the condition with milk of magnesia and other laxatives. (5) Elevated AST (SGOT): Code(s): R74.01 - Elevation of levels of liver transaminase levels Category: Medical Plan: The patient's liver enzymes are mostly normal, except for a slightly elevated AST at 38. This elevation is not considered significant, and the patient is advised to monitor alcohol consumption. (6) Sty: Code(s): H00.019 - Hordeolum externum unspecified eye, unspecified eyelid Category: Medical Plan: The patient had a sty in his eye, which has resolved but left a scab. He continues to apply warm compresses as advised by his councillor [employer]. (7) Fatigue: Code(s): R53.83 - Other fatigue Category: Medical Plan: The patient reports mild fatigue after eating, which is not severe but may cause him to close his eyes after lunch. (8) Abnormal urine: Code(s): R82.90 - Unspecified abnormal findings in urine Category: Medical Plan: The patient reports orange urine in the morning, which comes and goes. A urine sample will be ordered to rule out a urinary tract infection, and the patient is scheduled for a TURP procedure on July 03. Plan Plan Patient was informed and verbally consented to the use of an ambient scribe for clinic note documentation during this visit. 1. Ankle Swelling The patient presents with ankle swelling, which worsens during the day and improves by morning. An x-ray revealed an irregularity of the distal fibula, likely due to a previous trauma from a football injury in 1967. A vascular calcification was noted, and an ultrasound of the leg will be ordered to rule out a blood clot. 2. Back Pain The patient reports chronic back pain since age 23, exacerbated by physical activities such as football, skating, and skiing. He has undergone bilateral hip replacements and experiences occasional morning discomfort. 3. Alcohol Use The patient admits to consuming alcohol more than he should but does not feel the need for a program to stop. Liver enzymes are mostly normal, with a slightly elevated AST, indicating no significant liver damage at this time. 4. Constipation The patient reports constipation for the past four to five days, possibly related to his medications. He is managing the condition with milk of magnesia and other laxatives. 5. Elevated Ast The patient's liver enzymes are mostly normal, except for a slightly elevated AST at 38. This elevation is not considered significant, and the patient is advised to monitor alcohol consumption. 6. Eye Sty The patient had a sty in his eye, which has resolved but left a scab. He continues to apply warm compresses as advised by his councillor [employer]. 7. Fatigue After Eating The patient reports mild fatigue after eating, which is not severe but may cause him to close his eyes after lunch. 8. [place] Urine The patient reports orange urine in the morning, which comes and goes. A urine sample will be ordered to rule out a urinary tract infection, and the patient is scheduled for a TURP procedure on July 03. During the visit, I discussed with the patient the findings of the x-ray, which showed an irregularity of the distal fibula likely due to a past trauma. We talked about the possibility of vascular calcification contributing to his symptoms and the plan to order an ultrasound to rule out a blood clot. I reassured him about his liver health, noting that his liver enzymes are mostly normal, with only a slight elevation in AST. We also discussed his alcohol consumption and the importance of monitoring it. For his constipation, I confirmed that he is using milk of magnesia and other laxatives effectively. Regarding his eye sty, I advised continuing with warm compresses as per his councillor [employer]'s recommendation. We planned to order a urine sample to check for a urinary tract infection due to his report of orange urine, and I noted his upcoming TURP procedure. Orders: Orders Influenza [id number] Immunization Today Z23 - Encounter for immunization US venous duplex LE LT Today M25.472 - Effusion, left ankle UA CC w/rflx Micro + Cult Today Z00.00 - Encounter for general adult medical examination without abnormal findings Patient Instructions: - Continue applying warm compresses to the eye as advised by your councillor [employer]. - Monitor alcohol consumption and try to reduce intake. - Use milk of magnesia or other laxatives as needed for constipation. - Follow up with the ultrasound appointment to rule out a blood clot in the leg. - Provide a urine sample as instructed to check for a urinary tract infection.
[2025-05-12 15:45] VITALS: BP 105/53; PULSE 76; TEMP 36.2; O2SAT 97; BMI 28.9
--- OUTSIDE RECORDS SUMMARY | 2025-05-12 17:54 | XMS_ITS | Patient Health Record ---
Author Organization [facility] Address [address] [place] [phone] Care Team Providers Care Heel Coverer Name Role Phone Minh (RETIRED) Kaushal LEIGH Primary Care Provider Unavailable Juan Miguel Tim Unavailable [phone] Allergies No Known Allergies Reason For Referral [...] Status Risk Notes Problem Colon cancer screening (270798600) Colon cancer screening (Z12.11) Active confirmed Problem History of adenomatous polyp of colon (667839273) History of adenomatous polyp of colon (Z86.010) Active confirmed Problem Diverticular disease of colon (891193448) Diverticulosis of large intestine without perforation or abscess without bleeding (K57.30) Active confirmed Problem Dysphagia (68872452) Dysphagia (R13.10) Active confirmed Problem Duodenitis (87957344) Duodenitis (K29.80) Active confirmed Problem Gastroesophageal reflux disease (924235682) Gastroesophageal reflux disease (K21.9) Active confirmed Problem Gastroesophageal reflux disease (330640831) Gastroesophageal reflux disease, esophagitis presence not specified (K21.9) Active confirmed Problem Gastroesophageal reflux disease (disorder) (842043646) Chronic GERD (K21.9) Active confirmed Encounters Encounter Location Date Provider Diagnosis [facility] [address] [place] [phone] 07/22/[address] [facility] [address] [place] [phone] 10/26/2024 Juan Miguel Tim Plan Of Treatment Future Test Test Name Order Date COLONOSCOPY 03/09/2012 UPPER GI ENDOSCOPY 09/04/2017 COLONOSCOPY 09/04/2017 COLONOSCOPY 05/21/2023 UPPER GI ENDOSCOPY [place] DILATION OF ESOPH 04/20/2024 Insurance Providers Payer Name Payer Address Payer Phone Subscriber Number Group Number Insured Name Patient Relationship to Insured Coverage Start Date Coverage End Date MEDICARE OF [place] [address] SAPNA [place] [id number] [phone] [id number] YAZMIN ALEJANDRE CAS Self - patient is the insured [employer] [facility] [employer] [address] [place] [id number] YAZMIN ALEJANDRE CAS Self - patient is the insured Medical (General) History Medical History History ICD Code History of tubular adenomas of the colon removed in 2002--colonoscopies in 2006 and 2011 revealed only hyperplastic polyps, as well as diffuse diverticulosis and internal hemorrhoids Hypertension Hyperlipidemia NIDDM Denies [place],CVA,Lung disease,renal disease Left lower leg injury after [...]
--- OUTSIDE RECORDS SUMMARY | 2025-05-12 17:55 | XMS_ITS | Clinical Summary ---
Author Organization [facility] Address [address] [place] [address] Phone Care Team Providers Care Propeller Layout Worker Name Role Phone Kaushal Wilkinson MD Primary Care Provider +1- [phone] Allergies No known active allergies Medications lisinopril (PRINIVIL,ZESTR IL) 10 MG tablet Take by mouth 2 (two) times a day. Active NIFEdipine (PROCARDIA) 10 MG capsule Take by mouth daily. Active rosuvastatin (CRESTOR) 10 MG tablet Take by mouth daily. Active omega 9-cbo-yap-fish oil 1,000 mg (120 mg-180 mg) Cap [...] this topic Medical Devices Implanted Type Area Paper Products Machine Operator Device Identifier Shelf Expiration Date Model / Serial / Lot Right Hip Brenna Taper Size 3 Hip - [id number] Implanted:Qty: 1 on 11/19/2015 by Mac Henley MD at [facility] Left: Hip [employer] 03/27/2018 321.03.354 / / [id number] Liner Ecima Brenna 36mm - [id number] Implanted:Qty: 1 on 11/19/2015 by Mac Henley MD at [facility] Left: Hip [employer] 04/26/2018 322.03.636 / / [id number] Minihip Short Stem Size 8 Standard 07/09 130ccd Hip - [id number] Implanted:Qty: 1 on 11/19/2015 by Mac Henley MD at [facility] Left: Hip [employer] 07/03/2020 580.0008 / / [id number] Biolox Delta Mod Head 36mm X 4mm Hip 04 - [id number] Implanted:Qty: 1 on 11/19/2015 by Mac Henley MD at [facility] Left: Hip [employer] 05/29/2021 104.3600 / / [id number] Procedures Procedure Name Priority Date/Time Associated Diagnosis Comments BASIC METABOLIC PANEL Routine 10/26/2015 11:05 AM EDT from Last 3 Months or Most Recently Relevant to Health Maintenance Results * (ABNORMAL) Basic metabolic panel (10/26/2015 11:05 AM EDT) SODIUM 137 136 - 145 mmol/L [facility] POTASSIUM 4.7 3.5 - 5.2 mmol/L [facility] CHLORIDE 100 99 - 109 mmol/L [facility] CARBON DIOXIDE 24 20 - 31 mmol/L [facility] ANION GAP 13 3 - 17 [facility] CALCIUM 9.5 8.7 - 10.4 mg/dL [facility] GLUCOSE 141(Abnorm ally H) 74 - 106 mg/dL [facility] UREA NITROGEN (BUN) 19 9 - 23 mg/dl [facility] CREATININE 1.03 0.5 - 1.3 mg/dl [facility] EST GLOM FILT RATE NON- A 76.3 [facility] Comment:Units: ml/min/1.73ms q EST GLOM FILT RATE AMERI 92.4 [facility] Comment: Units: ml/min/1.73msq Reference Table for Population [...] 5 AM EDT 10/26/2015 12:14 PM EDT [facility] - 10/26/2015 12:44 PM EDT [facility], [address] [facility] [address], Energy Crop Farmer: Shawn Medina M.D. us Mac Henley MD LAB BLOOD ORDERABLES Final Re sult [facility] [address] [place] [address] from Last 3 Months or Most Recently Relevant to Health Maintenance Insurance [employer] TOTAL CHOICE INDEMNITY [employer] TOTAL CHOICE INDEMNITY [facility] TOTAL CHOICE INDEMNITY [facility] TOTAL CHOICE INDEMNITY [facility] TOTAL CHOICE INDEMNITY [facility] TOTAL CHOICE INDEMNITY [facility] TOTAL CHOICE INDEMNITY [facility] TOTAL CHOICE INDEMNITY [facility]OTAL [facility]ICE [facility] TOTAL CHOICE INDEMNITY Advance Directives For more information, please contact: [phone] (9AM - 5PM [facility], Thursday-Thursday) Documents on File Type Date Recorded Patient Personnel Quality Assurance Auditor Expl anation Healthcare Proxy 11/28/2015 1:01 PM * Full Code (Presumed) (Latest Code Status on File) Date Activated Date Inactivated Comments 11/19/2015 5:33 PM 11/22/2015 1:56 PM * Full Code (Presumed) Date Activated Date Inactivated Comments 11/19/2015 10:21 AM 11/19/2015 5:33 PM Care Teams Propeller Layout Worker Relationship Specialty Start Date End Date Mugg, Kaushal Willie, MD [address] [place] [address] PCP - General 01/24/14 Additional Source Comments The information contained in this document represents components of the legal health record. It is not the complete legal health record.[facility]
--- OUTSIDE RECORDS SUMMARY | 2025-05-12 17:55 | XMS_ITS | Patient Health Record ---
Author Organization [facility] Address [address] [facility] [place] [address] Care Team Providers Care Store Mgr Name Role Phone Tremaine Guillen Primary Care Provider Marizol Al Unavailable [phone] Allergies No Known Allergies Results Component Value [...] Polyneuropathy due to type 2 diabetes mellitus (969899549) Type 2 diabetes mellitus with diabetic polyneuropathy (E11.42) Active confirmed Problem Acquired hammer toe of right foot (0079505082362848 ) Hammer toe of right foot (M20.41) Active confirmed Problem Neuropathy (914468656) Neuropathy (G62.9) Active confirmed Vital Signs Blood pressure diastolic 70 mm Hg 03/22/2025 Height 6ft 3in in 03/22/2025 Blood pressure systolic 132 mm Hg 03/22/2025 Weight 215 lbs 03/22/2025 BMI 26.87 kg/m2 03/22/2025 Encounters Encounter Location Date Provider Diagnosis [address] [address] 08/02/2024 Marizol Ellington Xerosis of skin L85. 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 ; Type 2 diabetes mellitus with diabetic polyneuropathy E11.42 ; Tinea unguium B35.1 and Abscess of toe, left L02.[address] [address] 12/28/2024 Marizol Ellington Type 2 diabetes mellitus with diabetic polyneuropathy E11.42 and Tinea unguium B35.[address] [address] 03/22/2025 Marizol Ellington Type 2 diabetes mellitus with diabetic polyneuropathy E11.42 and Tinea unguium B35.[address] [address] 06/08/2024 Marizol Ellington [address] [address] 03/08/2025 Marizol Ellington Assessments Encounter Date Diagnosis [...] X ray : Foot, right 3V 05/16/2013 28329-Duuskozb Plate 09/29/2017 17401-Liuepnkx Plate 11/11/2017 58516-Atqvsuqn Plate 07/02/2017 90641-Uoerkhmp Plate 12/11/2017 17122-Mshcmfov Plate 02/02/2018 02999-Fsnkgxae Plate 07/16/2018 70939-Vfijahvl Plate Each Additional 01/2017 43613-Gskblgma Plate Each Additional 66564- Debride <25 sq cm 07/16/2017 57942 I&D ABSCESS- SIMPLE,SINGLE 018 00923 I&D ABSCESS- SIMPLE,SINGLE 018 17436 I&D ABSCESS- SIMPLE,SINGLE 017 96325 I&D ABSCESS- SIMPLE,SINGLE 019 , J0702- INJECT or DRAIN, JOINT/BUR SA 05/26/2012, Q5474-JUGZF/INJECT, JOINT/BURSA 1 08/24/201154549, W3509-VRHHH/INJECT, JOINT/BURSA 1 Y2303-HXITPVAW DYSTROPHIC NAILS ANY # ,E9432-NXU TENDON SHEATH/LIGAMENT 0 12/21/201337704,D3378-SQQ TENDON SHEATH/LIGAMENT 0 03/06/2014 N6433-Frysurmwl 3mg 06/24/2012 P3899-Oxemsoqks 3mg 05/26/2012 Next Appt Details Provider Name:Marizol Jorge martinez, 05/31/2025 01:00:00 PM, [address] [place], [address], Insurance Providers Payer Name Payer Address Payer Phone Subscriber Number Group Number Insured Name Patient Relationship to Insured Coverage Start Date Coverage End Date Medicare National Govt Svcs Inc [address] [place] [address] [id number] Grammati teodora Real Self - patient is the insured [employer] (Unicare) [address] [place] [address] [phone] [id number] Grammati teodora, Real Self - patient is the insured Medical (General) History Medical History History ICD Code sciatica Diabetic Arthritis Cataracts Surgical History Surgery Date(Month/Year) right hip replacement 12/08/2011 left hip replacement 10/2014 colonoscopy 04/2024
== END 2025-05-12 16:04 | disposition home or self-care (01) ==
PROVIDERS: PCP Physician Assistant Medical; Visit Provider Physician Assistant Medical
DX: M25.572 Pain in left ankle and joints of left foot (principal); M54.50 Low back pain, unspecified; F10.90 Alcohol use, unspecified, uncomplicated; K59.00 Constipation, unspecified; R74.01 Elevation of levels of liver transaminase levels; H00.019 Hordeolum externum unspecified eye, unspecified eyelid; R53.83 Other fatigue; R82.90 Unspecified abnormal findings in urine; Z23 Encounter for immunization

== ENCOUNTER → 2025-05-12 15:21 | Outpatient (BNVA) | payer MEDICARE, OTHER, SELFPAY | PROVIDERS: PCP Physician Assistant Medical; Visit Provider Physician Assistant Medical | DX: M25.572 Pain in left ankle and joints of left foot (principal); M79.89 Other specified soft tissue disorders; K59.00 Constipation, unspecified; R53.83 Other fatigue; M54.50 Low back pain, unspecified; F10.90 Alcohol use, unspecified, uncomplicated; R74.01 Elevation of levels of liver transaminase levels; H00.019 Hordeolum externum unspecified eye, unspecified eyelid; R82.998 Other abnormal findings in urine; Z28.89 Immunization not carried out for other reason | CPT/HCPCS: 90471; 96127; 99212 ==

== ENCOUNTER 2025-05-15 15:07 | Outpatient (REF) | payer MEDICARE, OTHER, SELFPAY ==
--- OUTSIDE RECORDS SUMMARY | 2024-02-24 06:00 | XMS_ITS ---
[facility] [place] Address [address] [place] [address] Care Team Providers Care Paper Machine Back Tender Name Role Phone Tremaine Guillen Primary Care Provider Marizol Al [phone] Encounters Encounter Location Date Provider Diagnosis [address] [address] 02/24/2024 Marizol Ellington Plan Of Treatment Next Appt Details Provider Name:Marizol martinez, 05/31/2025 01:00:00 PM, [address] [place] [address], [phone], Progress Notes * Real ADAMSDOB:1945 (79 yo M)Acc No.[id number]:02/24/2024 Progress Note Patient: Real HARDY Provider: Phuong Ellington DPM :1945 A ge:78 Y S ex:Male Date:02/24/2024 Address:[address] [place] [address] [id number] Pcp:Tremaine Guillen Subjective: * Chief Complaints: * * Medical History: Objective: * Vitals: Assessment: Plan: * Treatment: * Images: * The named appointment provid er may or may not be the originator of this progress note, and it is not deemed complete until electronically signed by the appointment provider. Sign off status: Pending * Provider: Phuong Ellington, JONAS Date: 0 02/24/2024 Generated for Diomedes mckinney/Chely/Clare on: 1 07:20 PM EDT
--- OUTSIDE RECORDS SUMMARY | 2024-04-08 08:00 | XMS_ITS ---
Author Organization [facility] keara [place] Address [address] [place] [address] Care Team Providers Care Chemical Laboratory Scientist Name Role Phone Tremaine Guillen Primary Care Provider Marizol Al [phone] REASON FOR VISIT seen sooner Encounters Encounter Location Date Provider Diagnosis [address] [address] 04/08/2024 Marizol Ellington Plan Of Treatment Next Appt Details Provider Name:Marizol martinez, 05/31/2025 01:00:00 PM, [address] [place] [address], [phone], Progress Notes * Real ADAMSDOB:1945 (79 yo M)Acc No.[id number]:04/08/2024 Progress Note Patient: Real HARDY Provider: Phuong Ellington DPM :1945 A ge:78 Y S ex:Male Date:04/08/2024 Address:[address] [place] [address] [id number] Pcp:Tremaine Guillen Subjective: * Chief Complaints: * [...] 0 04/08/2024 Generated for Diomedes Sommers/Clare on: 07:19 PM EDT
--- OUTSIDE RECORDS SUMMARY | 2024-04-22 03:30 | XMS_ITS ---
Author Organization [facility] Address [address] [place] [address] Care Team Providers Care Vulcanizer Operator Name Role Phone Minh (RETIRED) Kaushal LEIGH Primary Care Provider Unavailable Juan Miguel Tim Unavailable [phone] REASON FOR VISIT colon screening Problems Problem Type SNOMED Code ICD Code Onset Dates Problem Status W/U Status Risk Notes Problem Diverticular disease of colon (482079523) Diverticulosis of large intestine without perforation or abscess without bleeding (K57.30) Active confirmed Problem Gastroesophageal reflux disease (477908728) Gastroesophageal reflux disease (K21.9) Active confirmed Problem Duodenitis (52969080) Duodenitis (K29.80) Active confirmed Encounters Encounter Location Date Provider Diagnosis [facility] [place] [address] [place] [phone] 04/22/2024 Juan Miguel Tim Colon cancer screeni [...] Notes * YAZMIN ADAMSDOB:1945 (79 yo M)Acc No.[id number]:04/22/2024 EGD and COL/MAC Patient: YAZMIN HARDY Provider: Jose Tim MD :1945 A ge:78 Y S ex:Male Date:04/22/2024 Address:[address] [place], [place] [phone] Pcp:Kaushal Wilkinson (RETIRED) MD Subjective: * Chief [...] FLW-UP 10 YRS DOCD, Modifiers: 1P , 07043 UPPER GI ENDOSCOPY, BIOPSY * * The named appointment provid er may or may not be the originator of this progress note, and it is not deemed complete until electronically signed by the appointment provider. Sign off status: Pending * Provider: Jose Tim MD Date: 0 04/22/2024 Generated for Flacai ng/Fadannig/eTransmitting on: 1 07:20 PM EDT
--- OUTSIDE RECORDS SUMMARY | 2024-09-01 06:00 | XMS_ITS ---
Author Organization [facility] Address [address] [place] [address] Care Team Providers Care Coin Box Collector Name Role Phone Minh (RETIRED) Kaushal LEIGH Primary Care Provider Juan Miguel Damon [phone] REASON FOR VISIT gerd Encounters Encounter Location Date Provider Diagnosis [facility] [address] [facility] [address] [place] [address] 09/01/2024 Juan Miguel Tim Plan Of Treatment No Information Progress Notes * YAZMIN ADAMSDOB:1945 (79 yo M)Acc No.[id number]:09/01/2024 Progress Notes Patient: YAZMIN HARDY Provider: Jose Tim MD :1945 A ge:78 Y S ex:Male Date:09/01/2024 Address:[address] [place], [place] [phone] Pcp:Kaushal Wilkinson (RETIRED) MD Subjective: * Chief [...] 09/01/2024 Generated for Printi ng/Faxing/eTransmitting on: 1 07:18 PM EDT
--- OUTSIDE RECORDS SUMMARY | 2024-10-28 10:40 | XMS_ITS ---
Author Organization [facility] Address [address] [facility] [address] [place] [address] Care Team Providers Care Hydraulic Miner Blasting Name Role Phone Minh (RETIRED) Kaushal LEIGH Primary Care Provider Unavailable Juan Miguel Tim [phone] REASON FOR VISIT Patient presents today for gerd Encounters Encounter Location Date Provider Diagnosis [facility] [address] [address] 10/28/2024 Juan Miguel Tim Plan Of Treatment No Information Progress Notes * YAZMIN ADAMSDOB:1945 (79 yo M)Acc No.[id number]:10/28/2024 Progress Notes Patient: YAZMIN HARDY Provider: Jose Tim MD :1945 A ge:79 Y S ex:Male Date:10/28/2024 Address:[address] [place], [place] [phone] Pcp:Kaushal Wilkinson (RETIRED) MD Subjective: * Chief [...] MD Date: 0 10/28/2024 Generated for Printi ng/Fadannig/eTransmitting on: 1 07:19 PM EDT
--- OUTSIDE RECORDS SUMMARY | 2025-03-28 06:00 | XMS_ITS ---
Author Organization [facility] Edvin sarah Alexys Address [address] [facility] [place] [address] Care Team Providers Care Senior Caregiver Name Role Phone Tremaine Guillen Primary Care Provider Marizol Al Unavailable [phone] REASON FOR VISIT Seen Sooner Medications Medication [...] Not-Taking Encounters Encounter Location Date Provider Diagnosis [facility] [address] [address] 03/28/2025 Marizol Ellington Plan Of Treatment Next Appt Details Provider Name:Marizol martinez, 05/31/2025 01:00:00 PM, [address] [place] [address], [phone], Progress Notes * Real PRUITTDOB:1945 (79 yo M)Acc No.[id number]:03/28/2025 Progress Note Patient: Real HARDY Provider: Phuong Ellington DPM :1945 A ge:79 Y S ex:Male Date:03/28/2025 Address:[address] [place], [place] [id number] Pcp:Tremaine Guillen Subjective: * Chief Complaints: * [...] 0 03/28/2025 Generated for Diomedes mckinney/Chely/Clare on: 07:18 PM EDT
[2025-05-15 15:13] LABS: Appearance Urine Clear; Glucose Urine UA >=1000 mg/dL (Negative); PH 5.5 (5.0-9.0); Specific Gravity - Urine >= 1.030 (1.005-1.025); UMIC TRIGGER UACC YES
[2025-05-15 15:28] LABS: UACC Culture Trigger YES
--- OUTSIDE RECORDS SUMMARY | 2025-05-15 19:19 | XMS_ITS | Patient Health Record ---
Author Organization [facility] Address [address] [place] [address] Care Team Providers Care Cashiers Supervisor Name Role Phone Minh (RETIRED) Kaushal LEIGH Primary Care Provider Unavailable Juan Miguel Tim Unavailable [phone] Allergies No Known Allergies Reason For Referral [...] Status Risk Notes Problem Colon cancer screening (501753257) Colon cancer screening (Z12.11) Active confirmed Problem History of adenomatous polyp of colon (558127898) History of adenomatous polyp of colon (Z86.010) Active confirmed Problem Diverticular disease of colon (904495075) Diverticulosis of large intestine without perforation or abscess without bleeding (K57.30) Active confirmed Problem Dysphagia (81400321) Dysphagia (R13.10) Active confirmed Problem Duodenitis (94798889) Duodenitis (K29.80) Active confirmed Problem Gastroesophageal reflux disease (481332120) Gastroesophageal reflux disease (K21.9) Active confirmed Problem Gastroesophageal reflux disease (977259462) Gastroesophageal reflux disease, esophagitis presence not specified (K21.9) Active confirmed Problem Gastroesophageal reflux disease (disorder) (081299958) Chronic GERD (K21.9) Active confirmed Encounters Encounter Location Date Provider Diagnosis [facility] [address] [place] [address] 07/22/2024 Juan Miguel Tim [facility] [address] [place] [address] 10/26/2024 Juan Miguel Tim Plan Of Treatment Future Test Test Name Order Date COLONOSCOPY 03/09/2012 UPPER GI ENDOSCOPY 09/04/2017 COLONOSCOPY 09/04/2017 COLONOSCOPY 05/21/2023 UPPER GI ENDOSCOPY [place] DILATION OF ESOPH 04/20/2024 Insurance Providers Payer Name Payer Address Payer Phone Subscriber Number Group Number Insured Name Patient Relationship to Insured Coverage Start Date Coverage End Date MEDICARE OF [place] [address] SAPNA LOVE [id number] [phone] [id number] YAZMIN ALEJANDRE CAS Self - patient is the insured [employer] Insurance [facility] [address] [place] [id number] YAZMIN ALEJANDRE CAS Self - patient is the insured Medical (General) History Medical History History ICD Code History of tubular adenomas of the colon removed in 2002--colonoscopies in 2006 and 2011 revealed only hyperplastic polyps, as well as diffuse diverticulosis and internal hemorrhoids Hypertension Hyperlipidemia NIDDM Denies [place],CVA,Lung disease,renal disease Left lower leg injury after [...]
--- OUTSIDE RECORDS SUMMARY | 2025-05-15 19:21 | XMS_ITS | Patient Health Record ---
Author Organization [facility] [place] Address [address] [facility] [place] [address] Care Team Providers Care Chief Guard Name Role Phone Tremaine Guillen Primary Care Provider Marizol Al Unavailable [phone] Allergies No Known Allergies Results Component Value [...] Polyneuropathy due to type 2 diabetes mellitus (055525092) Type 2 diabetes mellitus with diabetic polyneuropathy (E11.42) Active confirmed Problem Acquired hammer toe of right foot (5487024019923593 ) Hammer toe of right foot (M20.41) Active confirmed Problem Neuropathy (529956832) Neuropathy (G62.9) Active confirmed Vital Signs Blood pressure diastolic 70 mm Hg 03/22/2025 Height 6ft 3in in 03/22/2025 Blood pressure systolic 132 mm Hg 03/22/2025 Weight 215 lbs 03/22/2025 BMI 26.87 kg/m2 03/22/2025 Encounters Encounter Location Date Provider Diagnosis [address] [address] 08/02/2024 Marizol Ellington Xerosis of skin L85. 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 ; Type 2 diabetes mellitus with diabetic polyneuropathy E11.42 ; Tinea unguium B35.1 and Abscess of toe, left L02.[address] [address] 12/28/2024 Marizol Ellington Type 2 diabetes mellitus with diabetic polyneuropathy E11.42 and Tinea unguium B35.[address] [address] 03/22/2025 Marizol Ellington Type 2 diabetes mellitus with diabetic polyneuropathy E11.42 and Tinea unguium B35.[address] [address] 06/08/2024 Marizol Ellington [address] [address] 03/08/2025 Marizol Ellington Assessments Encounter Date Diagnosis [...] X ray : Foot, right 3V 05/16/2013 57445-Otpwzgas Plate 09/29/2017 76837-Hotystog Plate 11/11/2017 46461-Jxyetnzh Plate 07/02/2017 84349-Kbtypddd Plate 12/11/2017 79233-Majagryu Plate 02/02/2018 48278-Xxtgbelu Plate 07/16/2018 22346-Enzxvzae Plate Each Additional 01/2017 91014-Uexwaneg Plate Each Additional 34906- Debride <25 sq cm 07/16/2017 78096 I&D ABSCESS- SIMPLE,SINGLE 018 32785 I&D ABSCESS- SIMPLE,SINGLE 018 80707 I&D ABSCESS- SIMPLE,SINGLE 017 37842 I&D ABSCESS- SIMPLE,SINGLE 019 , J0702- INJECT or DRAIN, JOINT/BUR SA 05/26/2012, Q5439-LZYYO/INJECT, JOINT/BURSA 1 08/24/201169758, Y8162-LOSOI/INJECT, JOINT/BURSA 1 D6106-DBFHTJAT DYSTROPHIC NAILS ANY # ,H8531-CEO TENDON SHEATH/LIGAMENT 0 12/21/201344483,R3419-BTS TENDON SHEATH/LIGAMENT 0 03/06/2014 F8824-Igcilueeq 3mg 06/24/2012 K8415-Eowqkbohi 3mg 05/26/2012 Next Appt Details Provider Name:Marizol Jorge martinez, 05/31/2025 01:00:00 PM, [address] [place], [address], Insurance Providers Payer Name Payer Address Payer Phone Subscriber Number Group Number Insured Name Patient Relationship to Insured Coverage Start Date Coverage End Date Medicare National Govt Svcs Inc [address] [facility] [place] [address] [id number] Grammati teodora Real Self - patient is the insured [employer] (Unicare) [address] [place] [address] [id number] Grammati teodora, Real Self - patient is the insured Medical (General) History Medical History History ICD Code sciatica Diabetic Arthritis Cataracts Surgical History Surgery Date(Month/Year) right hip replacement 12/08/2011 left hip replacement 10/2014 colonoscopy 04/2024
--- OUTSIDE RECORDS SUMMARY | 2025-05-15 19:21 | XMS_ITS | Clinical Summary ---
Author Organization [facility] Address [address] [place] [address] Phone Care Team Providers Care Hydraulic Plumber Name Role Phone Kaushal Wilkinson MD Primary Care Provider +1- [phone] Allergies No known active allergies Medications lisinopril (PRINIVIL,ZESTR IL) 10 MG tablet Take by mouth 2 (two) times a day. Active NIFEdipine (PROCARDIA) 10 MG capsule Take by mouth daily. Active rosuvastatin (CRESTOR) 10 MG tablet Take by mouth daily. Active omega 5-lpd-lzn-fish oil 1,000 mg (120 mg-180 mg) Cap [...] this topic Medical Devices Implanted Type Area Mill Labor Supervisor Device Identifier Shelf Expiration Date Model / Serial / Lot Right Hip Brenna Taper Size 3 Hip - [id number] Implanted:Qty: 1 on 11/19/2015 by Mac Henley MD at [facility] Left: Hip [employer] 03/27/2018 321.03.354 / / [id number] Liner Ecima Brenna 36mm - [id number] Implanted:Qty: 1 on 11/19/2015 by Mac Henley MD at [facility] Left: Hip [employer] 04/26/2018 322.03.636 / / [id number] Minihip Short Stem Size 8 Standard 07/09 130ccd Hip - [id number] Implanted:Qty: 1 on 11/19/2015 by Mac Henley MD at [facility] Left: Hip [employer] 07/03/2020 580.0008 / / [id number] Biolox Delta Mod Head 36mm X 4mm Hip 04 - [id number] Implanted:Qty: 1 on 11/19/2015 by Mac Henley MD at [facility] Left: Hip [employer] 05/29/2021 104.3600 / / [id number] Procedures Procedure Name Priority Date/Time Associated Diagnosis Comments BASIC METABOLIC PANEL Routine 10/26/2015 11:05 AM EDT from Last 3 Months or Most Recently Relevant to Health Maintenance Results * (ABNORMAL) Basic metabolic panel (10/26/2015 11:05 AM EDT) SODIUM 137 136 - 145 mmol/L [facility] POTASSIUM 4.7 3.5 - 5.2 mmol/L [facility] CHLORIDE 100 99 - 109 mmol/L [facility] CARBON DIOXIDE 24 20 - 31 mmol/L [facility] ANION GAP 13 3 - 17 [facility] CALCIUM 9.5 8.7 - 10.4 mg/dL [facility] GLUCOSE 141(Abnorm ally H) 74 - 106 mg/dL [facility] UREA NITROGEN (BUN) 19 9 - 23 mg/dl [facility] CREATININE 1.03 0.5 - 1.3 mg/dl [facility] EST GLOM FILT RATE NON- A 76.3 [facility] Comment:Units: ml/min/1.73ms q EST GLOM FILT RATE AMERI 92.4 [facility] Comment: Units: ml/min/1.73msq Reference Table for [...] 5 AM EDT 10/26/2015 12:14 PM EDT [facility] - 10/26/2015 12:44 PM EDT [facility], [address] [facility] [address], Student Accounts Manager: Shawn Medina M.D. us Mac Henley MD LAB BLOOD ORDERABLES Final Re sult [facility] [address] [place] [address] from Last 3 Months or Most Recently Relevant to Health Maintenance Insurance [employer] TOTAL CHOICE INDEMNITY [employer]OTAL CHOICE INDEMNITY [facility] TOTAL CHOICE INDEMNITY [facility] TOTAL CHOICE INDEMNITY [facility] TOTAL CHOICE INDEMNITY [facility] TOTAL CHOICE INDEMNITY [facility] TOTAL CHOICE INDEMNITY [facility] TOTAL CHOICE INDEMNITY [facility] TOTAL CHOICE INDEMNITY [facility] TOTAL CHOICE INDEMNITY Advance Directives For more information, please contact: [phone] (9AM - 5PM [facility], Thursday-Thursday) Documents on File Type Date Recorded Patient Spare Hand Expl anation Healthcare Proxy 11/28/2015 1:01 PM * Full Code (Presumed) (Latest Code Status on File) Date Activated Date Inactivated Comments 11/19/2015 5:33 PM 11/22/2015 1:56 PM * Full Code (Presumed) Date Activated Date Inactivated Comments 11/19/2015 10:21 AM 11/19/2015 5:33 PM Care Teams Hydraulic Plumber Relationship Specialty Start Date End Date Mugg, Kaushal Willie, MD [address] [place] [address] PCP - General 01/24/14 Additional Source Comments The information contained in this document represents components of the legal health record. It is not the complete legal health record.[facility]
== END 2025-05-15 15:08 | disposition home or self-care (01) ==
LOC: HO.LNP 15:07
PROVIDERS: Visit Provider Physician Assistant Medical
DX: Z13.9 Encounter for screening, unspecified (principal)
CPT/HCPCS: 81001; 87086

== ENCOUNTER 2025-05-16 16:18 | Outpatient (REF) | payer MEDICARE, OTHER, SELFPAY ==
--- OUTSIDE RECORDS SUMMARY | 2024-02-24 06:00 | XMS_ITS ---
Author Organization [facility] [place] Address [address] [place] [address] Care Team Providers Care Safety And Skill Based Pay Manager Name Role Phone Tremaine Guillen Primary Care Provider Marizol Al [phone] Encounters Encounter Location Date Provider Diagnosis [address] [address] 02/24/2024 Marizol Ellington Plan Of Treatment Next Appt Details Provider Name:Marizol martinez, 05/31/2025 01:00:00 PM, [address] [place] [address], [phone], Progress Notes * Real ADAMSDOB:1945 (79 yo M)Acc No.[id number]:02/24/2024 Progress Note Patient: Real HARDY Provider: Phuong Ellington DPM :1945 A ge:78 Y S ex:Male Date:02/24/2024 Address:[address] [place] [address] [id number] Pcp:Tremaine Guillen Subjective: * Chief Complaints: * [...] 02/24/2024 Generated for Diomedes mckinney/Chely/Clare on: 1 09:02 PM EDT
--- OUTSIDE RECORDS SUMMARY | 2024-04-08 08:00 | XMS_ITS ---
Author Organization [facility] [place] Address [address] [place] [address] Care Team Providers Care Translator Deaf Name Role Phone Tremaine Guillen Primary Care Provider Marizol Al [phone] REASON FOR VISIT seen sooner Encounters Encounter Location Date Provider Diagnosis [address] [address] 04/08/2024 Marizol Ellington Plan Of Treatment Next Appt Details Provider Name:Marizol martinez, 05/31/2025 01:00:00 PM, [address] [place] [address], [phone], Progress Notes * Real ADAMSDOB:1945 (79 yo M)Acc No.[id number]:04/08/2024 Progress Note Patient: Real HARDY Provider: Phuong Ellington DPM :1945 A ge:78 Y S ex:Male Date:04/08/2024 Address:[address] [place] [address] [id number] Pcp:Tremaine Guillen Subjective: * Chief Complaints: * [...] 0 04/08/2024 Generated for Diomedes Sommers/Clare on: 09:01 PM EDT
--- OUTSIDE RECORDS SUMMARY | 2024-04-22 03:30 | XMS_ITS ---
Author Organization [facility] Address [address] [place] [phone] Care Team Providers Care Substation Operator Helper Name Role Phone Minh (RETIRED) Kaushal LEIGH Primary Care Provider Unavailable Juan Miguel Tim Unavailable [phone] REASON FOR VISIT colon screening Problems Problem Type SNOMED Code ICD Code Onset Dates Problem Status W/U Status Risk Notes Problem Diverticular disease of colon (944901205) Diverticulosis of large intestine without perforation or abscess without bleeding (K57.30) Active confirmed Problem Gastroesophageal reflux disease (150548930) Gastroesophageal reflux disease (K21.9) Active confirmed Problem Duodenitis (73055494) Duodenitis (K29.80) Active confirmed Encounters Encounter Location Date Provider Diagnosis [facility] [place] [address] [place] [phone] 04/22/2024 Juan Miguel Tim Colon cancer screeni [...] Notes * YAZMIN ADAMSDOB:1945 (79 yo M)Acc No.[id number]:04/22/2024 EGD and COL/MAC Patient: YAZMIN HARDY Provider: Jose Tim MD :1945 A ge:78 Y S ex:Male Date:04/22/2024 Address:[address] [place], [place] [phone] Pcp:Kaushal Wilkinson (RETIRED) MD Subjective: * Chief [...] FLW-UP 10 YRS DOCD, Modifiers: 1P , 85255 UPPER GI ENDOSCOPY, BIOPSY * * The named appointment provid er may or may not be the originator of this progress note, and it is not deemed complete until electronically signed by the appointment provider. Sign off status: Pending * Provider: Jose Tim MD Date: 0 04/22/2024 Generated for Flacai ng/Zulyg/eTransmitting on: 1 09:02 PM EDT
--- OUTSIDE RECORDS SUMMARY | 2024-09-01 06:00 | XMS_ITS ---
Author Organization [facility] Address [address] [place] [phone] Care Team Providers Care Railroad Car Checker Name Role Phone Minh (RETIRED) Kaushal LEIGH Primary Care Provider Juan Miguel Damon [phone] REASON FOR VISIT gerd Encounters Encounter Location Date Provider Diagnosis [facility] 10 [facility] [address] [place] [address] 09/01/2024 Juan Miguel Tim Plan Of Treatment No Information Progress Notes * YAZMIN ADAMSDOB:1945 (79 yo M)Acc No.[id number]:09/01/2024 Progress Notes Patient: YAZMIN HARDY Provider: Jose Tim MD :1945 A ge:78 Y S ex:Male Date:09/01/2024 Address:[address] [place], [place] [phone] Pcp:Kaushal Wilkinson (RETIRED) MD Subjective: * Chief [...] 09/01/2024 Generated for Printi ng/Faxing/eTransmitting on: 1 09:00 PM EDT
--- OUTSIDE RECORDS SUMMARY | 2024-10-28 10:40 | XMS_ITS ---
Author Organization [facility] Address 10 [facility] [address] [place] [address] Care Team Providers Care Form Raiser Name Role Phone Minh (RETIRED) Kaushal LEIGH Primary Care Provider Unavailable Juan Miguel Tim [phone] REASON FOR VISIT Patient presents today for gerd Encounters Encounter Location Date Provider Diagnosis [facility] [address] [address] 10/28/2024 Juan Miguel Tim Plan Of Treatment No Information Progress Notes * YAZMIN ADAMSDOB:1945 (79 yo M)Acc No.[id number]:10/28/2024 Progress Notes Patient: YAZMIN HARDY Provider: Jose Tim MD :1945 A ge:79 Y S ex:Male Date:10/28/2024 Address:[address] [place], [place] [phone] Pcp:Kaushal Wilkinson (RETIRED) MD Subjective: * Chief [...] 10/28/2024 Generated for Printi ng/Fadannig/eTransmitting on: 1 09:01 PM EDT
--- OUTSIDE RECORDS SUMMARY | 2025-03-28 06:00 | XMS_ITS ---
Author Organization [facility] Edvin sarah Alexys Address [address] [facility] [place] [address] Care Team Providers Care Pigs Feet Finisher Name Role Phone Tremaine Guillen Primary Care Provider Marizol Al Unavailable [phone] REASON FOR VISIT Seen Sooner Medications Medication [...] Not-Taking Encounters Encounter Location Date Provider Diagnosis [facility] [address] [address] 03/28/2025 Marizol Ellington Plan Of Treatment Next Appt Details Provider Name:Marizol martinez, 05/31/2025 01:00:00 PM, [address] [place] [address], [phone], Progress Notes * Real PRUITTDOB:1945 (79 yo M)Acc No.[id number]:03/28/2025 Progress Note Patient: Real HARDY Provider: Phuong Ellington DPM :1945 A ge:79 Y S ex:Male Date:03/28/2025 Address:[address] [place], [place] [id number] Pcp:Tremaine Guillen Subjective: * Chief Complaints: * [...] 0 03/28/2025 Generated for Diomedes mckinney/Chely/Clare on: 08:59 PM EDT
--- NOTE | ~2025-05-16 | US_ITS ---
EXAMINATION: US TRIPLEX LOWER EXTREMITY, LEFT CLINICAL INFORMATION: Left lower extremity edema. COMPARISON: None available. TECHNIQUE: Color-flow triplex imaging with spectral analysis and compression Doppler were performed on the left lower extremity. FINDINGS: Respiratory variation, normal compression and augmented flow are noted throughout the left lower extremity. The visualized common femoral vein, superficial femoral vein, profunda femoral vein, popliteal vein and midcalf posterior tibial venous segments show no evidence of deep venous thrombosis. The left peroneal vein could not be well seen. There is no Infante's cyst. US/US venous duplex LE LT IMPRESSION: No evidence of deep venous thrombosis involving the left lower extremity. Electronically signed by: Mahesh Manzanares MD 05/16/2025 04:44 PM EDT
--- OUTSIDE RECORDS SUMMARY | 2025-05-16 21:00 | XMS_ITS | Patient Health Record ---
Author Organization [facility] Address [address] [place] [address] Care Team Providers Care Resident Service Coordinator Name Role Phone Minh (RETIRED) Kaushal LEIGH Primary Care Provider Unavailable Juan Miguel Tim Unavailable [phone] Allergies No Known Allergies Reason For Referral [...] Status Risk Notes Problem Colon cancer screening (050760230) Colon cancer screening (Z12.11) Active confirmed Problem History of adenomatous polyp of colon (212269587) History of adenomatous polyp of colon (Z86.010) Active confirmed Problem Diverticular disease of colon (115461815) Diverticulosis of large intestine without perforation or abscess without bleeding (K57.30) Active confirmed Problem Dysphagia (72496966) Dysphagia (R13.10) Active confirmed Problem Duodenitis (59372371) Duodenitis (K29.80) Active confirmed Problem Gastroesophageal reflux disease (634667975) Gastroesophageal reflux disease (K21.9) Active confirmed Problem Gastroesophageal reflux disease (172931889) Gastroesophageal reflux disease, esophagitis presence not specified (K21.9) Active confirmed Problem Gastroesophageal reflux disease (disorder) (565013119) Chronic GERD (K21.9) Active confirmed Encounters Encounter Location Date Provider Diagnosis [facility] [address] [place] [address] 07/22/2024 Juan Miguel Tim [facility] [address] [place] [address] 10/26/2024 Juan Miguel Tim Plan Of Treatment Future Test Test Name Order Date COLONOSCOPY 03/09/2012 UPPER GI ENDOSCOPY 09/04/2017 COLONOSCOPY 09/04/2017 COLONOSCOPY 05/21/2023 UPPER GI ENDOSCOPY [place] DILATION OF ESOPH 04/20/2024 Insurance Providers Payer Name Payer Address Payer Phone Subscriber Number Group Number Insured Name Patient Relationship to Insured Coverage Start Date Coverage End Date MEDICARE OF [place] [address] SAPNA LOVE [id number] YAZMIN ALEJANDRE CAS Self - patient is the insured [employer] Insurance ([facility]) [address] [place] [id number] YAZMIN ALEJANDRE CAS Self - patient is the insured Medical (General) History Medical History History ICD Code History of tubular adenomas of the colon removed in 2002--colonoscopies in 2006 and 2011 revealed only hyperplastic polyps, as well as diffuse diverticulosis and internal hemorrhoids Hypertension Hyperlipidemia NIDDM Denies [place],CVA,Lung disease,renal disease Left lower leg injury after [...]
--- OUTSIDE RECORDS SUMMARY | 2025-05-16 21:02 | XMS_ITS | Patient Health Record ---
Author Organization [facility] [place] Address [address] [facility] [place] [address] Care Team Providers Care Glue Size Machine Operator Name Role Phone Tremaine Guillen Primary Care Provider Marizol Al Unavailable [phone] Allergies No Known Allergies Results Component Value [...] Polyneuropathy due to type 2 diabetes mellitus (108353921) Type 2 diabetes mellitus with diabetic polyneuropathy (E11.42) Active confirmed Problem Acquired hammer toe of right foot ([id number] ) Hammer toe of right foot (M20.41) Active confirmed Problem Neuropathy (775553145) Neuropathy (G62.9) Active confirmed Vital Signs Blood pressure diastolic 70 mm Hg 03/22/2025 Height 6ft 3in in 03/22/2025 Blood pressure systolic 132 mm Hg 03/22/2025 Weight 215 lbs 03/22/2025 BMI 26.87 kg/m2 03/22/2025 Encounters Encounter Location Date Provider Diagnosis [address] [address] 08/02/2024 Marizol Ellington Xerosis of skin L85. 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 ; Type 2 diabetes mellitus with diabetic polyneuropathy E11.42 ; Tinea unguium B35.1 and Abscess of toe, left L02.[address] [address] 12/28/2024 Marizol Ellington Type 2 diabetes mellitus with diabetic polyneuropathy E11.42 and Tinea unguium B35.[address] [address] 03/22/2025 Marizol Ellington Type 2 diabetes mellitus with diabetic polyneuropathy E11.42 and Tinea unguium B35.[address] [address] 06/08/2024 Marizol Ellington [address] [address] 03/08/2025 Marizol Ellington Assessments Encounter Date Diagnosis [...] X ray : Foot, right 3V 05/16/2013 08021-Vrquaufv Plate 09/29/2017 59844-Anwzkfct Plate 11/11/2017 61616-Xkpkvokh Plate 07/02/2017 86413-Anpffvdn Plate 12/11/2017 35457-Zndlkqsj Plate 02/02/2018 99095-Meqijqpc Plate 07/16/2018 89214-Jqmebusq Plate Each Additional 01/2017 51821-Nbldwfmp Plate Each Additional 92541- Debride <25 sq cm 07/16/2017 01752 I&D ABSCESS- SIMPLE,SINGLE 018 36681 I&D ABSCESS- SIMPLE,SINGLE 018 75139 I&D ABSCESS- SIMPLE,SINGLE 017 92768 I&D ABSCESS- SIMPLE,SINGLE 019 , J0702- INJECT or DRAIN, JOINT/BUR SA 05/26/2012, B5146-ARIKC/INJECT, JOINT/BURSA 1 08/24/201191018, T2017-UCDJU/INJECT, JOINT/BURSA 1 S4708-BTWBEGXQ DYSTROPHIC NAILS ANY # ,D9041-VDK TENDON SHEATH/LIGAMENT 0 12/21/201382048,N9087-ZTB TENDON SHEATH/LIGAMENT 0 03/06/2014 H5832-Odenhljxb 3mg 06/24/2012 Y5024-Lozofmetg 3mg 05/26/2012 Next Appt Details Provider Name:Marizol Jorge martinez, 05/31/2025 01:00:00 PM, [address] [place], [address], Insurance Providers Payer Name Payer Address Payer Phone Subscriber Number Group Number Insured Name Patient Relationship to Insured Coverage Start Date Coverage End Date Medicare National Govt Sv[employer] Inc [address] [place] [address] [id number] Grammati teodora Real Self - patient is the insured [place] ([employer]) [address] [place] [address] [phone] [id number] Grammati teodora, Real Self - patient is the insured Medical (General) History Medical History History ICD Code sciatica Diabetic Arthritis Cataracts Surgical History Surgery Date(Month/Year) right hip replacement 12/08/2011 left hip replacement 10/2014 colonoscopy 04/2024
--- OUTSIDE RECORDS SUMMARY | 2025-05-16 21:02 | XMS_ITS | Clinical Summary ---
Author Organization [facility] Address [address] [place] [address] Phone Care Team Providers Care Fabric Worker Name Role Phone Kaushal Wilkinson MD Primary Care Provider [phone] Allergies No known active allergies Medications lisinopril (PRINIVIL,ZESTR IL) 10 MG tablet Take by mouth 2 (two) times a day. Active NIFEdipine (PROCARDIA) 10 MG capsule Take by mouth daily. Active rosuvastatin (CRESTOR) 10 MG tablet Take by mouth daily. Active omega 9-tkm-kyw-fish oil 1,000 mg (120 mg-180 mg) Cap [...] this topic Medical Devices Implanted Type Area Oracle Applications Developer Device Identifier Shelf Expiration Date Model / Serial / Lot Right Hip Brenna Taper Size 3 Hip - [id number] Implanted:Qty: 1 on 11/19/2015 by Mac Henley MD at [facility] Left: Hip [employer] 03/27/2018 [id number] / / [id number] Liner Ecima Brenna 36mm - [id number] Implanted:Qty: 1 on 11/19/2015 by Mac Henley MD at [facility] Left: Hip [employer] 04/26/2018 322.03.636 / / [id number] Minihip Short Stem Size 8 Standard 07/09 130ccd Hip - [id number] Implanted:Qty: 1 on 11/19/2015 by Mac Henley MD at [facility] Left: Hip [employer] 07/03/2020 580.0008 / / [id number] Biolox Delta Mod Head 36mm X 4mm Hip 04 - [id number] Implanted:Qty: 1 on 11/19/2015 by Mac Henley MD at [facility] Left: Hip [employer] 05/29/2021 104.3600 / / [id number] Procedures Procedure Name Priority Date/Time Associated Diagnosis Comments BASIC METABOLIC PANEL Routine 10/26/2015 11:05 AM EDT from Last 3 Months or Most Recently Relevant to Health Maintenance Results * (ABNORMAL) Basic metabolic panel (10/26/2015 11:05 AM EDT) SODIUM 137 136 - 145 mmol/L [facility] POTASSIUM 4.7 3.5 - 5.2 mmol/L [facility] CHLORIDE 100 99 - 109 mmol/L [facility] CARBON DIOXIDE 24 20 - 31 mmol/L [facility] ANION GAP 13 3 - 17 [facility] CALCIUM 9.5 8.7 - 10.4 mg/dL [facility] GLUCOSE 141(Abnorm ally H) 74 - 106 mg/dL [facility] UREA NITROGEN (BUN) 19 9 - 23 mg/dl [facility] CREATININE 1.03 0.5 - 1.3 mg/dl [facility] EST GLOM FILT RATE NON- A 76.3 [facility] Comment:Units: ml/min/1.73ms q EST GLOM FILT RATE AMERI 92.4 [facility] Comment: Units: ml/min/1.73msq Reference Table for [...] 5 AM EDT 10/26/2015 12:14 PM EDT [facility] - 10/26/2015 12:44 PM EDT [facility], [address] [facility] [address], Site Medical Director: Shawn Medina M.D. us Mac Henley MD LAB BLOOD ORDERABLES Final Re sult [facility] [address] [place] [address] from Last 3 Months or Most Recently Relevant to Health Maintenance Insurance [employer] TOTAL CHOICE INDEMNITY [employer]OTAL CHO[employer] INDEMNITY [facility] TOTAL CHOICE INDEMNITY [facility] TOTAL CHOICE INDEMNITY [facility] TOTAL CHOICE INDEMNITY [facility] TOTAL CHOICE INDEMNITY [facility] TOTAL CHOICE INDEMNITY [facility] TOTAL CHOICE INDEMNITY [facility]OTAL CHOICE [facility] TOTAL CHOICE INDEMNITY Advance Directives For more information, please contact: [phone] (9AM - 5PM [facility], Thursday-Thursday) Documents on File Type Date Recorded Patient Hotel Operation Manager Expl anation Healthcare Proxy 11/28/2015 1:01 PM * Full Code (Presumed) (Latest Code Status on File) Date Activated Date Inactivated Comments 11/19/2015 5:33 PM 11/22/2015 1:56 PM * Full Code (Presumed) Date Activated Date Inactivated Comments 11/19/2015 10:21 AM 11/19/2015 5:33 PM Care Teams Fabric Worker Relationship Specialty Start Date End Date Mugg, Kaushal Willie, MD [address] [place] [address] PCP - General 01/24/14 Additional Source Comments The information contained in this document represents components of the legal health record. It is not the complete legal health record.[facility]
== END 2025-05-16 16:19 | disposition home or self-care (01) ==
LOC: HO.US 16:18
PROVIDERS: PCP Physician Assistant Medical; Visit Provider Physician Assistant Medical
DX: M25.472 Effusion, left ankle (principal); R60.0 Localized edema
CPT/HCPCS: 93971

== ENCOUNTER → 2025-05-16 16:21 | Outpatient (BNV) | payer MEDICARE, OTHER, SELFPAY | PROVIDERS: PCP Physician Assistant Medical; Visit Provider Radiology Diagnostic Radiology | DX: R60.0 Localized edema (principal) | CPT/HCPCS: 93971 ==

== ENCOUNTER 2025-05-19 09:47 | Outpatient (AMB) | payer MEDICARE, OTHER, SELFPAY ==
--- OUTSIDE RECORDS SUMMARY | 2024-02-24 06:00 | XMS_ITS ---
[facility] Organization [facility] [place] Address [address] [place] [address] Care Team Providers Care Enrollment Nurse Name Role Phone Tremaine Guillen Primary Care Provider Marizol Al [phone] Encounters Encounter Location Date Provider Diagnosis [address] [address] 02/24/2024 Marizol Ellington Plan Of Treatment Next Appt Details Provider Name:Marizol martinez, 05/31/2025 01:00:00 PM, [address] [place] [address], [phone], Progress Notes * Real ADAMSDOB:1945 (79 yo M)Acc No.[id number]:02/24/2024 Progress Note Patient: Real HARDY Provider: Phuong Ellington DPM :1945 A ge:78 Y S ex:Male Date:02/24/2024 Address:[address] [place] [address] [id number] Pcp:Tremaine Guillen Subjective: * Chief Complaints: * [...] 02/24/2024 Generated for Diomedes mckinney/Chely/Clare on: 1 11:01 AM EDT
--- OUTSIDE RECORDS SUMMARY | 2024-04-08 08:00 | XMS_ITS ---
Author Organization [facility] ke[place] Address [address] [place] [address] Care Team Providers Care Pathology Collector Name Role Phone Tremaine Guillen Primary Care Provider Marizol Al [phone] REASON FOR VISIT seen sooner Encounters Encounter Location Date Provider Diagnosis [address] [address] 04/08/2024 Marizol Ellington Plan Of Treatment Next Appt Details Provider Name:Marizol martinez, 05/31/2025 01:00:00 PM, [address] [place] [address], [phone], Progress Notes * Real ADAMSDOB:1945 (79 yo M)Acc No.[id number]:04/08/2024 Progress Note Patient: Real HARDY Provider: Phuong Ellington DPM :1945 A ge:78 Y S ex:Male Date:04/08/2024 Address:[address] [place] [address] [place] Pcp:Tremaine Guillen Subjective: * Chief Complaints: * [...] 0 04/08/2024 Generated for Diomedes Sommers/Clare on: 11:01 AM EDT
--- OUTSIDE RECORDS SUMMARY | 2024-04-22 03:30 | XMS_ITS ---
Author Organization [facility] Address [address] [place] [address] Care Team Providers Care Radio Repairer Domestic Name Role Phone Minh (RETIRED) Kaushal LEIGH Primary Care Provider Unavailable Juan Miguel Tim Unavailable [phone] REASON FOR VISIT colon screening Problems Problem Type SNOMED Code ICD Code Onset Dates Problem Status W/U Status Risk Notes Problem Information temporarily unavailable Diverticulosis of large intestine without perforation or abscess without bleeding (K57.30) Active confirmed Problem Information temporarily unavailable Gastroesophageal reflux disease (K21.9) Active confirmed Problem Information temporarily unavailable Duodenitis (K29.80) Active confirmed Encounters Encounter Location Date Provider Diagnosis [facility] [place] [address] [place] [phone] 04/22/2024 Juan Miguel Tim Colon cancer screeni [...] Of Treatment No Information Progress Notes * GRAMMYAZMIN GOMEZDOB:1945 (79 yo M)Acc No.[id number]:04/22/2024 EGD and COL/MAC Patient: YAZMIN HARDY Provider: Jose Tim MD :1945 A ge:78 Y S ex:Male Date:04/22/2024 Address:[address] [place] [address], [id number] Pcp:Kaushal Wilkinson (RETIRED) MD Subjective: * Chief [...] FLW-UP 10 YRS DOCD, Modifiers: 1P , 09955 UPPER GI ENDOSCOPY, BIOPSY * * The named appointment provid er may or may not be the originator of this progress note, and it is not deemed complete until electronically signed by the appointment provider. Sign off status: Pending * Provider: Jose Tim MD Date: 0 04/22/2024 Generated for Diomedes mckinney/Chely/eTransmitting on: 1 11:01 AM EDT
--- OUTSIDE RECORDS SUMMARY | 2024-09-01 06:00 | XMS_ITS ---
Author Organization [facility] Address [address] [place] [phone] Care Team Providers Care Management Liaison Name Role Phone Minh (RETIRED) Kaushal LEIGH Primary Care Provider Juan Miguel Damon [phone] REASON FOR VISIT gerd Encounters Encounter Location Date Provider Diagnosis [facility] 10 [facility] [address] [place] [address] 09/01/2024 Juan Miguel Tim Plan Of Treatment No Information Progress Notes * YAZMIN ADAMSDOB:1945 (79 yo M)Acc No.[id number]:09/01/2024 Progress Notes Patient: YAZMIN HARDY Provider: Jose Tim MD :1945 A ge:78 Y S ex:Male Date:09/01/2024 Address:[address] [place], [place] [phone] Pcp:Kaushal Wilkinson (RETIRED) MD Subjective: * Chief [...] MD Date: 0 09/01/2024 Generated for Flacai ng/Faxing/eTransmitting on: 1 11:01 AM EDT
--- OUTSIDE RECORDS SUMMARY | 2024-10-28 10:40 | XMS_ITS ---
Author Organization [facility] Address [address] [facility] [address] [place] [address] Care Team Providers Care Image Processing Engineer Name Role Phone Minh (RETIRED) Kaushal LEIGH Primary Care Provider Unavailable Juan Miguel Tim [phone] REASON FOR VISIT Patient presents today for gerd Encounters Encounter Location Date Provider Diagnosis [facility] [address] [address] 10/28/2024 Juan Miguel Tim Plan Of Treatment No Information Progress Notes * YAZMIN ADAMSDOB:1945 (79 yo M)Acc No.[id number]:10/28/2024 Progress Notes Patient: YAZMIN HARDY Provider: Jose Tim MD :1945 A ge:79 Y S ex:Male Date:10/28/2024 Address:[address] [place], [place] [phone] Pcp:Kaushal Wilkinson (RETIRED) MD Subjective: * Chief [...] 0 10/28/2024 Generated for Flacai ng/Fadannig/eTransmitting on: 11:01 AM EDT
--- OUTSIDE RECORDS SUMMARY | 2025-03-28 06:00 | XMS_ITS ---
Author Organization [facility] Edvin sarah Alexys Address [address] [facility] [place] [address] Care Team Providers Care Quality Review Trainer Name Role Phone Tremaine Guillen Primary Care Provider Marizol Al Unavailable [phone] REASON FOR VISIT Seen Sooner Medications Medication [...] Not-Taking Encounters Encounter Location Date Provider Diagnosis [facility] [address] [address] 03/28/2025 Marizol Ellington Plan Of Treatment Next Appt Details Provider Name:Marizol martinez, 05/31/2025 01:00:00 PM, [address] [place] [address], [phone], Progress Notes * Real PRUITTDOB:1945 (79 yo M)Acc No.[id number]:03/28/2025 Progress Note Patient: Real HARDY Provider: Phuong Ellington DPM :1945 A ge:79 Y S ex:Male Date:03/28/2025 Address:[address] [place], [place] [address] Pcp:Tremaine Guillen Subjective: * Chief Complaints: * [...] 0 03/28/2025 Generated for Diomedes mckinney/Chely/Clare on: 11:00 AM EDT
[2025-05-19 09:47] VITALS: BP 148/70; PULSE 87; TEMP 36.1; O2SAT 98; BMI 28.9
--- NOTE | 2025-05-19 09:47 | MHC.PC.OV ---
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 Accompanied by: Self / Same As Patient Allergies No Known Allergies (No Known Allergies*) Allergy (Verified 05/19/25 11:11) Medication List - Last Reconciled 05/19/25 by Daniela Mcfadden PA-C atorvastatin 10 mg PO DAILY cane USE DAILY WHILE AMBULATING erythromycin 0.5 inches ophthalmic (eye) QID finasteride 5 mg PO DAILY 90 days fluconazole 200 mg PO DAILY 12 days fluconazole 200 mg PO DAILY 2 weeks gabapentin 100 mg PO BID lisinopril 20 mg PO DAILY metformin ER 500 mg PO BID 90 days miconazole nitrate 2% (Antifungal (miconazole)) 1 appl topical BID naproxen 500 mg PO BID PRN nifedipine ER 30 mg PO DAILY testosterone 50 mg transdermal DAILY 30 days walker (Ultra-Light Rollator misc) for ambulating daily Tobacco use date assessed: 05/19/25 Fall risk assessment: No Falls in past year Last assessed Fall Risk: 05/19/25 Dental Screening Dental Screen Date: 05/19/25 Did you have a dental visit in the last 12 months?: No HPI Office visit HPI Details The patient is a 79-year-old male presenting with urinary symptoms and concerns related to diabetes management. The patient reports experiencing urinary symptoms, including discomfort and discharge, which were initially suspected to be related to an infection. A previous urine culture on 04/27/2025 indicated the presence of Liseth, for which the patient was treated with antifungal medication. The patient had discontinued Jardiance due to its side effects, which included increased glucose in the urine, potentially leading to recurrent infections. The patient has a history of Type 2 Diabetes Mellitus, managed with metformin, and previously with Jardiance, which was discontinued due to adverse effects. The patient's recent A1c was 6.1, indicating good glycemic control. The patient reports no significant dietary changes but mentions occasional use of nicotine and alcohol, specifically scotch, which he believes does not affect his blood sugar levels. Social History - Substance Use: Reports occasional use of nicotine and alcohol, specifically scotch. - Functional Status: Prefers sponge baths over showers due to unsteadiness. [facility] Medical History Abnormal urine Fatigue Elevated AST (SGOT) Constipation Left ankle swelling Left ankle pain Alcohol use disorder Candidiasis UTI (urinary tract infection) Annual physical exam Pedal edema Rosacea Neuropathy Hematuria Left knee pain Swelling of left knee Balance problem Bilateral hip pain Bilateral knee pain Nicotine dependence Sty Type 2 diabetes mellitus with hemoglobin A1c goal of less than 7.0% Osteoarthritis Establishing care with new doctor, encounter for Lower back pain Nicotine use Ambulates with cane Peripheral neuropathy Internal hemorrhoids Diverticulosis Hiatal hernia Arthritis Left leg weakness Diabetes Hyperlipemia HTN (hypertension) Surgical History History of esophagogastroduodenoscopy (EGD) (~2017) Hx of bilateral hip replacements Hx of colonoscopy (~04/22/24) Family History Father History of heart surgery Mother Arthritis Social History Housing: House Are you a primary reservoir caretaker to a significant other at home: No Do you presently have visiting nurse or other home services: No Alcohol intake: current Alcohol intake frequency: 3 or more drinks per day Alcohol type: beer Patient Tobacco Use Status: Former Tobacco user Tobacco use type: Cigarette service: No Current occupational status: retired Cognitive needs: Yes (cane) Hearing needs: No Vision needs: Yes (rx glasses) Questionnaire PHQ-9 Over the last 2 weeks, how often have you been bothered by any of the following problems? 1. Little interest or pleasure in doing things: not at all 2. Feeling down, depressed, or hopeless: not at all 3. Trouble falling or staying asleep, or sleeping too much: not at all 4. Feeling tired or having little energy: not at all 5. Poor appetite or overeating: not at all 6. Feeling bad about yourself - or that you are a failure or have let yourself or your family down: not at all 7. Trouble concentrating on things, such as reading the newspaper or watching television: not at all 8. Moving or speaking so slowly that other people could have noticed. Or the opposite - being so fidgety or restless that you have been moving around a lot more than usual: not at all 9. Thoughts that you would be better off or of hurting yourself in some way: not at all Total score: 0 Depression Screening Interpretation: Negative Depression Screening Done: Yes 90261 - PHQ-9 Billing: Yes Source: Developed by Drs. Juan Miguel Klein, Joyce Jiménez, Mark Beaver and colleagues, with an educational evelia from [employer]. Thrive Questionnaire Date Thrive assessed: 05/19/25 I am a: Patient What is your living situation today?: I have a steady place to live Within the past 12 months, did the food you bought not last and you didn't have the money to get more?: Never true Within the past 12 months, did you worry whether your food would run out before you got money to buy more?: Never true Do you have trouble paying for medicines?: No Do you have trouble getting transportation to medical appointments?: No Do you have trouble paying your heating and electricity bill?: No Do you have trouble taking care of your child, family member or friend?: Yes Do you have trouble with day-to-day activities such as bathing, preparing meals, shopping, managing finances, etc.?: No Are you currently unemployed and looking for a job?: No Are you interested in more education?: No Please select the resources that you would like help with: None Currently or been in a relationship where the following occur: No concerns reported THRIVE Score: 0 AUDIT C Alcohol Use Questionnaire (AUDIT-C) 1. How often do you have a drink containing alcohol?: 4 or more times a week 2. How many drinks containing alcohol do you have on a typical day when you are drinking?: 3 or 4 3. How often do you have six or more drinks on one occasion?: Never Total Score: 5 Score Reviewed/Action Taken: No SHARLENE-7 AMB Questionnaire SHARLENE-7 Date SHARLENE - 7 assessed: 05/19/25 Feeling nervous, anxious, or on edge: 0 = Not at all Not being able to stop or control worryin = Not at all Worrying too much about different things: 0 = Not at all Trouble relaxin = Not at all Being so restless that it is hard to sit still: 0 = Not at all Becoming easily annoyed or irritable: 0 = Not at all Feeling afraid as if something awful might happen: 0 = Not at all Total SHARLENE-7 score (0-4 normal; 5-9 mild; 10-14 moderate; 15-21 severe): 0 Source: Developed by Drs. Juan Miguel Klein, Joyce Jiménez, Mark Beaver and colleagues, with an educational evelia from [employer]. SHARLENE-7 Assessment Billing SHARLENE-7 Assessment Tool: SHARLENE-7 Assessment 26867 Review of Systems Const Details: - Genitourinary: Reports urinary discomfort and discharge. Denies itching. - Endocrine: Denies significant dietary changes affecting blood sugar levels. All systems reviewed & are unremarkable except as noted in HPI and below Physical exam (Primary Care) Vital Signs: Last Vital Signs Temp 96.9 F 05/19/25 09:47 Pulse 87 05/19/25 09:47 BP 148/70 H 05/19/25 09:47 Pulse Ox 98 05/19/25 09:47 Oxygen Delivery Method Room Air 05/19/25 09:47 BMI result Body Mass Index 28.9 Tobacco/Smoking Status: Tobacco use Status Tobacco use date assessed 05/19/25 05/19/25 09:48 Patient Tobacco Use Status Former Tobacco user 05/19/25 09:48 Tobacco use type Cigarette 05/19/25 09:48 PHQ-9: PHQ-9 Score PHQ-9: Total score 0 05/19/25 10:18 Depression Screening Interpretation: Negative Thrive Assessment: Date of Thrive Assessment Date Thrive assessed 05/19/25 05/19/25 09:48 Currently or been in a relationship where the following occur: No concerns reported Const Other: Appearance: Alert. Oriented X3. No acute distress. Head: Normal external exam. Normocephalic. Atraumatic. Eyes: Pupils are equal, round, and reactive to light. Extraocular movements intact. Conjunctiva and sclera normal. Eyelids normal. Throat: Pharynx normal. Uvula midline. Moist mucous membranes. Neck: Normal inspection. Neck supple. Full range of motion. Cardiovascular: Normal heart rate and rhythm. Respiratory: No respiratory distress. Painless inspiration. Back: Full range of motion noted. : The head of the penis appears erythematous with white discharge noted at the rim when you pull back the foreskin consistent with a yeast infection. No lesions, foul odor noted. Skin: Skin warm and dry. Normal skin color. Normal skin turgor. No rashes/lesions/lacerations noted. Extremities: Extremities exhibit normal range of motion. Neuro: Oriented X 3. No motor deficit. No sensory deficit. Reflexes normal. Office Procedures Flu Questionnaire Does the patient have a severe egg allergy?: No Does the patient have severe life threatening allergies?: No Does the patient have a fever or illness today?: No Has the patient ever had Guillain-Anasco Syndrome?: No Has the patient ever had any past reaction to a flu shot?: No Results AMB Urinalysis Dipstick UR Leukocytes Small Last Edit by Kylah Savage CMA on 05/19/25 10:21 UR Nitrite Negative Last Edit by Kylah Savage CMA on 05/19/25 10:21 UR Urobilinogen Normal Last Edit by Kylah Savage CMA on 05/19/25 10:21 UR Protein 30 Last Edit by Kylah Savage CMA on 05/19/25 10:21 UR Ph 5.0 Last Edit by Kylah Savage CMA on 05/19/25 10:21 UR Blood Large Last Edit by Kylah Savage CMA on 05/19/25 10:21 UR Specific [place] 1.005 Last Edit by Kylah Savage CMA on 05/19/25 10:21 UR Ketone 40 Last Edit by Kylah Savage CMA on 05/19/25 10:21 UR Bilirubin Negative Last Edit by Kylah Savage CMA on 05/19/25 10:21 UR Glucose 2000 Last Edit by Kylah Savage CMA on 05/19/25 10:21 Immunizations Fluarix [id number] (PF) 45 mcg (15 mcg x 3)/0.5 mL IM syringe Performing Provider: Daniela Mcfadden PA-C [facility] Documented (not given) by: Kylah Savage CMA on 05/19/25 09:57 Reason Not Given: Received Previously Results Reviewed Results Reviewed: Laboratory Last Values Urine pH (Clinic) 5.0 05/19/25 10:17 Specific [place] (Clinic) 1.005 05/19/25 10:17 Ur Protein (Clinic) 30 05/19/25 10:17 Ur Ketones (Clinic) 40 05/19/25 10:17 Urine Blood (Clinic) Large 05/19/25 10:17 Urine Nitrite Negative 05/19/25 10:17 Urine Bilirubin (Clinic) Negative 05/19/25 10:17 Urobilinogen (Clinic) Normal 05/19/25 10:17 Leukocyte Esterase (Clinic) Small 05/19/25 10:17 Urine Glucose (Clinic) 199905/19/25 10:17 - Labs: Urine culture on 04/27/2025 showed Liseth growth. - Labs: Recent A1c was 6.1, indicating good glycemic control. Coding Level of Care Code Est Pt Level 4 (40184) Complex EM visit Add On G2211 Diagnoses UTI (urinary tract infection) N39.0 Candidiasis B37.9 Type 2 diabetes mellitus with hemoglobin A1c goal of less than 7.0% E11.9 Additional Codes SHARLENE-7 Assessment Billing - SHARLENE-7 Assessment Tool: SHARLENE-7 Assessment 25928 ([id number]) PHQ-9 - 81571 - PHQ-9 Billing: Yes ([id number]) Assessment & Plan Assessment & Plan (1) UTI (urinary tract infection): Code(s): N39.0 - Urinary tract infection, site not specified Category: Medical Plan: The patient will be treated with fluconazole 200 mg daily for two weeks to address the suspected yeast infection contributing to urinary symptoms. A topical antifungal cream will also be applied to the affected area twice daily. The patient is advised to maintain good hygiene by cleaning the genital area thoroughly with soap and water. (2) Candidiasis: Code(s): B37.9 - Candidiasis, unspecified Category: Medical Plan: The candidiasis is likely secondary to the use of Jardiance, which has been discontinued. The patient will continue with fluconazole and topical treatment as outlined in the urinary tract infection plan. (3) Type 2 diabetes mellitus with hemoglobin A1c goal of less than 7.0%: Code(s): E11.9 - Type 2 diabetes mellitus without complications Category: Medical Plan: The patient's diabetes management will continue with metformin, as the A1c of 6.1 indicates good control. Jardiance has been discontinued due to adverse effects, and the patient is advised to monitor blood glucose levels regularly. Plan Plan Patient was informed and verbally consented to the use of an ambient scribe for clinic note documentation during this visit. 1. Urinary Tract Infection The patient will be treated with fluconazole 200 mg daily for two weeks to address the suspected yeast infection contributing to urinary symptoms. A topical antifungal cream will also be applied to the affected area twice daily. The patient is advised to maintain good hygiene by cleaning the genital area thoroughly with soap and water. 2. Candidiasis The candidiasis is likely secondary to the use of Jardiance, which has been discontinued. The patient will continue with fluconazole and topical treatment as outlined in the urinary tract infection plan. 3. Type 2 Diabetes Mellitus The patient's diabetes management will continue with metformin, as the A1c of 6.1 indicates good control. Jardiance has been discontinued due to adverse effects, and the patient is advised to monitor blood glucose levels regularly. During the visit, I discussed with the patient the diagnosis of a urinary tract infection likely due to candidiasis, exacerbated by the use of Jardiance. We reviewed the treatment plan, including the use of fluconazole and topical antifungal cream, and emphasized the importance of maintaining good hygiene. I advised discontinuing Jardiance and continuing metformin for diabetes management, given the patient's stable A1c. We also discussed the need for regular monitoring of blood glucose levels and the importance of follow-up appointments to reassess the patient's condition. Orders: Orders AMB Urinalysis Dipstick Today Z13.9 - Encounter for screening, unspecified Influenza [id number] Immunization Today Z23 - Encounter for immunization Medications: New fluconazole 200 mg PO DAILY 14 tabs 0RF 2 weeks miconazole nitrate 2% (Antifungal (miconazole)) 1 appl topical BID 42.5 grams 3RF Patient Instructions: - Take fluconazole 200 mg daily for two weeks. - Apply topical antifungal cream to the affected area twice daily. - Maintain good hygiene by cleaning the genital area thoroughly with soap and water. - Discontinue Jardiance and continue taking metformin as prescribed. - Monitor blood glucose levels regularly. - Schedule a follow-up appointment as advised.
--- OUTSIDE RECORDS SUMMARY | 2025-05-19 11:01 | XMS_ITS | Patient Health Record ---
Author Organization [facility] Address [address] [place] [address] Care Team Providers Care Technical Support Internship Name Role Phone Minh (RETIRED) Kaushal LEIGH Primary Care Provider Unavailable Juan Miguel Tim Unavailable [phone] Allergies No Known Allergies Reason For Referral [...] Status Risk Notes Problem Information temporarily unavailable Colon cancer screening (Z12.11) Active confirmed Problem Information temporarily unavailable History of adenomatous polyp of colon (Z86.010) Active confirmed Problem Information temporarily unavailable Diverticulosis of large intestine without perforation or abscess without bleeding (K57.30) Active confirmed Problem Information temporarily unavailable Dysphagia (R13.10) Active confirmed Problem Information temporarily unavailable Duodenitis (K29.80) Active confirmed Problem Information temporarily unavailable Gastroesophageal reflux disease (K21.9) Active confirmed Problem Information temporarily unavailable Gastroesophageal reflux disease, esophagitis presence not specified (K21.9) Active confirmed Problem Information temporarily unavailable Chronic GERD (K21.9) Active confirmed Encounters Encounter Location Date Provider Diagnosis [facility] [address] [place] [phone] 07/22/2024 Juan Miguel Tim [facility] [address] [place] [address] 10/26/2024 Juan Miguel Tim Plan Of Treatment Future Test Test Name Order Date COLONOSCOPY 03/09/2012 UPPER GI ENDOSCOPY 09/04/2017 COLONOSCOPY 09/04/2017 COLONOSCOPY 05/21/2023 UPPER GI ENDOSCOPY [place] DILATION OF ESOPH 04/20/2024 Insurance Providers Payer Name Payer Address Payer Phone Subscriber Number Group Number Insured Name Patient Relationship to Insured Coverage Start Date Coverage End Date MED[place] [address] [place] [address] [id number] YAZMIN ALEJANDRE CAS Self - patient is the insured [employer] ([employer]) [address] [place] [id number] YAZMIN ALEJANDRE CAS Self - patient is the insured Medical (General) History Medical History History ICD Code History of tubular adenomas of the colon removed in 2002--colonoscopies in 2006 and 2011 revealed only hyperplastic polyps, as well as diffuse diverticulosis and internal hemorrhoids Hypertension Hyperlipidemia NIDDM Denies NC,CVA,Lung disease,renal disease Left lower leg injury after [...]
--- OUTSIDE RECORDS SUMMARY | 2025-05-19 11:02 | XMS_ITS | Clinical Summary ---
Author Organization [facility] Address [address] [place] [address] Phone Care Team Providers Care Health Safety Coordinator Name Role Phone Kaushal Wilkinson MD Primary Care Provider [phone] Allergies No known active allergies Medications lisinopril (PRINIVIL,ZESTR IL) 10 MG tablet Take by mouth 2 (two) times a day. Active NIFEdipine (PROCARDIA) 10 MG capsule Take by mouth daily. Active rosuvastatin (CRESTOR) 10 MG tablet Take by mouth daily. Active omega 8-dig-bfy-fish oil 1,000 mg (120 mg-180 mg) Cap [...] this topic Medical Devices Implanted Type Area Vp Global Device Identifier Shelf Expiration Date Model / Serial / Lot Right Hip Brenna Taper Size 3 Hip - [id number] Implanted:Qty: 1 on 11/19/2015 by Mac Henley MD at [facility] Left: Hip [employer] 03/27/2018 [id number] / / [id number] Liner Ecima Brenna 36mm - [id number] Implanted:Qty: 1 on 11/19/2015 by Mac Henley MD at [facility] Left: Hip [employer] 04/26/2018 [id number] / / [id number] Minihip Short Stem Size 8 Standard 07/09 130ccd Hip - [id number] Implanted:Qty: 1 on 11/19/2015 by Mac Henley MD at [facility] Left: Hip [employer] 07/03/2020 580.0008 / / [id number] Biolox Delta Mod Head 36mm X 4mm Hip 04 - [id number] Implanted:Qty: 1 on 11/19/2015 by Mac Henley MD at [facility] Left: Hip [employer] 05/29/2021 104.3600 / / [id number] Procedures Procedure Name Priority Date/Time Associated Diagnosis Comments BASIC METABOLIC PANEL Routine 10/26/2015 11:05 AM EDT from Last 3 Months or Most Recently Relevant to Health Maintenance Results * (ABNORMAL) Basic metabolic panel (10/26/2015 11:05 AM EDT) SODIUM 137 136 - 145 mmol/L [facility] POTASSIUM 4.7 3.5 - 5.2 mmol/L [facility] CHLORIDE 100 99 - 109 mmol/L [facility] CARBON DIOXIDE 24 20 - 31 mmol/L [facility] ANION GAP 13 3 - 17 [facility] CALCIUM 9.5 8.7 - 10.4 mg/dL [facility] GLUCOSE 141(Abnorm ally H) 74 - 106 mg/dL [facility] UREA NITROGEN (BUN) 19 9 - 23 mg/dl [facility] CREATININE 1.03 0.5 - 1.3 mg/dl [facility] EST GLOM FILT RATE NON- A 76.3 [facility] Comment:Units: ml/min/1.73ms q EST GLOM FILT RATE AMERI 92.4 [facility] Comment: Units: ml/min/1.73msq Reference Table [...] 5 AM EDT 10/26/2015 12:14 PM EDT [facility] - 10/26/2015 12:44 PM EDT [facility], [address] [facility] [address], Fiber Glass Worker: Shawn Medina M.D. us Mac Henley MD LAB BLOOD ORDERABLES Final Re sult [facility] [address] [place] [address] from Last 3 Months or Most Recently Relevant to Health Maintenance Insurance Answerology TOTAL CHOICE INDEMNITY Answer[employer] TOTAL CHOICE INDEMNITY [facility] TOTAL CHOICE INDEMNITY [facility] TOTAL CHOICE INDEMNITY [facility] TOTAL CHOICE INDEMNITY [facility] TOTAL CHOICE INDEMNITY [facility] TOTAL CHOICE INDEMNITY [facility] TOTAL CHOICE INDEMNITY [facility] TOTAL CHOICE INDEMNITY [email or web address] TOTAL CHOICE INDEMNITY Advance Directives For more information, please contact: [phone] (9AM - 5PM [facility], Thursday-Thursday) Documents on File Type Date Recorded Patient Perianesthesia Manager Expl anation Healthcare Proxy 11/28/2015 1:01 PM * Full Code (Presumed) (Latest Code Status on File) Date Activated Date Inactivated Comments 11/19/2015 5:33 PM 11/22/2015 1:56 PM * Full Code (Presumed) Date Activated Date Inactivated Comments 11/19/2015 10:21 AM 11/19/2015 5:33 PM Care Teams Health Safety Coordinator Relationship Specialty Start Date End Date Mugg, Kaushal Willie, MD [address] [place] [address] PCP - General 01/24/14 Additional Source Comments The information contained in this document represents components of the legal health record. It is not the complete legal health record.[facility]
--- OUTSIDE RECORDS SUMMARY | 2025-05-19 11:02 | XMS_ITS | Patient Health Record ---
Author Organization [facility] Address [address] [facility] [place] [address] Care Team Providers Care Stain Dipper Name Role Phone Tremaine Guillen Primary Care Provider Marizol Al Unavailable [phone] Allergies No Known Allergies Results Component Value [...] Status Risk Notes Problem Information temporarily unavailable Type 2 diabetes mellitus with diabetic polyneuropathy (E11.42) Active confirmed Problem Information temporarily unavailable Hammer toe of right foot (M20.41) Active confirmed Problem Information temporarily unavailable Neuropathy (G62.9) Active confirmed Vital Signs Blood pressure diastolic 70 mm Hg 03/22/2025 Height 6ft 3in in 03/22/2025 Blood pressure systolic 132 mm Hg 03/22/2025 Weight 215 lbs 03/22/2025 BMI 26.87 kg/m2 03/22/2025 Encounters Encounter Location Date Provider Diagnosis [address] [address] 08/02/2024 Marizol Ellington Xerosis of skin L85. 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.513 ; Type 2 diabetes mellitus with diabetic polyneuropathy E11.42 ; Tinea unguium B35.1 and Abscess of toe, left L02.[address] [address] 12/28/2024 Marizol Ellington Type 2 diabetes mellitus with diabetic polyneuropathy E11.42 and Tinea unguium B35.[address] [address] 03/22/2025 Marizol Heina Type 2 diabetes mellitus with diabetic polyneuropathy E11.42 and Tinea unguium B35.[address] [address] 06/08/2024 Marizol Perica [address] [address] 03/08/2025 Marizol Ellington Assessments Encounter Date Diagnosis [...] X ray : Foot, right 3V 05/16/2013 48597-Uuxsdqlr Plate 09/29/2017 63488-Qydtmavg Plate 11/11/2017 98592-Pnihvmzo Plate 07/02/2017 18565-Wzbzfzpc Plate 12/11/2017 18283-Nfsbboau Plate 02/02/2018 43652-Ceapaxsw Plate 07/16/2018 56916-Oqtddqgx Plate Each Additional 01/2017 76499-Taikkwak Plate Each Additional 76062- Debride <25 sq cm 07/16/2017 63244 I&D ABSCESS- SIMPLE,SINGLE 018 78249 I&D ABSCESS- SIMPLE,SINGLE 018 40534 I&D ABSCESS- SIMPLE,SINGLE 017 95036 I&D ABSCESS- SIMPLE,SINGLE 019 66874, J0702- INJECT or DRAIN, JOINT/BUR SA 05/26/2012, N5320-YALYR/INJECT, JOINT/BURSA 1 08/24/2011, K5509-TRWKK/INJECT, JOINT/BURSA 1 M4239-OGJXVDBU DYSTROPHIC NAILS ANY # 50,X9689-YOC TENDON SHEATH/LIGAMENT 0 12/21/201347001,Y4382-DFP TENDON SHEATH/LIGAMENT 0 03/06/2014 V3671-Bxyhzvuan 3mg 06/24/2012 P7662-Athkwcnzp 3mg 05/26/2012 Next Appt Details Provider Name:Marizol martinez, 05/31/2025 01:00:00 PM, [address] [place], [address], Insurance Providers Payer Name Payer Address Payer Phone Subscriber Number Group Number Insured Name Patient Relationship to Insured Coverage Start Date Coverage End Date Medicare National Govt [facility] [address] [place] [address] [id number] Linda araiza Real Self - patient is the insured [facility] ([facility]) [address] [place] [address] [id number] Real Mckeon cas Self - patient is the insured Medical (General) History Medical History History ICD Code sciatica Diabetic Arthritis Cataracts Surgical History Surgery Date(Month/Year) right hip replacement 12/08/2011 left hip replacement 10/2014 colonoscopy 04/2024
== END 2025-05-19 10:24 | disposition home or self-care (01) ==
LOC: HO.HMCSH 09:48
PROVIDERS: PCP Physician Assistant Medical; Visit Provider Physician Assistant Medical
DX: N39.0 Urinary tract infection, site not specified (principal); B37.9 Candidiasis, unspecified; E11.9 Type 2 diabetes mellitus without complications; Z23 Encounter for immunization; Z13.9 Encounter for screening, unspecified

== ENCOUNTER 2025-05-19 09:47 | Outpatient (REF) | payer MEDICARE, OTHER, SELFPAY ==
[2025-05-19 15:49] LABS: Appearance Urine Cloudy; Glucose Urine UA >=1000 mg/dL (Negative); PH 5.5 (5.0-9.0); Specific Gravity - Urine >= 1.030 (1.005-1.025); UMIC TRIGGER UACC YES
[2025-05-19 15:59] LABS: UACC Culture Trigger YES
== END 2025-05-19 09:48 | disposition home or self-care (01) ==
LOC: HO.LNP 09:47
PROVIDERS: PCP Physician Assistant Medical; Visit Provider Physician Assistant Medical
DX: Z00.00 Encounter for general adult medical examination without abnormal findings (principal); Z28.89 Immunization not carried out for other reason; N39.0 Urinary tract infection, site not specified; B37.9 Candidiasis, unspecified; E11.9 Type 2 diabetes mellitus without complications; Z79.2 Long term (current) use of antibiotics; Z79.84 Long term (current) use of oral hypoglycemic drugs; Z79.1 Long term (current) use of non-steroidal anti-inflammatories (NSAID); Z79.890 Hormone replacement therapy; Z79.899 Other long term (current) drug therapy
CPT/HCPCS: 81001; 81002; 87086; 90471; 96127; 99212

== ENCOUNTER 2025-05-29 10:32 | Outpatient (REF) | payer MEDICARE, OTHER, SELFPAY ==
--- OUTSIDE RECORDS SUMMARY | 2024-02-24 05:00 | XMS_ITS ---
[facility] Organization [facility] [place] Address [address] [place] [address] Care Team Providers Care Boat Outfitting Supervisor Name Role Phone Tremaine Guillen Primary Care Provider Marizol Al [phone] Encounters Encounter Location Date Provider Diagnosis [address] [address] 02/24/2024 Marizol Ellington Plan Of Treatment Next Appt Details Provider Name:Marizol martinez, 05/31/2025 01:00:00 PM, [address] [place] [address], [phone], Progress Notes * Real ADAMSDOB:1945 (79 yo M)Acc No.[id number]:02/24/2024 Progress Note Patient: Real HARDY Provider: Phuong Ellington DPM :1945 A ge:78 Y S ex:Male Date:02/24/2024 Address:[address] [place] [address] [id number] Pcp:Tremaine Guillen Subjective: * Chief Complaints: * * Medical History: Objective: * Vitals: Assessment: Plan: * Treatment: * Images: * The named appointment provid er may or may not be the originator of this progress note, and it is not deemed complete until electronically signed by the appointment provider. Sign off status: Pending * Provider: Phuong Ellington DPM Date: 0 02/24/2024 Generated for Diomedes mckinney/Chely/Clare on: 1 07/29/2024 12:47 PM EST
--- OUTSIDE RECORDS SUMMARY | 2024-04-08 07:00 | XMS_ITS ---
Author Organization [facility] keara [place] Address [address] [place] [address] Care Team Providers Care Supervisor Poultry Farm Name Role Phone Tremaine Guillen Primary Care Provider Marizol Al [phone] REASON FOR VISIT seen sooner Encounters Encounter Location Date Provider Diagnosis [address] [address] 04/08/2024 Marizol Ellington Plan Of Treatment Next Appt Details Provider Name:Marizol martinez, 05/31/2025 01:00:00 PM, [address] [place] [address], [phone], Progress Notes * Real ADAMSDOB:1945 (79 yo M)Acc No.[id number]:04/08/2024 Progress Note Patient: Real HARDY Provider: Phuong Ellington DPM :1945 A ge:78 Y S ex:Male Date:04/08/2024 Address:[address] [place] [address] [id number] Pcp:Tremaine Guillen Subjective: * Chief Complaints: * 1 . Seen sooner. * Medical History: Objective: * Vitals: Assessment: Plan: * Treatment: * Images: * The named appointment provid er may or may not be the originator of this progress note, and it is not deemed complete until electronically signed by the appointment provider. Sign off status: Pending * Provider: Phuong Ellington DPM Date: 0 04/08/2024 Generated for Diomedes Sommers/Clare on: 07/29/2024 12:48 PM EST
--- OUTSIDE RECORDS SUMMARY | 2024-04-22 02:30 | XMS_ITS ---
Author Organization [facility] Address [address] [place] [address] Care Team Providers Care Wash Driller Name Role Phone Minh (RETIRED) Kaushal LEIGH Primary Care Provider Unavailable Juan Miguel Tim Unavailable [phone] REASON FOR VISIT colon screening Problems Problem Type SNOMED Code ICD Code Onset Dates Problem Status W/U Status Risk Notes Problem Diverticular disease of colon (276226725) Diverticulosis of large intestine without perforation or abscess without bleeding (K57.30) Active confirmed Problem Gastroesophageal reflux disease (419221950) Gastroesophageal reflux disease (K21.9) Active confirmed Problem Duodenitis (80627171) Duodenitis (K29.80) Active confirmed Encounters Encounter Location Date Provider Diagnosis [facility] [place] [address] [place] [phone] 04/22/2024 Juan Miguel Tim Colon cancer screeni [...] Notes * YAZMIN ADAMSDOB:1945 (79 yo M)Acc No.[id number]:04/22/2024 EGD and COL/MAC Patient: YAZMIN HARDY Provider: Jose Tim MD :1945 A ge:78 Y S ex:Male Date:04/22/2024 Address:[address] [place], [place] [phone] Pcp:Kaushal Wilkinson (RETIRED) MD Subjective: * Chief [...] FLW-UP 10 YRS DOCD, Modifiers: 1P , 08300 UPPER GI ENDOSCOPY, BIOPSY * * The named appointment provid er may or may not be the originator of this progress note, and it is not deemed complete until electronically signed by the appointment provider. Sign off status: Pending * Provider: Jose Tim MD Date: 0 04/22/2024 Generated for Diomedes mckinney/Chely/eTransmitting on: 1 07/29/2024 12:47 PM EST
--- OUTSIDE RECORDS SUMMARY | 2024-09-01 05:00 | XMS_ITS ---
Author Organization [facility] Address [address] [address] Care Team Providers Care Radiology Manager Name Role Phone Minh (RETIRED) Kaushal LEIGH Primary Care Provider Juan Miguel Damon [phone] REASON FOR VISIT gerd Encounters Encounter Location Date Provider Diagnosis [facility] 10 [facility] [address] [address] 09/01/2024 Juan Miguel Tim Plan Of Treatment No Information Progress Notes * YAZMIN ADAMSDOB:1945 (79 yo M)Acc No.[id number]:09/01/2024 Progress Notes Patient: YAZMIN HARDY Provider: Jose Tim MD :1945 A ge:78 Y S ex:Male Date:09/01/2024 Address:[address] [place], [place] [phone] Pcp:Kaushal Wilkinson (RETIRED) MD Subjective: * Chief [...] Tim MD Date: 0 09/01/2024 Generated for Flacai hank/Fadannig/eTransmitting on: 1 07/29/2024 12:47 PM EST
--- OUTSIDE RECORDS SUMMARY | 2024-10-28 09:40 | XMS_ITS ---
Author Organization [facility] Address 10 [facility] [address] [place] [address] Care Team Providers Care Pediatric Dietician Name Role Phone Minh (RETIRED) Kaushal LEIGH Primary Care Provider Unavailable Juan Miguel Tim [phone] REASON FOR VISIT Patient presents today for gerd Encounters Encounter Location Date Provider Diagnosis [facility] [address] [address] 10/28/2024 Juan Migule Tim Plan Of Treatment No Information Progress Notes * YAZMIN ADAMSDOB:1945 (79 yo M)Acc No.[id number]:10/28/2024 Progress Notes Patient: YAZMIN HARDY Provider: Jose Tim MD :1945 A ge:79 Y S ex:Male Date:10/28/2024 Address:[address] [place], [place] [phone] Pcp:Kaushal Wilkinson (RETIRED) MD Subjective: * Chief [...] Tim MD Date: 0 10/28/2024 Generated for Flacai ng/Fadannig/eTransmitting on: 1 07/29/2024 12:48 PM EST
--- OUTSIDE RECORDS SUMMARY | 2025-03-28 05:00 | XMS_ITS ---
Author Organization [facility] Evdin sarah Alexys Address [address] [place] [address] Care Team Providers Care Florist Supplies Salesperson Name Role Phone Tremaine Guillen Primary Care Provider Marizol Al Unavailable [phone] REASON FOR VISIT Seen Sooner Medications Medication SIG (Take, Route, Frequency, Duration) Notes Start Date End Date Status Vitamin D Not-Taking Crestor 20 MG 1 tablet Orally Once a day; Duration: 30 day(s) Not-Scot ing Jardiance 10 MG Oral; Duration: 30 Active metFORMIN HCl 500 MG Orally Twice a day Active Lisinopril 10 MG 1 tablet Orally Once a day; Duration: 30 day(s) Active NIFEdipine 10 MG 1 capsule Orally Thr ee times a day; Duration: 30 day(s) Not-Taking LORazepam 2 MG 1 tablet at bedtime Orally Once a day Not-Taking Lisinopril 10 MG 1 tablet Orally Once a day; Duration: 30 day(s) Not-Scot ing NIFEdipine 10 MG 1 capsule Orally Thr ee times a day; Duration: 30 day(s) Active Ammonium Lactate 12 % 1 application Exte rnally Twice a day; Duration: 30 days Active Crestor 20 MG 1 tablet Orally Once a day; Duration: 30 day(s) Not-Scot ing Naprosyn 375 MG 1 tablet Orally Twic e a day; Duration: 30 day(s) 03/14/2014 Not-Scot ing CeleBREX 200 MG 1 capsule Orally Onc e a day; Duration: 30 day(s) 03/06/2014 Not-Scot ing Cephalexin 500 MG Orally No t-Taking LORazepam 2 MG 1 tablet at bedtime Orally Once a day PRN Not-Taking Amoxicillin 500 MG 4 capsules one time Orally One hour prior to procedure; Duration: as needed 02/02/2019 Not-Taking Naproxen 500 MG 1 tablet with food o r milk as needed Orally every 12 hrs Not-Taking Augmentin 875-125 MG 1 tablet Orally sonya ry 12 hrs; Duration: 7 days Not-Taking Amoxicillin Not-Taki ng Augmentin 500-125 MG 1 tablet Orally Twi ce a day; Duration: 14 days 03/29/2019 Not-Takin g predniSONE 10 MG TAKE 1 TABLET BY RISHABH TH EVERY DAY Oral; Duration: 21 Not-Taking Fish Oil PRN Not-Taking Encounters Encounter Location Date Provider Diagnosis [facility] [address] [address] 03/28/2025 Marizol Ellington Plan Of Treatment Next Appt Details Provider Name:Marizol martinez, 05/31/2025 01:00:00 PM, [address] [place] [address], [phone], Progress Notes * Real PRUITTDOB:1945 (79 yo M)Acc No.[id number]:03/28/2025 Progress Note Patient: Real HARDY Provider: Phuong Ellington DPM :1945 A ge:79 Y S ex:Male Date:03/28/2025 Address:[address] [place], [place] [address] Pcp:Tremaine Guillen Subjective: * Chief Complaints: * 1 . Seen Sooner. * Medical History: S ciatica, Diabetic, Arthritis, Cataracts. * Medications: T aking Ammonium Lactate 12 % Cream 1 application Externally Twice a day , Taking NIFEdipine 10 MG Capsule 1 capsule Orally Three times a day , Taking Lisinopril 10 MG Tablet 1 tablet Orally Once a day , Taking metFORMIN HCl 500 MG Tablet Orally Twice a day , Taking Jardiance 10 MG Tablet Oral , Not-Taking/PRN Crestor 20 MG Tablet 1 tablet Orally Once a day , Not-Taking/PRN Vitamin D , Not-Taking/PRN Fish Oil , Notes to Pharmacist: PRN, Not-Taking/PRN predniSONE 10 MG Tablet TAKE 1 TABLET BY MOUTH EVERY DAY Oral , Not-Taking/PRN Naproxen 500 MG Tablet 1 tablet with food or milk as needed Orally every 12 hrs , Not-Taking/PRN Amoxicillin 500 MG Capsule 4 capsules one time Orally One hour prior to procedure , Not-Taking/PRN Augmentin 500-125 MG Tablet 1 tablet Orally Twice a day , Not-Taking/PRN Amoxicillin , Not-Taking/PRN Augmentin 875-125 MG Tablet 1 tablet Orally every 12 hrs , Not-Taking/PRN LORazepam 2 MG Tablet 1 tablet at bedtime Orally Once a day , Notes to Pharmacist: PRN, Not-Taking/PRN Cephalexin 500 MG Capsule Orally , Not-Taking/PRN CeleBREX 200 MG Capsule 1 capsule Orally Once a day , Not-Taking/PRN Naprosyn 375 MG Tablet 1 tablet Orally Twice a day , Not-Taking/PRN Crestor 20 MG Tablet 1 tablet Orally Once a day , Not- Taking/PRN Lisinopril 10 MG Tablet 1 tablet Orally Once a day , Not-Taking/PRN LORazepam 2 MG Tablet 1 tablet at bedtime Orally Once a day , Not-Taking/PRN NIFEdipine 10 MG Capsule 1 capsule Orally Three times a day Objective: * Vitals: Assessment: Plan: * Treatment: * Images: * The named appointment provid er may or may not be the originator of this progress note, and it is not deemed complete until electronically signed by the appointment provider. Sign off status: Pending * Provider: Phuong Ellington DPM Date: 0 03/28/2025 Generated for Diomedes mckinney/Chely/Clare on: 07/29/2024 12:46 PM EST
--- OUTSIDE RECORDS SUMMARY | 2025-05-29 12:48 | XMS_ITS | Patient Health Record ---
Author Organization [facility] Address [address] [place] [address] Care Team Providers Care Cad Cam Programmer Name Role Phone Minh (RETIRED) Kaushal LEIGH Primary Care Provider Unavailable Juan Miguel Tim Unavailable [phone] Allergies No Known Allergies Reason For Referral [...] Status Risk Notes Problem Colon cancer screening (594300804) Colon cancer screening (Z12.11) Active confirmed Problem History of adenomatous polyp of colon (538990221) History of adenomatous polyp of colon (Z86.010) Active confirmed Problem Diverticular disease of colon (732760879) Diverticulosis of large intestine without perforation or abscess without bleeding (K57.30) Active confirmed Problem Dysphagia (68017524) Dysphagia (R13.10) Active confirmed Problem Duodenitis (16414188) Duodenitis (K29.80) Active confirmed Problem Gastroesophageal reflux disease (318010158) Gastroesophageal reflux disease (K21.9) Active confirmed Problem Gastroesophageal reflux disease (375460353) Gastroesophageal reflux disease, esophagitis presence not specified (K21.9) Active confirmed Problem Gastroesophageal reflux disease (disorder) (984945173) Chronic GERD (K21.9) Active confirmed Encounters Encounter Location Date Provider Diagnosis [facility] [address] [place] [address] 07/22/2024 Jua nMiguel Tim [facility] [address] [place] [address] 10/26/2024 Juan Miguel Tim Plan Of Treatment Future Test Test Name Order Date COLONOSCOPY 03/09/2012 UPPER GI ENDOSCOPY 09/04/2017 COLONOSCOPY 09/04/2017 COLONOSCOPY 05/21/2023 UPPER GI ENDOSCOPY BALL[place]ON DILATION OF ESOPH 04/20/2024 Insurance Providers Payer Name Payer Address Payer Phone Subscriber Number Group Number Insured Name Patient Relationship to Insured Coverage Start Date Coverage End Date MEDICARE OF [place] [address] [place] [id number] [phone] [id number] YAZMIN ALEJANDRE CAS Self - patient is the insured [employer] [facility] [address] [place] [id number] YAZMIN ALEJANDRE CAS Self - patient is the insured Medical (General) History Medical History History ICD Code History of tubular adenomas of the colon removed in 2002--colonoscopies in 2006 and 2011 revealed only hyperplastic polyps, as well as diffuse diverticulosis and internal hemorrhoids Hypertension Hyperlipidemia NIDDM Denies MD,CVA,Lung disease,renal disease Left lower leg injury after [...]
--- OUTSIDE RECORDS SUMMARY | 2025-05-29 12:48 | XMS_ITS | Patient Health Record ---
Author Organization [facility] Address [address] [place] [address] Care Team Providers Care Emu Farmer Name Role Phone Tremaine Guillen Primary Care Provider Marizol Al Unavailable [phone] Allergies No Known Allergies Results Component Value [...] Polyneuropathy due to type 2 diabetes mellitus (328421634) Type 2 diabetes mellitus with diabetic polyneuropathy (E11.42) Active confirmed Problem Acquired hammer toe of right foot (1024685354793315 ) Hammer toe of right foot (M20.41) Active confirmed Problem Neuropathy (903512403) Neuropathy (G62.9) Active confirmed Vital Signs Blood pressure diastolic 70 mm Hg 03/22/2025 Height 6ft 3in in 03/22/2025 Blood pressure systolic 132 mm Hg 03/22/2025 Weight 215 lbs 03/22/2025 BMI 26.87 kg/m2 03/22/2025 Encounters Encounter Location Date Provider Diagnosis [address] [address] 08/02/2024 Marizol Ellington Xerosis of skin L85. 3 ; Ganglion of foot, left M67.472 ; Type 2 diabetes mellitus with diabetic polyneuropathy E11.42 and Tinea unguium B35.[address] [address] 10/12/2024 Marizol Ellington Ganglion of foot, le ft M67.472 ; Hyperhidrosis of feet L74.513 ; Type 2 diabetes mellitus with diabetic polyneuropathy E11.42 ; Tinea unguium B35.1 and Abscess of toe, left L02.[address] [address] 12/28/2024 Marizol Ellington Type 2 diabetes mellitus with diabetic polyneuropathy E11.42 and Tinea unguium B35.[address] [address] 03/22/2025 Marizol Ellington Type 2 diabetes mellitus with diabetic polyneuropathy E11.42 and Tinea unguium B35.[address] [address] 06/08/2024 Marizol Ellington [address] [address] 03/08/2025 Marizol Ellington Assessments Encounter Date Diagnosis [...] X ray : Foot, right 3V 05/16/2013 79136-Ronoqelr Plate 09/29/2017 33517-Kdfkmmpj Plate 11/11/2017 85450-Bfkljxan Plate 07/02/2017 00531-Syryehco Plate 12/11/2017 47243-Llgnoosb Plate 02/02/2018 18514-Lnkbikds Plate 07/16/2018 44407-Ghnwehcd Plate Each Additional 01/2017 79807-Vwveyjog Plate Each Additional 24486- Debride <25 sq cm 07/16/2017 30396 I&D ABSCESS- SIMPLE,SINGLE 018 84868 I&D ABSCESS- SIMPLE,SINGLE 018 96199 I&D ABSCESS- SIMPLE,SINGLE 017 25716 I&D ABSCESS- SIMPLE,SINGLE 019 , J0702- INJECT or DRAIN, JOINT/BUR SA 05/26/2012, V9084-LCLOE/INJECT, JOINT/BURSA 1 08/24/201197326, U3998-IGDGS/INJECT, JOINT/BURSA 1 S6041-RKTXTKYB DYSTROPHIC NAILS ANY # ,Y7539-QHS TENDON SHEATH/LIGAMENT 0 12/21/201315451,M7819-KOB TENDON SHEATH/LIGAMENT 0 03/06/2014 Q6247-Gsfbdgooq 3mg 06/24/2012 F0888-Hxhnrdffs 3mg 05/26/2012 Next Appt Details Provider Name:Marizol Jorge martinez, 05/31/2025 01:00:00 PM, [address] [place], [address], Insurance Providers Payer Name Payer Address Payer Phone Subscriber Number Group Number Insured Name Patient Relationship to Insured Coverage Start Date Coverage End Date Medicare National Govt [employer] [address] [facility] [place] [address] [id number] Grammati teodora Real Self - patient is the insured [employer]) [address] [place] [address] [id number] Grammati teodora, Real Self - patient is the insured Medical (General) History Medical History History ICD Code sciatica Diabetic Arthritis Cataracts Surgical History Surgery Date(Month/Year) right hip replacement 12/08/2011 left hip replacement 10/2014 colonoscopy 04/2024
[2025-05-29 13:31] LABS: Appearance Urine Clear; Glucose Urine UA >=1000 mg/dL (Negative); PH 6.0 (5.0-9.0); Specific Gravity - Urine 1.020 (1.005-1.025); UMIC TRIGGER UA YES; UMIC TRIGGER UACC YES
== END 2025-05-29 10:33 | disposition home or self-care (01) ==
LOC: HO.HMGCLDS 10:32
PROVIDERS: Urology; PCP Physician Assistant Medical; Visit Provider Physician Assistant Medical
DX: Z00.00 Encounter for general adult medical examination without abnormal findings (principal); N39.0 Urinary tract infection, site not specified; R14.0 Abdominal distension (gaseous); M25.472 Effusion, left ankle; G62.9 Polyneuropathy, unspecified; K59.00 Constipation, unspecified; R01.1 Cardiac murmur, unspecified; N32.0 Bladder-neck obstruction; H00.019 Hordeolum externum unspecified eye, unspecified eyelid; L71.9 Rosacea, unspecified
CPT/HCPCS: 36415; 81001; 81003; 86364; 87086; 96127; 99212

== ENCOUNTER 2025-05-29 14:02 | Outpatient (AMB) | payer MEDICARE, OTHER, SELFPAY ==
--- NOTE | 2025-05-29 14:03 | A.OFFPC_ITS ---
Vital Signs 05/29/25 14:04 Height 6 ft 2.96 in Weight 225 lb BMI 28.2 BP 125/58 L Blood Pressure Location Rt brachial Position Sitting Respiration 16 Pulse 88 Pulse Source Pulse Oximeter Temp 98.0 F Temp Source Temporal Artery Scan Pulse Oximetry (%) 99 Oxygen Delivery Method Room Air Intake Visit Reasons: Left ankle pain Hospitality Specialist Required: No Accompanied by: Self / Same As Patient Allergies No Known Allergies (No Known Allergies*) Allergy (Verified 05/29/25 16:27) Medication List - Last Reconciled 05/29/25 by Daniela Mcfadden PA-C atorvastatin 10 mg PO DAILY cane USE DAILY WHILE AMBULATING erythromycin 0.5 inches ophthalmic (eye) QID finasteride 5 mg PO DAILY 90 days fluconazole 200 mg PO DAILY 2 weeks furosemide (Lasix) 20 mg PO DAILY 3 days gabapentin 300 mg PO BID 90 days lisinopril 20 mg PO DAILY metformin ER 500 mg PO BID 90 days miconazole nitrate 2% (Antifungal (miconazole)) 1 appl topical BID naproxen 500 mg PO BID PRN nifedipine ER 30 mg PO DAILY testosterone 50 mg transdermal DAILY 30 days walker (Ultra-Light Rollator misc) for ambulating daily Tobacco use date assessed: 05/19/25 Dental Screening Dental Screen Date: 05/19/25 HPI Left ankle pain HPI Details The patient is a 79-year-old male presenting with a swollen left ankle. He reports that this has occurred in the past but is worse now and worsens throughout the day. The patient denies any recent falls. An ankle x-ray from 05/11/2025 indicated prior trauma from a football injury in college, and a left leg ultrasound was negative for a blood clot. A chest x-ray in December showed no fluid around the heart. The patient has a history of bladder neck obstruction and is scheduled for corrective surgery with urology on July 03. He experiences nocturia, waking up every 2.5 hours to urinate. Recent urinalysis showed resolution of a prior UTI and yeast infection, with no blood or bacteria, though glucosuria persists after discontinuing Jardiance. The patient reports worsening peripheral neuropathy. He also has a history of rosacea, which he states is well-controlled with a cream, and a persistent stye for which he is supposed to use compresses and ointment. He has also been experiencing constipation, which may be related to his medications, and has Milk of Magnesia and a laxative at home. He has upcoming appointments with vascular surgery in June, orthopedics on June 30, and a follow-up with this office on July 14, 2025. 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 - Marital Status: His 1 2-13 years ago. - Functional Status: The patient anticip ates needing assistance at home after his upcoming surgery and a referral for visiting nurses has been placed [facility] Medical History (Updated 05/29/25 @ 16:51 by Daniela Mcfadden PA-C) Hordeolum Bladder neck obstruction Edema of left ankle Heart murmur Abnormal urine Fatigue Elevated AST (SGOT) Constipation Left ankle swelling Left ankle pain Alcohol use disorder Candidiasis UTI (urinary tract infection) Annual physical exam Pedal edema Rosacea Neuropathy Hematuria Left knee pain Swelling of left knee Balance problem Bilateral hip pain Bilateral knee pain Nicotine dependence Sty Type 2 diabetes mellitus with hemoglobin A1c goal of less than 7.0% Osteoarthritis Establishing care with new doctor, encounter for Lower back pain Nicotine use Ambulates with cane Peripheral neuropathy Internal hemorrhoids Diverticulosis Hiatal hernia Arthritis Left leg weakness Diabetes Hyperlipemia HTN (hypertension) Surgical History History of esophagogastroduodenoscopy (EGD) (~2017) Hx of bilateral hip replacements Hx of colonoscopy (~04/22/24) Family History Father History of heart surgery Mother Arthritis Social History Housing: House Are you a primary reservoir caretaker to a significant other at home: No Do you presently have visiting nurse or other home services: No Alcohol intake: current Alcohol intake frequency: 3 or more drinks per day Alcohol type: beer Patient Tobacco Use Status: Former Tobacco user Tobacco use type: Cigarette service: No Current occupational status: retired Cognitive needs: Yes (cane) Hearing needs: No Vision needs: Yes (rx glasses) Questionnaire PHQ-9 Over the last 2 weeks, how often have you been bothered by any of the following problems? 1. Little interest or pleasure in doing things: not at all 2. Feeling down, depressed, or hopeless: not at all 3. Trouble falling or staying asleep, or sleeping too much: not at all 4. Feeling tired or having little energy: not at all 5. Poor appetite or overeating: not at all 6. Feeling bad about yourself - or that you are a failure or have let yourself or your family down: not at all 7. Trouble concentrating on things, such as reading the newspaper or watching television: not at all 8. Moving or speaking so slowly that other people could have noticed. Or the opposite - being so fidgety or restless that you have been moving around a lot more than usual: not at all 9. Thoughts that you would be better off or of hurting yourself in some way: not at all Total score: 0 Depression Screening Interpretation: Negative Depression Screening Done: Yes 31583 - PHQ-9 Billing: Yes Source: Developed by Drs. Juan Miguel Klein, Joyce Jiménez, Mark Beaver and colleagues, with an educational evelia from [employer]. Thrive Questionnaire Date Thrive assessed: 05/19/25 I am a: Patient What is your living situation today?: I have a steady place to live Within the past 12 months, did the food you bought not last and you didn't have the money to get more?: Never true Within the past 12 months, did you worry whether your food would run out before you got money to buy more?: Never true Do you have trouble paying for medicines?: No Do you have trouble getting transportation to medical appointments?: No Do you have trouble paying your heating and electricity bill?: No Do you have trouble taking care of your child, family member or friend?: Yes Do you have trouble with day-to-day activities such as bathing, preparing meals, shopping, managing finances, etc.?: No Are you currently unemployed and looking for a job?: No Are you interested in more education?: No Please select the resources that you would like help with: None Currently or been in a relationship where the following occur: No concerns reported THRIVE Score: 0 AUDIT C Alcohol Use Questionnaire (AUDIT-C) 1. How often do you have a drink containing alcohol?: 4 or more times a week 2. How many drinks containing alcohol do you have on a typical day when you are drinking?: 3 or 4 3. How often do you have six or more drinks on one occasion?: Never Total Score: 5 Score Reviewed/Action Taken: No SHARLENE-7 AMB Questionnaire SHARLENE-7 Date SHARLENE - 7 assessed: 05/19/25 Feeling nervous, anxious, or on edge: 0 = Not at all Not being able to stop or control worryin = Not at all Worrying too much about different things: 0 = Not at all Trouble relaxin = Not at all Being so restless that it is hard to sit still: 0 = Not at all Becoming easily annoyed or irritable: 0 = Not at all Feeling afraid as if something awful might happen: 0 = Not at all Total SHARLENE-7 score (0-4 normal; 5-9 mild; 10-14 moderate; 15-21 severe): 0 Source: Developed by Drs. Juan Miguel Klein, Joyce Jiménez, Mark Beaver and colleagues, with an educational evelia from [employer]. SHARLENE-7 Assessment Billing SHARLENE-7 Assessment Tool: SHARLENE-7 Assessment 74642 Review of Systems Const Details: - Constitutional: Denies generalized fluid retention. - Eyes: Reports a persistent stye. - Gastrointestinal: Reports recent onset constipation. - Genitourinary: Reports nocturia and urinary frequency, urinating approximately every 2.5 hours. - Musculoskeletal: Reports significant swelling in the left ankle, which is worse than prior episodes and progresses throughout the day. - Integumentary: Reports history of rosacea, which appears well-controlled. - Neurological: Reports neuropathy is getting worse. All systems reviewed & are unremarkable except as noted in HPI and below Physical exam (Primary Care) Vital Signs: Last Vital Signs Temp 98.0 F 05/29/25 14:04 Pulse 88 05/29/25 14:04 Resp 16 05/29/25 14:04 BP 125/58 L 05/29/25 14:04 Pulse Ox 99 05/29/25 14:04 Oxygen Delivery Method Room Air 05/29/25 14:04 Care Plan Goal for BP management: <140/90 at Goal BMI result Body Mass Index 28.2 BMI Assessment/Plan discussion: High BMI High, discussed plan: lifestyle, weight reduction, dietary, physical activity, alcohol moderation and other Tobacco/Smoking Status: Tobacco use Status Tobacco use date assessed 05/19/25 05/29/25 14:10 Patient Tobacco Use Status Former Tobacco user 05/29/25 14:10 Tobacco use type Cigarette 05/29/25 14:10 PHQ-9: PHQ-9 Score PHQ-9: Total score 0 05/29/25 16:29 Depression Screening Interpretation: Negative Thrive Assessment: Date of Thrive Assessment Date Thrive assessed 05/19/25 05/29/25 14:10 Currently or been in a relationship where the following occur: No concerns reported Const Other: Appearance: Alert. Oriented X3. No acute distress. Head: Normal external exam. Normocephalic. Atraumatic. Eyes: Pupils are equal, round, and reactive to light. Extraocular movements intact. Conjunctiva and sclera normal. Eyelids normal. Throat: Pharynx normal. Uvula midline. Moist mucous membranes. Neck: Normal inspection. Neck supple. Full range of motion. Cardiovascular: Normal heart rate and rhythm. Heart sound normal. A heart murmur noted. Pulses normal throughout. Respiratory: No respiratory distress. Painless inspiration. Breath sounds normal. No wheezes/rales/rhonchi noted. No accessory muscle usage noted or decreased air movement noted. Back: Full range of motion noted. Skin: Skin warm and dry. Normal skin color. Normal skin turgor. No rashes/lesions/lacerations noted. Extremities: Swelling noted in the left ankle. No lower extremity edema otherwise. Extremities exhibit normal range of motion. There is no calf tenderness noticed bilaterally. Neuro: Oriented X 3. No motor deficit. No sensory deficit. Reflexes normal. Results Reviewed Results Reviewed: - Labs: - Urinalysis: Normal, without blood or bacteria, but shows glucosuria (1000). Prior UTI and yeast infection are resolved. - Imaging: - Ankle X-ray (05/11/2025): Showed evidence of prior trauma. - Left leg ultrasound: Negative for deep vein thrombosis. - Chest X-ray (December): Negative for fluid around the heart. Coding Level of Care Code Est Pt Level 4 (88567) Complex EM visit Add On G2211 Diagnoses Edema of left ankle M25.472 Heart murmur R01.1 Peripheral neuropathy G62.9 Bladder neck obstruction N32.0 Constipation K59.00 Hordeolum H00.019 Rosacea L71.9 Additional Codes SHARLENE-7 Assessment Billing - SHARLENE-7 Assessment Tool: SHARLENE-7 Assessment 89626 ([id number]) PHQ-9 - 32959 - PHQ-9 Billing: Yes ([id number]) Assessment & Plan Assessment & Plan (1) Edema of left ankle: Code(s): M25.472 - Effusion, left ankle Category: Medical Plan: The patient presents with worsening left ankle edema, likely secondary to a past significant ankle injury, but cardiac or venous etiology must be considered. A trial of Lasix 20 mg daily for three days will be initiated to manage the swelling. The patient is also encouraged to use compression stockings. He has an upcoming appointment with orthopedics on June 30 and vascular surgery in June for further evaluation. (2) Heart murmur: Code(s): R01.1 - Cardiac murmur, unspecified Category: Medical Plan: A heart murmur was auscultated during the physical exam. An echocardiogram will be ordered to further evaluate if the ankle edema is related to a cardiac issue. (3) Peripheral neuropathy: Code(s): G62.9 - Polyneuropathy, unspecified Category: Medical Plan: The patient reports worsening neuropathic symptoms. The dose of gabapentin will be increased to 300 mg twice daily. A new prescription will be sent to the pharmacy, but the patient will use his current supply first. (4) Bladder neck obstruction: Code(s): N32.0 - Bladder-neck obstruction Category: Medical Plan: The patient has a scheduled urology surgery on July 03 for bladder neck obstruction, which is likely causing his nocturia. Advised the patient to proceed with the recommended surgery. Recent UTI and yeast infection have resolved based on urinalysis, and he was advised to finish his course of antibiotics. (5) Constipation: Code(s): K59.00 - Constipation, unspecified Category: Medical Plan: The patient reports constipation, potentially as a side effect of medications. He was advised to use yuji-xxk-uhpvrjd options like Colace or MiraLAX, especially starting within 24 hours post-operatively to prevent worsening constipation. (6) Hordeolum: Code(s): H00.019 - Hordeolum externum unspecified eye, unspecified eyelid Category: Medical Plan: The patient has a persistent stye. He was advised to continue warm compresses and apply antibiotic ointment to the eyelid. (7) Rosacea: Code(s): L71.9 - Rosacea, unspecified Category: Medical Plan: The patient's rosacea is well-controlled with metronidazole cream. No changes to the current management are needed. Plan Plan Patient was informed and verbally consented to the use of an ambient scribe for clinic note documentation during this visit. 1. Left Ankle Edema The patient presents with worsening left ankle edema, likely secondary to a past significant ankle injury, but cardiac or venous etiology must be considered. A trial of Lasix 20 mg daily for three days will be initiated to manage the swelling. The patient is also encouraged to use compression stockings. He has an upcoming appointment with orthopedics on June 30 and vascular surgery in June for further evaluation. 2. Heart Murmur, Unspecified A heart murmur was auscultated during the physical exam. An echocardiogram will be ordered to further evaluate if the ankle edema is related to a cardiac issue. 3. Peripheral Neuropathy The patient reports worsening neuropathic symptoms. The dose of gabapentin will be increased to 300 mg twice daily. A new prescription will be sent to the pharmacy, but the patient will use his current supply first. 4. Bladder Neck Obstruction The patient has a scheduled urology surgery on July 03 for bladder neck obstruction, which is likely causing his nocturia. Advised the patient to proceed with the recommended surgery. Recent UTI and yeast infection have resolved based on urinalysis, and he was advised to finish his course of antibiotics. 5. Constipation The patient reports constipation, potentially as a side effect of medications. He was advised to use yyla-ijz-foromoa options like Colace or MiraLAX, especially starting within 24 hours post-operatively to prevent worsening constipation. 6. Hordeolum The patient has a persistent stye. He was advised to continue warm compresses and apply antibiotic ointment to the eyelid. 7. Postoperative Care Planning A referral for visiting nurse services has been sent to assist the patient post- surgery. The patient was provided with the agency's contact number to arrange services. 8. Rosacea The patient's rosacea is well-controlled with metronidazole cream. No changes to the current management are needed. I explained to the patient that his ankle swelling is the main concern for today's visit. I discussed that while it could be related to his old ankle injury, we need to consider venous issues or a cardiac cause, especially since I detected a heart murmur on today's exam. I informed him that I am ordering an ultrasound of his heart to investigate further. To address the swelling in the short term, I prescribed a three-day course of Lasix to see if it provides relief. We discussed his other health concerns, including his worsening neuropathy, and agreed to increase his gabapentin dose to 300 mg twice daily. I reviewed his recent urology follow-up, noting his urinary symptoms are likely from the diagnosed bladder neck obstruction, and I reinforced the recommendation to proceed with the scheduled surgery. I advised him on managing potential post- operative constipation with stool softeners and laxatives. I also addressed his concerns about his stye, recommending he continue with warm compresses and antibiotic ointment. I confirmed his upcoming appointments and provided the contact information for the home health agency to arrange post-surgical care. His next follow-up with me is scheduled for July 14, 2025. Orders: Orders CA echo transthoracic complete Today R01.1 - Cardiac murmur, unspecified, R60.0 - Localized edema Medications: New furosemide (Lasix) 20 mg PO DAILY 3 tabs 0RF 3 days Changed From gabapentin 100 mg PO BID 180 caps 3RF To gabapentin 300 mg PO BID 180 caps 3RF 90 days Patient Instructions: - For your ankle swelling, take one Lasix 20 mg pill each day for the next three days only. - We have ordered an ultrasound of your heart to investigate the murmur we heard today. - For your nerve pain (neuropathy), increase your gabapentin dose to 300 mg two times per day (one in the morning, one at night). - It is important to go ahead with your scheduled urology surgery on July 03 to help with your urinary problems. - To prevent constipation after surgery, start taking a stool softener (like Colace or MiraLAX) and a laxative within 24 hours of your procedure. - For the stye on your eyelid, continue using warm compresses and applying the antibiotic ointment. - Please call the visiting nurse agency at [phone] to set up help at home for after your surgery. - Your recent urine test was normal; the infection has cleared. Please finish the last few antibiotic pills you have. - Your next follow-up appointment in this office is on July 14, 2025.
[2025-05-29 14:04] VITALS: BP 125/58; PULSE 88; RESP 16; TEMP 36.7; O2SAT 99; BMI 28.2
== END 2025-05-29 14:32 | disposition home or self-care (01) ==
LOC: HO.HMCSH 14:02
PROVIDERS: PCP Physician Assistant Medical; Visit Provider Physician Assistant Medical
DX: M25.472 Effusion, left ankle (principal); R01.1 Cardiac murmur, unspecified; G62.9 Polyneuropathy, unspecified; N32.0 Bladder-neck obstruction; K59.00 Constipation, unspecified; H00.019 Hordeolum externum unspecified eye, unspecified eyelid; L71.9 Rosacea, unspecified

== ENCOUNTER 2025-06-06 09:30 | Outpatient (REF) | payer MEDICARE, OTHER, SELFPAY ==
--- OUTSIDE RECORDS SUMMARY | 2024-02-24 05:00 | XMS_ITS ---
[facility] Organization [facility] [place] Address [address] [place] [address] Care Team Providers Care Artists' Booking Representative Name Role Phone Tremaine Guillen Primary Care Provider Marizol Al [phone] Encounters Encounter Location Date Provider Diagnosis [address] [address] 02/24/2024 Marizol Ellington Plan Of Treatment Next Appt Details Provider Name:Marizol martinez, 08/22/2025 03:00:00 PM, [address] [place] [address], [phone], Progress Notes * Real ADAMSDOB:1945 (79 yo M)Acc No.[id number]:02/24/2024 Progress Note Patient: Real HARDY Provider: Phuong Ellington DPM :1945 A ge:78 Y S ex:Male Date:02/24/2024 Address:[address] [place] [address] [place] Pcp:Tremaine Guillen Subjective: * Chief Complaints: * [...] 02/24/2024 Generated for Diomedes mckinney/Chely/Clare on: 1 08/06/2024 10:32 AM EST
--- OUTSIDE RECORDS SUMMARY | 2024-04-08 07:00 | XMS_ITS ---
Author Organization [facility] keara [place] Address [address] [place] [address] Care Team Providers Care Welfare Specialist Name Role Phone Tremaine Guillen Primary Care Provider Marizol Al [phone] REASON FOR VISIT seen sooner Encounters Encounter Location Date Provider Diagnosis [address] [address] 04/08/2024 Marizol Ellington Plan Of Treatment Next Appt Details Provider Name:Marizol martinez, 08/22/2025 03:00:00 PM, [address] [place] [address], [phone], Progress Notes * Real ADAMSDOB:1945 (79 yo M)Acc No.[id number]:04/08/2024 Progress Note Patient: Real HARDY Provider: Phuong Ellington DPM :1945 A ge:78 Y S ex:Male Date:04/08/2024 Address:[address] [place] [address] [id number] Pcp:Tremaine Guillen Subjective: * Chief Complaints: * [...] 0 04/08/2024 Generated for Diomedes Sommers/Clare on: 08/06/2024 10:32 AM EST
--- OUTSIDE RECORDS SUMMARY | 2024-04-22 02:30 | XMS_ITS ---
Author Organization [facility] Address [address] [place] [phone] Care Team Providers Care Third Shift Lieutenant Name Role Phone Minh (RETIRED) Kaushal LEIGH Primary Care Provider Unavailable Juan Miguel Tim Unavailable [phone] REASON FOR VISIT colon screening Problems Problem Type SNOMED Code ICD Code Onset Dates Problem Status W/U Status Risk Notes Problem Diverticular disease of colon (766723135) Diverticulosis of large intestine without perforation or abscess without bleeding (K57.30) Active confirmed Problem Gastroesophageal reflux disease (378298083) Gastroesophageal reflux disease (K21.9) Active confirmed Problem Duodenitis (96659455) Duodenitis (K29.80) Active confirmed Encounters Encounter Location Date Provider Diagnosis [facility] [place] [address] [place] [phone] 04/22/2024 Juan Miguel Tim Colon cancer screeni [...] Notes * YAZMIN ADAMSDOB:1945 (79 yo M)Acc No.[id number]:04/22/2024 EGD and COL/MAC Patient: YAZMIN HARDY Provider: Jose Tim MD :1945 A ge:78 Y S ex:Male Date:04/22/2024 Address:[address] [place], [place] [phone] Pcp:Kaushal Wilkinson (RETIRED) MD Subjective: * Chief Complaints: * 1 . Colon screening. * Medical History: Objective: * Vitals: Assessment: * Assessment: 1. C olon cancer [...] . D ysphagia - R13.10 Plan: * Treatment: * Procedure Codes: 4 5385 LESION REMOVAL COLONOSCOPY, Modifiers: PT , 0529F INTRVL 3+YRS PTS CLNSCP DOCD, Modifiers: 8P , 0528F RCMND FLW-UP 10 YRS DOCD, Modifiers: 1P , 00692 UPPER GI ENDOSCOPY, BIOPSY * * The named appointment provid er may or may not be the originator of this progress note, and it is not deemed complete until electronically signed by the appointment provider. Sign off status: Pending * Provider: Jose Tim MD Date: 0 04/22/2024 Generated for Diomedes mckinney/Chely/eTransmitting on: 1 08/06/2024 10:33 AM EST
--- OUTSIDE RECORDS SUMMARY | 2024-09-01 05:00 | XMS_ITS ---
Author Organization [facility] Address [address] [place] [address] Care Team Providers Care Regulator Assembler Name Role Phone Minh (RETIRED) Kaushal LEIGH Primary Care Provider Juan Miguel Damon [phone] REASON FOR VISIT gerd Encounters Encounter Location Date Provider Diagnosis [facility] 10 [facility] [address] [place] [address] 09/01/2024 Juan Miguel Tim Plan Of Treatment No Information Progress Notes * YAZMIN ADAMSDOB:1945 (79 yo M)Acc No.[id number]:09/01/2024 Progress Notes Patient: YAZMIN HARDY Provider: Jose Tim MD :1945 A ge:78 Y S ex:Male Date:09/01/2024 Address:[address] [place], [place] [phone] Pcp:Kaushal Wilkinson (RETIRED) MD Subjective: * Chief Complaints: * 1 . Gerd. * Medical History: Objective: * Vitals: Assessment: Plan: * Treatment: * * The named appointment provid er may or may not be the originator of this progress note, and it is not deemed complete until electronically signed by the appointment provider. Sign off status: Pending * Provider: Jose Tim MD Date: 0 09/01/2024 Generated for Diomedes mckinney/Zulyg/eTransmitting on: 1 08/06/2024 10:32 AM EST
--- OUTSIDE RECORDS SUMMARY | 2024-10-28 09:40 | XMS_ITS ---
Author Organization [facility] Address [address] [facility] [address] [place] [address] Care Team Providers Care Quality Control Microbiology Supervisor Name Role Phone Minh (RETIRED) Kaushal LEIGH Primary Care Provider Unavailable Juan Miguel Tim [phone] REASON FOR VISIT Patient presents today for gerd Encounters Encounter Location Date Provider Diagnosis [facility] [address] [address] 10/28/2024 Juan Miguel Tim Plan Of Treatment No Information Progress Notes * YAZMIN ADAMSDOB:1945 (79 yo M)Acc No.[id number]:10/28/2024 Progress Notes Patient: YAZMIN HARDY Provider: Jose Tim MD :1945 A ge:79 Y S ex:Male Date:10/28/2024 Address:[address] [place], [place] [id number] Pcp:Kaushal Wilkinson (RETIRED) MD Subjective: * Chief Complaints: * 1 . Patient presents today for gerd. * Medical History: Objective: * Vitals: Assessment: Plan: * Treatment: * * The named appointment provid er may or may not be the originator of this progress note, and it is not deemed complete until electronically signed by the appointment provider. Sign off status: Pending * Provider: Jose Tim MD Date: 0 10/28/2024 Generated for Diomedes mckinney/Chely/eTransmitting on: 1 08/06/2024 10:32 AM EST
--- OUTSIDE RECORDS SUMMARY | 2025-03-28 05:00 | XMS_ITS ---
Author Organization [facility] Edvin sarah Drury Address [address] [facility] [place] [address] Care Team Providers Care Real Estate Representative Name Role Phone Tremaine Guillen Primary Care Provider Marizol Al Unavailable [phone] REASON FOR VISIT Seen Sooner Medications Medication [...] Encounters Encounter Location Date Provider Diagnosis [facility] [address] [address] 03/28/2025 Marizol Ellington Plan Of Treatment Next Appt Details Provider Name:Marizol martinez, 08/22/2025 03:00:00 PM, [address] [place] [address], [phone], Progress Notes * Real PRUITTDOB:1945 (79 yo M)Acc No.[id number]:03/28/2025 Progress Note Patient: Real HARDY Provider: Phuong Ellington DPM :1945 A ge:79 Y S ex:Male Date:03/28/2025 Address:[address] [place], [place] [id number] Pcp:Tremaine Guillen Subjective: * Chief Complaints: * [...] 0 03/28/2025 Generated for Diomedes mckinney/Chely/Clare on: 08/06/2024 10:32 AM EST
--- NOTE | ~2025-06-06 | XR_ITS ---
EXAMINATION: XR CHEST CLINICAL INFORMATION: I10 - Essential (primary) hypertension COMPARISON: X-ray 12/26/2024 TECHNIQUE: 2 views of the chest were obtained. FINDINGS: The cardiomediastinal silhouette is within normal limits. The lungs are well expanded. There is no focal consolidation, edema, or effusion. No pneumothorax. No acute osseous abnormality. XR/XR chest 2V IMPRESSION: No acute findings Electronically signed by: Bulmaro Gurrola MD 06/06/2025 03:26 PM EST
--- OUTSIDE RECORDS SUMMARY | 2025-06-06 10:32 | XMS_ITS | Patient Health Record ---
Author Organization [facility] Address [address] [place] [id number] Care Team Providers Care Machine Cutter Name Role Phone Minh (RETIRED) Kaushal LEIGH Primary Care Provider Unavailable Juan Miguel Tim Unavailable [phone] Allergies No Known Allergies Reason For Referral [...] Status Risk Notes Problem Colon cancer screening (973767617) Colon cancer screening (Z12.11) Active confirmed Problem History of adenomatous polyp of colon (426738236) History of adenomatous polyp of colon (Z86.010) Active confirmed Problem Diverticular disease of colon (311518362) Diverticulosis of large intestine without perforation or abscess without bleeding (K57.30) Active confirmed Problem Dysphagia (30166409) Dysphagia (R13.10) Active confirmed Problem Duodenitis (28835436) Duodenitis (K29.80) Active confirmed Problem Gastroesophageal reflux disease (965208510) Gastroesophageal reflux disease (K21.9) Active confirmed Problem Gastroesophageal reflux disease (696576246) Gastroesophageal reflux disease, esophagitis presence not specified (K21.9) Active confirmed Problem Gastroesophageal reflux disease (disorder) (254644167) Chronic GERD (K21.9) Active confirmed Encounters Encounter Location Date Provider Diagnosis [facility] [address] [place] [phone] 07/22/2024 Juan Miguel Tim [facility] [address] [place] [id number] 10/26/2024 Juan Miguel Tim Plan Of Treatment Future Test Test Name Order Date COLONOSCOPY 03/09/2012 UPPER GI ENDOSCOPY 09/04/2017 COLONOSCOPY 09/04/2017 COLONOSCOPY 05/21/2023 UPPER GI ENDOSCOPY [place] DILATION OF ESOPH 04/20/2024 Insurance Providers Payer Name Payer Address Payer Phone Subscriber Number Group Number Insured Name Patient Relationship to Insured Coverage Start Date Coverage End Date MEDICARE OF [place] [address] SAPNA LOVE [id number] [phone] [id number] YAZMIN ALEJANDRE CAS Self - patient is the insured SET [employer] [facility] [address] [place] [id number] [phone] [id number] YAZMIN ALEJANDRE CAS Self - patient is the insured Medical (General) History Medical History History ICD Code History of tubular adenomas of the colon removed in 2002--colonoscopies in 2006 and 2011 revealed only hyperplastic polyps, as well as diffuse diverticulosis and internal hemorrhoids Hypertension Hyperlipidemia NIDDM Denies ME,CVA,Lung disease,renal disease Left lower leg injury after [...]
--- OUTSIDE RECORDS SUMMARY | 2025-06-06 10:33 | XMS_ITS | Patient Health Record ---
Author Organization [facility] Formerly [facility] Address [address] [place] [address] Care Team Providers Care City Comptroller Name Role Phone Tremaine Guillen Primary Care Provider Marizol Al Unavailable [phone] Allergies No Known Allergies Results Component Value Reference Range Notes HEMOGLOBIN A1C (GLYCOHEMOGLO BIN) Reviewed date:08/02/2024 11:28:59 AM Interpretation: Performing Lab: Notes/Report: HEMOGLOBIN A1C % (HH) 6.8 HEMOGLOBIN A1C (GLYCOHEMOGLO BIN) Reviewed date:05/31/2025 01:11:00 PM Interpretation: Performing Lab: Notes/Report: HEMOGLOBIN A1C % (HH) 6.6 Reason For Referral No Information Medications Medication SIG (Take, Route, Frequency, Duration) Notes Start Date End Date Status metFORMIN HCl 500 MG Orally Twice a day Active LORazepam 2 MG 1 tablet at bedtime Orally Once a day PRN Not-Taking Jardiance 10 MG Oral; Duration: 30 Not-Taking Cephalexin 500 MG Orally No t-Taking Crestor 20 MG 1 tablet Orally Once a day; Duration: 30 day(s) Not-Scot ing CeleBREX 200 MG 1 capsule Orally Onc e a day; Duration: 30 day(s) 03/06/2014 Not-Scot ing Vitamin D Not-Taking Naprosyn 375 MG 1 tablet Orally Twic e a day; Duration: 30 day(s) 03/14/2014 Not-Scot ing Amoxicillin 500 MG 4 capsules one time Orally One hour prior to procedure; Duration: as needed 02/02/2019 Not-Taking Ammonium Lactate 12 % 1 application Exte rnally Twice a day; Duration: 30 days Active Augmentin 500-125 MG 1 tablet Orally Twi ce a day; Duration: 14 days 03/29/2019 Not-Takin g NIFEdipine 10 MG 1 capsule Orally Thr ee times a day; Duration: 30 day(s) Active Amoxicillin Not-Taki ng Lisinopril 10 MG 1 tablet Orally Once a day; Duration: 30 day(s) Active Augmentin 875-125 MG 1 tablet Orally sonya ry 12 hrs; Duration: 7 days Not-Taking Fish Oil PRN Not-Taking Crestor 20 MG 1 tablet Orally Once a day; Duration: 30 day(s) Not-Scot ing predniSONE 10 MG TAKE 1 TABLET BY RISHABH TH EVERY DAY Oral; Duration: 21 Not-Taking Lisinopril 10 MG 1 tablet Orally Once a day; Duration: 30 day(s) Not-Scot ing LORazepam 2 MG 1 tablet at bedtime Orally Once a day Not-Taking NIFEdipine 10 MG 1 capsule Orally Thr ee times a day; Duration: 30 day(s) Not-Taking Naproxen 500 MG 1 tablet with food o r milk as needed Orally every 12 hrs Not-Taking Immunizations Vaccine Route Administration Date Status Comme nts Influenza Unknown 05/07/2017 Administered Influenza Unknown 07/06/2018 Administered Influenza Unknown 03/28/2019 Administered Influenza Unknown 04/26/2020 Administered Influenza Unknown 05/27/2021 Administered Influenza Unknown 03/27/2023 Administered Influenza Unknown 03/27/2024 Administered Influenza Unknown 05/31/2025 Administered COVID-19 Moderna Vaccine Unknown 05/27/2021 Administered [...] Polyneuropathy due to type 2 diabetes mellitus (378093702) Type 2 diabetes mellitus with diabetic polyneuropathy (E11.42) Active confirmed Problem Acquired hammer toe of right foot ([id number] ) Hammer toe of right foot (M20.41) Active confirmed Problem Neuropathy (292400157) Neuropathy (G62.9) Active confirmed Vital Signs Blood pressure diastolic 77 mm Hg 05/31/2025 Height 6ft 3in in 05/31/2025 Blood pressure systolic 130 mm Hg 05/31/2025 Weight 225 lbs 05/31/2025 BMI 28.12 kg/m2 05/31/2025 Encounters Encounter Location Date Provider Diagnosis [address] [address] 08/02/2024 Marizol Ellington Xerosis of skin L85. 3 ; Ganglion of foot, left M67.472 ; Type 2 diabetes mellitus with diabetic polyneuropathy E11.42 and Tinea unguium B35.[address] [address] 10/12/2024 Marizol Perica Ganglion of foot, le ft M67.472 ; Hyperhidrosis of feet L74.513 ; Type 2 diabetes mellitus with diabetic polyneuropathy E11.42 ; Tinea unguium B35.1 and Abscess of toe, left L02.[address] [address] 12/28/2024 Marizol Perica Type 2 diabetes mellitus with diabetic polyneuropathy E11.42 and Tinea unguium B35.[address] [address] 03/22/2025 Marizol Perica Type 2 diabetes mellitus with diabetic polyneuropathy E11.42 and Tinea unguium B35.[address] [address] 05/31/2025 Marizol Perica Type 2 diabetes mellitus with diabetic polyneuropathy E11.42 ; Edema, lower extremity R60.0 and Tinea unguium B35.[address] [facility] [address] [address] 06/08/2024 Marizol Ellington [facility] [address] [address] 03/08/2025 Marizol Ellington Assessments Encounter Date Diagnosis [...] mellitus with diabetic polyneuropathy (ICD-10 - E11.42) 05/31/2025 Type 2 diabetes mellitus with diabetic polyneuropathy (ICD-10 - E11.42) 05/31/2025 Edema, lower extremity (ICD-10 - R60.0) 08/02/2024 Type 2 diabetes mellitus with diabetic polyneuropathy (ICD-10 - E11.42) 05/31/2025 Tinea unguium (ICD-10 - B35.1) 10/12/2024 Type 2 diabetes mellitus with diabetic polyneuropathy (ICD-10 - E11.42) 03/22/2025 Tinea unguium (ICD-10 - B35.1) 10/12/2024 Tinea unguium (ICD-10 - B35.1) 08/02/2024 Tinea unguium (ICD-10 - B35.1) 10/12/2024 Abscess of toe, left (ICD-10 - L02.612) Plan Of Treatment Pending Test Test Name Order Date X ray : Foot, right 3V 04/14/2012 X ray : Foot, right 3V 05/16/2013 02833-Gyaghrmm Plate 09/29/2017 95569-Hceqxczg Plate 11/11/2017 38193-Gucrfybu Plate 07/02/2017 77988-Wvveuvri Plate 12/11/2017 66229-Hzjjjlze Plate 02/02/2018 65552-Uwgjjkbb Plate 07/16/2018 73334-Uxzkzwjw Plate Each Additional 01/2017 49647-Yddatexp Plate Each Additional 69133- Debride <25 sq cm 07/16/2017 09292 I&D ABSCESS- SIMPLE,SINGLE 018 56565 I&D ABSCESS- SIMPLE,SINGLE 018 22524 I&D ABSCESS- SIMPLE,SINGLE 017 02542 I&D ABSCESS- SIMPLE,SINGLE 019 23781, J0702- INJECT or DRAIN, JOINT/BUR SA 05/26/2012, L5577-NWWLY/INJECT, JOINT/BURSA 1 08/24/2011, X6591-NNQLB/INJECT, JOINT/BURSA 1 K8975-USZPBRNB DYSTROPHIC NAILS ANY # 50,S3305-NTB TENDON SHEATH/LIGAMENT 0 12/21/201355637,K2723-AFF TENDON SHEATH/LIGAMENT 0 03/06/2014 F9039-Icdjoulth 3mg 06/24/2012 D2187-Plhnecvxr 3mg 05/26/2012 Next Appt Details Provider Name:Marizol Jorge martinez, 08/22/2025 03:00:00 PM, [address] [facility], [place], [address], Insurance Providers Payer Name Payer Address Payer Phone Subscriber Number Group Number Insured Name Patient Relationship to Insured Coverage Start Date Coverage End Date Medicare National Govt [facility] [address] [facility] [address] [id number] Grammati teodora, Real Self - patient is the insured [facility] [address] [place] [address] [id number] Grammati teodora, Real Self - patient is the insured Medical (General) History Medical History History ICD Code sciatica Diabetic Arthritis Cataracts Surgical History Surgery Date(Month/Year) right hip replacement 12/08/2011 left hip replacement 10/2014 colonoscopy 04/2024
--- OUTSIDE RECORDS SUMMARY | 2025-06-06 10:33 | XMS_ITS | Clinical Summary ---
Author Organization [facility] Address [address] [place] [address] Phone Care Team Providers Care Transport Manager Name Role Phone Kaushal Wilkinson MD Primary Care Provider [phone] Allergies No known active allergies Medications lisinopril (PRINIVIL,ZESTR IL) 10 MG tablet Take by mouth 2 (two) times a day. Active NIFEdipine (PROCARDIA) 10 MG capsule Take by mouth daily. Active rosuvastatin (CRESTOR) 10 MG tablet Take by mouth daily. Active omega 1-yls-iim-fish oil 1,000 mg (120 mg-180 mg) Cap [...] 10/02/1965 PNEUMOCOCCAL VACCINES (50+ years) (1 of 2 - PCV) 10/02/1966 ZOSTER VACCINES (1 of 2) 10/02/1997 CREATININE [...] on patient's age to complete this topic IPV VACCINES Aged Out No longer eligi ble based on patient's age to complete this topic MENINGOCOCCAL VACCINES (ACWY) Aged Out No longer eligible based on patient's age to complete this topic MENINGOCOCCAL VACCINES (B) Aged Out N o longer eligible based on patient's age to complete this topic Medical Devices Implanted Type Area Client Evaluator Device Identifier Shelf Expiration Date Model / Serial / Lot Right Hip Brenna Taper Size 3 Hip - [id number] Implanted:Qty: 1 on 11/19/2015 by Mac Henley MD at [facility] Left: Hip [employer] 03/27/2018 [id number] / / [id number] Liner Ecima Brenna 36mm - [id number] Implanted:Qty: 1 on 11/19/2015 by Mac Henley MD at [facility] Left: Hip [employer] 04/26/2018 [id number] / / [id number] Minihip Short Stem Size 8 Standard 14 130ccd Hip - [id number] Implanted:Qty: 1 on 11/19/2015 by Mac Henley MD at [facility] Left: Hip [employer] 07/03/2020 [id number] / / [id number] Biolox Delta Mod Head 36mm X 4mm Hip - [id number] Implanted:Qty: 1 on 11/19/2015 by Mac Henley MD at [facility] Left: Hip [employer] 05/29/2021 [id number] / / [id number] Procedures Procedure Name Priority Date/Time Associated Diagnosis Comments BASIC METABOLIC PANEL (BMP) Routine 10/26/2015 11:05 AM EDT from Last 3 Months or Most Recently Relevant to Health Maintenance Results * (ABNORMAL) Basic metabolic panel (10/26/2015 11:05 AM EDT) SODIUM 137 136 - 145 mmol/L [facility] POTASSIUM 4.7 3.5 - 5.2 mmol/L [facility] CHLORIDE 100 99 - 109 mmol/L [facility] CARBON DIOXIDE 24 20 - 31 mmol/L [facility] ANION GAP 13 3 - 17 [facility] CALCIUM 9.5 8.7 - 10.4 mg/dL [facility] GLUCOSE 141(Abnorm ally H) 74 - 106 mg/dL [facility] UREA NITROGEN (BUN) 19 9 - 23 mg/dl [facility] CREATININE 1.03 0.5 - 1.3 mg/dl [facility] EST GLOM FILT RATE NON- A 76.3 [facility] Comment:Units: ml/min/1.73ms q EST GLOM FILT RATE AMERI 92.4 [facility] Comment: Units: ml/min/1.73msq Reference Table [...] 5 AM EDT 10/26/2015 12:14 PM EDT [facility] - 10/26/2015 12:44 PM EDT [facility], [address] [facility] [address], [employer] Supervisor: Shawn Medina M.D. us Mac Henley MD LAB BLOOD BKR ORDERABLES Crystal oglesby Result [facility] [address] [place] [address] from Last 3 Months or Most Recently Relevant to Health Maintenance Insurance [employer] TOTAL CHOICE INDEMNITY [employer] TOTAL CHOICE INDEMNITY [facility] TOTAL CHOICE INDEMNITY [facility] TOTAL CHOICE [facility]DEMNITY [facility] TOTAL CHOICE INDEMNITY [facility] TOTAL CHOICE [facility]DEMNITY [facility] TOTAL CHOICE INDEMNITY [facility] TOTAL CHOICE INDEMNITY [facility] TOTAL CHOICE INDEMNITY [facility] TOTAL CHOICE INDEMNITY Advance Directives For more information, please contact: [phone] (9AM - 5PM [facility], Thursday-Thursday) Documents on File Type Date Recorded Patient Cooling Pan Tender Expl anation Healthcare Proxy 11/28/2015 1:01 PM * Full Code (Presumed) (Latest Code Status on File) Date Activated Date Inactivated Comments 11/19/2015 5:33 PM 11/22/2015 1:56 PM * Full Code (Presumed) Date Activated Date Inactivated Comments 11/19/2015 10:21 AM 11/19/2015 5:33 PM Care Teams Transport Manager Relationship Specialty Start Date End Date Kaushal Wilkinson MD [address] [place] [address] PCP - General 01/24/14 Additional Source Comments The information contained in this document represents components of the legal health record. It is not the complete legal health record.[facility]
[2025-06-06 10:47] LABS: Hematocrit 48.1 % (42.0-52.0); Hemoglobin 16.0 g/dl (14.0-18.0); Mean Corpuscular HGB Conc 33.3 g/dl (31.0-36.0); Mean Corpuscular Hemoglobin 33.8 pg (27.0-33.0); Mean Corpuscular Volume 101.5 fL (80.0-98.0); NRBC Abs Auto 0.000 X10*3/uL (0.0-0.012); NRBC Pct Auto 0.0 /100WBC (0.0-0.2); Platelet Count 227 X10*3/uL (160-400); Red Blood Count 4.74 X10*6/uL (4.60-5.80); White Blood Count 7.5 X10*3/uL (4.8-10.8)
[2025-06-06 10:59] LABS: NT Pro B Type Natriuretic Pept 55.5 pg/mL (<300)
[2025-06-06 11:01] LABS: Alanine Aminotransferase 26 U/L (0-40); Albumin Level 4.7 g/dL (3.5-5.0); Alkaline Phosphatase 73 U/L (39-117); Anion Gap 14 (12-20); Aspartate Amino Transferase 35 U/L (5-37); Blood Urea Nitrogen 16 mg/dL (9-16); Calcium 10.1 mg/dL (8.4-10.2); Carbon Dioxide 26 mmol/L (22-29); Chloride 102 mmol/L (96-108); Estimated Glomerular Filt Rate > 60; Magnesium 2.1 mg/dL (1.6-2.6); Potassium 4.7 mmol/L (3.3-5.1); Sodium 137 mmol/L (135-145); Total Protein 8.3 g/dL (6.5-8.0)
[2025-06-06 13:44] LABS: Appearance Urine Clear; Glucose Urine UA Negative (Negative); PH 7.0 (5.0-9.0); Specific Gravity - Urine 1.015 (1.005-1.025); UMIC TRIGGER UACC YES
== END 2025-06-06 09:31 | disposition home or self-care (01) ==
LOC: HO.HMGCX 09:30
PROVIDERS: PCP Physician Assistant Medical; Visit Provider Physician Assistant Medical
DX: Z00.00 Encounter for general adult medical examination without abnormal findings (principal); I10 Essential (primary) hypertension; R06.02 Shortness of breath; R60.0 Localized edema
CPT/HCPCS: 36415; 71046; 80053; 81001; 81003; 83735; 83880; 85027

== ENCOUNTER → 2025-06-06 09:41 | Outpatient (BNV) | payer MEDICARE, OTHER, SELFPAY | PROVIDERS: PCP Physician Assistant Medical; Visit Provider Radiology Diagnostic Ultrasound | DX: I10 Essential (primary) hypertension (principal) | CPT/HCPCS: 71046 ==

== ENCOUNTER 2025-06-30 08:21 | Outpatient (AMB) | payer MEDICARE, OTHER, SELFPAY ==
--- NOTE | 2025-06-30 08:33 | A.OFFVIS_ITS ---
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 Today patient reports that his left knee is swelling and states having pain under the knee cap. Standing for long periods of time aggravates the knee as well as stair use. No surgeries on the left knee. Dr. Oliver at the [facility] in [place] has given cortisone injections however these do not really did not help. He is currently attending physical therapy but its not helping. 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 Allergies No Known Allergies (No Known Allergies*) Allergy (Verified 06/30/25 08:35) Medication List - Last Reconciled 06/30/25 by Melissa Perez PA-C atorvastatin 10 mg PO DAILY blood sugar diagnostic (FreeStyle Lite Strips) As directed- to test blood once daily cane USE DAILY WHILE AMBULATING erythromycin 0.5 inches ophthalmic (eye) QID finasteride 5 mg PO DAILY 90 days fluconazole 200 mg PO DAILY 2 weeks furosemide (Lasix) 20 mg PO DAILY 3 days gabapentin 300 mg PO BID 90 days lisinopril 20 mg PO DAILY metformin ER 500 mg PO BID 90 days miconazole nitrate 2% (Antifungal (miconazole)) 1 appl topical BID naproxen 500 mg PO BID PRN nifedipine ER 30 mg PO DAILY testosterone 50 mg transdermal DAILY 30 days walker (Ultra-Light Rollator misc) for ambulating daily HPI 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 He states he has been experiencing pain for years and has had injections at the [facility] with minimal relief. He has anterior knee pain, worse with stairs. He has not had any surgery. He has done PT for the knees and also has PT coming to the house. He has had bilat SIMONE done over 10 years ago. No complications. [facility], [facility] Medical History (Updated 06/30/25 @ 09:09 by Melissa Perez PA-C) SOB (shortness of breath) Hordeolum Bladder neck obstruction Edema of left ankle Heart murmur Abnormal urine Fatigue Elevated AST (SGOT) Constipation Left ankle swelling Left ankle pain Alcohol use disorder Candidiasis UTI (urinary tract infection) Annual physical exam Pedal edema Rosacea Neuropathy Hematuria Left knee pain Swelling of left knee Balance problem Bilateral hip pain Bilateral knee pain Nicotine dependence Sty Type 2 diabetes mellitus with hemoglobin A1c goal of less than 7.0% Osteoarthritis Establishing care with new doctor, encounter for Lower back pain Nicotine use Ambulates with cane Peripheral neuropathy Internal hemorrhoids Diverticulosis Hiatal hernia Arthritis Left leg weakness Diabetes Hyperlipemia HTN (hypertension) Surgical History (Updated 06/29/25 @ 15:59 by Nadira Atkinson, RN) History of esophagogastroduodenoscopy (EGD) (04/22/24) Hx of bilateral hip replacements Hx of colonoscopy (04/22/24) Family History Father History of heart surgery Mother Arthritis Social History (Updated 06/29/25 @ 16:28 by Nadira Atkinson, BRISA) Household Members: None Housing: House Are you a primary care transition coordinator to a significant other at home: No Do you presently have visiting nurse or other home services: Yes ([employer] care weekly) Alcohol intake: current Alcohol intake frequency: 3 or more drinks per day Alcohol type: beer Patient Tobacco Use Status: Current everyday Tobacco user Tobacco use type: Cigarette service: No Current occupational status: retired Cognitive needs: Yes (cane) Hearing needs: No Vision needs: Yes (rx glasses) Review of Systems Const All systems reviewed & are unremarkable except as noted in HPI and below Physical Exam Vital Signs: BMI result Body Mass Index 28.9 Const General: cooperative and no acute distress Orientation/consciousness: patient oriented x3 Resp Effort & Inspection: normal respiratory effort and able to speak in complete sentences Cardio Peripheral pulses: Peripheral pulses 2+ throughout Neuro General: patient oriented x3 Extrem Other: Left knee normal to inspection no erythema or joint effusion present. He has full range of motion with medial joint line tenderness. No ligamentous laxity. Calf supple and nontender neurovascularly intact. Office Procedures AMB Joint Injection/Aspiration Joint Injection/Aspiration Primary Site: Left Knee Prep: site was prepped using aseptic technique, ethochloride spray was applied and injection warnings given Injected: 40 mg of, Decadron, with 3 mL of, 1% plain Lidocaine, 0.25% Bupivacaine and in the joint Approach Used: anterolateral Procedure: The patient tolerated the procedure well and there was some relief with the local anesthesia Coding 16774 - Glenohumeral/Tronchanteric Bursa/Intraarticular Procedure code (CPT) selection complete Results Reviewed Results Reviewed: X-rays of the left knee obtained in the office today and reviewed by me show mild medial compartment and patellofemoral arthritis Assessment & Plan Assessment & Plan (1) Osteoarthritis of left knee: Code(s): M17.12 - Unilateral primary osteoarthritis, left knee Category: Medical Plan: I discussed with the patient options which includes continuing physical therapy to work on strengthening conditioning exercises. We also discussed the role of steroid injections given he has had them in the past with some relief. He does have a procedure on Thursday with Dr. Mcqueen I did confirm it is okay to do the steroid injection today. Patient proceeded with injection which she tolerated well. He will continue with activities as tolerated and follow up as needed. Orders: Orders XR knee LT 2V Today M25.562 - Pain in left knee Coding Level of Care Code New Pt Level 3 (95688) Complex visit Add On G2211 Diagnoses Osteoarthritis of left knee M17.12 CPT Codes Coding - Joint 7: 16837 - Glenohumeral/Tronchanteric Bursa/Intraarticular ([id number])
[2025-06-30 08:35] VITALS: BMI 28.9
== END 2025-06-30 09:51 | disposition home or self-care (01) ==
LOC: HO.HOS 08:22
PROVIDERS: PCP Internal Medicine; Visit Provider Physician Assistant
DX: M17.12 Unilateral primary osteoarthritis, left knee (principal)
CPT/HCPCS: 20610; 99203

== ENCOUNTER → 2025-06-30 08:22 | Outpatient (BNV) | payer MEDICARE, OTHER, SELFPAY | PROVIDERS: Visit Provider Radiology Diagnostic Radiology | DX: M17.12 Unilateral primary osteoarthritis, left knee (principal); I70.202 Unspecified atherosclerosis of native arteries of extremities, left leg | CPT/HCPCS: 73560 ==

== ENCOUNTER 2025-06-30 17:38 | Outpatient (REF) | payer MEDICARE, OTHER, SELFPAY ==
--- NOTE | ~2025-06-30 | XR_ITS ---
EXAMINATION: XR KNEE, LEFT CLINICAL INFORMATION: M25.562 - Pain in left knee COMPARISON: December 09, 2024 TECHNIQUE: AP view standing position both knees. [place]foss view of the left knee. FINDINGS: Joint space narrowing involving medial and to a lesser extent lateral compartments of the knees pronounced on the left knee. Chondrocalcinosis in the lateral compartment of the right knee. Sclerosis along the articular surface of the tibial plateau. Vascular calcifications. No acute fracture or dislocation. No lytic or blastic lesions. XR/XR knee LT 2V IMPRESSION: Bicompartmental osteoarthrosis/osteoarthritis involving mostly the left knee. Probable CPPD. Atherosclerosis disease, peripheral. Electronically signed by: Hector Bradley MD 06/30/2025 08:32 AM BRYN
--- OUTSIDE RECORDS SUMMARY | 2025-07-02 17:44 | XMS_ITS | Clinical Summary ---
Author Organization [facility] Address [address] [place] [id number] Phone Care Team Providers Care Second Floor Operator Name Role Phone Kaushal Wilkinson MD Primary Care Provider [phone] Allergies No known active allergies Medications lisinopril (PRINIVIL,ZESTR IL) 10 MG tablet Take by mouth 2 (two) times a day. Active NIFEdipine (PROCARDIA) 10 MG capsule Take by mouth daily. Active rosuvastatin (CRESTOR) 10 MG tablet Take by mouth daily. Active omega 6-aig-knc-fish oil 1,000 mg (120 mg-180 mg) Cap [...] this topic Medical Devices Implanted Type Area Mold Burner Device Identifier Shelf Expiration Date Model / Serial / Lot Right Hip Brenna Taper Size 3 Hip - [id number] Implanted:Qty: 1 on 11/19/2015 by Mac Henley MD at [facility] Left: Hip [employer] 03/27/2018 [id number] / / [id number] Liner Ecima Brenna 36mm - [id number] Implanted:Qty: 1 on 11/19/2015 by Mac Henley MD at [facility] Left: Hip [employer] 04/26/2018 [id number] / / [id number] Minihip Short Stem Size 8 Standard 07/09 130ccd Hip - [id number] Implanted:Qty: 1 on 11/19/2015 by Mac Henley MD at [facility] Left: Hip [employer] 07/03/2020 [id number] / / [id number] Biolox Delta Mod Head 36mm X 4mm Hip 04 - [id number] Implanted:Qty: 1 on 11/19/2015 by Mac Henley MD at [facility] Left: Hip [employer] 05/29/2021 [id number] / / [id number] Procedures Procedure Name Priority Date/Time Associated Diagnosis Comments BASIC METABOLIC PANEL (BMP) Routine 10/26/2015 11:05 AM EDT from Last 3 Months or Most Recently Relevant to Health Maintenance Results * (ABNORMAL) Basic metabolic panel (10/26/2015 11:05 AM EDT) SODIUM 137 136 - 145 mmol/L [facility] POTASSIUM 4.7 3.5 - 5.2 mmol/L [facility] CHLORIDE 100 99 - 109 mmol/L [facility] CARBON DIOXIDE 24 20 - 31 mmol/L [facility] ANION GAP 13 3 - 17 [facility] CALCIUM 9.5 8.7 - 10.4 mg/dL [facility] GLUCOSE 141(Abnorm ally H) 74 - 106 mg/dL [facility] UREA NITROGEN (BUN) 19 9 - 23 mg/dl [facility] CREATININE 1.03 0.5 - 1.3 mg/dl [facility] EST GLOM FILT RATE NON- A 76.3 [facility] Comment:Units: ml/min/1.73ms q EST GLOM FILT RATE AMERI 92.4 [facility] Comment: Units: ml/min/1.73msq Reference Table for Population [...] 5 AM EDT 10/26/2015 12:14 PM EDT [facility] - 10/26/2015 12:44 PM EDT [facility], [address] [facility] [address], Sander Setter: Shawn Medina M.D. us Mac Henley MD LAB BLOOD BKR ORDERABLES Crystal l Result [facility] [address] [place] [address] from Last 3 Months or Most Recently Relevant to Health Maintenance Insurance [employer] INDEMNITY [employer] INDEMNITY [facility] TOTAL CHOICE [facility]DEMNITY [facility] TOTAL CHOICE INDEMNITY [facility] TOTAL CHOICE INDEMNITY [facility] TOTAL CHOICE INDEMNITY [facility] TOTAL CHOICE INDEMNITY [facility] TOTAL CHOICE [facility]DEMNITY [facility] TOTAL CHOICE [facility]DEMNITY [facility] TOTAL CHOICE INDEMNITY Advance Directives For more information, please contact: [phone] (9AM - 5PM [place], Thursday-Thursday) Documents on File Type Date Recorded Patient Boiler Erector Expl anation Healthcare Proxy 11/28/2015 1:01 PM * Full Code (Presumed) (Latest Code Status on File) Date Activated Date Inactivated Comments 11/19/2015 5:33 PM 11/22/2015 1:56 PM * Full Code (Presumed) Date Activated Date Inactivated Comments 11/19/2015 10:21 AM 11/19/2015 5:33 PM Care Teams Second Floor Operator Relationship Specialty Start Date End Date Kaushal Wilkinson MD [address] [place] [id number] PCP - General 01/24/14 Additional Source Comments The information contained in this document represents components of the legal health record. It is not the complete legal health record.[facility]
== END 2025-06-30 17:39 | disposition home or self-care (01) ==
LOC: HO.HOSX 17:38
PROVIDERS: Visit Provider Physician Assistant
DX: M17.12 Unilateral primary osteoarthritis, left knee (principal)
CPT/HCPCS: 20610; 73560; 99202; J0665; J1100; J2003

== ENCOUNTER 2025-07-03 07:16 | Day surgery (SDC) | payer MEDICARE, OTHER, SELFPAY ==
--- NOTE | 2025-06-28 10:17 | P.CONAN_ITS ---
Documented by User: Stormy Calderon NP 06/28/25 10:18 HPI - Anesthesia Eval Consult details Narrative: 79yo M for Laser Ablation Prostate w/Green Light PMFSH Active Problems Active Problems: All Active Problems SOB (shortness of breath) (Acute) Hordeolum (Acute) Bladder neck obstruction (Acute) Peripheral neuropathy (Acute) Edema of left ankle (Acute) Heart murmur (Acute) Abnormal urine (Acute) Fatigue (Acute) Elevated AST (SGOT) (Acute) Constipation (Acute) Left ankle swelling (Acute) Left ankle pain (Acute) Alcohol use disorder (Acute) Candidiasis (Acute) UTI (urinary tract infection) (Acute) Annual physical exam (Acute) Pedal edema (Acute) Rosacea (Acute) Neuropathy (Acute) Hematuria (Acute) Left knee pain (Acute) Swelling of left knee (Acute) Balance problem (Acute) Bilateral hip pain (Acute) Bilateral knee pain (Acute) Nicotine dependence (Acute) Sty (Acute) HTN (hypertension) (Acute) Type 2 diabetes mellitus with hemoglobin A1c goal of less than 7.0% (Acute) Osteoarthritis (Acute) Establishing care with new doctor, encounter for (Acute) Lower back pain (Acute) Hypogonadism in male (Acute) Post-void dribbling (Acute) Incomplete emptying of bladder due to benign prostatic hyperplasia (Acute) Bladder outlet obstruction (Acute) Past Medical History Medical History (Updated 07/03/25 @ 07:59 by Yvonne Hernandez RN) Full code status SOB (shortness of breath) Hordeolum Bladder neck obstruction Edema of left ankle Heart murmur Abnormal urine Fatigue Elevated AST (SGOT) Constipation Left ankle swelling Left ankle pain Alcohol use disorder Candidiasis UTI (urinary tract infection) Annual physical exam Pedal edema Rosacea Neuropathy Hematuria Left knee pain Swelling of left knee Balance problem Bilateral hip pain Bilateral knee pain Nicotine dependence Sty Type 2 diabetes mellitus with hemoglobin A1c goal of less than 7.0% Osteoarthritis Establishing care with new doctor, encounter for Lower back pain Nicotine use Ambulates with cane Peripheral neuropathy Internal hemorrhoids Diverticulosis Hiatal hernia Arthritis Left leg weakness Diabetes Hyperlipemia HTN (hypertension) Family History Family History Father History of heart surgery Mother Arthritis Family history of problems with anesthesia: No Surgical History Surgical History (Updated 06/29/25 @ 15:59 by Nadira Atkinson RN) History of esophagogastroduodenoscopy (EGD) (04/22/24) Hx of bilateral hip replacements Hx of colonoscopy (04/22/24) History of Problems with Anesthesia: No Social History Social History (Updated 06/29/25 @ 16:28 by Nadira Atkinson, BRISA) Household Members: None Housing: House Are you a primary home care administrator to a significant other at home: No Do you presently have visiting nurse or other home services: Yes ([facility] care weekly) Alcohol intake: current Alcohol intake frequency: 3 or more drinks per day Alcohol type: beer Patient Tobacco Use Status: Current everyday Tobacco user Tobacco use type: Cigarette Smoked in Last 30 Days: Yes Use of substances other than those prescribed or required for medical reasons: No Have you been hit, kicked, punched, or otherwise hurt by someone within the past year? If so, by whom?: No Are you DNR?: Yes Advance Directives: No (will bring dos) Advance Directives Information Provided: No Advance Directives on File: No service: No Current occupational status: retired Cognitive needs: Yes (cane) Hearing needs: No Vision needs: Yes (rx glasses) Meds Allergies Allergy/AdvReac Type Severity Reaction Status Date / Time No Known Allergies (No Known Allergy Verified 06/30/25 08:35 Allergies*) Home Medications ?Medication ?Instructions ?Recorded ?Confirmed ?Last Taken ?Type atorvastatin 10 mg tablet 10 mg PO DAILY 03/08/2412/18 Unknown History naproxen 500 mg tablet 500 mg PO BID PRN Pain 05/1206/30/25 06/27/25 History Exam Narrative Narrative: EKG 04/2025 NSR @ 66 Assessment and Plan Assessment Anesthesia Assessment: Chart Reviewed Final Anesthetic Review Family History of Problems with Anesthesia: No History of Problems with Anesthesia: No Documented by User: Clare Grove MD 07/03/25 08:29 [facility] Past Medical History Medical History (Updated 07/03/25 @ 07:59 by Yvonne Hernandez RN) Full code status SOB (shortness of breath) Hordeolum Bladder neck obstruction Edema of left ankle Heart murmur Abnormal urine Fatigue Elevated AST (SGOT) Constipation Left ankle swelling Left ankle pain Alcohol use disorder Candidiasis UTI (urinary tract infection) Annual physical exam Pedal edema Rosacea Neuropathy Hematuria Left knee pain Swelling of left knee Balance problem Bilateral hip pain Bilateral knee pain Nicotine dependence Sty Type 2 diabetes mellitus with hemoglobin A1c goal of less than 7.0% Osteoarthritis Establishing care with new doctor, encounter for Lower back pain Nicotine use Ambulates with cane Peripheral neuropathy Internal hemorrhoids Diverticulosis Hiatal hernia Arthritis Left leg weakness Diabetes Hyperlipemia HTN (hypertension) Family History Family History Father History of heart surgery Mother Arthritis Surgical History Surgical History (Updated 06/29/25 @ 15:59 by Nadira Atkinson RN) History of esophagogastroduodenoscopy (EGD) (04/22/24) Hx of bilateral hip replacements Hx of colonoscopy (04/22/24) Social History Social History (Updated 06/29/25 @ 16:28 by Nadira Atkinson RN) Household Members: None Housing: House Are you a primary home care administrator to a significant other at home: No Do you presently have visiting nurse or other home services: Yes ([facility] care weekly) Alcohol intake: current Alcohol intake frequency: 3 or more drinks per day Alcohol type: beer Patient Tobacco Use Status: Current everyday Tobacco user Tobacco use type: Cigarette Smoked in Last 30 Days: Yes Use of substances other than those prescribed or required for medical reasons: No Have you been hit, kicked, punched, or otherwise hurt by someone within the past year? If so, by whom?: No Are you DNR?: Yes Advance Directives: No (will bring dos) Advance Directives Information Provided: No Advance Directives on File: No service: No Current occupational status: retired Cognitive needs: Yes (cane) Hearing needs: No Vision needs: Yes (rx glasses) Meds Allergies Allergy/AdvReac Type Severity Reaction Status Date / Time No Known Allergies (No Known Allergy Verified 06/30/25 08:35 Allergies*) Home Medications ?Medication ?Instructions ?Recorded ?Confirmed ?Last Taken ?Type atorvastatin 10 mg tablet 10 mg PO DAILY 03/08/2412/18 Unknown History naproxen 500 mg tablet 500 mg PO BID PRN Pain 05/1206/30/25 06/27/25 History Exam Airway Mallampati Class: II (cap top, multiple caps) TM Dist: >3cm Neck ROM: Full Heart: rrr Lungs: cta Assessment and Plan Assessment Anesthesia Assessment: Anesthesia Plan Discussed Final Anesthetic Review NPO: Yes ASA Class: III Final Preanesthetic Review: No Changes in Pt Med Stat, Meds/Allgs Chart Reviewed and Consent Obtained/Reviewed Patient Risk: Intermediate Procedure Risk: Low Anesthetic Plan Anesthetic Plan: GA Disposition: Standard PACU
[2025-06-29 15:54] VITALS: BMI 28.2
[2025-06-29 16:10] VITALS: BMI 28.2
[2025-07-03 07:57] LABS: Glucose, Whole Blood 171 mg/dL (60-115)
[2025-07-03 07:59] VITALS: BP 153/70; PULSE 72; RESP 20; TEMP 36.4; O2SAT 97
[2025-07-03] MEDS: Lactated Ringers 1,000 ML 100 ML IVCONT (08:11)
--- NOTE | 2025-07-03 10:16 | MHC.SHP ---
Pre-Procedural Eval Section A - 24 Hr Update-Section A only Date of Service: 07/03/25 The patient is an INPATIENT: No Changes since office visit: No Cold of Flu in the past 2 weeks, No New Medical Problems, No Changes in Medication and No Patient answered all questions The patient has been examined within 24 hours of the surgical procedure. The History & Physical has been completed within 30 days and I have reviewed it.: Yes Section B - Complete if H&P > 30 days Chief Complaint: Bladder-neck obstruction Details of Present Illness: G prostate on ultrasound Relevant Family History (Specify if Yes): No Relevant Social History: None Present Medications: see Short Stay Collaborative assessment Medical History: No relevant PMH History of Previous Operations: No relevant previous surgery Allergies: Allergies Allergy/AdvReac Type Severity Reaction Status Date / Time No Known Allergies (No Known Allergy Verified 06/30/25 08:35 Allergies*) Review of Systems Sugical H&P ROS: Negative: Constitution, Cardiovascular, Respiratory, Neurological, Psychiatric, Hem-Onc, Allergic/Immunologic, Gastrointestinal, Genitourinary, Musculoskeletal, Integumentary, Endocrine and Eyes/Ears/Nose/Throat Exam Surgical H&P Exam: Normal: HEENT, Normal: Heart, Normal: Lungs, Normal: Extremities, Normal: Abdomen, Normal: Skin and Normal: Neurological Plan Diagnosis/Plan: Unchanged (GreenLight laser prostate) I have reviewed the history and physical and performed a pertinent physical examination on my patient. No changes have occurred unless specified. Time Spent With Patient Time: Total time managing care of this patient today ____ minutes.
[2025-07-03 10:39] VITALS: BMI 28.1
--- NOTE | 2025-07-03 11:35 | W.PM.OPN ---
Operative Note Operative Note Date of Service: 07/03/25 Narrative: PreOperative Diagnosis: Bladder outlet obstruction Post Operative Diagnosis: Bladder outlet obstruction Procedure: GreenLight Laser Enucleation of the prostate CPT 60800 Surgeon: Dr Syd Mcqueen Anesthesia: General History of bladder outlet obstruction. Treated with alpha-guilherme and other medications. Still with symptoms. On cystoscopy in office has trilobar prostate. Bladder ultrasound 80 g prostate. Recommendation for prostate procedure with laser enucleation of prostate. Risks and benefits have been discussed. Focus was placed on development of retrograde ejaculation which is a normal part of this procedure. Published revision rates are approximately 30-50% at 8-10 years following the procedure. Procedure: After informed consent was verified the patient was brought to the operating room and placed in a supine position. Anesthesia was administered per protocol. Patient was placed in modified dorsal lithotomy position and prepped and draped in a sterile fashion. Safety pause time-out was confirmed. Antibiotics have been given. A Twenty-four Tunisian laser cystoscope was inserted per urethra. No abnormalities were found of the anterior and bulbar urethra. The prostatic urethra shows trilobar hypertrophy. The bladder was examined and both ureteric orifices were seen in their normal positions away from the area of interest. Bladder trabeculation grade 1/2. A GreenLight laser with attached pressure bag Normal Saline cooling irrigation was used. At initial setting of 80 pickett incisions were made at the 5 and 7 o'clock position. The incisions were taken down from the bladder neck down to the area just proximal of the veru. These were gradually deepened in order to define the lateral aspects of the median lobe area and separate the lateral lobe areas from the median lobe.. The deep boundary of enucleation was defined by the prostate surgical capsule. Once clearly defined the grooves were extended in the lateral directions in order to create a deep groove and begin to undermined the lateral lobe areas.. The median lobe was then ablated and enucleated tissue released into the bladder with the laser power increased to 120 W. this was accomplished by approaching the median lobe from each lateral incision and working from lateral to medial. Moderate size median lobe Once the median lobe area had been cleared, attention was directed to the lateral lobes. Starting with the patient's left lateral lobe. First the 05:00 o'clock groove was further developed. This was moved in the lateral direction to undermine the tissue on the lateral side running from the bladder neck to the prostate apex. The ureteric orifice was used to guide incisions. The laser fiber was placed at the 1 o'clock position and a secondary groove was developed down to the level of prostatic capsule. The creation of a second deep groove defined a segment of intervening tissue similar to a slice of orange. At the apex of the prostate the laser was used to vertically link the two grooves releasing the intervening tissue and creating a segment of tissue. This tissue was then removed with a combination of enucleation and ablation working from the apex toward the bladder neck. A similar procedure was repeated on the patient's right-hand side. The only differences being the position of the lateral groove at the 7 o'clock position and the secondary groove at the 11 o'clock position, Otherwise the procedure was developed in a mirror fashion. Laser power 120 w After the majority of tissue had been debulked remnant tissue was ablated with the side fire laser and the curve of the prostate followed up each side wall clearly defining the anterior remnant strip that remained between the 11 and 1 o'clock positions. At completion debris and pieces of prostate were removed from the bladder with irrigation. Both ureteric orifices were reviewed again in shown to be patent in away from any areas of energy damage. The apical area was reviewed and any stray mucosal ooze was controlled. Inflow was turned off and the prostatic fossa examined from any areas of bleeding. This was well-controlled. A 22 Tunisian 30 cc balloon Horta catheter was placed into the bladder using a flexible stylet. Clear efflux was obtained upon irrigation with a Maryann piston syringe. Fifty cc was placed in the balloon and gentle traction was placed. A snap was used to hold tension on the catheter to control bleeding during patient moved and transported. A drainage bag was placed. A belladonna and opiate suppository was placed in order to assist in postprocedure pain management. Once transportation is complete to the PACU the snap will be removed. The patient tolerated the procedure well, he was extubated in the operating and transferred in a stable condition to the recovery area. Total Power 141 kJ Lasing time 22:14 Pathology: Prostate tissue Drains: Horta catheter
[2025-07-03 11:44] VITALS: BP 156/85; PULSE 67; RESP 16; TEMP 36.2; O2SAT 98
[2025-07-03 11:49] VITALS: BP 159/89; PULSE 67; RESP 18; O2SAT 99
[2025-07-03 11:54] VITALS: BP 167/85; PULSE 69; RESP 20; O2SAT 99
[2025-07-03 11:59] VITALS: BP 155/80; PULSE 64; RESP 20; O2SAT 100
[2025-07-03 12:14] VITALS: BP 158/80; PULSE 66; RESP 20; TEMP 36.2; O2SAT 100
== END 2025-07-03 13:04 | disposition home or self-care (01) ==
PROVIDERS: PCP Physician Assistant Medical; Visit Provider Urology
PROC: (CPT 52648; principal; 2025-07-03 09:00)
DX: N32.0 Bladder-neck obstruction (principal); N40.1 Benign prostatic hyperplasia with lower urinary tract symptoms; R33.8 Other retention of urine; R31.9 Hematuria, unspecified; N32.89 Other specified disorders of bladder; E11.9 Type 2 diabetes mellitus without complications; I10 Essential (primary) hypertension; E78.5 Hyperlipidemia, unspecified; G62.9 Polyneuropathy, unspecified; M54.50 Low back pain, unspecified; M19.90 Unspecified osteoarthritis, unspecified site; R26.89 Other abnormalities of gait and mobility; Z99.89 Dependence on other enabling machines and devices; Z79.899 Other long term (current) drug therapy; Z96.643 Presence of artificial hip joint, bilateral; Z87.891 Personal history of nicotine dependence
CPT/HCPCS: 52649; 82947; 88305; J0131; J1956; J2003; J2405; J2704; J3010

== ENCOUNTER → 2025-07-03 07:16 | Outpatient (BNV) | payer MEDICARE, OTHER, SELFPAY | PROVIDERS: PCP Physician Assistant Medical; Visit Provider Urology | DX: N32.0 Bladder-neck obstruction (principal) | CPT/HCPCS: 52649 ==

== ENCOUNTER → 2025-07-05 09:56 | Outpatient (BNVA) | payer MEDICARE, OTHER, SELFPAY | PROVIDERS: PCP Physician Assistant Medical; Visit Provider Urology | DX: Z46.6 Encounter for fitting and adjustment of urinary device (principal); N40.1 Benign prostatic hyperplasia with lower urinary tract symptoms; R33.9 Retention of urine, unspecified; Z98.890 Other specified postprocedural states | CPT/HCPCS: 51700; 51798 ==

== ENCOUNTER 2025-07-11 11:15 | Outpatient (AMB) | payer MEDICARE, OTHER, SELFPAY ==
--- OUTSIDE RECORDS SUMMARY | 2024-04-08 07:00 | XMS_ITS ---
Author Organization [facility] keara [place] Address [address] [place] [address] Care Team Providers Care Associate Professor Of Pathology Name Role Phone Daniela Mcfadden Primary Care Provider Marizol Rivera [phone] REASON FOR VISIT seen sooner Encounters Encounter Location Date Provider Diagnosis [address] [address] 04/08/2024 Marizol Ellington Plan Of Treatment Next Appt Details Provider Name:Marizol martinez, 08/22/2025 03:00:00 PM, [address] [place] [address], [phone], Progress Notes * Real ADAMSDOB:1945 (79 yo M)Acc No.[id number]:04/08/2024 Progress Note Patient: Real HARDY Provider: Phuong Ellington DPM :1945 A ge:78 Y S ex:Male Date:04/08/2024 Address:[address] [place] [address] [id number] Pcp:Daniela Mcfadden Subjective: * Chief Complaints: * 1 . Seen sooner. * Medical History: Objective: * Vitals: Assessment: Plan: * Treatment: * Images: * The named appointment provid er may or may not be the originator of this progress note, and it is not deemed complete until electronically signed by the appointment provider. Sign off status: Pending * Provider: Phuong Ellington, DPMaty Date: 0 04/08/2024 Generated for Diomedes mckinney/Chely/Clare on: 1 09/11/2024 02:49 PM EST
--- OUTSIDE RECORDS SUMMARY | 2024-04-22 02:30 | XMS_ITS ---
Author Organization [facility] Address [address] [place] [address] Care Team Providers Care Engineer Specialist Name Role Phone Minh (RETIRED) Kaushal LEIGH Primary Care Provider Unavailable Juan Miguel Tim Unavailable [phone] REASON FOR VISIT colon screening Problems Problem Type SNOMED Code ICD Code Onset Dates Problem Status W/U Status Risk Notes Problem Diverticular disease of colon (159078987) Diverticulosis of large intestine without perforation or abscess without bleeding (K57.30) Active confirmed Problem Gastroesophageal reflux disease (071544221) Gastroesophageal reflux disease (K21.9) Active confirmed Problem Duodenitis (83905180) Duodenitis (K29.80) Active confirmed Encounters Encounter Location Date Provider Diagnosis [facility] [place] [address] [place] [phone] 04/22/2024 Juan Miguel Tim Colon cancer screeni ng Z12.11 ; Colon polyps K63.5 ; Diverticulosis of large intestine without perforation or abscess without bleeding K57.30 ; Other hemorrhoids K64.8 ; Gastroesophageal reflux disease K21.9 ; Hiatal hernia K44.9 ; Duodenitis K29.80 and Dysphagia R13.10 Assessments Encounter Date Diagnosis (ICD Code) Assessment Notes Treatment Notes Treatment Clinical Notes Section Notes 04/22/2024 Colon cancer screening (ICD-10 - Z12.11) 04/22/2024 Colon polyps (ICD-10 - K63.5) 04/22/2024 Diverticulosis of large intestine without perforation or abscess without bleeding (ICD-10 - K57.30) 04/22/2024 Other hemorrhoids (ICD-10 - K64.8) 04/22/2024 Gastroesophageal reflux disease (ICD-10 - K21.9) 04/22/2024 Hiatal hernia (ICD-10 - K44.9) 04/22/2024 Duodenitis (ICD-10 - K29.80) 04/22/2024 Dysphagia (ICD-10 - R13.10) Plan Of Treatment No Information Progress Notes * YAZMIN ADAMSDOB:1945 (79 yo M)Acc No.[id number]:04/22/2024 EGD and COL/MAC Patient: YAZMIN HARDY Provider: Jose Tim MD :1945 A ge:78 Y S ex:Male Date:04/22/2024 Address:[address] [place], [place] [phone] Pcp:Kaushal Wilkinson (RETIRED) MD Subjective: * Chief Complaints: * C olon screening Assessment: * Assessment: 1. C olon cancer screening - Z12.11 (Primary) 2 . C olon polyps - K63.5? 3. D iverticulosis of large intestine without perforation or abscess without bleeding - K57.30 4 . O ther hemorrhoids - K64.8 5 . G astroesophageal reflux disease - K21.9 6 . H iatal hernia - K44.9 7 . D uodenitis - K29.80 8 . D ysphagia - R13.10 Plan: * Procedure Codes: 4 5385 LESION REMOVAL COLONOSCOPY, Modifiers: PT 0529F INTRVL 3+YRS PTS CLNSCP DOCD, Modifiers: 8P 0528F RCMND FLW-UP 10 YRS DOCD, Modifiers: 1P 07329 UPPER GI ENDOSCOPY, BIOPSY Billing Information: * Procedure Codes: 90970 LESION REMOVAL COLONOSCOPY. Modifiers: PT 0529F INTRVL 3+YRS PTS CLNSCP DOCD. Modifiers: 8P 0528F RCMND FLW-UP 10 YRS DOCD. Modifiers: 1P 97039 UPPER GI ENDOSCOPY, BIOPSY. * The named appointment provid er may or may not be the originator of this progress note, and it is not deemed complete until electronically signed by the appointment provider. Sign off status: Pending * Provider: Jose Tim MD Date: 0 04/22/2024 Generated for Diomedes mckinney/Chely/Clare on: 1 09/11/2024 02:49 PM EST
--- OUTSIDE RECORDS SUMMARY | 2024-09-01 05:00 | XMS_ITS ---
Author Organization [facility] Address [address] [place] [address] Care Team Providers Care Mine Production Engineer Name Role Phone Minh (RETIRED) Kaushal LEIGH Primary Care Provider Juan Miguel Damon [phone] REASON FOR VISIT gerd Encounters Encounter Location Date Provider Diagnosis [facility] [address] [facility] [address] [place] [phone] 09/01/2024 Juan Miguel Tim Plan Of Treatment No Information Progress Notes * YAZMIN ADAMSDOB:1945 (79 yo M)Acc No.[id number]:09/01/2024 Progress Notes Patient: YAZMIN HARDY Provider: Jose Tmi MD :1945 A ge:78 Y S ex:Male Date:09/01/2024 Address:[address] [place], [place] [phone] Pcp:Kaushal Wilkinson (RETIRED) MD Subjective: * Chief Complaints: * G erd * The named appointment provid er may or may not be the originator of this progress note, and it is not deemed complete until electronically signed by the appointment provider. Sign off status: Pending * Provider: Jose Tim MD Date: 0 09/01/2024 Generated for Diomedes mckinney/Zulyg/eTransmitting on: 1 09/11/2024 02:48 PM EST
--- OUTSIDE RECORDS SUMMARY | 2025-03-28 05:00 | XMS_ITS ---
Author Organization [facility] Edvin sarah Alexys Address [address] [place] [address] Care Team Providers Care Geological Technician Name Role Phone Daniela Mcfadden Primary Care Provider Marizol Rivera Unavailable [phone] REASON FOR VISIT Seen Sooner Medications Medication [...] Not-Taking Encounters Encounter Location Date Provider Diagnosis [facility] [address] [address] 03/28/2025 Marizol Ellington Plan Of Treatment Next Appt Details Provider Name:Marizol martinez, 08/22/2025 03:00:00 PM, [address] [place] [address], [phone], Progress Notes * Real PRUITTDOB:1945 (79 yo M)Acc No.[id number]:03/28/2025 Progress Note Patient: Real HARDY Provider: Phuong Ellington DPM :1945 A ge:79 Y S ex:Male Date:03/28/2025 Address:[address] [place] [address], [facility] Pcp:Daniela Mcfadden Subjective: * Chief Complaints: * [...] 0 03/28/2025 Generated for Diomedes mckinney/Chely/Clare on: 09/11/2024 02:48 PM EST
--- NOTE | 2025-07-11 11:47 | MHC.OFFVIS ---
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 Patient states his left ankle swells throughout the day. Ankle feels numb and tingles at times. 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 He reports that his left ankle swells during the day and the swelling subsides overnight. He notes numbness at the base of his foot, which is his most bothersome symptom, and states the left leg is more problematic than the right. He has a history of diabetes for approximately four to five years and generalized arthritis. He has a history of smoking cigars and currently uses Zyn nicotine pouches. He denies being on blood thinners. His functional status is limited; he uses a cane and can walk approximately 50 yards before feeling tired. He also has a 35-year history of back problems, which limits his ability to stand to about 15-20 minutes. He denies that his legs hurt with ambulation. [facility] Medical History Full code status SOB (shortness of breath) Hordeolum Bladder neck obstruction Edema of left ankle Heart murmur Abnormal urine Fatigue Elevated AST (SGOT) Constipation Left ankle swelling Left ankle pain Alcohol use disorder Candidiasis UTI (urinary tract infection) Annual physical exam Pedal edema Rosacea Neuropathy Hematuria Left knee pain Swelling of left knee Balance problem Bilateral hip pain Bilateral knee pain Nicotine dependence Sty Type 2 diabetes mellitus with hemoglobin A1c goal of less than 7.0% Osteoarthritis Establishing care with new doctor, encounter for Lower back pain Nicotine use Ambulates with cane Peripheral neuropathy Internal hemorrhoids Diverticulosis Hiatal hernia Arthritis Left leg weakness Diabetes Hyperlipemia HTN (hypertension) Surgical History History of esophagogastroduodenoscopy (EGD) (04/22/24) Hx of bilateral hip replacements Hx of colonoscopy (04/22/24) Family History Father History of heart surgery Mother Arthritis Social History Household Members: None Housing: House Are you a primary dialysis patient care technician to a significant other at home: No Do you presently have visiting nurse or other home services: Yes ([facility] care weekly) Alcohol intake: current Alcohol intake frequency: 3 or more drinks per day Alcohol type: beer Patient Tobacco Use Status: Current everyday Tobacco user Tobacco use type: Cigarette service: No Current occupational status: retired Cognitive needs: Yes (cane) Hearing needs: No Vision needs: Yes (rx glasses) Review of Systems Const All systems reviewed & are unremarkable except as noted in HPI and below Reports no additional complaints ENT Reports Normal hearing present Card Denies chest pain, Denies chest pain at rest, Denies chest pain with activity and Denies pedal edema Resp Denies cough GI Denies abdominal pain Musc Denies abnormal gait, Denies muscle cramps and Denies radiating pain into limb Skin/Breast Denies skin ulcer and Denies wounds Neuro Reports Normal hearing present and Denies abnormal gait Psych Reports no additional complaints Physical Exam Const General: cooperative, healthy appearing and comfortable Orientation/consciousness: oriented to person, oriented to place and oriented to time HEENT Head: Yes normal to inspection Neck Neck: Yes normal visual inspection Carotids: no bruits Chest Chest palpation & inspection: normal inspection of the chest Resp Effort & Inspection: normal respiratory effort and able to speak in complete sentences Auscultation: clear to auscultation bilaterally, no crackles, no rales, no rhonchi and no wheezes Cardio Other: Bilateral DP signals Rate: regular rate Rhythm: regular rhythm Heart sounds: S1 normal heart sound present and S2 normal heart sound present Bruits: no carotid bruits Peripheral pulses: Peripheral pulses 2+ throughout GI Inspection: Yes normal to inspection Skin Wounds: no wounds Hair: normal Neuro General: oriented to person, oriented to place and oriented to time Cranial nerves: Yes CN's II-XII intact bilaterally and Yes Normal hearing present Cognition (Neuro): normal cognition Motor exam (neuro): 5/5 motor strength present throughout Extrem Other: venous exam: +1 to +2 edema General: No clubbing, No cyanosis and Yes edema Psych Appearance: grossly normal Mental Status: mental status grossly normal Speech and movement: Normal speech and movement present Assessment & Plan Assessment & Plan (1) Varicose veins of right lower extremity with inflammation: Code(s): I83.11 - Varicose veins of right lower extremity with inflammation Category: Medical Plan: See below. Will order venous insufficiency testing. (2) PAD (peripheral artery disease): Code(s): I73.9 - Peripheral vascular disease, unspecified Category: Medical Plan: I informed the patient that I am not feeling strong pulses in his legs, which suggests there may be an issue with blood flow in his arteries. I acknowledged the swelling in his leg and noted that its resolution overnight is a common pattern. I explained his symptoms could be due to a combination of factors including circulation problems and his known arthritis. I recommended ordering two ultrasound studies, one for his arteries and one for his veins, to determine the cause of his symptoms. I clarified that these tests are non-invasive and are performed externally with gel and a probe on the skin. Thank you for allowing us to assist in this patient's care. If there are any questions or concerns please do not hesitate to contact us. Orders: Orders US arterial duplex LE BI Today I73.9 - Peripheral vascular disease, unspecified US venous duplex LE BI Today I83.11 - Varicose veins of right lower extremity with inflammation Coding Level of Care Code New Pt Level 4 (08323) Diagnoses Varicose veins of right lower extremity with inflammation I83.11 PAD (peripheral artery disease) I73.9
--- OUTSIDE RECORDS SUMMARY | 2025-07-11 14:48 | XMS_ITS | Patient Health Record ---
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 Name Role Phone Minh (RETIRED) Kaushal LEIGH Primary Care Provider Unavailable Juan Miguel Tim Unavailable [phone] Allergies No Known Allergies Reason For Referral No Information Medications Medication SIG (Take, Route, Frequency, Duration) Notes Start Date End Date Status metFORMIN HCl 500 MG Tablet 1 tablet with meals Orally Twice a day Active Rosuvastatin Calcium 5 MG Tablet 1 tablet Orally Once a day Active Jardiance 10 MG Tablet Oral; Duration: 30 Active Alendronate Sodium 70 MG Tablet Oral; Duration: 84 Weekly Active Atorvastatin Calcium 10 MG Tablet Oral; Duration: 90 Active Aspir-81 81 MG Tablet Delayed Release 1 tablet Orally three x a week Not-Taking/PRN Omeprazole 20 MG Capsule Delayed Release 1 Orally Once a day every morning; Duration: 30 day(s) 04/22/2024 Active Lisinopril 20 MG Tablet 1 tablet Orally BID Active NIFEdipine ER 60 MG Tablet Extended Release 24 Hour 1 tablet on an empty stomach Orally Once a day Active Immunizations Vaccine Route Administration Date Status Comme nts Flu vaccine no Preserv 3 and > Unknown 08/10/2017 Admin istered Influenza Unknown 04/29/2023 Administered Social History Tobacco Use: Social History Observation Description Date Details (start date - stop date) Former Smoker NA - NA Social History Drugs/Alcohol: Social Info Question Answer Notes Alcohol Screen Did you have a drink containing alcohol in the past year? Yes How often did you have a drink containing alcohol in the past year? 4 or more times a week (4 points) How many drinks did you have on a typical day when you were drinking in the past year? 1 or 2 drinks (0 point) How often did you have 6 or more drinks on one occasion in the past year? Never (0 point) Points 4 Interpretation Positive Tobacco Use: Social Info Question Answer Notes Tobacco Use/Smoking Patient is a former smoker How long has it been since you last smoked? 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 Section Notes: Nonsmoker; occasional alcoho l Nonsmoker; occasional alcoho l Nonsmoker; occasional alcoho l Problems Problem Type SNOMED Code ICD Code Onset Dates Problem Status W/U Status Risk Notes Problem Colon cancer screening (554331508) Colon cancer screening (Z12.11) Active confirmed Problem History of adenomatous polyp of colon (504694208) History of adenomatous polyp of colon (Z86.010) Active confirmed Problem Diverticular disease of colon (090658886) Diverticulosis of large intestine without perforation or abscess without bleeding (K57.30) Active confirmed Problem Dysphagia (46813023) Dysphagia (R13.10) Active confirmed Problem Duodenitis (08008952) Duodenitis (K29.80) Active confirmed Problem Gastroesophageal reflux disease (696236665) Gastroesophageal reflux disease (K21.9) Active confirmed Problem Gastroesophageal reflux disease (047577651) Gastroesophageal reflux disease, esophagitis presence not specified (K21.9) Active confirmed Problem Gastroesophageal reflux disease (disorder) (653086771) Chronic GERD (K21.9) Active confirmed Encounters Encounter Location Date Provider Diagnosis [facility] [address] [place] [phone] 07/22/[address] [facility] [address] [place] [phone] 10/26/2024 Juan Miguel Tim Plan Of Treatment Future Test Test Name Order Date COLONOSCOPY 03/09/2012 UPPER GI ENDOSCOPY 09/04/2017 COLONOSCOPY 09/04/2017 COLONOSCOPY 05/21/2023 UPPER GI ENDOSCOPY [place] DILATION OF ESOPH 04/20/2024 Insurance Providers Payer Name Payer Address Payer Phone Subscriber Number Group Number Insured Name Patient Relationship to Insured Coverage Start Date Coverage End Date MEDICARE OF [place] [address] [id number] H[place] YAZMIN GUARDADO Self - patient is the insured [employer] ([employer]) [address] [place] [address] [phone] [id number] GAURIYAZMIN GARCIA CAS Self - patient is the insured Medical (General) History Medical History History ICD Code History of tubular adenomas of the colon removed in 2002--colonoscopies in 2006 and 2011 revealed only hyperplastic polyps, as well as diffuse diverticulosis and internal hemorrhoids Hypertension Hyperlipidemia NIDDM Denies MS,CVA,Lung disease,renal disease Left lower leg injury after [...]
--- OUTSIDE RECORDS SUMMARY | 2025-07-11 14:50 | XMS_ITS | Clinical Summary ---
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 Active NIFEdipine (PROCARDIA) 10 MG capsule Take by mouth daily. Active rosuvastatin (CRESTOR) 10 MG tablet Take by mouth daily. Active omega 8-yua-bun-fish oil 1,000 mg (120 mg-180 mg) Cap [...] this topic Medical Devices Implanted Type Area Software Educator Device Identifier Shelf Expiration Date Model / Serial / Lot Right Hip Brenna Taper Size 3 Hip - [id number] Implanted:Qty: 1 on 11/19/2015 by Mac Henley MD at [facility] Left: Hip [employer] 03/27/2018 [id number] / / [id number] Liner Ecima Brenna 36mm - [id number] Implanted:Qty: 1 on 11/19/2015 by Mac Henley MD at [facility] Left: Hip [employer] 04/26/2018 [id number] / / [id number] Minihip Short Stem Size 8 Standard 07/09 130ccd Hip - [id number] Implanted:Qty: 1 on 11/19/2015 by Mac Henley MD at [facility] Left: Hip [employer] 07/03/2020 580.0008 / / [id number] Biolox Delta Mod Head 36mm X 4mm Hip 04 - [id number] Implanted:Qty: 1 on 11/19/2015 by Mac Henley MD at [facility] Left: Hip [employer] 05/29/2021 104.3600 / / [id number] Procedures Procedure Name Priority Date/Time Associated Diagnosis Comments BASIC METABOLIC PANEL (BMP) Routine 10/26/2015 11:05 AM EDT from Last 3 Months or Most Recently Relevant to Health Maintenance Results * (ABNORMAL) Basic metabolic panel (10/26/2015 11:05 AM EDT) SODIUM 137 136 - 145 mmol/L [facility] POTASSIUM 4.7 3.5 - 5.2 mmol/L [facility] CHLORIDE 100 99 - 109 mmol/L [facility] CARBON DIOXIDE 24 20 - 31 mmol/L [facility] ANION GAP 13 3 - 17 [facility] CALCIUM 9.5 8.7 - 10.4 mg/dL [facility] GLUCOSE 141(Abnorm ally H) 74 - 106 mg/dL [facility] UREA NITROGEN (BUN) 19 9 - 23 mg/dl [facility] CREATININE 1.03 0.5 - 1.3 mg/dl [facility] EST GLOM FILT RATE NON- A 76.3 [facility] Comment:Units: ml/min/1.73ms q EST GLOM FILT RATE AMERI 92.4 [facility] Comment: Units: ml/min/1.73msq Reference Table for [...] 5 AM EDT 10/26/2015 12:14 PM EDT [facility] - 10/26/2015 12:44 PM EDT [facility], [address] [facility] [address], Transfusion Aide: Shawn Medina M.D. us Mac Henley MD LAB BLOOD BKR ORDERABLES Crystal l Result [facility] [address] [place] [address] from Last 3 Months or Most Recently Relevant to Health Maintenance Insurance [email or web address] TOTAL CHOICE INDEMNITY [email or web address] TOTAL CHOICE INDEMNITY [facility] TOTAL CHOICE INDEMNITY [facility] TOTAL CHOICE INDEMNITY [facility] TOTAL CHOICE INDEMNITY [facility] TOTAL CHOICE INDEMNITY [facility] TOTAL CHOICE INDEMNITY [facility]OTAL [facility]ICE [facility] TOTAL CHOICE INDEMNITY [facility] TOTAL CHOICE INDEMNITY Advance Directives For more information, please contact: [phone] (9AM - 5PM [place], Thursday-Thursday) Documents on File Type Date Recorded Patient Dining Server Expl anation Healthcare Proxy 11/28/2015 1:01 PM * Full Code (Presumed) (Latest Code Status on File) Date Activated Date Inactivated Comments 11/19/2015 5:33 PM 11/22/2015 1:56 PM * Full Code (Presumed) Date Activated Date Inactivated Comments 11/19/2015 10:21 AM 11/19/2015 5:33 PM Care Teams Steel Die Printer Relationship Specialty Start Date End Date Kaushal Wilkinson MD [address] [place] [id number] PCP - General 01/24/14 Additional Source Comments The information contained in this document represents components of the legal health record. It is not the complete legal health record.[facility]
--- OUTSIDE RECORDS SUMMARY | 2025-07-11 14:50 | XMS_ITS | Patient Health Record ---
Author Organization [facility] keara PenaAlexys Address [address] [facility] [place] [address] Care Team Providers Care C.O.D. Clerk Name Role Phone Daniela Mcfadden Primary Care Provider Marizol Rivera Unavailable [phone] Allergies No Known Allergies Results Component Value Reference Range Notes HEMOGLOBIN A1C (GLYCOHEMOGLO BIN) Reviewed date:05/31/2025 01:11:00 PM Interpretation: Performing Lab: Notes/Report: HEMOGLOBIN A1C % (HH) 6.6 Reason For Referral No Information Medications Medication SIG (Take, Route, Frequency, Duration) Notes Start Date End Date Status Ammonium Lactate 12 % 1 application Exte rnally Twice a day; Duration: 30 days Active Augmentin 500-125 MG 1 tablet Orally Twi ce a day; Duration: 14 days 03/29/2019 Not-Takin g NIFEdipine 10 MG 1 capsule Orally Thr ee times a day; Duration: 30 day(s) Not-Taking Lisinopril 10 MG 1 tablet Orally Once a day; Duration: 30 day(s) Active Augmentin 875-125 MG 1 tablet Orally sonya ry 12 hrs; Duration: 7 days Not-Taking NIFEdipine 10 MG 1 capsule Orally Thr ee times a day; Duration: 30 day(s) Active Amoxicillin Not-Taki ng predniSONE 10 MG TAKE 1 TABLET BY RISHABH TH EVERY DAY Oral; Duration: 21 Not-Taking Lisinopril 10 MG 1 tablet Orally Once a day; Duration: 30 day(s) Not-Scot ing Fish Oil PRN Not-Taking Crestor 20 MG 1 tablet Orally Once a day; Duration: 30 day(s) Not-Scot ing Amoxicillin 500 MG 4 capsules one time Orally One hour prior to procedure; Duration: as needed 02/02/2019 Not-Taking Naproxen 500 MG 1 tablet with food o r milk as needed Orally every 12 hrs Not-Taking LORazepam 2 MG 1 tablet at bedtime Orally Once a day Not-Taking Jardiance 10 MG Oral; Duration: 30 Not-Taking Cephalexin 500 MG Orally No t-Taking metFORMIN HCl 500 MG Orally Twice a day Active LORazepam 2 MG 1 tablet at bedtime Orally Once a day PRN Not-Taking Vitamin D Not-Taking Naprosyn 375 MG 1 tablet Orally Twic e a day; Duration: 30 day(s) 03/14/2014 Not-Scot ing Crestor 20 MG 1 tablet Orally Once a day; Duration: 30 day(s) Not-Scot ing CeleBREX 200 MG 1 capsule Orally Onc e a day; Duration: 30 day(s) 03/06/2014 Not-Scot ing Immunizations Vaccine Route Administration Date Status Comme [...] (0 point) How often did you have six o r more drinks on one occasion in the past year? Less than monthly (1 point) Points 3 Interpretation Negative Problems Problem Type SNOMED Code ICD Code Onset Dates Problem Status W/U Status Risk Notes Problem Polyneuropathy due to type 2 diabetes mellitus (323699373) Type 2 diabetes mellitus with diabetic polyneuropathy (E11.42) Active confirmed Problem Localized, primary osteoarthritis of the ankle and/or foot (875487772) Primary osteoarthritis of left foot (M19.072) Active confirmed Vital Signs Blood pressure diastolic 74 mm Hg 06/21/2025 Height 6ft 3in in 06/21/2025 Blood pressure systolic 144 mm Hg 06/21/2025 Weight 225 lbs 06/21/2025 BMI 28.12 kg/m2 06/21/2025 Encounters Encounter Location Date Provider Diagnosis [address] [address] 08/02/2024 Marizol Ellington Xerosis of skin L85. 3 ; Ganglion of foot, left M67.472 ; Type 2 diabetes mellitus with diabetic polyneuropathy E11.42 and Tinea unguium B35.[address] [address] 10/12/2024 Marizol Ellington Ganglion of foot, le ft M67.472 ; Hyperhidrosis of feet L74.513 ; Type 2 diabetes mellitus with diabetic polyneuropathy E11.42 ; Tinea unguium B35.1 and Abscess of toe, left L02.[address] [address] 12/28/2024 Marizol Heina Type 2 diabetes mellitus with diabetic polyneuropathy E11.42 and Tinea unguium B35.[address] [address] 03/22/2025 Marizol Perica Type 2 diabetes mellitus with diabetic polyneuropathy E11.42 and Tinea unguium B35.[address] [address] 05/31/2025 Marizol Perica Type 2 diabetes mellitus with diabetic polyneuropathy E11.42 ; Edema, lower extremity R60.0 and Tinea unguium B35.[address] [address] 06/21/2025 Marizol Ellington Pain in left foot M79.672 ; Primary osteoarthritis of left foot M19.072 ; Pain in left ankle and joints of left foot M25.572 ; Bursitis of left foot M77.52 and Type 2 diabetes mellitus with diabetic polyneuropathy E11.42 [facility] [address] [address] 03/08/2025 Marizol Ellington [facility] [address] [address] 06/20/2025 Marizol Ellington Assessments Encounter Date Diagnosis (ICD [...] 05/31/2025 Edema, lower extremity (ICD-10 - R60.0) 06/21/2025 Pain in left foot (ICD-10 - M79.672) 06/21/2025 Primary osteoarthritis of left foot (ICD-10 - M19.072) 08/02/2024 Type 2 diabetes mellitus with diabetic polyneuropathy (ICD-10 - E11.42) 06/21/2025 Pain in left ankle and joints of left foot (ICD-10 - M25.572) 05/31/2025 Tinea unguium (ICD-10 - B35.1) 10/12/2024 Type 2 diabetes mellitus with diabetic polyneuropathy (ICD-10 - E11.42) 03/22/2025 Tinea unguium (ICD-10 - B35.1) 10/12/2024 Tinea unguium (ICD-10 - B35.1) 08/02/2024 Tinea unguium (ICD-10 - B35.1) 06/21/2025 Bursitis of left foot (ICD-10 - M77.52) 06/21/2025 Type 2 diabetes mellitus with diabetic polyneuropathy (ICD-10 - E11.42) 10/12/2024 Abscess of toe, left (ICD-10 - L02.612) Plan Of Treatment Pending Test Test Name Order Date X ray : Foot, left 3V 06/21/2025 X ray : Foot, right 3V 04/14/2012 X ray : Foot, right 3V 05/16/2013 48602-Imarodiq Plate 09/29/2017 45485-Klmlbiva Plate 11/11/2017 19664-Gmaczoqb Plate 07/02/2017 97930-Rfqemrln Plate 12/11/2017 71107-Ppzfsvkd Plate 02/02/2018 11427-Jbadzigy Plate 07/16/2018 67445-Xjusjmey Plate Each Additional 01/2017 58313-Fdrdmowi Plate Each Additional 12460- Debride <25 sq cm 07/16/2017 31136 I&D ABSCESS- SIMPLE,SINGLE 018 45269 I&D ABSCESS- SIMPLE,SINGLE 018 27016 I&D ABSCESS- SIMPLE,SINGLE 017 16014 I&D ABSCESS- SIMPLE,SINGLE 019 71734, J0702- INJECT or DRAIN, JOINT/BUR SA 05/26/2012, T6396-KLIIS/INJECT, JOINT/BURSA 1 08/24/2011, Q9616-YJFSD/INJECT, JOINT/BURSA 1 C5379-CNYRCUHI DYSTROPHIC NAILS ANY # 50,Z4327-NPL TENDON SHEATH/LIGAMENT 0 12/21/201354909,M8028-TPO TENDON SHEATH/LIGAMENT 0 03/06/2014 G6765-Ynzmaekqr 3mg 06/24/2012 X5157-Esqiawnmy 3mg 05/26/2012 Next Appt Details Provider Name:Marizol martinez, 08/22/2025 03:00:00 PM, [address] [place] [address], [place], [address], Insurance Providers Payer Name Payer Address Payer Phone Subscriber Number Group Number Insured Name Patient Relationship to Insured Coverage Start Date Coverage End Date Medicare National [employer]t [employer] [address] [place] [address] [id number] Real Mckeon cas Self - patient is the insured [employer] ([employer]) [address] [place] [address] [id number] Real Mckeon cas Self - patient is the insured Medical (General) History Medical History History ICD Code sciatica Diabetic Arthritis Cataracts Surgical History Surgery Date(Month/Year) right hip replacement 12/08/2011 left hip replacement 10/2014 colonoscopy 04/2024
== END 2025-07-11 12:45 | disposition home or self-care (01) ==
LOC: HO.HVS 11:15
PROVIDERS: PCP Internal Medicine; Visit Provider Surgery Vascular Surgery
DX: I83.11 Varicose veins of right lower extremity with inflammation (principal); I73.9 Peripheral vascular disease, unspecified
CPT/HCPCS: 99204

== ENCOUNTER → 2025-07-11 11:15 | Outpatient (BNVA) | payer MEDICARE, OTHER, SELFPAY | PROVIDERS: PCP Internal Medicine; Visit Provider Surgery Vascular Surgery | DX: I83.11 Varicose veins of right lower extremity with inflammation (principal); I73.9 Peripheral vascular disease, unspecified | CPT/HCPCS: 99202 ==

== ENCOUNTER 2025-07-13 09:18 | Outpatient (AMB) | payer MEDICARE, OTHER, SELFPAY ==
--- NOTE | 2025-07-13 09:35 | MHC.OFFVIS ---
Intake Visit Reasons: INJ- Left knee Durolane injection Intake Note: Real is a 79 year old male who presents today for a left knee Durolane injection. Allergies No Known Allergies (No Known Allergies*) Allergy (Verified 07/14/25 15:57) Medication List - Last Reconciled 07/18/25 by Melissa Perez PA-C atorvastatin 10 mg PO DAILY blood sugar diagnostic (FreeStyle Lite Strips) As directed- to test blood once daily cane USE DAILY WHILE AMBULATING diazepam (Valium) 2 mg PO DAILY PRN emollient combination no.119 (Eucerin Advanced Repair topical cream) 1 appl topical DAILY erythromycin 0.5 inches ophthalmic (eye) QID finasteride 5 mg PO DAILY 90 days fluconazole 200 mg PO DAILY 2 weeks furosemide 20 mg PO DAILY gabapentin 300 mg PO BID 90 days lisinopril 20 mg PO DAILY metformin ER 500 mg PO DAILY miconazole nitrate 2% (Antifungal (miconazole)) 1 appl topical BID mupirocin 2% 1 appl topical BID naproxen 500 mg PO BID PRN nifedipine ER 30 mg PO DAILY sulfamethoxazole-trimethoprim 800-160 mg (Bactrim DS) 1 tab PO BID 5 days testosterone 50 mg transdermal DAILY 30 days valacyclovir (Valtrex) 1,000 mg PO DAILY 7 days walker (Ultra-Light Rollator misc) for ambulating daily HPI HPI INJ- Left knee Durolane injection: Details: 79 year old male who presents today for a left knee Durolane injection. Of note, patient has bilat lower extremity redness and swelling-he did see Dr Pierre yesterday and bilat lower ext U/s were ordered. US not done as of yet [facility] Medical History (Updated 07/14/25 @ 16:02 by Daniela Mcfadden PA-C) Peripheral vascular disease Cardiovascular disease Dry skin Vitamin B12 deficiency HSV (herpes simplex virus) anogenital infection Urinary symptom or sign Anxiety Alcoholic dependence syndrome HSV (herpes simplex virus) infection Rectal itching Full code status SOB (shortness of breath) Hordeolum Bladder neck obstruction Edema of left ankle Heart murmur Abnormal urine Fatigue Elevated AST (SGOT) Constipation Left ankle swelling Left ankle pain Alcohol use disorder Candidiasis UTI (urinary tract infection) Annual physical exam Pedal edema Rosacea Neuropathy Hematuria Left knee pain Swelling of left knee Balance problem Bilateral hip pain Bilateral knee pain Nicotine dependence Sty Type 2 diabetes mellitus with hemoglobin A1c goal of less than 7.0% Osteoarthritis Establishing care with new doctor, encounter for Lower back pain Nicotine use Ambulates with cane Peripheral neuropathy Internal hemorrhoids Diverticulosis Hiatal hernia Arthritis Left leg weakness Diabetes Hyperlipemia HTN (hypertension) Surgical History History of esophagogastroduodenoscopy (EGD) (04/22/24) Hx of bilateral hip replacements Hx of colonoscopy (04/22/24) Family History Father History of heart surgery Mother Arthritis Social History Household Members: None Housing: House Are you a primary reproductive healthcare assistant to a significant other at home: No Do you presently have visiting nurse or other home services: Yes (RETAIL FIELD REPRESENTATIVE care weekly) Alcohol intake: current Alcohol intake frequency: 3 or more drinks per day Alcohol type: beer Patient Tobacco Use Status: Current everyday Tobacco user Tobacco use type: Cigarette service: No Current occupational status: retired Cognitive needs: Yes (cane) Hearing needs: No Vision needs: Yes (rx glasses) Review of Systems Const All systems reviewed & are unremarkable except as noted in HPI and below Physical Exam Const General: cooperative and no acute distress Orientation/consciousness: patient oriented x3 Resp Effort & Inspection: normal respiratory effort and able to speak in complete sentences Cardio Peripheral pulses: Peripheral pulses 2+ throughout Neuro General: patient oriented x3 Extrem Other: Left knee normal to inspection no erythema or joint effusion present. He has full range of motion with medial joint line tenderness. No ligamentous laxity. Calf supple and nontender neurovascularly intact. Office Procedures AMB Joint Injection/Aspiration Joint Injection/Aspiration Primary Site: Left Knee Prep: site was prepped using aseptic technique, ethochloride spray was applied and injection warnings given Injected: Durolane Approach Used: anterolateral Procedure: The patient tolerated the procedure well Coding 98576 - Glenohumeral/Tronchanteric Bursa/Intraarticular Procedure code (CPT) selection complete Assessment & Plan Assessment & Plan (1) Osteoarthritis of left knee: Code(s): M17.12 - Unilateral primary osteoarthritis, left knee Category: Medical Plan: Plan was to proceed with gel injection today. Durolane Injection performed today which the patient tolerated well. he will rest ice and use anti-inflammatories as needed for the next several days. I will see him back prn. He was advised to continue f.u with vascular for bilat LE edema/redness. Coding Level of Care Code Procedure Only Diagnoses Osteoarthritis of left knee M17.12 CPT Codes Coding - Joint 7: 00674 - Glenohumeral/Tronchanteric Bursa/Intraarticular ([id number])
== END 2025-07-13 11:16 | disposition home or self-care (01) ==
LOC: HO.HOS 09:19
PROVIDERS: PCP Internal Medicine; Visit Provider Physician Assistant
DX: M17.12 Unilateral primary osteoarthritis, left knee (principal)
CPT/HCPCS: 20610

== ENCOUNTER → 2025-07-13 09:18 | Outpatient (BNVA) | payer MEDICARE, OTHER, SELFPAY | PROVIDERS: PCP Internal Medicine; Visit Provider Physician Assistant | DX: M17.12 Unilateral primary osteoarthritis, left knee (principal) | CPT/HCPCS: 20610; J7318 ==

== ENCOUNTER 2025-07-14 12:56 | Outpatient (AMB) | payer MEDICARE, OTHER, SELFPAY ==
--- OUTSIDE RECORDS SUMMARY | 2024-04-08 07:00 | XMS_ITS ---
Author Organization [facility] keara [place] Address [address] [place] [address] Care Team Providers Care Senior Manager Mergers & Acquisitions Name Role Phone Daniela Mcfadden Primary Care Provider Marizol Rivera [phone] REASON FOR VISIT seen sooner Encounters Encounter Location Date Provider Diagnosis [address] [address] 04/08/2024 Marizol Ellington Plan Of Treatment Next Appt Details Provider Name:Marizol martinez, 08/22/2025 03:00:00 PM, [address] [place] [address], [phone], Progress Notes * Real ADAMSDOB:1945 (79 yo M)Acc No.[id number]:04/08/2024 Progress Note Patient: Real HARDY Provider: Phuong Ellington DPM :1945 A ge:78 Y S ex:Male Date:04/08/2024 Address:[address] [place] [address] [place] Pcp:Daniela Mcfadden Subjective: * Chief Complaints: * [...] * Provider: Phuong Ellington, JONAS Date: 0 04/08/2024 Generated for Diomedes mckinney/Chely/Clare on: 1 09/14/2024 02:43 PM EST
--- OUTSIDE RECORDS SUMMARY | 2024-04-22 02:30 | XMS_ITS ---
Author Organization [facility] Address [address] [place] [address] Care Team Providers Care Home Health Cna Name Role Phone Minh (RETIRED) Kaushal LEIGH Primary Care Provider Unavailable Juan Miguel Tim Unavailable [phone] REASON FOR VISIT colon screening Problems Problem Type SNOMED Code ICD Code Onset Dates Problem Status W/U Status Risk Notes Problem Diverticular disease of colon (212053549) Diverticulosis of large intestine without perforation or abscess without bleeding (K57.30) Active confirmed Problem Gastroesophageal reflux disease (409214261) Gastroesophageal reflux disease (K21.9) Active confirmed Problem Duodenitis (52538156) Duodenitis (K29.80) Active confirmed Encounters Encounter Location Date Provider Diagnosis [facility] [place] [address] [place] [phone] 04/22/2024 Juan Miguel Tim Colon cancer screeni [...] Notes * YAZMIN ADAMSDOB:1945 (79 yo M)Acc No.[id number]:04/22/2024 EGD and COL/MAC Patient: YAZMIN HARDY Provider: Jose Tim MD :1945 A ge:78 Y S ex:Male Date:04/22/2024 Address:[address] [place], [place] [phone] Pcp:Kaushal Wilkinson (RETIRED) MD Subjective: * Chief [...] RCMND FLW-UP 10 YRS DOCD, Modifiers: 1P 72590 UPPER GI ENDOSCOPY, BIOPSY Billing Information: * Procedure Codes: 47425 LESION REMOVAL COLONOSCOPY. Modifiers: PT 0529F INTRVL 3+YRS PTS CLNSCP DOCD. Modifiers: 8P 0528F RCMND FLW-UP 10 YRS DOCD. Modifiers: 1P 58425 UPPER GI ENDOSCOPY, BIOPSY. * The named appointment provid er may or may not be the originator of this progress note, and it is not deemed complete until electronically signed by the appointment provider. Sign off status: Pending * Provider: Jose Tim MD Date: 0 04/22/2024 Generated for Diomedes mckinney/Chely/Clare on: 1 09/14/2024 02:43 PM EST
--- OUTSIDE RECORDS SUMMARY | 2024-09-01 05:00 | XMS_ITS ---
Author Organization [facility] Address [address] [place] [address] Care Team Providers Care Director Of Housing And Energy Services Name Role Phone Minh (RETIRED) Kaushal LEIGH Primary Care Provider Juan Miguel Damon [phone] REASON FOR VISIT gerd Encounters Encounter Location Date Provider Diagnosis [facility] 10 [facility] [address] [place] [phone] 09/01/2024 Juan Miguel Tim Plan Of Treatment No Information Progress Notes * YAZMIN ADAMSDOB:1945 (79 yo M)Acc No.[id number]:09/01/2024 Progress Notes Patient: YAZMIN HARDY Provider: Joes Tim MD :1945 A ge:78 Y S ex:Male Date:09/01/2024 Address:[address] [place], [place] [phone] Pcp:Kaushal Wilkinson (RETIRED) MD Subjective: * Chief Complaints: * G erd * The named appointment provid er may or may not be the originator of this progress note, and it is not deemed complete until electronically signed by the appointment provider. Sign off status: Pending * Provider: Jose Tim MD Date: 0 09/01/2024 Generated for Diomedes mckinney/Zulyg/eTransmitting on: 1 09/14/2024 02:43 PM EST
--- OUTSIDE RECORDS SUMMARY | 2025-03-28 05:00 | XMS_ITS ---
Author Organization [facility] Edvin sarah Alexys Address [address] [facility] [place] [address] Care Team Providers Care Thread Spooler Name Role Phone Daniela Mcfadden Primary Care Provider Marizol Rivera Unavailable [phone] REASON FOR VISIT Seen Sooner Medications Medication [...] Not-Taking Encounters Encounter Location Date Provider Diagnosis [facility] [address] [address] 03/28/2025 Marizol Ellington Plan Of Treatment Next Appt Details Provider Name:Marizol martinez, 08/22/2025 03:00:00 PM, [address] [place] [address], [phone], Progress Notes * Real PRUITTDOB:1945 (79 yo M)Acc No.[id number]:03/28/2025 Progress Note Patient: Real HARDY Provider: Phuong Ellington DPM :1945 A ge:79 Y S ex:Male Date:03/28/2025 Address:[address] [place] [address], [facility] Pcp:Daniela Mcfadden Subjective: * Chief Complaints: * [...] 0 03/28/2025 Generated for Diomedes mckinney/Chely/Clare on: 09/14/2024 02:43 PM EST
[2025-07-14 13:03] VITALS: BP 119/56; PULSE 64; RESP 16; TEMP 36.6; O2SAT 97; BMI 28.4
--- NOTE | 2025-07-14 13:03 | MHC.PC.OV ---
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: No Accompanied by: Self / Same As Patient Allergies No Known Allergies (No Known Allergies*) Allergy (Verified 07/14/25 15:57) Medication List - Last Reconciled 07/14/25 by Daniela Mcfadden PA-C atorvastatin 10 mg PO DAILY blood sugar diagnostic (FreeStyle Lite Strips) As directed- to test blood once daily cane USE DAILY WHILE AMBULATING erythromycin 0.5 inches ophthalmic (eye) QID finasteride 5 mg PO DAILY 90 days fluconazole 200 mg PO DAILY 2 weeks furosemide 20 mg PO DAILY gabapentin 300 mg PO BID 90 days lisinopril 20 mg PO DAILY metformin ER 500 mg PO DAILY miconazole nitrate 2% (Antifungal (miconazole)) 1 appl topical BID naproxen 500 mg PO BID PRN nifedipine ER 30 mg PO DAILY testosterone 50 mg transdermal DAILY 30 days walker (Ultra-Light Rollator misc) for ambulating daily Tobacco use date assessed: 05/19/25 Dental Screening Dental Screen Date: 05/19/25 HPI HPI Comments History of Present Illness Details History of Present Illness The patient is a 79 year old male presenting for a two-month follow-up for chronic condition management. His recent hemoglobin A1c is 5.9%. He reports taking his prescribed metformin 500 mg once daily, rather than twice daily. The patient recently underwent a prostate procedure, which was followed by hematuria sufficient to fill a urine bag. His Horta catheter was removed, but he continues to experience urinary frequency and occasional dysuria. A urinalysis from 06/20 showed a trace of bacteria but no growth on culture. He has a known heart murmur and is scheduled for an echocardiogram on August 09. He also has scheduled arterial and venous ultrasounds of his legs, as ordered by a vascular surgeon, to investigate his leg vasculature in the context of ankle swelling. For left knee pain, the patient received a viscosupplementation injection at an orthopedic office a day prior to this visit. He reports severe pain post-injection, worse than a hip replacement, and has been using ice for relief. The patient's last vitamin B12 level was low at 233. 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 He reports anxiety and requests medication for it. He also self-identifies as being addicted to nicotine, using Zyn pouches, and being an alcoholic, drinking half a pint or more of scotch daily, sometimes starting in the morning. Social History - Substance Use: The patient reports addiction to nicotine, using Zyn pouches. - Alcohol Use: The patient identifies as an alcoholic and reports drinking half a pint or more of scotch daily. - Social Support: The patient is a and reports boredom and loneliness. - Home Care: He receives services from a home nurse and a psychologist social. - Functional Status: The patient's activity level has decreased since he stopped working. [facility], [facility] Medical History (Updated 07/14/25 @ 16:02 by Daniela Mcfadden PA-C) Peripheral vascular disease Cardiovascular disease Dry skin Vitamin B12 deficiency HSV (herpes simplex virus) anogenital infection Urinary symptom or sign Anxiety Alcoholic dependence syndrome HSV (herpes simplex virus) infection Rectal itching Full code status SOB (shortness of breath) Hordeolum Bladder neck obstruction Edema of left ankle Heart murmur Abnormal urine Fatigue Elevated AST (SGOT) Constipation Left ankle swelling Left ankle pain Alcohol use disorder Candidiasis UTI (urinary tract infection) Annual physical exam Pedal edema Rosacea Neuropathy Hematuria Left knee pain Swelling of left knee Balance problem Bilateral hip pain Bilateral knee pain Nicotine dependence Sty Type 2 diabetes mellitus with hemoglobin A1c goal of less than 7.0% Osteoarthritis Establishing care with new doctor, encounter for Lower back pain Nicotine use Ambulates with cane Peripheral neuropathy Internal hemorrhoids Diverticulosis Hiatal hernia Arthritis Left leg weakness Diabetes Hyperlipemia HTN (hypertension) Surgical History History of esophagogastroduodenoscopy (EGD) (04/22/24) Hx of bilateral hip replacements Hx of colonoscopy (04/22/24) Family History Father History of heart surgery Mother Arthritis Social History Household Members: None Housing: House Are you a primary director critical care to a significant other at home: No Do you presently have visiting nurse or other home services: Yes (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 1. Little interest or pleasure in doing things: not at all 2. Feeling down, depressed, or hopeless: not at all 3. Trouble falling or staying asleep, or sleeping too much: not at all 4. Feeling tired or having little energy: not at all 5. Poor appetite or overeating: not at all 6. Feeling bad about yourself - or that you are a failure or have let yourself or your family down: not at all 7. Trouble concentrating on things, such as reading the newspaper or watching television: not at all 8. Moving or speaking so slowly that other people could have noticed. Or the opposite - being so fidgety or restless that you have been moving around a lot more than usual: not at all 9. Thoughts that you would be better off or of hurting yourself in some way: not at all Total score: 0 Depression Screening Interpretation: Negative Depression Screening Done: Yes 94789 - PHQ-9 Billing: Yes Source: Developed by Drs. Juan Miguel Klein, Joyce Jiménez, Mark Beaver and colleagues, with an educational evelia from [employer]. Thrive Questionnaire Date Thrive assessed: 05/19/25 I am a: Patient What is your living situation today?: I have a steady place to live Within the past 12 months, did the food you bought not last and you didn't have the money to get more?: Never true Within the past 12 months, did you worry whether your food would run out before you got money to buy more?: Never true Do you have trouble paying for medicines?: No Do you have trouble getting transportation to medical appointments?: No Do you have trouble paying your heating and electricity bill?: No Do you have trouble taking care of your child, family member or friend?: Yes Do you have trouble with day-to-day activities such as bathing, preparing meals, shopping, managing finances, etc.?: No Are you currently unemployed and looking for a job?: No Are you interested in more education?: No Please select the resources that you would like help with: None Currently or been in a relationship where the following occur: No concerns reported THRIVE Score: 0 AUDIT C Alcohol Use Questionnaire (AUDIT-C) 1. How often do you have a drink containing alcohol?: 4 or more times a week 2. How many drinks containing alcohol do you have on a typical day when you are drinking?: 3 or 4 3. How often do you have six or more drinks on one occasion?: Never Total Score: 5 Score Reviewed/Action Taken: No SHARLENE-7 AMB Questionnaire SHARLENE-7 Date SHARLENE - 7 assessed: 05/19/25 Feeling nervous, anxious, or on edge: 0 = Not at all Not being able to stop or control worryin = Not at all Worrying too much about different things: 0 = Not at all Trouble relaxin = Not at all Being so restless that it is hard to sit still: 0 = Not at all Becoming easily annoyed or irritable: 0 = Not at all Feeling afraid as if something awful might happen: 0 = Not at all Total SHARLENE-7 score (0-4 normal; 5-9 mild; 10-14 moderate; 15-21 severe): 0 Source: Developed by Drs. Juan Miguel Klein, Joyce Jiménez, Mark Beaver and colleagues, with an educational evelia from [employer]. SHARLENE-7 Assessment Billing SHARLENE-7 Assessment Tool: SHARLENE-7 Assessment 09368 Review of Systems Narrative Review of Systems - Genitourinary: Reports increased urinary frequency and occasional dysuria. - Cardiovascular: Reports swelling in his ankles. - Musculoskeletal: Reports severe left knee pain, which he feels is worse than his hip replacement. - Integumentary: Reports multiple small wounds, including behind his ear, and redness on his legs. - Psychiatric: Reports anxiety, nicotine addiction, and identifies as an alcoholic. - Anogenital: Reports a history of recurrent sores in the buttock area consistent with herpes, with some current lesions. Const All systems reviewed & are unremarkable except as noted in HPI and below Physical exam (Primary Care) Vital Signs: Last Vital Signs Temp 97.8 F 07/14/25 13:03 Pulse 64 07/14/25 13:03 Resp 16 07/14/25 13:03 BP 119/56 L 07/14/25 13:03 Pulse Ox 97 07/14/25 13:03 Oxygen Delivery Method Room Air 07/14/25 13:03 Care Plan Goal for BP management: <140/90 at Goal BMI result Body Mass Index 28.4 BMI Assessment/Plan discussion: High BMI High, discussed plan: lifestyle, weight reduction, dietary, physical activity, alcohol moderation and other Tobacco/Smoking Status: Tobacco use Status Tobacco use date assessed 05/19/25 07/14/25 13:05 Patient Tobacco Use Status Current everyday Tobacco 07/14/25 13:05 Tobacco use type Cigarette 07/14/25 13:05 PHQ-9: PHQ-9 Score PHQ-9: Total score 0 07/14/25 13:18 Depression Screening Interpretation: Negative Thrive Assessment: Date of Thrive Assessment Date Thrive assessed 05/19/25 07/14/25 13:05 Currently or been in a relationship where the following occur: No concerns reported Narrative Physical Exam Appearance: Alert. Oriented X3. No acute distress. Head: Normal external exam. Normocephalic. Atraumatic. Eyes: Pupils are equal, round, and reactive to light. Extraocular movements intact. Conjunctiva and sclera normal. Eyelids normal. Ears: External auditory canal normal. Tympanic membranes normal. Throat: Pharynx normal. Uvula midline. Moist mucous membranes. Neck: Normal inspection. Neck supple. Full range of motion. Cardiovascular: Normal heart rate and rhythm. Respiratory: No respiratory distress. Painless inspiration. Abdomen: Soft and nontender. No distention noted. No organomegaly noted. Back: No costovertebral angle tenderness. Full range of motion noted. Skin: Skin warm and dry. Normal skin color. Normal skin turgor. No rashes/lesions/lacerations noted. Bruising noted on legs. Hemostaining noted on legs. Extremities: Lower extremity edema noted. Extremities exhibit normal range of motion. Neuro: Oriented X 3. No motor deficit. No sensory deficit. Reflexes normal. Results AMB Hemoglobin A1c AMB Hemoglobin A1c 5.9 % Last Edit by JEANETTE Mcgowan on 07/14/25 13:20 Results Reviewed Results Reviewed: Laboratory Last Values Hgb A1c (Clinic) 5.9 % (4.0-6.0) 07/14/25 13:19 Results - Labs: - Hemoglobin A1c: 5.9%. - Urinalysis (06/20): Trace bacteria with no growth on culture. - Vitamin B12: 233 pg/mL. Coding Level of Care Code Est Pt Level 4 (15154) Add On Problem Visit Only Diagnoses Type 2 diabetes mellitus with hemoglobin A1c goal of less than 7.0% E11.9 Anxiety F41.9 Urinary symptom or sign R39.9 HSV (herpes simplex virus) anogenital infection A60.9 Vitamin B12 deficiency E53.8 Dry skin L85.3 Nicotine dependence F17.200 Alcohol use disorder F10.90 Cardiovascular disease I25.10 Peripheral vascular disease I73.9 Additional Codes SHARLENE-7 Assessment Billing - SHARLENE-7 Assessment Tool: SHARLENE-7 Assessment 47691 ([id number]) PHQ-9 - 71807 - PHQ-9 Billing: Yes ([id number]) Time Spent (min) 70 Assessment & Plan Assessment & Plan (1) Type 2 diabetes mellitus with hemoglobin A1c goal of less than 7.0%: Code(s): E11.9 - Type 2 diabetes mellitus without complications Category: Medical Plan: The patient's hemoglobin A1c is 5.9%, demonstrating excellent control. He has been taking metformin 500 mg once daily, which has been effective. The prescription will be officially changed to metformin 500 mg once daily. A follow-up appointment is recommended in three months for continued diabetes management. (2) Anxiety: Code(s): F41.9 - Anxiety disorder, unspecified Category: Medical Plan: For anxiety, a prescription for diazepam 2 mg, 15 tablets, will be sent to the pharmacy to be taken as needed. The patient was counseled to avoid driving and drinking alcohol while taking this medication due to potential drowsiness. (3) Urinary symptom or sign: Code(s): R39.9 - Unspecified symptoms and signs involving the genitourinary system Category: Medical Plan: To evaluate his symptoms of urinary frequency and occasional dysuria, a urinalysis will be performed today. If results indicate a urinary tract infection, antibiotics will be prescribed. (4) HSV (herpes simplex virus) anogenital infection: Code(s): A60.9 - Anogenital herpesviral infection, unspecified Category: Medical Plan: For recurrent genital herpes outbreaks, valacyclovir 1000 mg daily for 7 days has been prescribed with six refills, to be used as needed for flare-ups since he is not sexually active. A blood test for herpes was also ordered, which the patient can have drawn at his convenience. (5) Vitamin B12 deficiency: Code(s): E53.8 - Deficiency of other specified B group vitamins Category: Medical Plan: The patient's B12 level is low at 233. He is advised to take an twbd-txl-gqttmrp vitamin B12 supplement daily for eight weeks. A lab order is in place to recheck his B12 level in eight weeks. (6) Dry skin: Code(s): L85.3 - Xerosis cutis Category: Medical Plan: For generalized dry skin and hemostaining, a prescription for Eucerin lotion was sent. For small skin wounds, a prescription for topical Bactroban (mupirocin) cream was sent. (7) Nicotine dependence: Code(s): F17.200 - Nicotine dependence, unspecified, uncomplicated Category: Medical Plan: The patient acknowledges addiction to nicotine and alcohol. A referral will be placed to Addiction Medicine for further evaluation and management. (8) Alcohol use disorder: Code(s): F10.90 - Alcohol use, unspecified, uncomplicated Category: Medical Plan: The patient acknowledges addiction to nicotine and alcohol. A referral will be placed to Addiction Medicine for further evaluation and management. (9) Cardiovascular disease: Code(s): I25.10 - Atherosclerotic heart disease of [place] coronary artery without angina pectoris Category: Medical Plan: To further evaluate his heart murmur and peripheral edema, the patient will proceed with a scheduled echocardiogram on August 09. He also has orders from a vascular surgeon for arterial and venous ultrasounds of his legs. (10) Peripheral vascular disease: Code(s): I73.9 - Peripheral vascular disease, unspecified Category: Medical Plan: To further evaluate his heart murmur and peripheral edema, the patient will proceed with a scheduled echocardiogram on August 09. He also has orders from a vascular surgeon for arterial and venous ultrasounds of his legs. Plan Plan Patient was informed and verbally consented to the use of an ambient scribe for clinic note documentation during this visit. 1. Type 2 Diabetes Mellitus The patient's hemoglobin A1c is 5.9%, demonstrating excellent control. He has been taking metformin 500 mg once daily, which has been effective. The prescription will be officially changed to metformin 500 mg once daily. A follow-up appointment is recommended in three months for continued diabetes management. 2. Anxiety For anxiety, a prescription for diazepam 2 mg, 15 tablets, will be sent to the pharmacy to be taken as needed. The patient was counseled to avoid driving and drinking alcohol while taking this medication due to potential drowsiness. 3. Urinary Symptoms To evaluate his symptoms of urinary frequency and occasional dysuria, a urinalysis will be performed today. If results indicate a urinary tract infection, antibiotics will be prescribed. 4. Herpes Simplex Virus Infection For recurrent genital herpes outbreaks, valacyclovir 1000 mg daily for 7 days has been prescribed with six refills, to be used as needed for flare-ups since he is not sexually active. A blood test for herpes was also ordered, which the patient can have drawn at his convenience. 5. Vitamin B12 Deficiency The patient's B12 level is low at 233. He is advised to take an jjpr-mpm-vdzzsoy vitamin B12 supplement daily for eight weeks. A lab order is in place to recheck his B12 level in eight weeks. 6. Dermatologic Conditions For generalized dry skin and hemostaining, a prescription for Eucerin lotion was sent. For small skin wounds, a prescription for topical Bactroban (mupirocin) cream was sent. 7. Nicotine Dependence And Alcohol Use Disorder The patient acknowledges addiction to nicotine and alcohol. A referral will be placed to Addiction Medicine for further evaluation and management. 8. Cardiovascular And Peripheral Vascular Evaluation To further evaluate his heart murmur and peripheral edema, the patient will proceed with a scheduled echocardiogram on August 09. He also has orders from a vascular surgeon for arterial and venous ultrasounds of his legs. Discussion Notes I reviewed the patient's excellent hemoglobin A1c result of 5.9% and adjusted his metformin prescription to 500 mg once daily, which he was already taking and found to be effective. We discussed his ongoing urinary symptoms, and I ordered a urinalysis to check for an infection. I prescribed Valium for his anxiety and counseled him about the risks, including drowsiness and the need to avoid alcohol and driving. I addressed his various skin concerns by prescribing Eucerin for xerosis and hemostaining, Bactroban for minor wounds, and Valtrex with refills for his recurrent herpes outbreaks. I also instructed him on supplementation for his vitamin B12 deficiency and ordered a follow-up lab test in eight weeks. We had a detailed discussion about his self-reported nicotine and alcohol addiction. I have referred him to our Addiction Medicine specialist, whom I believe can provide excellent support for these issues. I recommended a follow-up visit in three months to monitor his diabetes and other conditions. Orders: Orders AMB Hemoglobin A1c Today E11.9 - Type 2 diabetes mellitus without complications UA CC w/rflx Micro + Cult Today N39.0 - Urinary tract infection, site not specified Herpes Simplex Virus Ab IgG Today L29.0 - Pruritus ani Vitamin B12 and Folate 8 Weeks Z00.00 - Encounter for general adult medical examination without abnormal findings Referrals Addiction Medicine Referral F10.20 - Alcohol dependence, uncomplicated, F17.200 - Nicotine dependence, unspecified, uncomplicated Medications: New emollient combination no.119 (Eucerin Advanced Repair topical cream) 1 appl topical DAILY 454 grams 3RF metformin ER 500 mg PO DAILY 90 tabs 3RF diazepam (Valium) 2 mg PO DAILY PRN 30 tabs 0RF anxiety mupirocin 2% 1 appl topical BID 22 grams 3RF valacyclovir (Valtrex) take only when you have flares not daily unless sexually active daily 1,000 mg PO DAILY 7 tabs 6RF 7 days B00.9 - Herpesviral infection, unspecified Patient Instructions: Patient Instructions - Your diabetes is very well controlled. - Continue taking metformin 500 mg once a day. - Please provide a urine sample today before you leave so we can check for an infection. - Take Valium as needed for anxiety, but do not drive or drink alcohol after taking it as it can make you sleepy. - Take tcip-tcj-avguvbu vitamin B12 every day for the next 8 weeks for your low level. - In 8 weeks, please go to the lab to get your vitamin B12 level rechecked. - You can get the blood test for herpes at any time; you may want to do it at the same time as your B12 recheck. - Use the prescribed Eucerin lotion on your legs for dryness. - Use the prescribed Bactroban cream on any small skin sores. - For herpes flare-ups, take one Valtrex pill daily for 7 days. - You will be contacted by the Addiction Medicine clinic to set up an appointment to discuss nicotine and alcohol use. - Keep your appointments for the echocardiogram (heart ultrasound) and the ultrasounds of your legs. - Please schedule a follow-up appointment here in three months.
--- OUTSIDE RECORDS SUMMARY | 2025-07-14 14:44 | XMS_ITS | Patient Health Record ---
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 Section Notes: Nonsmoker; occasional alcoho l Nonsmoker; occasional alcoho l Nonsmoker; occasional alcoho l Problems Problem Type SNOMED Code ICD Code Onset Dates Problem Status W/U Status Risk Notes Problem Colon cancer screening (100925720) Colon cancer screening (Z12.11) Active confirmed Problem History of adenomatous polyp of colon (843014575) History of adenomatous polyp of colon (Z86.010) Active confirmed Problem Diverticular disease of colon (594792970) Diverticulosis of large intestine without perforation or abscess without bleeding (K57.30) Active confirmed Problem Dysphagia (46421355) Dysphagia (R13.10) Active confirmed Problem Duodenitis (75126519) Duodenitis (K29.80) Active confirmed Problem Gastroesophageal reflux disease (892456329) Gastroesophageal reflux disease (K21.9) Active confirmed Problem Gastroesophageal reflux disease (764580901) Gastroesophageal reflux disease, esophagitis presence not specified (K21.9) Active confirmed Problem Gastroesophageal reflux disease (disorder) (562046599) Chronic GERD (K21.9) Active confirmed Encounters Encounter Location Date Provider Diagnosis [facility] [address] [place] [id number] 07/22/2024 Juan Miguel Tim [facility] [address] [place] [id number] 10/26/2024 Juan Miguel Tim Plan Of Treatment Future Test Test Name Order Date COLONOSCOPY 03/09/2012 UPPER GI ENDOSCOPY 09/04/2017 COLONOSCOPY 09/04/2017 COLONOSCOPY 05/21/2023 UPPER GI ENDOSCOPY [place] DILATION OF ESOPH 04/20/2024 Insurance Providers Payer Name Payer Address Payer Phone Subscriber Number Group Number Insured Name Patient Relationship to Insured Coverage Start Date Coverage End Date MEDICARE OF [place] [address] [id number] HILL YAZMIN GUARDADO Self - patient is the insured [employer] [place] [address] [place] [id number] GAURIYAZMIN GARCIA CAS Self - patient is the insured Medical (General) History Medical History History ICD Code History of tubular adenomas of the colon removed in 2002--colonoscopies in 2006 and 2011 revealed only hyperplastic polyps, as well as diffuse diverticulosis and internal hemorrhoids Hypertension Hyperlipidemia NIDDM Denies [place],CVA,Lung disease,renal disease Left lower leg injury after [...]
--- OUTSIDE RECORDS SUMMARY | 2025-07-14 14:44 | XMS_ITS | Patient Health Record ---
Author Organization [facility] keara PenaAlexys Address [address] [place] [address] Care Team Providers Care Auto Former Machine Operator Name Role Phone Daniela Mcfadden Primary Care Provider Marizol Rivera Unavailable [phone] Allergies No Known Allergies Results Component Value [...] Polyneuropathy due to type 2 diabetes mellitus (868898232) Type 2 diabetes mellitus with diabetic polyneuropathy (E11.42) Active confirmed Problem Localized, primary osteoarthritis of the ankle and/or foot (536978661) Primary osteoarthritis of left foot (M19.072) Active confirmed Vital Signs Blood pressure diastolic 74 mm Hg 06/21/2025 Height 6ft 3in in 06/21/2025 Blood pressure systolic 144 mm Hg 06/21/2025 Weight 225 lbs 06/21/2025 BMI 28.12 kg/m2 06/21/2025 Encounters Encounter Location Date Provider Diagnosis [address] [address] 08/02/2024 Marizol Ellington Xerosis of skin L85. 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 ; Type 2 diabetes mellitus with diabetic polyneuropathy E11.42 ; Tinea unguium B35.1 and Abscess of toe, left L02.[address] [address] 12/28/2024 Marizol Heina Type 2 diabetes mellitus with diabetic polyneuropathy E11.42 and Tinea unguium B35.[address] [address] 03/22/2025 Marizol Perica Type 2 diabetes mellitus with diabetic polyneuropathy E11.42 and Tinea unguium B35.[address] [address] 05/31/2025 Marizol Perica Type 2 diabetes mellitus with diabetic polyneuropathy E11.42 ; Edema, lower extremity R60.0 and Tinea unguium B35.[address] [address] 06/21/2025 Marizol Ellington Pain in left foot M79.672 ; Primary osteoarthritis of left foot M19.072 ; Pain in left ankle and joints of left foot M25.572 ; Bursitis of left foot M77.52 and Type 2 diabetes mellitus with diabetic polyneuropathy E11.42 [facility] [address] [address] 03/08/2025 Marizol Ellington [facility] [address] [address] 06/20/2025 Marizol Ellington Assessments Encounter Date Diagnosis [...] X ray : Foot, right 3V 05/16/2013 79166-Fpuikxml Plate 09/29/2017 62733-Msgzmybi Plate 11/11/2017 66752-Epmdipnr Plate 07/02/2017 02915-Wfwhhyji Plate 12/11/2017 51770-Eljzdpkc Plate 02/02/2018 44436-Aqlrdrma Plate 07/16/2018 01122-Mrdwdzbv Plate Each Additional 01/2017 52799-Ymeuhndo Plate Each Additional 96987- Debride <25 sq cm 07/16/2017 66952 I&D ABSCESS- SIMPLE,SINGLE 018 76562 I&D ABSCESS- SIMPLE,SINGLE 018 18168 I&D ABSCESS- SIMPLE,SINGLE 017 55243 I&D ABSCESS- SIMPLE,SINGLE 019 77619, J0702- INJECT or DRAIN, JOINT/BUR SA 05/26/2012, E0050-JZRSG/INJECT, JOINT/BURSA 1 08/24/2011, K6254-FFCTJ/INJECT, JOINT/BURSA 1 S6248-YGWGZEMR DYSTROPHIC NAILS ANY # 50,U6396-TID TENDON SHEATH/LIGAMENT 0 12/21/201318955,H3156-SZJ TENDON SHEATH/LIGAMENT 0 03/06/2014 E3664-Etydglmla 3mg 06/24/2012 S9097-Rjlhfxdoj 3mg 05/26/2012 Next Appt Details Provider Name:Marizol martinez, 08/22/2025 03:00:00 PM, [address] [place] [address], [place], [address], Insurance Providers Payer Name Payer Address Payer Phone Subscriber Number Group Number Insured Name Patient Relationship to Insured Coverage Start Date Coverage End Date Medicare National Govt Svcs Inc [address] [place] [address] [id number] Real Mckeon cas Self - patient is the insured [employer] (Unic[employer]) [address] [place] [address] [phone] [id number] Real Mckeon cas Self - patient is the insured Medical (General) History Medical History History ICD Code sciatica Diabetic Arthritis Cataracts Surgical History Surgery Date(Month/Year) right hip replacement 12/08/2011 left hip replacement 10/2014 colonoscopy 04/2024
== END 2025-07-14 13:58 | disposition home or self-care (01) ==
LOC: HO.HMCSH 12:56
PROVIDERS: PCP Physician Assistant Medical; Visit Provider Physician Assistant Medical
DX: E11.9 Type 2 diabetes mellitus without complications (principal); F41.9 Anxiety disorder, unspecified; R39.9 Unspecified symptoms and signs involving the genitourinary system; A60.9 Anogenital herpesviral infection, unspecified; E53.8 Deficiency of other specified B group vitamins; L85.3 Xerosis cutis; F17.200 Nicotine dependence, unspecified, uncomplicated; F10.90 Alcohol use, unspecified, uncomplicated; I25.10 Atherosclerotic heart disease of native coronary artery without angina pectoris; I73.9 Peripheral vascular disease, unspecified

== ENCOUNTER 2025-07-24 10:24 | Outpatient (REF) | payer MEDICARE, OTHER, SELFPAY ==
--- OUTSIDE RECORDS SUMMARY | 2024-04-08 07:00 | XMS_ITS ---
Author Organization [facility] keara [place] Address [address] [place] [address] Care Team Providers Care Veneer Sorter Name Role Phone Daniela Mcfadden Primary Care Provider Marizol Rivera [phone] REASON FOR VISIT seen sooner Encounters Encounter Location Date Provider Diagnosis [address] [address] 04/08/2024 Marizol Ellington Plan Of Treatment Next Appt Details Provider Name:Marizol martinez, 08/22/2025 03:00:00 PM, [address] [place] [address], [phone], Progress Notes * Real ADAMSDOB:1945 (79 yo M)Acc No.[id number]:04/08/2024 Progress Note Patient: Real HARDY Provider: Phuong Ellington DPM :1945 A ge:78 Y S ex:Male Date:04/08/2024 Address:[address] [place] [address] [id number] Pcp:Daniela Mcfadden Subjective: * Chief Complaints: * [...] 04/08/2024 Generated for Diomedes mckinney/Chely/Clare on: 1 11:48 AM EST
--- OUTSIDE RECORDS SUMMARY | 2024-04-22 02:30 | XMS_ITS ---
Author Organization [facility] Address [address] [place] [phone] Care Team Providers Care Virtual Classroom Manager Name Role Phone Minh (RETIRED) Kaushal LEIGH Primary Care Provider Unavailable Juan Miguel Tim Unavailable [phone] REASON FOR VISIT colon screening Problems Problem Type SNOMED Code ICD Code Onset Dates Problem Status W/U Status Risk Notes Problem Diverticular disease of colon (463283036) Diverticulosis of large intestine without perforation or abscess without bleeding (K57.30) Active confirmed Problem Gastroesophageal reflux disease (073578264) Gastroesophageal reflux disease (K21.9) Active confirmed Problem Duodenitis (96780618) Duodenitis (K29.80) Active confirmed Encounters Encounter Location Date Provider [place] [facility] [place] [address] [place] [phone] 04/22/2024 Juan Miguel Tim Colon cancer screeni [...] Notes * YAZMIN ADAMSDOB:1945 (79 yo M)Acc No.[id number]:04/22/2024 EGD and COL/MAC Patient: YAZMIN HARDY Provider: Jose Tim MD :1945 A ge:78 Y S ex:Male Date:04/22/2024 Address:[address] [place], [place] [phone] Pcp:Kaushal Wilkinson (RETIRED) MD Subjective: * Chief [...] RCMND FLW-UP 10 YRS DOCD, Modifiers: 1P 19525 UPPER GI ENDOSCOPY, BIOPSY Billing Information: * Procedure Codes: 84419 LESION REMOVAL COLONOSCOPY. Modifiers: PT 0529F INTRVL 3+YRS PTS CLNSCP DOCD. Modifiers: 8P 0528F RCMND FLW-UP 10 YRS DOCD. Modifiers: 1P 68104 UPPER GI ENDOSCOPY, BIOPSY. * The named appointment provid er may or may not be the originator of this progress note, and it is not deemed complete until electronically signed by the appointment provider. Sign off status: Pending * Provider: Jose Tim MD Date: 0 04/22/2024 Generated for Diomedes mckinney/Chely/Thomasitting on: 1 11:48 AM EST
--- OUTSIDE RECORDS SUMMARY | 2024-09-01 05:00 | XMS_ITS ---
Author Organization [facility] Address [address] [place] [phone] Care Team Providers Care Top Former Name Role Phone Minh (RETIRED) Kaushal LEIGH Primary Care Provider Juan Miguel Damon [phone] REASON FOR VISIT gerd Encounters Encounter Location Date Provider Diagnosis [facility] [address] [facility] [address] [place] [phone] 09/01/2024 Juan Miguel Tim Plan Of Treatment No Information Progress Notes * YAZMIN ADAMSDOB:1945 (79 yo M)Acc No.[id number]:09/01/2024 Progress Notes Patient: YAZMIN HADRY Provider: Jose Tim MD :1945 A ge:78 Y S ex:Male Date:09/01/2024 Address:[address] [place], [place] [phone] Pcp:Kaushal Wilkinson (RETIRED) MD Subjective: * Chief Complaints: * G erd * The named appointment provid er may or may not be the originator of this progress note, and it is not deemed complete until electronically signed by the appointment provider. Sign off status: Pending * Provider: oJse Tim MD Date: 0 09/01/2024 Generated for Diomedes mckinney/Chely/eTransmitting on: 1 11:48 AM EST
--- OUTSIDE RECORDS SUMMARY | 2025-03-28 05:00 | XMS_ITS ---
Author Organization [facility] Edvin sarah Alexys Address [address] [facility] [place] [address] Care Team Providers Care Control Room Technician Name Role Phone Daniela Mcfadden Primary Care Provider Marizol Rivera Unavailable [phone] REASON FOR VISIT Seen Sooner Medications Medication [...] Orally Once a day; Duration: 30 day(s) Not-Soct ing Naprosyn 375 MG 1 tablet Orally [...] 10 MG TAKE 1 TABLET BY RISHABH EVERY DAY Oral; Duration: 21 Not-Taking Fish Oil PRN Not-Taking Encounters Encounter Location Date Provider Diagnosis [facility] [address] [address] 03/28/2025 Marizol Ellington Plan Of Treatment Next Appt Details Provider Name:Marizol martinez, 08/22/2025 03:00:00 PM, [address] [place] [address], [phone], Progress Notes * Real PRUITTDOB:1945 (79 yo M)Acc No.[id number]:03/28/2025 Progress Note Patient: Real HARDY Provider: Phuong Ellington DPM :1945 A ge:79 Y S ex:Male Date:03/28/2025 Address:[address] [place] [address], [facility] Pcp:Daniela Mcfadden Subjective: * Chief Complaints: * [...] 0 03/28/2025 Generated for Diomedes mckinney/Chely/Clare on: 11:47 AM EST
--- OUTSIDE RECORDS SUMMARY | 2025-07-24 11:48 | XMS_ITS | Patient Health Record ---
Author Organization [facility] Address [address] [place] [address] Care Team Providers Care Potato Grader Name Role Phone Minh (RETIRED) Kaushal LEIGH Primary Care Provider Unavailable Juan Miguel Tim Unavailable [phone] Allergies No Known Allergies Reason For Referral [...] --- committed suicide in 2012 Occupation: Retired-- [employer] Section Notes: Nonsmoker; occasional alcoho l Nonsmoker; occasional alcoho l Nonsmoker; occasional alcoho l Problems Problem Type SNOMED Code ICD Code Onset Dates Problem Status W/U Status Risk Notes Problem Colon cancer screening (233904904) Colon cancer screening (Z12.11) Active confirmed Problem History of adenomatous polyp of colon (459938119) History of adenomatous polyp of colon (Z86.010) Active confirmed Problem Diverticular disease of colon (100041002) Diverticulosis of large intestine without perforation or abscess without bleeding (K57.30) Active confirmed Problem Dysphagia (35165272) Dysphagia (R13.10) Active confirmed Problem Duodenitis (85887312) Duodenitis (K29.80) Active confirmed Problem Gastroesophageal reflux disease (591289122) Gastroesophageal reflux disease (K21.9) Active confirmed Problem Gastroesophageal reflux disease (059719174) Gastroesophageal reflux disease, esophagitis presence not specified (K21.9) Active confirmed Problem Gastroesophageal reflux disease (disorder) (335109528) Chronic GERD (K21.9) Active confirmed Encounters Encounter Location Date Provider Diagnosis [facility] [address] [place] [address] 10/26/2024 Juan Miguel Tim Plan Of Treatment Future Test Test Name Order Date COLONOSCOPY 03/09/2012 UPPER GI ENDOSCOPY 09/04/2017 COLONOSCOPY 09/04/2017 COLONOSCOPY 05/21/2023 UPPER GI ENDOSCOPY [place] DILATION OF ESOPH 04/20/2024 Insurance Providers Payer Name Payer Address Payer Phone Subscriber Number Group Number Insured Name Patient Relationship to Insured Coverage Start Date Coverage End Date MEDICARE OF [place] [address] [place] [address] [phone] [id number] YAZMIN ALEJANDRE CAS Self - patient is the insured [id number] Insurance ([employer]) [address] [place] [address] [id number] [place] GUARD[place]O YAZMIN Self - patient is the insured Medical (General) History Medical History History ICD Code History of tubular adenomas of the colon removed in 2002--colonoscopies in 2006 and 2011 revealed only hyperplastic polyps, as well as diffuse diverticulosis and internal hemorrhoids Hypertension Hyperlipidemia NIDDM Denies IA,CVA,Lung disease,renal disease Left lower leg injury after [...]
--- OUTSIDE RECORDS SUMMARY | 2025-07-24 11:49 | XMS_ITS | Clinical Summary ---
Author Organization [facility] Address [address] [place] [address] Phone Care Team Providers Care Senior Sql Server Dba Name Role Phone Kaushal Wilkinson MD Primary Care Provider [phone] Allergies No known active allergies Medications lisinopril (PRINIVIL,ZESTR IL) 10 MG tablet Take by mouth 2 (two) times a day. Active NIFEdipine (PROCARDIA) 10 MG capsule Take by mouth daily. Active rosuvastatin (CRESTOR) 10 MG tablet Take by mouth daily. Active omega 3-epx-cmx-fish oil 1,000 mg (120 mg-180 mg) Cap [...] this topic Medical Devices Implanted Type Area Crew Director Device Identifier Shelf Expiration Date Model / Serial / Lot Right Hip Brenna Taper Size 3 Hip - [id number] Implanted:Qty: 1 on 11/19/2015 by Mac Henley MD at [facility] Left: Hip [employer] 03/27/2018 [id number] / / [id number] Liner Ecima Brenna 36mm - [id number] Implanted:Qty: 1 on 11/19/2015 by Mac Henley MD at [facility] Left: Hip [employer] 04/26/2018 322.03.636 / / [id number] Minihip Short Stem Size 8 Standard 07/09 130ccd Hip - [id number] Implanted:Qty: 1 on 11/19/2015 by Mac Henley MD at [facility] Left: Hip [employer] 07/03/2020 580.0008 / / [id number] Biolox Delta Mod Head 36mm X 4mm Hip 04 - [id number] Implanted:Qty: 1 on 11/19/2015 by Mac Henley MD at [facility] Left: Hip [employer] 05/29/2021 104.3600 / / [id number] Procedures Procedure Name Priority Date/Time Associated Diagnosis Comments BASIC METABOLIC PANEL (BMP) Routine 10/26/2015 11:05 AM EDT from Last 3 Months or Most Recently Relevant to Health Maintenance Results * (ABNORMAL) Basic metabolic panel (10/26/2015 11:05 AM EDT) SODIUM 137 136 - 145 mmol/L [facility] POTASSIUM 4.7 3.5 - 5.2 mmol/L [facility] CHLORIDE 100 99 - 109 mmol/L [facility] CARBON DIOXIDE 24 20 - 31 mmol/L [facility] ANION GAP 13 3 - 17 [facility] CALCIUM 9.5 8.7 - 10.4 mg/dL [facility] GLUCOSE 141(Abnorm ally H) 74 - 106 mg/dL [facility] UREA NITROGEN (BUN) 19 9 - 23 mg/dl [facility] CREATININE 1.03 0.5 - 1.3 mg/dl [facility] EST GLOM FILT RATE NON- A 76.3 [facility] Comment:Units: ml/min/1.73ms q EST GLOM FILT RATE AMERI 92.4 [facility] Comment: Units: ml/min/1.73msq Reference Table for [...] AM EDT 10/26/2015 12:14 PM EDT [facility] - 10/26/2015 12:44 PM EDT [facility], [address] [facility] [address], Earrings Fabricator: Shawn Medina M.D. us Mac Henley MD LAB BLOOD BKR ORDERABLES Crystal l Result [facility] [address] [place] [address] from Last 3 Months or Most Recently Relevant to Health Maintenance Insurance [employer] TOTAL CHOICE INDEMNITY [employer] TOTAL CHOICE INDEMNITY [facility] TOTAL CHOICE INDEMNITY [facility] TOTAL CHOICE INDEMNITY [facility] TOTAL CHOICE INDEMNITY [facility] TOTAL CHOICE INDEMNITY [facility] TOTAL CHOICE INDEMNITY [facility] TOTAL CHOICE [facility] TOTAL CHOICE [facility]ITY [facility] TOTAL CHOICE INDEMNITY Advance Directives For more information, please contact: [phone] (9AM - 5PM [place], Thursday-Thursday) Documents on File Type Date Recorded Patient Firmware Engineer Expl anation Healthcare Proxy 11/28/2015 1:01 PM * Full Code (Presumed) (Latest Code Status on File) Date Activated Date Inactivated Comments 11/19/2015 5:33 PM 11/22/2015 1:56 PM * Full Code (Presumed) Date Activated Date Inactivated Comments 11/19/2015 10:21 AM 11/19/2015 5:33 PM Care Teams Senior Sql Server Dba Relationship Specialty Start Date End Date Kaushal Wilkinson MD [address] [place] [address] PCP - General 01/24/14 Additional Source Comments The information contained in this document represents components of the legal health record. It is not the complete legal health record.[facility]
--- OUTSIDE RECORDS SUMMARY | 2025-07-24 11:49 | XMS_ITS | Patient Health Record ---
Author Organization [facility] keara PenaAlexys Address [address] [address] Care Team Providers Care Tree Deadener Name Role Phone Daniela Mcfadden Primary Care Provider Marizol Rivera Unavailable [phone] Allergies No Known Allergies Results Component Value [...] Polyneuropathy due to type 2 diabetes mellitus (341432355) Type 2 diabetes mellitus with diabetic polyneuropathy (E11.42) Active confirmed Problem Localized, primary osteoarthritis of the ankle and/or foot (544134105) Primary osteoarthritis of left foot (M19.072) Active confirmed Vital Signs Blood pressure diastolic 74 mm Hg 06/21/2025 Height 6ft 3in in 06/21/2025 Blood pressure systolic 144 mm Hg 06/21/2025 Weight 225 lbs 06/21/2025 BMI 28.12 kg/m2 06/21/2025 Encounters Encounter Location Date Provider Diagnosis [address] [address] 08/02/2024 Marizol Ellington Xerosis of skin L85. 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 ; Type 2 diabetes mellitus with diabetic polyneuropathy E11.42 ; Tinea unguium B35.1 and Abscess of toe, left L02.[address] [address] 12/28/2024 Marizol Heina Type 2 diabetes mellitus with diabetic polyneuropathy E11.42 and Tinea unguium B35.[address] [address] 03/22/2025 Marizol Perica Type 2 diabetes mellitus with diabetic polyneuropathy E11.42 and Tinea unguium B35.[address] [address] 05/31/2025 Marizol Perica Type 2 diabetes mellitus with diabetic polyneuropathy E11.42 ; Edema, lower extremity R60.0 and Tinea unguium B35.[address] [address] 06/21/2025 Marizlo Ellington Pain in left foot M79.672 ; Primary osteoarthritis of left foot M19.072 ; Pain in left ankle and joints of left foot M25.572 ; Bursitis of left foot M77.52 and Type 2 diabetes mellitus with diabetic polyneuropathy E11.42 [facility] [address] [address] 03/08/2025 Marizol Ellington [facility] [address] [address] 06/20/2025 Marizol Ellington Assessments Encounter Date Diagnosis [...] X ray : Foot, right 3V 05/16/2013 42842-Lstfxefi Plate 09/29/2017 41052-Xqkdkeeo Plate 11/11/2017 89490-Ojuzerjl Plate 07/02/2017 90126-Ltzqrgaa Plate 12/11/2017 74104-Hbeindhw Plate 02/02/2018 46525-Qirfvjvn Plate 07/16/2018 70422-Ysrbejiw Plate Each Additional 01/2017 09722-Pbowtqrq Plate Each Additional 70117- Debride <25 sq cm 07/16/2017 23267 I&D ABSCESS- SIMPLE,SINGLE 018 61962 I&D ABSCESS- SIMPLE,SINGLE 018 57438 I&D ABSCESS- SIMPLE,SINGLE 017 77667 I&D ABSCESS- SIMPLE,SINGLE 019 54166, J0702- INJECT or DRAIN, JOINT/BUR SA 05/26/2012, B3056-FAZEQ/INJECT, JOINT/BURSA 1 08/24/2011, F0929-SJFLY/INJECT, JOINT/BURSA 1 D2355-ULMAWMJO DYSTROPHIC NAILS ANY # 50,M9250-JAI TENDON SHEATH/LIGAMENT 0 12/21/201316214,V2863-YJS TENDON SHEATH/LIGAMENT 0 03/06/2014 Z7246-Hdcmymvsh 3mg 06/24/2012 W9196-Vbqfewoub 3mg 05/26/2012 Next Appt Details Provider Name:Marizol martinez, 08/22/2025 03:00:00 PM, [address] [place] [address], [place], [address], Insurance Providers Payer Name Payer Address Payer Phone Subscriber Number Group Number Insured Name Patient Relationship to Insured Coverage Start Date Coverage End Date Medicare National Govt Svcs Inc [address] [place] [address] [id number] Real Mckeon cas Self - patient is the insured [employer] ([employer]) [address] [place] [address] [phone] [id number] Real Mckeon cas Self - patient is the insured Medical (General) History Medical History History ICD Code sciatica Diabetic Arthritis Cataracts Surgical History Surgery Date(Month/Year) right hip replacement 12/08/2011 left hip replacement 10/2014 colonoscopy 04/2024
[2025-07-24 14:05] LABS: Appearance Urine Clear; Glucose Urine UA Negative (Negative); PH 5.5 (5.0-9.0); Specific Gravity - Urine 1.015 (1.005-1.025); UMIC TRIGGER UACC YES
[2025-07-24 14:32] LABS: UACC Culture Trigger YES
[2025-07-24 14:45] LABS: Anion Gap 11 (12-20); Blood Urea Nitrogen 12 mg/dL (9-16); Calcium 9.4 mg/dL (8.4-10.2); Carbon Dioxide 26 mmol/L (22-29); Chloride 107 mmol/L (96-108); Estimated Glomerular Filt Rate > 60; Magnesium 2.3 mg/dL (1.6-2.6); Potassium 4.6 mmol/L (3.3-5.1); Sodium 139 mmol/L (135-145)
== END 2025-07-24 10:25 | disposition home or self-care (01) ==
LOC: HO.HMGCLDS 10:24
PROVIDERS: PCP Physician Assistant Medical; Visit Provider Physician Assistant Medical
DX: Z00.00 Encounter for general adult medical examination without abnormal findings (principal); L29.0 Pruritus ani; E11.9 Type 2 diabetes mellitus without complications; Z01.84 Encounter for antibody response examination
CPT/HCPCS: 36415; 80048; 81001; 81003; 83735; 86695; 86696; 87086